=== PATIENT | male | born 1955 | race Caucasian/White ===

== ENCOUNTER 2020-04-27 15:04 | Outpatient (REF) | payer OTHER, SELFPAY ==
[2020-04-27 17:08] LABS: Anion Gap 12 (12-20); Blood Urea Nitrogen 31 mg/dL (9-16); Calcium 9.3 mg/dL (8.4-10.2); Carbon Dioxide 33 mmol/L (22-29); Chloride 99 mmol/L (96-108); Estimated Glomerular Filt Rate 51; Glucose Random 80 mg/dL (60-115); Potassium 4.4 mmol/l (3.3-5.1); Sodium 140 mmol/L (135-145)
== END 2020-04-27 15:05 | disposition home or self-care (01) ==
LOC: HO.HMGCLDS 15:04
PROVIDERS: Hospitalist; PCP Nurse Practitioner Family; Visit Provider Internal Medicine Cardiovascular Disease
DX: I48.20 Chronic atrial fibrillation, unspecified (principal); Z20.828 Contact with and (suspected) exposure to other viral communicable diseases
CPT/HCPCS: 80048; 87635

== ENCOUNTER 2020-07-27 12:42 | Outpatient (REF) | payer OTHER, SELFPAY ==
[2020-07-27 14:03] LABS: MANUAL DIFF FLAG NO
[2020-07-27 14:22] LABS: Basophils Percent Auto 0.7 % (0-2); Eosinophils Absolute Auto 0.1 X10*3/uL (0.0-0.4); Eosinophils Percent Auto 0.9 % (0-4); Hematocrit 44.2 % (42-52); Hemoglobin 14.8 g/dl (14.0-18.0); Imm Gran Abs Auto 0.03 X10*3/uL (0.00-0.03); Imm Gran Pct Auto 0.5 % (0.0-0.4); Lymphocytes Absolute Auto 1.3 X10*3/uL (1.2-4.9); Lymphocytes Percent Auto 23.3 % (20-40); Mean Corpuscular HGB Conc 33.5 g/dl (31.0-36.0); Mean Corpuscular Hemoglobin 30.3 pg (27.0-33.0); Mean Corpuscular Volume 90.4 fL (80-98); Mean Platelet Volume 9.7 fL (9.4-12.4); Monocytes Absolute Auto 0.4 X10*3/uL (0.1-1.2); Monocytes Percent Auto 6.2 % (2-11); Neutrophils Absolute Auto 3.9 X10*3/uL (2.0-8.3); Neutrophils Percent Auto 68.4 % (45-73); Platelet Count 197 X10*3/uL (160-400); Red Blood Count 4.89 X10*6/uL (4.60-5.80); Red Cell Distribution Width 13.4 % (11.0-16.0); White Blood Count 5.6 X10*3/uL (4.8-10.8)
[2020-07-27 15:00] LABS: Anion Gap 16 (12-20); Blood Urea Nitrogen 19 mg/dL (9-16); Calcium 9.1 mg/dL (8.4-10.2); Carbon Dioxide 28 mmol/L (22-29); Chloride 100 mmol/L (96-108); Creatinine Clr Calc Pharmacy 111.9; Estimated Glomerular Filt Rate > 60; Glucose Random 88 mg/dL (60-115); Potassium 3.7 mmol/l (3.3-5.1); Sodium 140 mmol/L (135-145)
[2020-07-27 15:03] LABS: Thyroid Stimulating Hormone 1.81 uIU/mL (0.32-4.0)
== END 2020-07-27 12:43 | disposition home or self-care (01) ==
LOC: HO.HMGCLDS 12:42
PROVIDERS: PCP Nurse Practitioner Family; Visit Provider Nurse Practitioner Family
DX: R55 Syncope and collapse (principal)
CPT/HCPCS: 36415; 80048; 84443; 85025

== ENCOUNTER → 2020-08-15 09:11 | Outpatient (BNVA) | payer OTHER, SELFPAY | PROVIDERS: PCP Nurse Practitioner Family; Visit Provider Internal Medicine Cardiovascular Disease ==

== ENCOUNTER → 2020-09-15 08:26 | Outpatient (REF) | payer OTHER, SELFPAY ==
--- NOTE | ~2020-09-15 | NM_ITS ---
Myocardial perfusion study Indication: Syncope to evaluate for myocardial ischemia Technique: The patient was brought in for a Lexiscan perfusion study on 09/15/2020. Patient performed low-level exercise and was injected 0.4 mg of Lexiscan intravenously. Within a minute of injection, 45 mCi of sestamibi was given intravenously. Images were obtained using the SPECT gamma camera interlaced with the gating device. Images were obtained in supine position. Resting perfusion study was performed on 09/18/2020. Patient was administered 45 mCi of sestamibi intravenously at rest. Images were then obtained in supine position. Images obtained with and without CT attenuation. Total DLP 106 mGy-cm. Images were processed with the software and compared side to side in short axis, horizontal long axis and vertical long axis views. Findings: The stress perfusion study showed mildly reduced uptake in the basal inferior wall of the LV myocardium on non attenuated images. Attenuation corrected images show normal uptake of radiotracer in all segments of LV myocardium.. The gated study shows normal LV systolic function with calculated LVEF of 68%. LV cavity is normal in size. The gated study shows normal systolic wall thickening and contraction of segments. Resting study shows no change in perfusion pattern compared to stress perfusion study. Gating at rest reveals normal systolic wall motion with ejection fraction at 74%. The findings are consistent with normal myocardial perfusion. NM/NM randi perf SPECT rest & str Impression: 1. Myocardial perfusion imaging study shows normal myocardial perfusion 2. Gated LVEF is 68% 3. Transient ischemic dilatation not present EKG is nondiagnostic for ischemia
--- NOTE | 2020-09-15 08:29 | CA_ITS ---
Transthoracic Echocardiogram Patient (Last, First, Middle): Curtis Mccormack, Gender: Male Date of : 1955 Age: 65 Procedure Date: 09/15/2020 Procedure Type: Transthoracic Echocardiogram Location: OP Height: 182.88 cm Weight: 146.51 kg BSA: 2.61 m2 Heart Rate: bpm BP: 131 / 85 mmHg Parts Department Supervisor: LC Referring MD: Jose Parada MD Superintendent Pressure: Jose Parada MD Symptoms: R55 - Syncope and collapse Study Quality: Technically Difficult ECG Rhythm: Atrial Fibrillation Conclusions: - 1. Normal LV systolic function 2. Moderate biatrial enlargement 3. Moderate RV enlargement 4. Normal RV systolic pressure 5. Possible small PFO with [id number] shunting 6. No pericardial effusion Findings Left Ventricle Normal left ventricular size and systolic function. There is mildly increased left ventricular wall thickness. The visually estimated ejection fraction is between 60-65%. Diastolic function is indeterminate on the basis of available data. Right Ventricle The right ventricle was not well visualized. Moderately increased right ventricular cavity size. Atria Moderate biatrial enlargement. Patent foramen ovale detected using by color Doppler. There is evidence of a patent foramen ovale with left to right shunting. Aortic Valve The aortic valve was not well visualized. There is no aortic valve stenosis. There is no aortic valve regurgitation. Mitral Valve There is mild posterior mitral leaflet thickening. There is mild mitral annular calcification. There is trace mitral valve regurgitation. There is no mitral valve stenosis. Pulmonic Valve The pulmonic valve was not well visualized. Tricuspid Valve The tricuspid valve was not well visualized. Tricuspid regurgitation envelope is inadequate for calculation of right ventricular systolic pressure. Great Vessels All visible segments of the aorta are normal in size. The pulmonary artery was not well visualized. Venous The inferior vena cava was not well visualized. Pericardium/Pleural There is no evidence of pericardial effusion. Prior Study Comparison No significant change compared to prior study dated: 01/17/2020. Measurements M-Mode Liner Measurements Normals - Women/Men AOV Cusps: 2.20 1.5-2.6 cm/m2 2D Linear Measurements IVSd: 1.30 0.6-0.9/0.6-1.0 cm LVIDd: 4.62 3.9-5.3/4.2-5.9 cm LVIDd Index: 1.77 2.4-3.2/2.2-3.1 cm/m2 LVIDs: 2.80 2.0-3.6 cm LVPWd: 1.29 0.7-1.1 cm Ao Root: 3.60 2.1-3.5 cm LA Diam: 4.90 2.7-3.8/3.0-4.0 cm LAIDs Index: 1.88 1.5-2.3 cm/m2 LV Mass: 287.24 67-162/88-224 g LV Mass Index: 110.05 43-95/49-115 g/m2 LVOT Diam: 2.40 3.0+(-)1.3 cm 2D Systolic Function EF 4C: 57.80 >55% EF 2C: 60.70 >55% EF BiP: 59.20 >55% Mitral Valve MV Pk E: 1.09 MV Decel Time: 232.00 PHT: 68.00 MVA PHT: 3.24 Decel [place]: 4.69 Aortic Valve AoV Pk Sanjeev: 1.51 AoV Pk Grad: 9.00 LVOT LVOT Pk Sanjeev: 0.87 LVOT Mn Sanjeev: 0.66 LVOT VTI: 0.18 LVOT Pk Grad: 3.00 LVOT Mn Grad: 2.00 LVOT Diam: 2.40 LVOT Area: 4.52 Diastolic Function MV Pk E: 1.09 Tricuspid Valve RA Press: 3.00 Great Vessels Aorta Ao Root-2D: 3.60 2.0-3.7 cm Ao Asc: 4.00 2.1-3.4 cm Ao Arch: 2.90 Pulmonary Valve PV Pk Sanjeev: 1.00 Peak PV Grad: 4.00 Updated in Other Vendor System with Status of Final Jose Parada MD electronically signed on 09/16/2020 1:53:39 PM with status of Final
--- NOTE | 2020-09-15 08:29 | ECG_ITS ---
Hook-up date: 2020-09-15 10:45:00 Duration: 47:59:00 Test Indications: chronic afib Medications: 226800 QRS complexes 25 Ventricular ectopics which represent <1 % of total QRS comp. * Supraventricular ectopics which represent % of total QRS comp. * Paced QRS complexs which represent % of total QRS comp. VENTRICULAR ECTOPY 25 Isolated 0 Bigeminal Cycles 0 Couplets 0 Runs 0 Beats in Runs * Beats LONGEST at * BPM at :: -- * Beats FASTEST at * BPM at :: -- SUPRAVENTRICULAR ECTOPY * Isolated * Couplets * Runs * Beats in Runs * Beats LONGEST at * BPM at :: -- * Beats FASTEST at * BPM at :: -- HEART RATES 32 MIN at 23:23:51 2020-09-15 79 AVG 147 MAX at 11:50:09 2020-09-15 LONGEST RR 3.0320 secs at 23:23:49 2020-09-15 S-T LEVELS Channel 1 - 128 mm at 10:45:00 2020-09-15 - 128 mm at 10:45:00 2020-09-15 Channel 2 - 128 mm at 10:45:00 2020-09-15 - 128 mm at 10:45:00 2020-09-15 Channel 3 - 128 mm at 03:00:41 -- - 128 mm at 03:00:41 Basic rhythm Atrial fibrillation No significant pauses Rare Premature ventricular complexes Rate is well controlled, average HR of 79 bpm Patient did not report any symptoms in the diary Referred By: Jose Parada Overread By: JOSE PARADA MD
--- NOTE | 2020-09-15 08:29 | CA_ITS ---
Acquisition Time: 2020-09-15 09:41:42 Total Exercise Time: 00:02:00 Test Indications: AFIB Medications: Protocol: LEXISCAN Max HR: 109 BPM 69% of Pred: 157 BPM Max BP: 126/072 mmHG Max Work Load: 1.0 METS Pharmacological stress test using Lexiscan while sitting. Sx of dizziness and SOB reversed with Aminophyline 75 mg IV. EKG with a-fib at baseline. Non-diagnostic for ischemia. Nuclear images to follow. Normotensive response to test. Test reviewed with Dr. Padron Referred By: Jose Parada Overread By:
== END ==
LOC: HO.CARD 08:26
PROVIDERS: Visit Provider Internal Medicine Cardiovascular Disease
DX: I48.20 Chronic atrial fibrillation, unspecified (principal); R55 Syncope and collapse; I50.30 Unspecified diastolic (congestive) heart failure; Z95.1 Presence of aortocoronary bypass graft
CPT/HCPCS: 78452; 93017; 93225; 93226; 93306; A9500; J0280; J2785

== ENCOUNTER → 2020-09-26 09:38 | Outpatient (BNVA) | payer OTHER, SELFPAY | PROVIDERS: PCP Nurse Practitioner Family; Visit Provider Internal Medicine Cardiovascular Disease | DX: R55 Syncope and collapse (principal); I48.20 Chronic atrial fibrillation, unspecified; I25.10 Atherosclerotic heart disease of native coronary artery without angina pectoris; I50.20 Unspecified systolic (congestive) heart failure; Z79.899 Other long term (current) drug therapy | CPT/HCPCS: 93005 ==

== ENCOUNTER 2021-05-24 08:05 | Inpatient (IN) | payer OTHER, SELFPAY ==
[2021-05-24] VITALS (14 sets, daily range): BP systolic 99–174; BP diastolic 60–104; PULSE 87–111; RESP 17–21; TEMP 35.9–36.8; O2SAT 92–99; BMI 14.5
--- NOTE | ~2021-05-24 | US_ITS ---
EXAMINATION: US ABDOMEN COMPLETE CLINICAL INFORMATION: Hepatic lesion seen on CT scan. COMPARISON: CT abdomen and pelvis 05/24/2021. TECHNIQUE: Real-time imaging of the abdominal viscera. FINDINGS: PANCREAS: The head and body the pancreas are normal. The tail is not well visualized due to bowel gas. ABDOMINAL AORTA: The proximal, mid, and distal segments are normal in caliber. INFERIOR VENA CAVA: Visualized portions are normal. LIVER: The liver is enlarged. Liver echotexture is increased. There is a complex-appearing cyst in the peripheral right lobe of the liver corresponding to CT abnormality. This measures 3.5 x 2.9 x 2.2 cm in dimension. This contains a solid appearing area isoechoic with the liver measuring approximately 1.5 x 2 cm which does not appear vascular. This may represent echogenic debris in a complex cyst. No other focal liver lesion is seen. There is no intrahepatic biliary duct dilatation seen. GALLBLADDER: There are gallstones in the gallbladder. The gallbladder is normal in size. COMMON BILE DUCT: Normal in caliber measuring 0.3 cm in diameter. RIGHT KIDNEY: There are 2 right renal cysts, largest measuring 2.5 x 2.5 x 2.9 cm in the peripelvic midpole. No hydronephrosis or renal calculi. The kidney measures 14.1 cm in maximum dimension. LEFT KIDNEY: There is a 1.3 cm cyst in the upper pole. No hydronephrosis or renal calculi. The kidney measures 14.3 cm in maximum dimension. SPLEEN: The spleen is enlarged. The spleen measures 16.4 cm in maximum dimension. FREE FLUID: None. US/US abdomen complete IMPRESSION: Enlarged echogenic liver probably representing fatty infiltration. 3.5 x 2.9 x 4.2 cm probable complex cyst in the right lobe of the liver corresponding to CT finding. Ultrasound follow-up in 6 months recommended. Gallstones. Bilateral renal cysts, right greater than left. Enlarged spleen.
--- NOTE | ~2021-05-24 | CT_ITS ---
EXAMINATION: CT ABDOMEN AND PELVIS WITHOUT CONTRAST CLINICAL INFORMATION: Evaluate for necrotizing fasciitis. COMPARISON: No similar priors. TECHNIQUE: Multidetector volumetric imaging was performed from the superior aspect of the liver through the pubic symphysis. Sagittal and coronal reformatted images were obtained on the technologist's workstation. This CT examination was performed using dose optimization techniques as appropriate, variously including the following: *Automated exposure control *Adjustment of mA and/or kV according to patient size (this includes techniques or standardized protocols for targeted exams where dose is matched to indication/reason for exam; i.e. extremities or head) *Use of iterative reconstruction technique DLP: 331 mGy-cm FINDINGS: LUNG BASES: There are a few platelike but somewhat irregular opacities in the left lung base for instance as visualized on images 54 and 87 of series 4 of uncertain etiology, possibly a combination of parenchymal scarring or subsegmental atelectasis. No focal consolidation or pleural effusion. Cardiomegaly with extensive coronary calcifications. No pericardial effusion. In the lower right chest wall there is mild skin thickening and a small focus of air on image 1 of series 4. LIVER, GALLBLADDER, AND BILIARY TREE: The liver is enlarged measuring up to 24 cm in maximum craniocaudal dimensions. In the periphery of the right hepatic lobe adjacent to the falciform ligament there is an indeterminate hypodensity that measures up to approximately 4 cm demonstrating some outpouching into the capsule (image 24 of series 3). No other focal abnormalities. Hepatic contours and shape are within normal limits. There is no biliary ductal dilatation. There is cholelithiasis without associated wall thickening or pericholecystic inflammatory changes to suspect acute cholecystitis. PANCREAS: No focal abnormalities. The main pancreatic duct is nondilated. There is no significant peripancreatic fat stranding or free fluid. SPLEEN: The spleen is enlarged measuring up to 18.3 cm on maximum axial dimensions. There are no definite focal abnormalities. ADRENAL GLANDS: There is asymmetric prominence of the left adrenal gland without discrete nodularities. KIDNEYS AND URETERS: There are vascular and cortical calcifications bilaterally. In the lower pole of the right kidney there is a punctate nonobstructive calculus (image 74 of series 5). There is no hydronephrosis. There are a few bilateral hypodensities which likely represent simple cysts although some of these are too small to characterize. There is mild bilateral perinephric fat stranding. BLADDER: Underdistended limiting its assessment. No significant perivesical fat stranding or focal abnormalities. GASTROINTESTINAL TRACT: Small hiatal hernia. The stomach and small bowel are nondilated. There is a normal appendix in the right upper quadrant. Some portions of the descending colon are not optimally visualized due to artifact. Accounting for these limitations, no pericolic inflammatory changes or bowel obstruction are identified. ABDOMINAL WALL: There is skin thickening, fat stranding and free fluid in the lower abdominal wall, more prominent in the left side and superior to the pubic symphysis where there are several pockets of subcutaneous air for instance as visualized on images 82 and 85 of series 3. A centrally hypoattenuating organized collection is not appreciated. LYMPH NODES: There are a few prominent upper abdominal lymph nodes of uncertain etiology. For example, a 7 mm peripancreatic lymph node on image 24 of series 3, and a 8 mm periportal lymph node on image 28 of series 3 (mL maximum short axis). There are some prominent retroperitoneal lymph nodes that overall demonstrate a preserved fatty hilum and are not pathologically enlarged. There are enlarged inguinal and pelvic lymph nodes. For for instance, a 1.3 cm in maximum short axis left pelvic sidewall lymph node on image 76 of series 3, a 1.2 cm in maximum short axis left iliac lymph node on image 63; and a 1.4 cm in maximum short axis lymph node adjacent to the left femoral vessels on image 79 of series 3. VASCULAR: Extensive atherosclerotic disease of the visualized abdominal aorta and its major branches. The abdominal aorta is of normal diameter. PELVIC VISCERA: Normal appearing prostate and seminal vesicles. OSSEOUS STRUCTURES: Partially visualized irregular intramedullary sclerosis of the proximal left femur of uncertain etiology. Multilevel thoracolumbar spondylosis. CT/CT abdomen pelvis wo con IMPRESSION: Extensive inflammatory changes and subcutaneous gas in the soft tissues of the lower abdominal wall concerning for a necrotizing soft tissue infection. No organized drainable collections at this moment. Hepatosplenomegaly of uncertain etiology. There is an indeterminate hypodense lesion in the right hepatic lobe as above. Recommend further evaluation with a targeted liver ultrasound. Enlarged pelvic and inguinal lymph nodes are possibly reactive. There are also a few prominent upper abdominal lymph nodes of uncertain etiology. The possibility of a systemic hematologic processes such as lymphoma cannot be entirely excluded. Cholelithiasis but no evidence of acute cholecystitis. Indeterminate platelike and somewhat irregular opacities in the left lower lobe are likely sequela of parenchymal scarring and subsegmental atelectasis. However, a short-term follow-up with a nonemergent chest CT should be obtained to ensure no developing lesions. In the right chest wall, there is mild soft tissue thickening and a small focus of air. Correlate clinically for any erythema/tenderness. Partially visualized irregular sclerotic appearance of the intramedullary space of the proximal left femur. Recommend further characterization with a radiographic examination of the left femur. This critical result was discussed with Danis Fox MD at 05/24/2021 9:47 AM and it was ascertained that the content and urgency of the report was understood at the time of direct communication.
--- NOTE | ~2021-05-24 | XR_ITS ---
EXAMINATION: XR FEMUR, LEFT CLINICAL INFORMATION: Follow-up sclerotic lesion of the left femur seen on CT. COMPARISON: CT 05/24/2021 TECHNIQUE: AP and lateral views of the left femur were obtained. FINDINGS: There is limited evaluation of the proximal left femur due to irregular overlying soft tissue density. Partially visualized area of heterogeneous sclerosis in the proximal intertrochanteric region of the left femur. There is no fracture. No cortical irregularity. The hip is well aligned. The remaining femur is intact and unremarkable. Appropriate alignment of the knee. Diffuse vascular calcifications. XR/XR femur LT 2V IMPRESSION: Limited evaluation of the proximal left femur due to overlying soft tissue irregularity/density. The imaging is slightly sclerotic intertrochanteric left femoral lesion is identified. 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
--- NOTE | 2021-05-24 08:19 | ECG_ITS ---
Test Reason : sepsis Blood Pressure : / mmHG Vent. Rate : 107 BPM Atrial Rate : 000 BPM P-R Int : 000 ms QRS Dur : 114 ms QT Int : 368 ms P-R-T Axes : 000 065 028 degrees QTc Int : 491 ms Atrial fibrillation with rapid ventricular response Incomplete right bundle branch block Abnormal ECG No previous ECGs available Referred By: Danis Fox Electronically Signed By:MORELIA MENDIOLA MD
[2021-05-24] MEDS: 0.9 % Sodium Chloride 1,000 ML 999 ML IVCONT (08:24)
--- NOTE | 2021-05-24 08:26 | ED_ITS ---
HPI - General Adult General Chief complaint: Abdominal Pain Stated complaint: LOW ABD PAIN FROM INFECTION Time Seen by Provider: 05/24/21 08:18 Source: patient and EMS Mode of arrival: EMS Limitations: no limitations History of Present Illness HPI narrative: 66-year-old male came in for evaluation of lower abdominal skin infection. 66-year-old male who was otherwise obese overweight personal came in for evaluation of lower abdominal skin infection, patient had a history of cellulitis and the from areas of his body, patient was started on Keflex by his PCP with no improvement. Related Data Home Medications Medication Instructions Recorded Confirmed acetaminophen 500 mg tablet 1,000 mg PO BID 05/24/21 05/24/21 furosemide 80 mg tablet (Lasix) 80 mg PO DAILY 05/24/21 05/24/21 indomethacin 50 mg capsule 50 mg PO DAILY PRN 05/24/21 05/24/21 metoprolol succinate 100 mg 100 mg PO DAILY 05/24/21 05/24/21 tablet,extended release 24 hr nicotine (polacrilex) 4 mg buccal 4 mg BUCCAL Q2-4H PRN 05/24/21 05/24/21 lozenge omega-3 acid ethyl esters 1 gram 2 cap PO DAILY 05/24/21 05/24/21 capsule Previous Rx's Medication Instructions Recorded cholecalciferol (vitamin D3) 50 50 mcg PO DAILY 90 Days #90 tab 12/05/20 mcg (2,000 unit) tablet atorvastatin 80 mg tablet 80 mg PO DAILY #90 tab 02/10/21 apixaban 5 mg tablet (Eliquis) 5 mg PO BID #60 tab 03/14/21 spironolactone 25 mg tablet 25 mg PO DAILY #90 tab 04/16/21 lisinopril 5 mg tablet 5 mg PO DAILY #90 tab 05/04/21 cephalexin 500 mg capsule 500 mg PO BID PRN 10 Days #20 cap 05/21/21 Allergies Allergy/AdvReac Type Severity Reaction Status Date / Time No Known Allergies Allergy Unverified 05/15/20 09:54 [No Known Allergies*] Review of Systems Review of Systems: All other systems are reviewed and are negative Constitutional: Reports as per HPI and Reports no additional constitutional comp laints Eyes: Reports as per HPI and Reports no additional eye complaints Reports system reviewed and no additional complaints, except as documented Cardiovascular: Reports as per HPI and Reports no additional cardiovascular complaints Respiratory: Reports as per HPI and Reports no additional respiratory complaints Gastrointestinal: Reports as per HPI and Reports no additional gastrointestinal complaints Genitourinary: Reports no additional female genitourinary complaints Musculoskeletal: Reports no additional musculoskeletal complaints Skin/Breast: Reports system reviewed and no additional complaints, except as docu Psychiatric: Reports no additional psychiatric complaints Endocrine: Reports no additional endocrine complaints Hematologic/Lymphatic: Reports no additional hematologic/lymphatic complaints Allergic/Immunologic: Reports no additional allergic/immunologic complaints Reports system reviewed and no additional complaints, except as documented and Reports Abnormal speech present [facility] Past Medical History Medical History (HFpEF) heart failure with preserved ejection fraction CAD (coronary artery disease) Chronic atrial fibrillation HTN (hypertension) Morbid obesity MAURICE (obstructive sleep apnea) Surgical History S/P CABG (coronary artery bypass graft) Family History Family History Father CHF (congestive heart failure) CVD (cardiovascular disease) Mother CHF (congestive heart failure) CVD (cardiovascular disease) Diabetes mellitus Brother No problems noted. Brother No problems noted. Sister No problems noted. Son No problems noted. Social History Social History Alcohol intake: never Smoked in Last 30 Days: No Use of substances other than those prescribed or required for medical reasons: No Advance Directives: No Advance Directives Information Provided: No Physical Exam Vital Signs: Vital Signs: Last Vital Signs Temp 98.2 F 05/24/21 08:10 Pulse 111 H 05/24/21 08:10 Resp 18 05/24/21 08:10 BP 174/104 H 05/24/21 08:10 Pulse Ox 95 05/24/21 08:10 Body Mass Index 14.5 Vital signs have been reviewed as appeared to be correct. Blood pressure elevated. Heart rate elevated Respiration rate normal. Temperature normal. Oxygen saturation normal. Appearance: Alert. Oriented X3. No acute distress. Head: Normal external exam. Normocephalic. Atraumatic. No Peck signs noted. No raccoon eyes noted Eyes: PERRLA. EOMI. Conjunctiva and sclera normal. Eyelids normal. ENT: TM's Normal. Pharynx normal. Uvula midline. Moist mucous membranes. No trismus noted. No drooling noted. No muffled voice noted. Neck: Normal inspection. Neck supple. FROM. No adenopathy. Thyroid Normal. No meningeal signs. No neck mass noted. CVS: Normal heart rate and rhythm. Heart sound normal. No murmurs noted. Pulses normal throughout. Respiratory: No respiratory distress. Painless inspiration. Breath sounds normal. No wheezes/rales/rhonchi noted. Chest nontender. No accessory muscle usage noted or decreased air movement noted. Abdomen: Soft, obese, 30 x 15 cm area of redness hotness and tenderness in the lower abdomen, no abscess of fluctuation is appreciated, sounds normal in all 4 quadrants. No distention noted. No organomegaly noted. No visible injury noted. Back: No CVA tenderness. Full range of motion noted. Skin: Skin warm and dry. Normal skin color. Normal skin turgor. No rashes/lesions/lacerations noted. Extremities: No lower extremity edema. Extremities exhibit normal range of motion. Extremities nontender. Neuro: Oriented X 3. Cranial nerve exam: II-XII are grossly intact No motor deficit. No sensory deficit. Reflexes normal. Course Course Course Narrative: Assessment and plan. 66-year-old male came in with lower abdominal wall cellulitis, CT is concerning of necrotizing fasciitis, patient received Zosyn/vancomycin, surgery was consul waldemar, patient will be admitted for IV hydration, surgical debridement. Medical Decision Making Lab Data Lab results reviewed: Yes I reviewed the patient's lab results. Result diagrams: 05/24/21 08:25 05/24/21 08:25 Labs: Lab Results 05/24/21 05/24/21 05/24/21 Range/Units 08:24 08:25 08:25 WBC 12.3 H (4.8-10.8) X10*3/uL RBC 4.26 L (4.60-5.80) X10*6/uL Hgb 13.9 L (14.0-18.0) g/dl Hct 40.6 L (42.0-52.0) % MCV 95.3 (80.0-98.0) fL MCH 32.6 (27.0-33.0) pg MCHC 34.2 (31.0-36.0) g/dl RDW 13.2 (11.0-16.0) % Plt Count 173 (160-400) X10*3/uL MPV 9.8 (9.4-12.4) fL Immature Gran % (Auto) Cancelled Neut % (Auto) Cancelled Lymph % (Auto) Cancelled Mclean % (Auto) Cancelled Eos % (Auto) Cancelled Baso % (Auto) Cancelled Lymph # (Auto) Cancelled Mclean # (Auto) Cancelled Eos # (Auto) Cancelled Baso # (Auto) Cancelled Abs Immat Gran (auto) Cancelled Absolute Neuts (auto) Cancelled Absolute Nucleated RBC 0.000 (0.0-0.012) X10*3/uL Nucleated RBC % (auto) 0.0 (0.0-0.2) /100WBC Neutrophils % (Manual) 85 H (45-73) % Band Neutrophils % 9 H (3-5) % Lymphocytes % (Manual) 4 L (20-40) % Monocytes % (Manual) 1 L (2-11) % Basophils % (Manual) 1 (0-2) % Abs Neuts (Manual) 11.6 H (2.0-8.3) X10*3/uL Lymphocytes # (Manual) 0.5 L (1.2-4.9) X10*3/uL Monocytes # (Manual) 0.1 (0.1-1.2) X10*3/uL Basophils # (Manual) 0.1 (0.0-0.2) X10*3/uL Platelet Estimate NORMAL (NORMAL) Plt Morphology Comment NORMAL RBC Morphology NOTED [place] Cells 2+ (3-5) /OIF Sodium 142 (135-145) mmol/L Potassium 3.4 (3.3-5.1) mmol/L Chloride 103 (96-108) mmol/L Carbon Dioxide 26 (22-29) mmol/L Anion Gap 16 (12-20) BUN 50 H D (9-16) mg/dL Creatinine 1.66 H (0.5-1.4) mg/dL Estim Creat Clear Calc 85.8 Estimated GFR 42 Random Glucose 124 H D (60-115) mg/dL Lactic Acid 2.3 H* (0.5-2.0) mmol/L Calcium 8.6 (8.4-10.2) mg/dL Total Bilirubin 1.2 H (0.0-1.0) mg/dL Direct Bilirubin 0.7 H (0.0-0.5) mg/dL AST 18 (5-37) U/L ALT 17 (0-40) U/L Alkaline Phosphatase 118 H (39-117) U/L Total Protein 6.4 L (6.5-8.0) g/dL Albumin 3.4 L (3.5-5.0) g/dL Lipase 22 (8-78) U/L COVID-19 ([facility]) (Negative) COVID-19 Clin Com 05/24/21 Range/Units 08:25 WBC (4.8-10.8) X10*3/uL RBC (4.60-5.80) X10*6/uL Hgb (14.0-18.0) g/dl Hct (42.0-52.0) % MCV (80.0-98.0) fL MCH (27.0-33.0) pg MCHC (31.0-36.0) g/dl RDW (11.0-16.0) % Plt Count (160-400) X10*3/uL MPV (9.4-12.4) fL Immature Gran % (Auto) Neut % (Auto) Lymph % (Auto) Mclean % (Auto) Eos % (Auto) Baso % (Auto) Lymph # (Auto) Mclean # (Auto) Eos # (Auto) Baso # (Auto) Abs Immat Gran (auto) Absolute Neuts (auto) Absolute Nucleated RBC (0.0-0.012) X10*3/uL Nucleated RBC % (auto) (0.0-0.2) /100WBC Neutrophils % (Manual) (45-73) % Band Neutrophils % (3-5) % Lymphocytes % (Manual) (20-40) % Monocytes % (Manual) (2-11) % Basophils % (Manual) (0-2) % Abs Neuts (Manual) (2.0-8.3) X10*3/uL Lymphocytes # (Manual) (1.2-4.9) X10*3/uL Monocytes # (Manual) (0.1-1.2) X10*3/uL Basophils # (Manual) (0.0-0.2) X10*3/uL Platelet Estimate (NORMAL) Plt Morphology Comment RBC Morphology [place] Cells /OIF Sodium (135-145) mmol/L Potassium (3.3-5.1) mmol/L Chloride (96-108) mmol/L Carbon Dioxide (22-29) mmol/L Anion Gap (12-20) BUN (9-16) mg/dL Creatinine (0.5-1.4) mg/dL Estim Creat Clear Calc Estimated GFR Random Glucose (60-115) mg/dL Lactic Acid (0.5-2.0) mmol/L Calcium (8.4-10.2) mg/dL Total Bilirubin (0.0-1.0) mg/dL Direct Bilirubin (0.0-0.5) mg/dL AST (5-37) U/L ALT (0-40) U/L Alkaline Phosphatase (39-117) U/L Total Protein (6.5-8.0) g/dL Albumin (3.5-5.0) g/dL Lipase (8-78) U/L COVID-19 ([facility]) Negative (Negative) COVID-19 Clin Com See Note Imaging Data CT scan - abdomen: Radiologist's impression: Extensive inflammatory changes and subcutaneous gas in the soft tissues of the lower abdominal wall concerning for a necrotizing soft tissue infection. No organized drainable collections at this moment. ? Hepatosplenomegaly of uncertain etiology. There is an indeterminate hypodense lesion in the right hepatic lobe as above. Recommend further evaluation with a targeted liver ultrasound. ? Enlarged pelvic and inguinal lymph nodes are possibly reactive. There are also a few prominent upper abdominal lymph nodes of uncertain etiology. The possibility of a systemic hematologic processes such as lymphoma cannot be entirely excluded. ? Cholelithiasis but no evidence of acute cholecystitis. ? Indeterminate platelike and somewhat irregular opacities in the left lower lobe are likely sequela of parenchymal scarring and subsegmental atelectasis. However, a short-term follow-up with a nonemergent chest CT should be obtained to ensure no developing lesions. ? In the right chest wall, there is mild soft tissue thickening and a small focus of air. Correlate clinically for any erythema/tenderness. ? Partially visualized irregular sclerotic appearance of the intramedullary space of the proximal left femur. Recommend further characterization with a radiographic examination of the left femur. Discharge Plan Discharge Clinical Impression: Abdominal wall cellulitis Patient Disposition: Admitted As Inpatient Prescriptions: No Action cholecalciferol (vitamin D3) 50 mcg (2,000 unit) tablet 50 mcg PO DAILY 90 Days Qty: 90 RF: 1 atorvastatin 80 mg tablet 80 mg PO DAILY Qty: 90 RF: 1 Eliquis 5 mg tablet 5 mg PO BID Qty: 60 RF: 3 spironolactone 25 mg tablet 25 mg PO DAILY Qty: 90 RF: 3 lisinopril 5 mg tablet 5 mg PO DAILY Qty: 90 RF: 0 cephalexin 500 mg capsule 500 mg PO BID PRN (Reason: skin cysts) 10 Days Qty: 20 RF: 2 acetaminophen 500 mg Tablet 1,000 mg PO BID RF: 0 nicotine (polacrilex) 4 mg Lozenge 4 mg BUCCAL Q2-4H PRN (Reason: Nicotine Cravings) RF: 0 metoprolol succinate 100 mg tablet extended release 24 hr 100 mg PO DAILY RF: 0 furosemide [Lasix] 80 mg tablet 80 mg PO DAILY RF: 0 indomethacin 50 mg capsule 50 mg PO DAILY PRN (Reason: for pain) RF: 0 omega-3 acid ethyl esters 1 gram capsule 2 cap PO DAILY RF: 0
[2021-05-24 08:42] LABS: Hematocrit 40.6 % (42.0-52.0); Hemoglobin 13.9 g/dl (14.0-18.0); Mean Corpuscular HGB Conc 34.2 g/dl (31.0-36.0); Mean Corpuscular Hemoglobin 32.6 pg (27.0-33.0); Mean Corpuscular Volume 95.3 fL (80.0-98.0); Mean Platelet Volume 9.8 fL (9.4-12.4); Platelet Count 173 X10*3/uL (160-400); Red Blood Count 4.26 X10*6/uL (4.60-5.80); Red Cell Distribution Width 13.2 % (11.0-16.0); White Blood Count 12.3 X10*3/uL (4.8-10.8)
[2021-05-24] MEDS: Piperacillin Sodium/Tazobactam 3.375 GM in 0.9 % Sodium Chloride 50 ML IV ×2 (08:44→18:31)
[2021-05-24 08:56] LABS: Lactic Acid 2.3 mmol/L (0.5-2.0)
[2021-05-24 08:56] LABS: COVID-19 Test Negative (Negative); IDNOW Serial# 9DD0AD1C
[2021-05-24 09:00] LABS: Alanine Aminotransferase 17 U/L (0-40); Albumin Level 3.4 g/dL (3.5-5.0); Alkaline Phosphatase 118 U/L (39-117); Anion Gap 16 (12-20); Aspartate Amino Transferase 18 U/L (5-37); Bilirubin Direct 0.7 mg/dL (0.0-0.5); Bilirubin Total 1.2 mg/dL (0.0-1.0); Blood Urea Nitrogen 50 mg/dL (9-16); Calcium 8.6 mg/dL (8.4-10.2); Carbon Dioxide 26 mmol/L (22-29); Chloride 103 mmol/L (96-108); Creatinine Clr Calc Pharmacy 85.8; Estimated Glomerular Filt Rate 42; Glucose Random 124 mg/dL (60-115); Lipase 22 U/L (8-78); Potassium 3.4 mmol/L (3.3-5.1); Sodium 142 mmol/L (135-145); Total Protein 6.4 g/dL (6.5-8.0)
[2021-05-24 09:04] LABS: Band Neutrophils Percent 9 % (3-5); Basophils Abs Manual 0.1 X10*3/uL (0.0-0.2); Basophils Percent Manual 1 % (0-2); Lymphocytes Absolute Manual 0.5 X10*3/uL (1.2-4.9); Lymphocytes Percent Manual 4 % (20-40); Monocytes Absolute Manual 0.1 X10*3/uL (0.1-1.2); Monocytes Percent Manual 1 % (2-11); Neutrophils Absolute Manual 11.6 X10*3/uL (2.0-8.3); Neutrophils Percent Manual 85 % (45-73)
[2021-05-24 09:05] LABS: RBC Morphology NOTED
[2021-05-24 09:06] LABS: Burr Cells 2+ (3-5) /OIF; Platelet Estimate NORMAL (NORMAL); Platelet Morphology Comment NORMAL
[2021-05-24] MEDS: vancomycin HCL 1,000 MG in 0.9 % Sodium Chloride 250 ML 270 MG IV (09:20)
--- NOTE | 2021-05-24 09:39 | PHA.MEDREC ---
Pharmacy Consult ? Medication Reconciliation Pharmacy has completed the medication reconciliation. Theresa SheltonD
[2021-05-24 10:33] LABS: Reflex Lactate? Lactic Acid Added
[2021-05-24] MEDS: Acetaminophen 325 MG TABLET 650 MG PO (10:38)
--- NOTE | 2021-05-24 10:44 | PM.HPGS ---
History of Present Illness History of Present Illness Date of Service: 05/24/21 <Jess Shah PA-C - Last Filed: 05/24/21 11:21> 05/24/21 <Ferdinand Henson MD - Last Filed: 05/24/21 14:36> Chief complaint: abdominal wall cellulitis <Jess Shah PA-C - Last Filed: 05/24/21 11:21> Narrative: Curtis Mccormack is a 66 year old male with PMH significant for a fib on eliquis, CHF, CAD s/p CABG, HTN who presented to the ED with complaints of abdominal wall redness. He reports this began 5 days prior. He says he has a history of this happening but normally he is able to catch it in time and it improves with antibiotics. He states this normally happens under his breasts and they usually start as a pimple and then he develops pain and redness. He is usually prescribed an antibiotic with improvement. He occasionally has to have them drained but this has not happened in a while. He reports this current episode started in a similar manner. He noticed a pimple 5 days ago and developed some surrounding redness. He called his PCP and was prescribed Keflex 500mg BID. He reports that the pain was so significant that he was doubling up the keflex dose without improvement. The pain became severe and the redness continue to spread so he presented to the ED for evaluation. He denies trauma to the area, bug bites. Work up in the ED included a CT scan abd/pelvis showed skin thickening, fat stranding and free fluid in the lower abdominal wall, more prominent in the left side and superior to the pubic symphysis with several pockets of subcutaneous air without a focal fluid collection. He had a leukocytosis of 12.3, BUN/Cr of 50/1.66 and Lactic acid of 2.3. He is on eliquis for his A fib. His last dose was today. <Jess Shah PA-C - Last Filed: 05/24/21 11:21> Review of Systems Constitutional: Constitutional: Denies chills and Denies fever(s) <Jess Shah PA-C - Last Filed: 05/24/21 11:21> ENT: Denies dizziness <Jess Shah PA-C - Last Filed: 05/24/21 11:21> Cardiovascular: Cardiovascular: Denies chest pain, Denies palpitations and Denies dyspnea <Jess Shah PA-C - Last Filed: 05/24/21 11:21> Respiratory: Respiratory: Denies cough and Denies dyspnea <Jess Shah PA-C - Last Filed: 05/24/21 11:21> Gastrointestinal: Gastrointestinal: Reports abdominal pain, Denies nausea and Denies vomiting <Jess Shah PA-C - Last Filed: 05/24/21 11:21> Genitourinary: Genitourinary: Denies dysuria <Jess Shah PA-C - Last Filed: 05/24/21 11:21> Integumentary/Breasts: Skin/Breast: Reports as per HPI, Reports swelling and Reports erythema <Jess Shah PA-C - Last Filed: 05/24/21 11:21> Neurologic: Denies dizziness and Denies focal weakness <Jess Shah PA-C - Last Filed: 05/24/21 11:21> Endocrine: Endocrine: Denies palpitations <Jess Shah PA-C - Last Filed: 05/24/21 11:21> [facility] Past Medical History Medical History: Medical History (Updated 05/24/21 @ 10:27 by Danis Fox MD) (HFpEF) heart failure with preserved ejection fraction CAD (coronary artery disease) Chronic atrial fibrillation HTN (hypertension) Morbid obesity MAURICE (obstructive sleep apnea) <Jess Shah PA-C - Last Filed: 05/24/21 11:21> Family History Family History: Family History Father CHF (congestive heart failure) CVD (cardiovascular disease) Mother CHF (congestive heart failure) CVD (cardiovascular disease) Diabetes mellitus Brother No problems noted. Brother No problems noted. Sister No problems noted. Son No problems noted. <Jess Shah PA-C - Last Filed: 05/24/21 11:21> Surgical History Surgical History: Surgical History (Updated 05/24/21 @ 11:09 by Jess Shah PA-C) H/O umbilical hernia repair S/P CABG (coronary artery bypass graft) <Jess Shah PA-C - Last Filed: 05/24/21 11:21> Social History Social History: Social History Alcohol intake: never Patient Tobacco Use Status: Former Tobacco user Smoked in Last 30 Days: No Use of substances other than those prescribed or required for medical reasons: Yes Substance Use Frequency: Occasionally Have you been hit, kicked, punched, or otherwise hurt by someone within the past year? If so, by whom?: No Are you DNR?: No Advance Directives: No Advance Directives Information Provided: No Recently lost weight without trying: No Nutrition Risks: No Nutritional Risk <Jess Shah PA-C - Last Filed: 05/24/21 11:21> Meds Allergies/Adverse reactions: Allergies Allergy/AdvReac Type Severity Reaction Status Date / Time No Known Allergies Allergy Unverified 05/15/20 09:54 [No Known Allergies*] <Jess Shah PA-C - Last Filed: 05/24/21 11:21> Active Medications: Current Medications Pharmacy Consult (Consult Rx Perform Med Rec) 1 each MISCELLANE ONCE PRN PRN Reason: Consult order Pharmacy Consult (Consult Rx Vancomycin Dosing) 1 each MISCELLANE DAILY PRN PRN Reason: Consult order <Jess Shah PA-C - Last Filed: 05/24/21 11:21> Home medications: Home Medications Medication Instructions Recorded Confirmed Last Taken Type acetaminophen 500 mg tablet 1,000 mg PO BID 05/24/21 05/24/21 05/24/21 History furosemide 80 mg tablet (Lasix) 80 mg PO DAILY 05/24/21 05/24/21 05/24/21 History indomethacin 50 mg capsule 50 mg PO DAILY PRN 05/24/21 05/24/21 05/24/21 History metoprolol succinate 100 mg 100 mg PO DAILY 05/24/21 05/24/21 05/24/21 History tablet,extended release 24 hr nicotine (polacrilex) 4 mg buccal 4 mg BUCCAL Q2-4H PRN 05/24/21 05/24/21 05/24/21 History lozenge omega-3 acid ethyl esters 1 gram 2 cap PO DAILY 05/24/21 05/24/21 05/24/21 History capsule <Jess Shah PA-C Last Filed: 05/24/21 11:21> Physical Exam Vital Signs: Vital Signs: Last Vital Signs Temp 98.2 F 05/24/21 08:10 Pulse 111 H 05/24/21 08:10 Resp 18 05/24/21 08:10 BP 174/104 H 05/24/21 08:10 Pulse Ox 95 05/24/21 08:10 Body Mass Index 14.5 <MONICA Dahl Last Filed: 05/24/21 11:21> Const: General: comfortable, no acute distress and alert <Jess Shah PA-C Last Filed: 05/24/21 11:21> Orientation/consciousness: patient oriented x3 <Jess Shah PA-C Last Filed: 05/24/21 11:21> Eyes: Sclerae: sclerae normal <Jess Shah PA-C Last Filed: 05/24/21 11:21> Chest: Other: some mild induration and erythema under the breasts b/l <Jess Shah PA-C Last Filed: 05/24/21 11:21> Resp: Effort & Inspection: normal respiratory effort <Jess Shah PA-C Last Filed: 05/24/21 11:21> Cardio: Rate: tachycardic <Jess Shah PA-C Last Filed: 05/24/21 11:21> Rhythm: abnormal rhythm <Jess Shah PA-C Last Filed: 05/24/21 11:21> GI: Other: large area of erythema and induration of lower abdomen and pannus, with more induration and tenderness of left side, no crepitus appreciated, no open areas or wounds, no fluctuance appreciated <MONICA Dahl Last Filed: 05/24/21 11:21> Inspection: Yes Abdominal panniculus present and Yes scar <Jess Shah PA-C Last Filed: 05/24/21 11:21> Palpation (GI): Soft to palpation, Tenderness to palpation present (GI) (lower abdomen) and no guarding <MONICA Dahl Last Filed: 05/24/21 11:21> Skin: Other: as mentioned above in GI/breast <MONICA Dahl Last Filed: 05/24/21 11:21> Neuro: General: patient oriented x3 <MONICA Dahl Last Filed: 05/24/21 11:21> Extrem: General: Yes other (chronic venous stasis changes over anterior tibial regions b/l ) <MONICA Dahl Last Filed: 05/24/21 11:21> Results Results Labs: Short CBC 05/24/21 Range/Units 08:25 WBC 12.3 H (4.8-10.8) X10*3/uL Hgb 13.9 L (14.0-18.0) g/dl Hct 40.6 L (42.0-52.0) % Plt Count 173 (160-400) X10*3/uL BMP 05/24/21 08:25 Sodium 142 Potassium 3.4 Chloride 103 Carbon Dioxide 26 BUN 50 H D Creatinine 1.66 H Calcium 8.6 Liver Function 05/24/21 Range/Units 08:25 Total Bilirubin 1.2 H (0.0-1.0) mg/dL Direct Bilirubin 0.7 H (0.0-0.5) mg/dL AST 18 (5-37) U/L ALT 17 (0-40) U/L Alkaline Phosphatase 118 H (39-117) U/L Albumin 3.4 L (3.5-5.0) g/dL <MONICA Dahl Last Filed: 05/24/21 11:21> Additional studies: CT SCAN ABD/PELVIS Extensive inflammatory changes and subcutaneous gas in the soft tissues of the lower abdominal wall concerning for a necrotizing soft tissue infection. No organized drainable collections at this moment. Hepatosplenomegaly of uncertain etiology. There is an indeterminate hypodense lesion in the right hepatic lobe as above. Recommend further evaluation with a targeted liver ultrasound. Enlarged pelvic and inguinal lymph nodes are possibly reactive. There are also a few prominent upper abdominal lymph nodes of uncertain etiology. The possibility of a systemic hematologic processes such as lymphoma cannot be entirely excluded. <Jess HudsonbodeMONICA crawford - Last Filed: 05/24/21 11:21> Assessment and Plan (1) Abdominal wall cellulitis: Status: Acute <Jess Lamasdety MEREFritz - Last Filed: 05/24/21 11:21> (2) (HFpEF) heart failure with preserved ejection fraction: Status: Acute <Jess HudsonJOE graysonYusra - Last Filed: 05/24/21 11:21> (3) S/P CABG x 4: Status: Acute <Jess Hudsonbodeau JOEYusra - Last Filed: 05/24/21 11:21> (4) Chronic atrial fibrillation: Status: Acute <Jess Lamasdeau JOEYusra - Last Filed: 05/24/21 11:21> (5) CAD (coronary artery disease): Status: Acute <Jess HudsonJOE graysonYusra - Last Filed: 05/24/21 11:21> 66 year old male with multiple medical comorbidities presenting with abdominal wall redness and pain for [address] scan demonstrates skin thickening, fat stranding and free fluid in the lower abdominal wall with several pockets of subcutaneous air. This is concerning for a necrotizing process. He also has a leukocytosis, lactic acidosis and is tachycardic, concerning for sepsis. He has received a dose of IV zosyn and IV vanco and IVF bolus in the ED. The patient is admitted to the surgical service. It was recommended to proceed with debridement of the lower abdominal wall. It was discussed with the patient he is higher risk due to his medical comorbidities. He will also likely have a large open wound that will require prolonged wound care. He understands and agrees to proceed. He will be added onto the OR schedule for today. Continue IVF, IV vanco, IV analgesics PRN for pain control. Hospitalist consult was ordered for assistance in management of his medical comorbidities. <Jess Hudsonbodeau JOEYusra - Last Filed: 05/24/21 11:21> 66 year old male with multiple medical comorbidities presenting with abdominal wall redness and pain for [address] scan demonstrates skin thickening, fat stranding and free fluid in the lower abdominal wall with several pockets of subcutaneous air. This is concerning for a necrotizing process. He also has a leukocytosis, lactic acidosis and is tachycardic, concerning for sepsis. He has received a dose of IV zosyn and IV vanco and IVF bolus in the ED. The patient is admitted to the surgical service. It was recommended to proceed with debridement of the lower abdominal wall. It was discussed with the patient he is higher risk due to his medical comorbidities. He will also likely have a large open wound that will require prolonged wound care. He understands and agrees to proceed. He will be added onto the OR schedule for today. Continue IVF, IV vanco, IV analgesics PRN for pain control. Hospitalist consult was ordered for assistance in management of his medical comorbidities. Patient with complaints of pain on the pannus x5 days, with the area redness He is not a diabetic He does have history of multiple skin infections a suggestive of hidradenitis Wide area of induration on the lower most part of the pannus CT showing air bubbles suggestive of necrotizing process Explained to patient that we need to proceed with excisional debridement under anesthesia Reviewed the risks including but not limited to bleeding, infections, repeated debridement, large open wound requiring intensive wound care He understands and agrees to proceed He is on Eliquis This will be held temporarily Seen and examined - agree with OJE Shah <Ferdinand Henson MD - Last Filed: 05/24/21 14:36> Quality Stroke Does the patient have a stroke diagnosis?: No <Jess Shah PA-C - Last Filed: 05/24/21 11:21> VTE Prior VTE?: No <Jess Shah PA-C - Last Filed: 05/24/21 11:21> VTE Risk Level:: Surgical - high <Jess Shah PA-C - Last Filed: 05/24/21 11:21> VTE Device Contraindication: N/A - Device Ordered <Jess Shah PA-C - Last Filed: 05/24/21 11:21> VTE Drug Contraindication: N/A - Med Ordered (on eliquis) <Jess Shah PA-C - Last Filed: 05/24/21 11:21> Procedures Date of Service Date of Service: 05/24/21 <Jess Shah PA-C - Last Filed: 05/24/21 11:21>
[2021-05-24 11:15] LABS: Appearance Urine HAZY; Color Urine YELLOW; Glucose Urine UA NEG (NEG); Leukocyte Esterase Urine NEG (NEG); Nitrite Urine NEG (NEG); PH 5.5 (5.0-8.0); UACC Culture Trigger NO; Urine Blood NEG (NEG); Urine Ketones NEG (NEG); Urine Protein 1+ MG/DL (NEG-TRACE)
--- NOTE | 2021-05-24 11:30 | PHA.PROG ---
Admission Date/Time: Indication: skin Weight in k kg Adjusted body weight in K.6 kg Lander body weight in K.6 kg Obesity Dosing Indication % IBW: Serum Creatinine - Last 168 Hours 05/24/21 08:25 Creatinine 1.66 H Estimated CrCl and GFR - Last 168 Hours 05/24/21 08:25 Estim Creat Clear Calc 85.8 Estimated GFR 42 Vancomycin Loading Dose: 1000 mg Current Vancomycin Dosing Regimen:1250 mg q24 hr Vancomycin Monitoring using AUC goal of 400 - 600 range with trough as surrogate marker: Date and Time for next Vancomycin Level to be drawn:05/26 @0800 Pharmacist Comments on Vancomycin Plan: based on obesity model predicted auc of 506 and trough of 13.3 Vancomycin dosing will take advantage of [employer] as a clinical decision support tool that uses Bayesian modeling to calculate individual patient's pharmacokinetic parameters and forecast the patient's drug concentration time course with the target goal AUC 24 range of 400 - 600 mg/L/hr.
--- NOTE | 2021-05-24 12:00 | PC.NURSE ---
iv inserted by ed staff patent
--- NOTE | 2021-05-24 12:07 | P.EN_ITS ---
Event Note Date of Service: 05/28/21 Event Note: 66M, who came to the ED because of induration, tenderness on the a bdominal wall x 5 days no drainage, no fever abdomen with large pannus, wide area of induration on the lower part, no drainage, no fluctuance WBC 12 CT - bubbles of air in the pannus subcutaneous fat he is not toxic looking, not diabetic but need to rule out necrotizing process will do debridement/I and D in the OR urgently explained to him technique of procedure explained risks, benefits and alternatives pt is on Eliquis
[2021-05-24 12:17] LABS: Granular Casts Urine 0-2 /LPF; RBC Urine 0-2 /HPF (0); Squamous Epithelial Cell Urine TRACE /LPF
[2021-05-24] MEDS: Albuterol Sulfate (0.083%) 2.5 MG/3 ML VIAL.NEB INHALE (12:31)
[2021-05-24 12:44] LABS: ~Lactic Acid-LAB USE ONLY 1.3 mmol/L (0.5-2.0)
--- NOTE | 2021-05-24 14:36 | P.OP_ITS ---
Operative Note Operative Note Date of Service: 05/24/21 Narrative: Preop diagnosis : necrotizing infection of the pannus Postop diagnosis: Necrotizing infection of the pannus Procedure: Wide excision debridement of pannus for necrotizing infection Surgeon: Ferdinand Henson MD academic affairs assistant: JOE Shah Findings: Wide area of necrotizing infection of the subcutaneous fat within the pannus, with redness subcutaneous fat, foul-smelling tissue, sparing the fascia itself. Area of debridement was 29 cm by 14 cm The patient is a 66-year-old male was had a 5 day history of pain on his pannus along with area of redness. He said he had been on antibiotics p.o. as pre scribed by his primary care physician which has not helped. He does have a history of multiple skin infections specially on the groin and the area under the breast. Review of his CT scan shows gas bubbles within the pannus. I explained to him that we needed to proceed with excision node debridement in the operating room under anesthesia. I reviewed the risks, benefits, and alternatives and he had given consent. Was brought to the operating room and placed supine the table under general anesthesia via endotracheal tube. The abdomen including the large pannus and the underside of the pannus itself was prepped and draped in the usual sterile fashion. A surgical time-out was done I made an initial elliptical incision on the lower most part of the pannus using blade 10 and this was carried down through the full-thickness skin and subcutaneous fat. Deep within the pannus we noted a gangrenous and necrotizing subcutaneous fat. I therefore extended the incision using blade 10. I proceeded to then excise this entire nonviable layer of necrotizing subcutaneous tissue . We continued to extend the incision and excised more of the nonviable tissue as we could using the Kaur scissors. We kept in stented and excising tissue until we had noted viable subcutaneous fat. We debrided deep underneath this fatty tissue and examined the fascia which appeared to be involved. I continued to debride subcutaneous fat using the Kaur scissors until all the significant nonviable tissue had been removed. I then used the Pulsavac to clean the entire area. I made sure that there was no tunneling or any other cavities that were not opened up. Again, examination of the fascia did not reveal any involvement. This was therefore a necrotizing infection of the pannus. I controlled all bleeders with electrocautery as well as by tying with 3-0 Dexon. Once hemostasis was ensured, I proceeded to then irrigated some more. I then applied 2 rolls of Kerlix soaked in normal saline as a packing. I covered the entire area with dry thick gauze and ABD pads The procedure was then completed The patient tolerated procedure well. There were no complications noted. A Gregory catheter was inserted at the end. Estimated blood loss was 50 cc The patient was extubated without difficulty in the operating room and transferred to the recovery room with stable vital signs.
--- NOTE | 2021-05-24 15:04 | P.BOP_ITS ---
Brief Operative Note Date of Service: 05/24/21 <Jess Shah PA-C - Last Filed: 05/24/21 15:07> Pre-op diagnosis: necrotizing soft tissue infection <Jess Shah PA-C - Last Filed: 05/24/21 15:07> Post-op diagnosis: same <Jess Shah PA-C - Last Filed: 05/24/21 15:07> Procedure: debridement of abdominal wall <Jess Shah PA-C - Last Filed: 05/24/21 15:07> Surgeon: ANIBAL PEREZ MD <Jess Shah PA-C - Last Filed: 05/24/21 15:07> Anesthesia: GETA <Jess Shah PA-C - Last Filed: 05/24/21 15:07> Was an Integrated Circuit Design Engineer used for this Procedure?: Yes <Jess Shah PA-C - Last Filed: 05/24/21 15:07> No <Anibal Perez MD - Last Filed: 05/24/21 17:23> Integrated Circuit Design Engineer: Jess Shah <Jess Shah PA-C - Last Filed: 05/24/21 15:07> Estimated blood loss (mL): 50 <Jess Shah PA-C - Last Filed: 05/24/21 15:07> Pathology: other (PANNUS; CULTURES ) <Jess Shah PA-C - Last Filed: 05/24/21 15:07> Condition: stable <MONICA Dahl Last Filed: 05/24/21 15:07> Disposition: PACU <MONICA Dahl Last Filed: 05/24/21 15:07>
[2021-05-24] MEDS: oxyCODONE HCl Immed Release 5 MG TABLET 10 MG PO (15:51)
--- NOTE | 2021-05-24 16:24 | P.CONIM_ITS ---
History of Present Illness Data of Consult Service Date: 05/24/21 <JOE Zarate - Last Filed: 05/24/21 17:07> Requesting physician: Ferdinand Henson <JOE Zarate - Last Filed: 05/24/21 17:07> Primary Care Provider: JUAQUIN BallPRubén <JOE Zarate - Last Filed: 05/24/21 17:07> HPI Reason for consult: CAD s/p CABG, afib on eliquis, CHF, HTN <JOE Zarate - Last Filed: 05/24/21 17:07> This is a 66-year-old male with multiple medical comorbidities who presented to the emergency department with abdominal wall redness. This had been ongoing for the past several days. He called his PCP and was started on Keflex however the redness did not improve and he presented to the emergency department for evaluation. Lab work was significant for leukocytosis of 12.3, creatinine 1.66, lactic acid 2.3. CT scan of the abdomen showed extensive inflammatory changes in subcutaneous gas in the soft tissue of the lower abdominal wall concerning for necrotizing soft tissue infection. He was admitted to the surgical service and taken to the OR for debridement. The hospitalists were asked to see him in consultation for management in medical comorbidities. <JOE Zarate - Last Filed: 05/24/21 17:07> Review of Systems Review of Systems: Yes all other systems are reviewed and are negative <JOE Zarate - Last Filed: 05/24/21 17:07> Constitutional: Constitutional: Denies chills <JOE Zarate - Last Filed: 05/24/21 17:07> Cardiovascular: Cardiovascular: Denies chest pain <JOE Zarate - Last Filed: 05/24/21 17:07> Respiratory: Respiratory: Denies cough <JOE Zarate - Last Filed: 05/24/21 17:07> [facility] Medical History: Medical History (HFpEF) heart failure with preserved ejection fraction CAD (coronary artery disease) Chronic atrial fibrillation HTN (hypertension) Morbid obesity MAURICE (obstructive sleep apnea) <JOE Zarate - Last Filed: 05/24/21 17:07> Functional capacity: independent ambulation <JOE Zarate - Last Filed: 05/24/21 17:07> Family History: Family History Father CHF (congestive heart failure) CVD (cardiovascular disease) Mother CHF (congestive heart failure) CVD (cardiovascular disease) Diabetes mellitus Brother No problems noted. Brother No problems noted. Sister No problems noted. Son No problems noted. <JOE Zarate - Last Filed: 05/24/21 17:07> Pertinent family history: see above <JOE Zarate - Last Filed: 05/24/21 17:07> Surgical History: Surgical History H/O umbilical hernia repair S/P CABG (coronary artery bypass graft) <JOE Zarate - Last Filed: 05/24/21 17:07> Social History: Social History Alcohol intake: never Patient Tobacco Use Status: Former Tobacco user Smoked in Last 30 Days: No Use of substances other than those prescribed or required for medical reasons: Yes Substance Use Frequency: Occasionally Have you been hit, kicked, punched, or otherwise hurt by someone within the past year? If so, by whom?: No Are you DNR?: No Advance Directives: No Advance Directives Information Provided: No Recently lost weight without trying: No Nutrition Risks: No Nutritional Risk <JOE Zarate - Last Filed: 05/24/21 17:07> Meds Allergies/Adverse reactions: Allergies Allergy/AdvReac Type Severity Reaction Status Date / Time No Known Allergies Allergy Unverified 05/15/20 09:54 [No Known Allergies*] <JOE Zarate - Last Filed: 05/24/21 17:07> Active Medications: Current Medications Acetaminophen (Acetaminophen 325 Mg Tablet) 650 mg PO Q6H PRN PRN Reason: Pain, Mild (Pain Scale 1-3) Docusate Sodium (Docusate Sodium 100 Mg Capsule) 100 mg PO BID [facility] Hydromorphone HCl (Hydromorphone Hcl 0.5 Mg/0.5 Ml Syringe) 0.5 mg IVPUSH Q2H PRN; Protocol PRN Reason: Pain, Severe (Pain Scale 7-10) Hydromorphone HCl (Hydromorphone Hcl 0.5 Mg/0.5 Ml Syringe) 0.25 mg IVPUSH Q5M PRN; Protocol PRN Reason: Pain, Severe (Pain Scale 7-10) Vancomycin HCl 1,250 mg/ (Sodium Chloride) 250 mls @ 166.667 mls/hr IV Q24H [facility] Piperacillin Sod/Tazobactam (Sod 3.375 gm/ Sodium Chloride) 50 mls @ 100 mls/hr IV Q6H [facility] Sodium Chloride (Ns) 1,000 mls @ 80 mls/hr IVCONT .[id number] [facility] Medication (No Benzodiazepines) 1 each MISCELLANE DAILY [facility] Metoprolol Succinate (Metoprolol Succinate Er 100 Mg Tab.Er.24h) 100 mg PO DAILY [facility]; Protocol Nicotine Polacrilex (Nicotine Polacrilex Lozenge 4 Mg Lozenge) 4 mg BUCCAL Q2H PRN PRN Reason: Nicotine Cravings Ondansetron HCl (Ondansetron Hcl 4 Mg/2 Ml Vial) 4 mg IVPUSH Q8H PRN PRN Reason: Nausea and Vomiting Ondansetron HCl (Ondansetron Hcl 4 Mg/2 Ml Vial) 4 mg IVPUSH ONCE PRN PRN Reason: Nausea and Vomiting Oxycodone HCl (Oxycodone Hcl Immed Release 5 Mg Tablet) 10 mg PO Q4H PRN PRN Reason: Pain, Severe (Pain Scale 7-10) Last Admin: 05/24/21 15:51 Dose: 10 mg Documented by: Pharmacy Consult (Consult Rx Perform Med Rec) 1 each MISCELLANE ONCE PRN PRN Reason: Consult order Pharmacy Consult (Consult Rx Vancomycin Dosing) 1 each MISCELLANE DAILY PRN PRN Reason: Consult order Phenobarbital (Phenobarbital 30 Mg Tablet) 60 mg PO BID [facility] Stop: 05/26/21 21:01 Phenobarbital (Phenobarbital 30 Mg Tablet) 30 mg PO BID [facility] Stop: 05/28/21 21:01 Phenobarbital (Phenobarbital 30 Mg Tablet) 30 mg PO DAILY [facility] Stop: 05/30/21 09:01 Phenobarbital Sodium (Phenobarbital Sodium 130 Mg/Ml Vial) 186 mg IM Q3H [facility] Stop: 05/24/21 22:01 Sodium Chloride (0.9 % Sodium Chloride Flush 3 Ml Syringe) 3 ml IVFLUSH QSHIFT [facility] <JOE Zarate - Last Filed: 05/24/21 17:07> Home medications: Home Medications Medication Instructions Recorded Confirmed Last Taken Type acetaminophen 500 mg tablet 1,000 mg PO BID 05/24/21 05/24/21 05/24/21 History furosemide 80 mg tablet (Lasix) 80 mg PO DAILY 05/24/21 05/24/21 05/24/21 History indomethacin 50 mg capsule 50 mg PO DAILY PRN 05/24/21 05/24/21 05/24/21 History metoprolol succinate 100 mg 100 mg PO DAILY 05/24/21 05/24/21 05/24/21 History tablet,extended release 24 hr nicotine (polacrilex) 4 mg buccal 4 mg BUCCAL Q2-4H PRN 05/24/21 05/24/21 05/24/21 History lozenge omega-3 acid ethyl esters 1 gram 2 cap PO DAILY 05/24/21 05/24/21 05/24/21 History capsule <JOE Zarate - Last Filed: 05/24/21 17:07> Physical Exam Vital Signs and Narrative: Vital Signs: Last Vital Signs Temp 97.1 F 05/24/21 14:50 Pulse 94 05/24/21 16:05 Resp 18 05/24/21 16:05 BP 121/73 05/24/21 16:05 Pulse Ox 97 05/24/21 16:05 Body Mass Index 14.5 <JOE Zarate - Last Filed: 05/24/21 17:07> Const: General: comfortable and alert <JOE Zarate - Last Filed: 05/24/21 17:07> Nutritional Appearance: obese <JOE Zarate - Last Filed: 05/24/21 17:07> Orientation/consciousness: patient oriented x3 <JOE Zarate - Last Filed: 05/24/21 17:07> HENMT: Head: Yes normocephalic and Yes atraumatic <JOE Zarate - Last Filed: 05/24/21 17:07> Eyes: Sclerae: sclerae normal <JOE Zarate - Last Filed: 05/24/21 17:07> Resp: Effort & Inspection: normal respiratory effort and no respiratory distress <JOE Zarate - Last Filed: 05/24/21 17:07> Cardio: Rate: regular rate <JOE Zarate - Last Filed: 05/24/21 17:07> Rhythm: abnormal rhythm irregularly irregular <JOE Zarate - Last Filed: 05/24/21 17:07> GI: Other: lower abdomen covered in clean, dry, intact dressing <JOE Zarate - Last Filed: 05/24/21 17:07> Neuro: General: patient oriented x3 <JOE Zarate - Last Filed: 05/24/21 17:07> Cranial nerves: Yes CN's II-XII intact bilaterally and Yes Bilaterally intact EOM present <JOE Zarate - Last Filed: 05/24/21 17:07> Extrem: Other: b/l lower leg chronic venous stasis changes <JOE Zarate - Last Filed: 05/24/21 17:07> Results Labs CBC and Chem 7: : 05/24/21 08:25 05/24/21 08:25 <JOE Zarate - Last Filed: 05/24/21 17:07> Labs: Laboratory Results - last 24 hr 05/24/21 05/24/21 05/24/21 08:24 08:25 08:25 MCV 95.3 MCH 32.6 MCHC 34.2 RDW 13.2 Plt Count 173 MPV 9.8 Immature Gran % (Auto) Cancelled Neut % (Auto) Cancelled Lymph % (Auto) Cancelled [place] % (Auto) Cancelled Eos % (Auto) Cancelled Baso % (Auto) Cancelled Lymph # (Auto) Cancelled [place] # (Auto) Cancelled Eos # (Auto) Cancelled Baso # (Auto) Cancelled Abs Immat Gran (auto) Cancelled Absolute Neuts (auto) Cancelled Absolute Nucleated RBC 0.000 Nucleated RBC % (auto) 0.0 Neutrophils % (Manual) 85 H Band Neutrophils % 9 H Lymphocytes % (Manual) 4 L Monocytes % (Manual) 1 L Basophils % (Manual) 1 Abs Neuts (Manual) 11.6 H Lymphocytes # (Manual) 0.5 L Monocytes # (Manual) 0.1 Basophils # (Manual) 0.1 Platelet Estimate NORMAL Plt Morphology Comment NORMAL RBC Morphology NOTED Reanna Cells 2+ (3-5) Anion Gap 16 Estim Creat Clear Calc 85.8 Estimated GFR 42 Random Glucose 124 H D Lactic Acid 2.3 H* Lactic Acid Fup @ 2Hr Calcium 8.6 Total Bilirubin 1.2 H Direct Bilirubin 0.7 H AST 18 ALT 17 Alkaline Phosphatase 118 H Total Protein 6.4 L Albumin 3.4 L Lipase 22 Urine Color Urine Appearance Urine pH Ur Specific [place] Urine Protein Urine Glucose (UA) Urine Ketones Urine Blood Urine Nitrite Ur Leukocyte Esterase Urine RBC Urine WBC Ur Squamous Epith Cells Urine Bacteria Granular Casts COVID-19 ([facility]) COVID-19 Clin Com 05/24/21 05/24/21 05/24/21 08:25 10:56 12:25 MCV MCH MCHC RDW Plt Count MPV Immature Gran % (Auto) Neut % (Auto) Lymph % (Auto) [place] % (Auto) Eos % (Auto) Baso % (Auto) Lymph # (Auto) [place] # (Auto) Eos # (Auto) Baso # (Auto) Abs Immat Gran (auto) Absolute Neuts (auto) Absolute Nucleated RBC Nucleated RBC % (auto) Neutrophils % (Manual) Band Neutrophils % Lymphocytes % (Manual) Monocytes % (Manual) Basophils % (Manual) Abs Neuts (Manual) Lymphocytes # (Manual) Monocytes # (Manual) Basophils # (Manual) Platelet Estimate Plt Morphology Comment RBC Morphology [place] Cells Anion Gap Estim Creat Clear Calc Estimated GFR Random Glucose Lactic Acid Lactic Acid Fup @ 2Hr 1.3 Calcium Total Bilirubin Direct Bilirubin AST ALT Alkaline Phosphatase Total Protein Albumin Lipase Urine Color YELLOW Urine Appearance HAZY Urine pH 5.5 Ur Specific [place] 1.020 Urine Protein 1+ H Urine Glucose (UA) NEG Urine Ketones NEG Urine Blood NEG Urine Nitrite NEG Ur Leukocyte Esterase NEG Urine RBC 0-2 Urine WBC 1-4 Ur Squamous Epith Cells TRACE Urine Bacteria NONE Granular Casts 0-2 COVID-19 ([facility]) Negative COVID-19 Clin Com See Note <JOE Zarate - Last Filed: 05/24/21 17:07> Imaging Radiologist's Impressions: Impressions Abdomen/Pelvis CT 05/24/21 08:22 IMPRESSION: Extensive inflammatory changes and subcutaneous gas in the soft tissues of the lower abdominal wall concerning for a necrotizing soft tissue infection. No organized drainable collections at this moment. Hepatosplenomegaly of uncertain etiology. There is an indeterminate hypodense lesion in the right hepatic lobe as above. Recommend further evaluation with a targeted liver ultrasound. Enlarged pelvic and inguinal lymph nodes are possibly reactive. There are also a few prominent upper abdominal lymph nodes of uncertain etiology. The possibility of a systemic hematologic processes such as lymphoma cannot be entirely excluded. Cholelithiasis but no evidence of acute cholecystitis. Indeterminate platelike and somewhat irregular opacities in the left lower lobe are likely sequela of parenchymal scarring and subsegmental atelectasis. However, a short-term follow-up with a nonemergent chest CT should be obtained to ensure no developing lesions. In the right chest wall, there is mild soft tissue thickening and a small focus of air. Correlate clinically for any erythema/tenderness. Partially visualized irregular sclerotic appearance of the intramedullary space of the proximal left femur. Recommend further characterization with a radiographic examination of the left femur. This critical result was discussed with Danis Fox MD at 05/24/2021 9:47 AM and it was ascertained that the content and urgency of the report was understood at the time of direct communication. <JOE Zarate - Last Filed: 05/24/21 17:07> Assessment and Plan (1) Abdominal wall cellulitis: Status: Acute <JOE Zarate - Last Filed: 05/24/21 17:07> (2) CAD (coronary artery disease): Status: Acute <JOE Zarate Last Filed: 05/24/21 17:07> (3) Morbid obesity: Status: Acute <JOE Zarate - Last Filed: 05/24/21 17:07> (4) HTN (hypertension): Status: Acute <JOE Zarate Last Filed: 05/24/21 17:07> This is a 66-year-old male with history of chronic atrial fibrillation on Eliquis, CAD s/p CABG, HFpEF, HTN, HLD who presents to the emergency department with abdominal wall cellulitis found to have soft tissue necrotizing skin infection Sepsis secondary to Necrotizing soft tissue infection of the abdominal wall s/p debridement of abdominal wall Management per surgical team OWEN on CKD 3 -lisinopril, Aldactone, Lasix on hold -gentle IV fluid -monitor renal function closely alcohol use Patient reports drinking alcohol 2 times per week and not for the past 7 days His brother called to report history of alcohol withdrawal infrequent alcohol use Not cevidence of alcohol withdrawal at this time -phenobarbital protocol -supplementation with thiamine, folic acid liver lesion hypodense lesion seen on abdominal CT -dedicated liver US sclerotic appearance of left femur -femur xray Chronic afib -continue metoprolol -resume anticoagulation with Eliquis when safe from surgical perspective Hyperlipidemia -statin on hold CAD No chest pain morbid obesity BMI 40.4 MAURICE unable to tolerate CPAP DVT prophylaxis-mechanical devices. Resume Eliquis when safe from surgical perspective Attending: Dr. Hernandez <JOE Zarate - Last Filed: 05/24/21 17:07> This is a 66-year-old male with history of chronic atrial fibrillation on Eliquis, CAD s/p CABG, HFpEF, HTN, HLD who presents to the emergency department with abdominal wall cellulitis found to have soft tissue necrotizing skin infection Sepsis secondary to Necrotizing soft tissue infection of the abdominal wall s/p debridement of abdominal wall Management per surgical team OWEN on CKD 3 -lisinopril, Aldactone, Lasix on hold -gentle IV fluid -monitor renal function closely alcohol use Patient reports drinking alcohol 2 times per week and not for the past 7 days His brother called to report history of alcohol withdrawal infrequent alcohol use Not cevidence of alcohol withdrawal at this time -phenobarbital protocol -supplementation with thiamine, folic acid liver lesion hypodense lesion seen on abdominal CT -dedicated liver US sclerotic appearance of left femur -femur xray Chronic afib -continue metoprolol -resume anticoagulation with Eliquis when safe from surgical perspective Hyperlipidemia -statin on hold CAD No chest pain morbid obesity BMI 40.4 MAURICE unable to tolerate CPAP DVT prophylaxis-mechanical devices. Resume Eliquis when safe from surgical perspective Attending: Dr. Hernandez Discussed with Ms. Vasquez. Agree with assessment and plan as outlined <Odilon Hernandez, DO - Last Filed: 05/24/21 18:06>
[2021-05-24 16:39] LABS: Magnesium 1.6 mg/dL (1.6-2.6)
--- NOTE | 2021-05-24 16:48 | PC.NURSE ---
taking sips po fluids. no naussea
--- NOTE | 2021-05-24 17:23 | PM.EVENT ---
Event Note Date of Service: 05/24/21 Event Note: seen postop he underwent excisional debridement of pannus for necrotizing infection earlier says he feels much better now after surgery dressings dry stable VS good UO talked to son Jose- pt is an alcoholic, has had hx of withdrawal case discussed with Hospitalist service pain mgt plan dressing change tomorrow at bedside
--- NOTE | 2021-05-24 17:25 | PC.NURSE ---
dr. lincoln at bedside to evaluate patient. made aware patient going to room 357 to be remote tele monitored.
[2021-05-24] MEDS: 0.9 % Sodium Chloride Flush 3 ML SYRINGE IVFLUSH (18:31)
[2021-05-24] MEDS: 0.9 % Sodium Chloride 1,000 ML 80 ML IVCONT (18:31)
[2021-05-24] MEDS: PHENobarbitaL sodium 130 MG/ML VIAL 248 MG IM (18:32)
[2021-05-24] MEDS: Zolpidem Tartrate 5 MG TABLET PO (22:33)
[2021-05-24] MEDS: PHENobarbitaL sodium 130 MG/ML VIAL 186 MG IM (22:33)
[2021-05-25] VITALS (8 sets, daily range): BP systolic 122–153; BP diastolic 70–92; PULSE 80–99; RESP 16–18; TEMP 36–36.9; O2SAT 94–100
[2021-05-25] MEDS: 0.9 % Sodium Chloride Flush 3 ML SYRINGE IVFLUSH ×4 (00:39→22:25)
[2021-05-25] MEDS: Piperacillin Sodium/Tazobactam 3.375 GM in 0.9 % Sodium Chloride 50 ML IV ×4 (00:42→17:31)
[2021-05-25] MEDS: PHENobarbitaL sodium 130 MG/ML VIAL 186 MG IM (00:43)
[2021-05-25 05:38] LABS: Hematocrit 34.9 % (42.0-52.0); Hemoglobin 11.6 g/dl (14.0-18.0); Mean Corpuscular HGB Conc 33.2 g/dl (31.0-36.0); Mean Corpuscular Hemoglobin 32.1 pg (27.0-33.0); Mean Corpuscular Volume 96.7 fL (80.0-98.0); Mean Platelet Volume 9.5 fL (9.4-12.4); Platelet Count 177 X10*3/uL (160-400); Red Blood Count 3.61 X10*6/uL (4.60-5.80); Red Cell Distribution Width 13.3 % (11.0-16.0); White Blood Count 14.1 X10*3/uL (4.8-10.8)
[2021-05-25 06:16] LABS: Anion Gap 12 (12-20); Blood Urea Nitrogen 46 mg/dL (9-16); Calcium 7.8 mg/dL (8.4-10.2); Carbon Dioxide 28 mmol/L (22-29); Chloride 105 mmol/L (96-108); Creatinine Clr Calc Pharmacy 75.2; Estimated Glomerular Filt Rate 51; Glucose Random 100 mg/dL (60-115); Potassium 3.5 mmol/L (3.3-5.1); Sodium 141 mmol/L (135-145)
[2021-05-25 07:56] LABS: Band Neutrophils Percent 13 % (3-5); Lymphocytes Absolute Manual 0.1 X10*3/uL (1.2-4.9); Lymphocytes Percent Manual 1 % (20-40); Monocytes Absolute Manual 0.3 X10*3/uL (0.1-1.2); Monocytes Percent Manual 2 % (2-11); Neutrophils Absolute Manual 13.7 X10*3/uL (2.0-8.3); Neutrophils Percent Manual 84 % (45-73)
[2021-05-25 07:57] LABS: Acanthocytes 2+ (3-5) /OIF; Ovalocytes 1+ (5-14) /OIF; RBC Morphology NOTED
[2021-05-25 07:58] LABS: Platelet Estimate NORMAL (NORMAL); Platelet Morphology Comment NORMAL; Schistocytes 1+ (0-2) /OIF
[2021-05-25 07:59] LABS: Dohle Bodies PRESENT
--- NOTE | 2021-05-25 08:25 | HO.POSTANES ---
Post Anesthesia Evaluation Post Anesthesia Evaluation Vital Signs: Vital Signs Temp Pulse Resp BP Pulse Ox 05/25/21 08:00 97.4 F 93 18 140/75 H 96 05/25/21 03:52 96.9 F 85 18 122/79 97 05/24/21 23:05 96.7 F L 93 18 128/73 96 Anesthesia: General Mental Status: Awake Nausea/Vomiting: None Hydration: Adequate Anesthesia-Related Issues: No Anes. Related Issues
--- NOTE | 2021-05-25 08:25 | PM.PNGS ---
Subjective Subjective Date of Service: 05/25/21 <Jess Shah PA-C - Last Filed: 05/25/21 08:35> 05/25/21 <Ferdinand Henson MD - Last Filed: 05/25/21 15:38> Interval history: Feels much better this morning, pain improved. He is comfortable with analgesics. His abdominal dressing had to be reinforced overnight. Has not been OOB yet. Going for xray/US this morning. <Jess Shah PA-C - Last Filed: 05/25/21 08:35> Physical Exam Vital Signs: Vital Signs: Last Vital Signs Temp 97.4 F 05/25/21 08:00 Pulse 93 05/25/21 08:00 Resp 18 05/25/21 08:00 BP 140/75 H 05/25/21 08:00 Pulse Ox 96 05/25/21 08:00 Body Mass Index 14.5 <Jess Shah PA-C - Last Filed: 05/25/21 08:35> Const: General: comfortable, no acute distress and alert <Jess Shah PA-C - Last Filed: 05/25/21 08:35> Orientation/consciousness: patient oriented x3 <MONICA Dahl Last Filed: 05/25/21 08:35> Resp: Effort & Inspection: normal respiratory effort <MONICA Dahl Last Filed: 05/25/21 08:35> Cardio: Rate: regular rate <MONICA Dahl Last Filed: 05/25/21 08:35> Rhythm: abnormal rhythm <MONICA Dahl Last Filed: 05/25/21 08:35> GI: Other: abdominal dressing intact, reinforced overnight <MONICA Dahl Last Filed: 05/25/21 08:35> Inspection: No distended and Yes Abdominal panniculus present <MONICA Dahl Last Filed: 05/25/21 08:35> Palpation (GI): Soft to palpation <MONICA Dahl Last Filed: 05/25/21 08:35> Skin: Other: warm and dry <Jess Shah PA-C Rubén Last Filed: 05/25/21 08:35> Neuro: General: patient oriented x3 <Jess Shah PA-C Rubén Last Filed: 05/25/21 08:35> Extrem: General: Yes venous stasis dermatitis (b/l LE) <Jess Shah PA-C - Last Filed: 05/25/21 08:35> Procedures Date of Service Date of Service: 05/25/21 <Jess Shah PA-C - Last Filed: 05/25/21 08:35> Progress Note: A&P Assessment and plan (1) CAD (coronary artery disease): Status: Acute <MONICA Dahl Last Filed: 05/25/21 08:35> (2) (HFpEF) heart failure with preserved ejection fraction: Status: Acute <Jess Shah PA-C Rubén Last Filed: 05/25/21 08:35> (3) S/P CABG x 4: Status: Acute <Jess Shah PA-C - Last Filed: 05/25/21 08:35> (4) Chronic atrial fibrillation: Status: Acute <Jess Shah PA-C Rubén Last Filed: 05/25/21 08:35> (5) Necrotizing soft tissue infection: Status: Acute <Jess Shah PA-C Rubén Last Filed: 05/25/21 08:35> Assessment and Plan: 66 year old male admitted with abdominal wall cellulitis, sepsis with gas in pannus on CT, now POD #1 s/p abdominal wall debridement, found to have necrotizing soft tissue infection. He is doing very well post operatively and is clinically appearing well. His pain is improved and well controlled. VSS. Will return to do the dressing change. Sepsis resolved- his lactic acidosis has resolved. His WBC count did trend up this morning but likely reactive. Continue IV zosyn, vanco. Await cultures. Can remove barros today, advance diet. Renal labs improving, OWEN resolving with hydration. On phenobarbitol protocol as patient's son reports ETOH abuse with daily drinking. Hospitalists following for medical comorbidities. Appreciate input. <Jess Shah PA-C - Last Filed: 05/25/21 08:35> 66 year old male admitted with abdominal wall cellulitis, sepsis with gas in pannus on CT, now POD #1 s/p abdominal wall debridement, found to have necrotizing soft tissue infection. He is doing very well post operatively and is clinically appearing well. His pain is improved and well controlled. VSS. Will return to do the dressing change. Sepsis resolved- his lactic acidosis has resolved. His WBC count did trend up this morning but likely reactive. Continue IV zosyn, vanco. Await cultures. Can remove barros today, advance diet. Renal labs improving, OWEN resolving with hydration. On phenobarbitol protocol as patient's son reports ETOH abuse with daily drinking. Hospitalists following for medical comorbidities. Appreciate input. Much more comfortable today Debridement site oozy, has been on Eliquis Seen and examined - agree with JOE Shah <Ferdinand Henson MD - Last Filed: 05/25/21 15:38> Fall Risk Details Current Medications: Current Medications Acetaminophen (Acetaminophen 325 Mg Tablet) 650 mg PO Q6H PRN PRN Reason: Pain, Mild (Pain Scale 1-3) Docusate Sodium (Docusate Sodium 100 Mg Capsule) 100 mg PO BID [facility] Folic Acid (Folic Acid 1 Mg Tablet) 1 mg PO DAILY [facility] Hydromorphone HCl (Hydromorphone Hcl 0.5 Mg/0.5 Ml Syringe) 0.5 mg IVPUSH Q2H PRN; Protocol PRN Reason: Pain, Severe (Pain Scale 7-10) Vancomycin HCl 1,250 mg/ (Sodium Chloride) 250 mls @ 166.667 mls/hr IV Q24H [facility] Sodium Chloride (Ns) 1,000 mls @ 80 mls/hr IVCONT .[id number] [facility] Last Admin: 05/25/21 05:54 Dose: Not Given Documented by: Piperacillin Sod/Tazobactam (Sod 3.375 gm/ Sodium Chloride) 50 mls @ 100 mls/hr IV Q6H [facility] Last Infusion: 05/25/21 06:42 Dose: Infused Documented by: Medication (No Benzodiazepines) 1 each MISCELLANE DAILY [facility] Metoprolol Succinate (Metoprolol Succinate Er 100 Mg Tab.Er.24h) 100 mg PO DAILY [facility]; Protocol Nicotine Polacrilex (Nicotine Polacrilex Lozenge 4 Mg Lozenge) 4 mg BUCCAL Q2H PRN PRN Reason: Nicotine Cravings Ondansetron HCl (Ondansetron Hcl 4 Mg/2 Ml Vial) 4 mg IVPUSH Q8H PRN PRN Reason: Nausea and Vomiting Oxycodone HCl (Oxycodone Hcl Immed Release 5 Mg Tablet) 10 mg PO Q4H PRN PRN Reason: Pain, Severe (Pain Scale 7-10) Last Admin: 05/24/21 15:51 Dose: 10 mg Documented by: Pharmacy Consult (Consult Rx Perform Med Rec) 1 each MISCELLANE ONCE PRN PRN Reason: Consult order Pharmacy Consult (Consult Rx Vancomycin Dosing) 1 each MISCELLANE DAILY PRN PRN Reason: Consult order Phenobarbital (Phenobarbital 30 Mg Tablet) 60 mg PO BID [facility] Stop: 05/26/21 21:01 Phenobarbital (Phenobarbital 30 Mg Tablet) 30 mg PO BID [facility] Stop: 05/28/21 21:01 Phenobarbital (Phenobarbital 30 Mg Tablet) 30 mg PO DAILY [facility] Stop: 05/30/21 09:01 Sodium Chloride (0.9 % Sodium Chloride Flush 3 Ml Syringe) [facility] Last Admin: 05/25/21 00:39 Dose: 3 ml Documented by: Thiamine HCl (Thiamine Hcl 100 Mg Tablet) 100 mg PO DAILY [facility] <Jess Shah PA-C - Last Filed: 05/25/21 08:35> Time Spent With Patient Time: Total time spent is greater than 50% in coordination of care (as documented) at patient's floor/unit and/or counseling patient: <Jess Shah PA-C - Last Filed: 05/25/21 08:35> Time with patient: 15 - 24 minutes <Jess Shah PA-C - Last Filed: 05/25/21 08:35> Quality Stroke Does the patient have a stroke diagnosis?: No <Jess Shah PA-C - Last Filed: 05/25/21 08:35> VTE Prior VTE?: No <Jess Shah PA-C - Last Filed: 05/25/21 08:35> VTE Risk Level:: Surgical - high <Jess Shah PA-C - Last Filed: 05/25/21 08:35> VTE Device Contraindication: N/A - Device Ordered <Jess Shah PA-C - Last Filed: 05/25/21 08:35> VTE Drug Contraindication: N/A - Med Ordered (on eliquis) <Jess Shah PA-C - Last Filed: 05/25/21 08:35>
--- NOTE | 2021-05-25 10:10 | P.PNIM_ITS ---
Subjective Subjective Date of Service: 05/25/21 <JOE Zarate - Last Filed: 05/25/21 10:25> 05/25/21 <Pete Leija MD - Last Filed: 05/25/21 11:12> Interval History: seen and examined this morning follow up consult no overnight events, feeling well this morning. No chest pain, SOB, Nausea or vomiting <JOE Zarate - Last Filed: 05/25/21 10:25> Review of Systems Review of Systems: Yes all other systems are reviewed and are negative <JOE Zarate - Last Filed: 05/25/21 10:25> Constitutional Constitutional: Denies chills and Denies fever(s) <JOE Zarate - Last Filed: 05/25/21 10:25> Cardiovascular Cardiovascular: Denies chest pain <JOE Zarate - Last Filed: 05/25/21 10:25> Respiratory Respiratory: Denies cough <JOE Zarate - Last Filed: 05/25/21 10:25> Gastrointestinal Gastrointestinal: Denies abdominal pain <JOE Zarate - Last Filed: 05/25/21 10:25> Physical Exam Vital Signs: Vital Signs: Last Vital Signs Temp 97.4 F 05/25/21 08:00 Pulse 93 05/25/21 08:00 Resp 18 05/25/21 08:00 BP 140/75 H 05/25/21 08:00 Pulse Ox 96 05/25/21 08:00 Body Mass Index 14.5 <JOE Zarate - Last Filed: 05/25/21 10:25> Const: General: comfortable, no acute distress, alert and awake <JOE Zarate - Last Filed: 05/25/21 10:25> Nutritional Appearance: obese <JOE Zarate - Last Filed: 05/25/21 10:25> Orientation/consciousness: patient oriented x3 <JOE Zarate Last Filed: 05/25/21 10:25> HENMT: Head: Yes normocephalic and Yes atraumatic <JOE Zarate - Last Filed: 05/25/21 10:25> Eyes: Sclerae: sclerae normal <JOE Zarate Last Filed: 05/25/21 10:25> Resp: Effort & Inspection: normal respiratory effort and no respiratory distress <JOE Zarate Last Filed: 05/25/21 10:25> Cardio: Rate: regular rate <JOE Zarate Last Filed: 05/25/21 10:25> Rhythm: abnormal rhythm irregularly irregular <JOE Zarate Last Filed: 05/25/21 10:25> GI: Other: lower abdomen covered in clean, dry, intact dressing <JOE Zarate Last Filed: 05/25/21 10:25> Neuro: General: patient oriented x3 <JOE Zarate Last Filed: 05/25/21 10:25> Cranial nerves: Yes CN's II-XII intact bilaterally and Yes Bilaterally intact EOM present <JOE Zarate Last Filed: 05/25/21 10:25> Extrem: Other: b/l lower leg chronic venous stasis changes <JOE Zarate Last Filed: 05/25/21 10:25> Objective Data Active Medications Acetaminophen (Acetaminophen 325 Mg Tablet) 650 mg PO Q6H PRN PRN Reason: Pain, Mild (Pain Scale 1-3) Docusate Sodium (Docusate Sodium 100 Mg Capsule) 100 mg PO BID [facility] Folic Acid (Folic Acid 1 Mg Tablet) 1 mg PO DAILY [facility] Hydromorphone HCl (Hydromorphone Hcl 0.5 Mg/0.5 Ml Syringe) 0.5 mg IVPUSH Q2H PRN; Protocol PRN Reason: Pain, Severe (Pain Scale 7-10) Vancomycin HCl 1,250 mg/ (Sodium Chloride) 250 mls @ 166.667 mls/hr IV Q24H [facility] Sodium Chloride (Ns) 1,000 mls @ 80 mls/hr IVCONT .[id number] [facility] Last Admin: 05/25/21 05:54 Dose: Not Given Documented by: ALISTAIR Non-Admin Reason: IV Running Piperacillin Sod/Tazobactam (Sod 3.375 gm/ Sodium Chloride) 50 mls @ 100 mls/hr IV Q6H [facility] Last Infusion: 05/25/21 06:42 Dose: 0 mls/hr Documented by: ALISTAIR Medication (No Benzodiazepines) 1 each MISCELLANE DAILY [facility] Metoprolol Succinate (Metoprolol Succinate Er 100 Mg Tab.Er.24h) 100 mg PO DAILY [facility]; Protocol Nicotine Polacrilex (Nicotine Polacrilex Lozenge 4 Mg Lozenge) 4 mg BUCCAL Q2H PRN PRN Reason: Nicotine Cravings Ondansetron HCl (Ondansetron Hcl 4 Mg/2 Ml Vial) 4 mg IVPUSH Q8H PRN PRN Reason: Nausea and Vomiting Oxycodone HCl (Oxycodone Hcl Immed Release 5 Mg Tablet) 10 mg PO Q4H PRN PRN Reason: Pain, Severe (Pain Scale 7-10) Last Admin: 05/24/21 15:51 Dose: 10 mg Documented by: KARTHIK Pharmacy Consult (Consult Rx Perform Med Rec) 1 each MISCELLANE ONCE PRN PRN Reason: Consult order Pharmacy Consult (Consult Rx Vancomycin Dosing) 1 each MISCELLANE DAILY PRN PRN Reason: Consult order Phenobarbital (Phenobarbital 30 Mg Tablet) 60 mg PO BID [facility] Stop: 05/26/21 21:01 Phenobarbital (Phenobarbital 30 Mg Tablet) 30 mg PO BID [facility] Stop: 05/28/21 21:01 Phenobarbital (Phenobarbital 30 Mg Tablet) 30 mg PO DAILY [facility] Stop: 05/30/21 09:01 Sodium Chloride (0.9 % Sodium Chloride Flush 3 Ml Syringe) 3 ml IVFLUSH QSHIFT [facility] Last Admin: 05/25/21 00:39 Dose: 3 ml Documented by: ALISTAIR Thiamine HCl (Thiamine Hcl 100 Mg Tablet) 100 mg PO DAILY [facility] <JOE Zarate - Last Filed: 05/25/21 10:25> Labs CBC & Chem 7: : 05/25/21 05:24 05/25/21 05:24 <JOE Zarate - Last Filed: 05/25/21 10:25> Labs: Laboratory Results - last 24 hr 05/24/21 05/24/21 05/24/21 08:25 10:56 12:25 MCV MCH MCHC RDW Plt Count MPV Immature Gran % (Auto) Neut % (Auto) Lymph % (Auto) [place] % (Auto) Eos % (Auto) Baso % (Auto) Lymph # (Auto) [place] # (Auto) Eos # (Auto) Baso # (Auto) Abs Immat Gran (auto) Absolute Neuts (auto) Absolute Nucleated RBC Nucleated RBC % (auto) Neutrophils % (Manual) Band Neutrophils % Lymphocytes % (Manual) Monocytes % (Manual) Abs Neuts (Manual) Lymphocytes # (Manual) Monocytes # (Manual) Dohle Bodies Platelet Estimate Plt Morphology Comment RBC Morphology Ovalocytes Acanthocytes (Spur) Schistocytes Anion Gap Estim Creat Clear Calc Estimated GFR Random Glucose Lactic Acid Fup @ 2Hr 1.3 Calcium Magnesium 1.6 Urine Color YELLOW Urine Appearance HAZY Urine pH 5.5 Ur Specific [place] 1.020 Urine Protein 1+ H Urine Glucose (UA) NEG Urine Ketones NEG Urine Blood NEG Urine Nitrite NEG Ur Leukocyte Esterase NEG Urine RBC 0-2 Urine WBC 1-4 Ur Squamous Epith Cells TRACE Urine Bacteria NONE Granular Casts 0-2 05/25/21 05/25/21 05:24 05:24 MCV 96.7 MCH 32.1 MCHC 33.2 RDW 13.3 Plt Count 177 MPV 9.5 Immature Gran % (Auto) Cancelled Neut % (Auto) Cancelled Lymph % (Auto) Cancelled [place] % (Auto) Cancelled Eos % (Auto) Cancelled Baso % (Auto) Cancelled Lymph # (Auto) Cancelled [place] # (Auto) Cancelled Eos # (Auto) Cancelled Baso # (Auto) Cancelled Abs Immat Gran (auto) Cancelled Absolute Neuts (auto) Cancelled Absolute Nucleated RBC 0.000 Nucleated RBC % (auto) 0.0 Neutrophils % (Manual) 84 H Band Neutrophils % 13 H Lymphocytes % (Manual) 1 L Monocytes % (Manual) 2 Abs Neuts (Manual) 13.7 H Lymphocytes # (Manual) 0.1 L Monocytes # (Manual) 0.3 Dohle Bodies PRESENT Platelet Estimate NORMAL Plt Morphology Comment NORMAL RBC Morphology NOTED Ovalocytes 1+ (5-14) Acanthocytes (Spur) 2+ (3-5) Schistocytes 1+ (0-2) Anion Gap 12 Estim Creat Clear Calc 75.2 Estimated GFR 51 Random Glucose 100 Lactic Acid Fup @ 2Hr Calcium 7.8 L D Magnesium Urine Color Urine Appearance Urine pH Ur Specific [place] Urine Protein Urine Glucose (UA) Urine Ketones Urine Blood Urine Nitrite Ur Leukocyte Esterase Urine RBC Urine WBC Ur Squamous Epith Cells Urine Bacteria Granular Casts <JOE Zarate - Last Filed: 05/25/21 10:25> Microbiology Microbiology Results: Microbiology 05/24/21 Unknown Gram Stain - Final Abdomen - Wound Routine Culture - Preliminary Culture in progress. <JOE Zarate - Last Filed: 05/25/21 10:25> Assessment and Plan (1) Necrotizing soft tissue infection: Status: Acute <JOE Zarate - Last Filed: 05/25/21 10:25> Assessment and Plan: This is a 66-year-old male with history of chronic atrial fibri llation on Eliquis, CAD s/p CABG, HFpEF, HTN, HLD who presents to the emergency department with abdominal wall cellulitis found to have soft tissue necrotizing skin infection Sepsis secondary to Necrotizing soft tissue infection of the abdominal wall s/p debridement of abdominal wall Management per surgical team OWEN on CKD 3 -lisinopril, Aldactone, Lasix on hold -gentle IV fluid -monitor renal function closely alcohol use Patient reports drinking alcohol 2 times per week and not for the past 7 days His brother called to report history of alcohol withdrawal infrequent alcohol use No evidence of alcohol withdrawal at this time -phenobarbital protocol -supplementation with thiamine, folic acid liver lesion hypodense lesion seen on abdominal CT -dedicated liver US showing probably cyst, recommend US follow up in 6 months sclerotic appearance of left femur -femur xray slightly sclerotic left femoral lesion. -recommend outpatient follow up, possible bone scan Chronic afib HR controlled -continue metoprolol -resume anticoagulation with Eliquis when safe from surgical perspective Hyperlipidemia -statin on hold CAD No chest pain morbid obesity BMI 40.4 MAURICE unable to tolerate CPAP DVT prophylaxis-mechanical devices. Resume Eliquis when safe from surgical perspective Attending: Dr. Leija <JOE Zarate - Last Filed: 05/25/21 10:25> This is a 66-year-old male with history of chronic atrial fibrillation on Eliquis, CAD s/p CABG, HFpEF, HTN, HLD who presents to the emergency department with abdominal wall cellulitis found to have soft tissue necrotizing skin infection Sepsis secondary to Necrotizing soft tissue infection of the abdominal wall s/p debridement of abdominal wall Management per surgical team OWEN on CKD 3 -lisinopril, Aldactone, Lasix on hold -gentle IV fluid -monitor renal function closely alcohol use Patient reports drinking alcohol 2 times per week and not for the past 7 days His brother called to report history of alcohol withdrawal infrequent alcohol use No evidence of alcohol withdrawal at this time -phenobarbital protocol -supplementation with thiamine, folic acid liver lesion hypodense lesion seen on abdominal CT -dedicated liver US showing probably cyst, recommend US follow up in 6 months sclerotic appearance of left femur -femur xray slightly sclerotic left femoral lesion. -recommend outpatient follow up, possible bone scan Chronic afib HR controlled -continue metoprolol -resume anticoagulation with Eliquis when safe from surgical perspective Hyperlipidemia -statin on hold CAD No chest pain morbid obesity BMI 40.4 MAURICE unable to tolerate CPAP DVT prophylaxis-mechanical devices. Resume Eliquis when safe from surgical pe rspective Attending: Dr. Leija -I saw and examined and participate in johnson portion of E/M service, I agree with a/p, findings as documented by midlevel provider as above., <Peteroman Leija MD - Last Filed: 05/25/21 11:12> Quality Stroke Does the patient have a stroke diagnosis?: No <JOE Zarate - Last Filed: 05/25/21 10:25> VTE Prior VTE?: No <JOE Zarate - Last Filed: 05/25/21 10:25> VTE Risk Level:: Surgical - high <JOE Zarate - Last Filed: 05/25/21 10:25> VTE Device Contraindication: N/A - Device Ordered <JOE Zarate - Last Filed: 05/25/21 10:25> VTE Drug Contraindication: N/A - Med Ordered (on eliquis) <JOE Zarate - Last Filed: 05/25/21 10:25>
[2021-05-25] MEDS: Docusate Sodium 100 MG CAPSULE PO ×2 (10:39→22:24)
[2021-05-25] MEDS: Folic Acid 1 MG TABLET PO (10:39)
[2021-05-25] MEDS: Metoprolol Succinate ER 100 MG TAB.ER.24H PO (10:40)
[2021-05-25] MEDS: PHENobarbitaL 30 MG TABLET 60 MG PO ×2 (10:44→22:24)
[2021-05-25] MEDS: vancomycin HCL 1,250 MG in 0.9 % Sodium Chloride 250 ML 166.67 MG IV (10:45)
[2021-05-25] MEDS: Acetaminophen 325 MG TABLET 650 MG PO (10:45)
[2021-05-25] MEDS: Thiamine HCL 100 MG TABLET PO (10:45)
[2021-05-25] MEDS: HYDROmorphone HCl 0.5 MG/0.5 ML SYRINGE IVPUSH ×2 (12:08→15:15)
[2021-05-25] MEDS: 0.9 % Sodium Chloride 1,000 ML 80 ML IVCONT (12:15)
--- NOTE | 2021-05-25 12:27 | P.CONCA_ITS ---
History of Present Illness History of Present Illness Date of Service: 05/25/21 Requesting physician: Gilda Vasquez Consult reason: atrial fibrillation Chief complaint: Cardiovascular management Narrative: I was requested to see Curtis in cardiology consultation today for management of his overall cardiovascular issues. He presented with abdominal wall pain and was diagnosed with cellulitis and subsequently necrotizing infection underwent surgical excision and debridement in the operating room under general anesthesia. He presented with lactic acidosis as well as acute kidney injury. He has diuretics have been appropriately withheld. He has been given IV fluids. Cardiovascular-joseph he has remained stable. His heart rate is slightly elevated this morning. He denies any chest pain, shortness of breath, palpitations. No lightheadedness, syncope. He is feeling a lot better compared to when he came into the hospital. Review of Systems Constitutional: Constitutional: Reports fatigue, Reports fever(s) and Reports poor appetite Cardiovascular: Cardiovascular: Reports no additional cardiovascular complaints Respiratory: Respiratory: Reports no additional respiratory complaints Gastrointestinal: Gastrointestinal: Reports abdominal pain Musculoskeletal: Musculoskeletal: Reports no additional musculoskeletal complaints Integumentary/Breasts: Skin/Breast: Reports system reviewed and no additional complaints, except as docu Neurologic: Reports system reviewed and no additional complaints, except as documented Psychiatric: Psychiatric: Reports no additional psychiatric complaints Endocrine: Endocrine: Reports no additional endocrine complaints and Reports fatigue Hematologic/Lymphatic: Hematologic/Lymphatic: Reports no additional hematologic/lymphatic complaints Allergic/Immunologic: Allergic/Immunologic: Reports no additional allergic/immunologic complaints [facility] Past Medical History Medical History (HFpEF) heart failure with preserved ejection fraction CAD (coronary artery disease) Chronic atrial fibrillation HTN (hypertension) Morbid obesity MAURICE (obstructive sleep apnea) Functional capacity: independent ambulation Family History Family History Father CHF (congestive heart failure) CVD (cardiovascular disease) Mother CHF (congestive heart failure) CVD (cardiovascular disease) Diabetes mellitus Brother No problems noted. Brother No problems noted. Sister No problems noted. Son No problems noted. Surgical History Surgical History H/O umbilical hernia repair S/P CABG (coronary artery bypass graft) Social History Social History Household Members: None Housing: Apartment Do you presently have visiting nurse or other home services: No Alcohol intake: never Patient Tobacco Use Status: Former Tobacco user Quit Date: 2018 Years Smoked: 45 Smoked in Last 30 Days: No Use of substances other than those prescribed or required for medical reasons: Yes Substance Use Type: Marijuana Substance Use Frequency: Daily Last Used Substance: Days (ago) Currently Displaying Signs/Symptoms of Drug Intoxication Withdrawal: No Any prior treatment program specific to substance use: No Have you been hit, kicked, punched, or otherwise hurt by someone within the past year? If so, by whom?: No Do you feel safe in your current relationship?: No Is there a partner from a previous relationship who is making you feel unsafe now?: No Are you made to feel afraid or neglected: No Are you DNR?: No Advance Directives: No Advance Directives Information Provided: No Do you have thoughts of harming others: None Do you have a plan to hurt others: No Plan Recently lost weight without trying: No How much weight loss: Not applicable Eating poorly because of decreased appetite: Yes Nutrition screen score: 1 Nutrition Risks: No Nutritional Risk Poor oral hygiene: No Meds Allergies Allergy/AdvReac Type Severity Reaction Status Date / Time No Known Allergies Allergy Unverified 05/15/20 09:54 [No Known Allergies*] Active Medications: Current Medications Acetaminophen (Acetaminophen 325 Mg Tablet) 650 mg PO Q6H PRN PRN Reason: Pain, Mild (Pain Scale 1-3) Last Admin: 05/25/21 10:45 Dose: 650 mg Documented by: Docusate Sodium (Docusate Sodium 100 Mg Capsule) 100 mg PO BID [facility] Last Admin: 05/25/21 10:39 Dose: 100 mg Documented by: Folic Acid (Folic Acid 1 Mg Tablet) 1 mg PO DAILY [facility] Last Admin: 05/25/21 10:39 Dose: 1 mg Documented by: Hydromorphone HCl (Hydromorphone Hcl 0.5 Mg/0.5 Ml Syringe) 0.5 mg IVPUSH Q2H PRN; Protocol PRN Reason: Pain, Severe (Pain Scale 7-10) Last Admin: 05/25/21 12:08 Dose: 0.5 mg Documented by: Vancomycin HCl 1,250 mg/ (Sodium Chloride) 250 mls @ 166.667 mls/hr IV Q24H [facility] Last Admin: 05/25/21 10:45 Dose: 166.67 mls/hr Documented by: Sodium Chloride (Ns) 1,000 mls @ 80 mls/hr IVCONT .[id number] [facility] Last Admin: 05/25/21 12:15 Dose: 80 mls/hr Documented by: Piperacillin Sod/Tazobactam (Sod 3.375 gm/ Sodium Chloride) 50 mls @ 100 mls/hr IV Q6H [facility] Last Infusion: 05/25/21 06:42 Dose: Infused Documented by: Medication (No Benzodiazepines) 1 each MISCELLANE DAILY [facility] Metoprolol Succinate (Metoprolol Succinate Er 100 Mg Tab.Er.24h) 100 mg PO DAILY [facility]; Protocol Last Admin: 05/25/21 10:40 Dose: 100 mg Documented by: Nicotine Polacrilex (Nicotine Polacrilex Lozenge 4 Mg Lozenge) 4 mg BUCCAL Q2H PRN PRN Reason: Nicotine Cravings Ondansetron HCl (Ondansetron Hcl 4 Mg/2 Ml Vial) 4 mg IVPUSH Q8H PRN PRN Reason: Nausea and Vomiting Oxycodone HCl (Oxycodone Hcl Immed Release 5 Mg Tablet) 10 mg PO Q4H PRN PRN Reason: Pain, Severe (Pain Scale 7-10) Last Admin: 05/24/21 15:51 Dose: 10 mg Documented by: Pharmacy Consult (Consult Rx Perform Med Rec) 1 each MISCELLANE ONCE PRN PRN Reason: Consult order Pharmacy Consult (Consult Rx Vancomycin Dosing) 1 each MISCELLANE DAILY PRN PRN Reason: Consult order Phenobarbital (Phenobarbital 30 Mg Tablet) 60 mg PO BID [facility] Stop: 05/26/21 21:01 Last Admin: 05/25/21 10:44 Dose: 60 mg Documented by: Phenobarbital (Phenobarbital 30 Mg Tablet) 30 mg PO BID [facility] Stop: 05/28/21 21:01 Phenobarbital (Phenobarbital 30 Mg Tablet) 30 mg PO DAILY [facility] Stop: 05/30/21 09:01 Sodium Chloride (0.9 % Sodium Chloride Flush 3 Ml Syringe) 3 ml IVFLUSH QSHIFT [facility] Last Admin: 05/25/21 10:39 Dose: 3 ml Documented by: Thiamine HCl (Thiamine Hcl 100 Mg Tablet) 100 mg PO DAILY [facility] Last Admin: 05/25/21 10:45 Dose: 100 mg Documented by: Home Medications Medication Instructions Recorded Confirmed Last Taken Type acetaminophen 500 mg tablet 1,000 mg PO BID 05/24/21 05/24/21 05/24/21 History furosemide 80 mg tablet (Lasix) 80 mg PO DAILY 05/24/21 05/24/21 05/24/21 History indomethacin 50 mg capsule 50 mg PO DAILY PRN 05/24/21 05/24/21 05/24/21 History metoprolol succinate 100 mg 100 mg PO DAILY 05/24/21 05/24/21 05/24/21 History tablet,extended release 24 hr nicotine (polacrilex) 4 mg buccal 4 mg BUCCAL Q2-4H PRN 05/24/21 05/24/21 05/24/21 History lozenge omega-3 acid ethyl esters 1 gram 2 cap PO DAILY 05/24/21 05/24/21 05/24/21 History capsule Physical Exam Vital Signs: Vital Signs: Last Vital Signs Temp 98.4 F 05/25/21 11:39 Pulse 95 05/25/21 11:39 Resp 18 05/25/21 11:39 BP 131/83 05/25/21 11:39 Pulse Ox 97 05/25/21 11:39 Body Mass Index 14.5 Const: General: cooperative, comfortable, no acute distress, alert and awake Nutritional Appearance: obese Orientation/consciousness: patient oriented x3 Limitations: no limitations HENMT: Head: Yes normocephalic and Yes atraumatic Neck: Neck: Yes trachea midline, Yes supple and Yes no JVD Chest: Chest palpation & inspection: normal inspection of the chest Resp: Effort & Inspection: normal respiratory effort Auscultation: wheezes right lower Cardio: Jugular venous distension: no JVD Rate: regular rate Rhythm: abnormal rhythm irregularly irregular Heart sounds: S1 normal heart sound present, S2 normal heart sound present, no click, no gallops, no murmurs and no rubs GI: Inspection: Yes Abdominal panniculus present, Yes obesity and Yes other (Surgical dressing on the lower part) Auscultation: normal bowel sounds Skin: General skin exam: no rashes or lesions noted Neuro: General: patient oriented x3 and no focal motor deficits Extrem: General: Yes no clubbing, cyanosis or edema and Yes venous stasis dermatitis Psych: Appearance: grossly normal Results Labs and Meds Result diagrams: 05/25/21 05:24 05/25/21 05:24 Lab results: Laboratory Results - last 24 hr 05/24/21 05/24/21 05/25/21 08:25 12:25 05:24 WBC 14.1 H RBC 3.61 L Hgb 11.6 L Hct 34.9 L MCV 96.7 MCH 32.1 MCHC 33.2 RDW 13.3 Plt Count 177 MPV 9.5 Immature Gran % (Auto) Cancelled Neut % (Auto) Cancelled Lymph % (Auto) Cancelled Sullivan % (Auto) Cancelled Eos % (Auto) Cancelled Baso % (Auto) Cancelled Lymph # (Auto) Cancelled Sullivan # (Auto) Cancelled Eos # (Auto) Cancelled Baso # (Auto) Cancelled Abs Immat Gran (auto) Cancelled Absolute Neuts (auto) Cancelled Absolute Nucleated RBC 0.000 Nucleated RBC % (auto) 0.0 Neutrophils % (Manual) 84 H Band Neutrophils % 13 H Lymphocytes % (Manual) 1 L Monocytes % (Manual) 2 Abs Neuts (Manual) 13.7 H Lymphocytes # (Manual) 0.1 L Monocytes # (Manual) 0.3 Dohle Bodies PRESENT Platelet Estimate NORMAL Plt Morphology Comment NORMAL RBC Morphology NOTED Ovalocytes 1+ (5-14) Acanthocytes (Spur) 2+ (3-5) Schistocytes 1+ (0-2) Sodium Potassium Chloride Carbon Dioxide Anion Gap BUN Creatinine Estim Creat Clear Calc Estimated GFR Random Glucose Lactic Acid Fup @ 2Hr 1.3 Calcium Magnesium 1.6 05/25/21 05:24 WBC RBC Hgb Hct MCV MCH MCHC RDW Plt Count MPV Immature Gran % (Auto) Neut % (Auto) Lymph % (Auto) Sullivan % (Auto) Eos % (Auto) Baso % (Auto) Lymph # (Auto) Sullivan # (Auto) Eos # (Auto) Baso # (Auto) Abs Immat Gran (auto) Absolute Neuts (auto) Absolute Nucleated RBC Nucleated RBC % (auto) Neutrophils % (Manual) Band Neutrophils % Lymphocytes % (Manual) Monocytes % (Manual) Abs Neuts (Manual) Lymphocytes # (Manual) Monocytes # (Manual) Dohle Bodies Platelet Estimate Plt Morphology Comment RBC Morphology Ovalocytes Acanthocytes (Spur) Schistocytes Sodium 141 Potassium 3.5 Chloride 105 Carbon Dioxide 28 Anion Gap 12 BUN 46 H Creatinine 1.41 H Estim Creat Clear Calc 75.2 Estimated GFR 51 Random Glucose 100 Lactic Acid Fup @ 2Hr Calcium 7.8 L D Magnesium EKG shows atrial fibrillation rapid ventricular response with incomplete right bundle-branch block Imaging Radiologist's impression: Impressions Femur X-Ray 05/25/21 08:26 IMPRESSION: Limited evaluation of the proximal left femur due to overlying soft tissue irregularity/density. The imaging is slightly sclerotic intertrochanteric left femoral lesion is identified. 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 Abdomen Ultrasound 05/25/21 08:44 IMPRESSION: Enlarged echogenic liver probably representing fatty infiltration. 3.5 x 2.9 x 4.2 cm probable complex cyst in the right lobe of the liver corresponding to CT finding. Ultrasound follow-up in 6 months recommended. Gallstones. Bilateral renal cysts, right greater than left. Enlarged spleen. Assessment and Plan (1) (HFpEF) heart failure with preserved ejection fraction: Status: Acute Prior history of heart failure preserved ejection fraction comes in with acute kidney injury, due to intravascular volume depletion from sepsis. Continue to hold Lasix and Aldactone for now till his kidney function normalized. Can resume as soon as the kidney function normalized. Closely watch for signs of heart failure. Blood pressure is well optimized at this point time. (2) CAD (coronary artery disease): Status: Acute Coronary artery disease with remote coronary artery bypass grafting. Currently not having any symptoms or signs of myocardial ischemia. Continue management as per se with blood pressure management which is optimized. Continue statin therapy. Resume oral anticoagulant once surgically cleared (3) Chronic atrial fibrillation: Status: Acute Chronic atrial fibrillation borderline rate control due to his acute surgical/medical issue. Continue monitor. Continue metoprolol therapy for now. His oral anticoagulation has been appropriately withheld due to current surgical open wound as well as losing. Resume as soon as possible from surgical perspective. Discussed with patient about day-to-day risk being small. He understands and agrees. Will sign of the case. Feel free to consult us. Procedures Date of Service Date of Service: 05/25/21
--- NOTE | 2021-05-25 13:08 | PM.EVENT ---
Documented by User: Jess Shah PA-C 05/25/21 13:12 Event Note Date of Service: 05/25/21 Event Note: Dressing changed. Abdominal wound clean, no further necrosis noted. Still very oozy, cont to hold eliquis for now. Continue daily dressing changes with saline soaked kerlix roll, fluffs, abd dressing and tape. Pressure type dressing applied. Received dilaudid 0.5mg IV prior to dressing change- will need higher dose prior to next dressing changes. Otherwise tolerated dressing change very well. Hopefully wound vac application prior to discharge. Documented by User: Ferdinand Henson MD 05/28/21 12:27 Event Note Date of Service: 05/28/21 Event Note: Dressing changed. Abdominal wound clean, no further necrosis noted. Still very oozy, cont to hold eliquis for now. Continue daily dressing changes with saline soaked kerlix roll, fluffs, abd dressing and tape. Pressure type dressing applied. Received dilaudid 0.5mg IV prior to dressing change- will need higher dose prior to next dressing changes. Otherwise tolerated dressing change very well. Hopefully wound vac application prior to discharge. Patient seen and examined - agree with JOE Shah
--- NOTE | 2021-05-25 13:37 | MHC.CM.PN ---
PATIENT LIVES ALONE. HE SUES NO DME OR VNA SERVICES. CURRENTLY WORKS AND IS INDEPENDENT WITH HIS ADLS NEW HCP NAMING SON FELTON IN CHART AND UPLOADED INTO [employer]. PATIENT IS AGREEABLE TO A VNA REFERRAL AND CHOOSES [facility]. REFERRAL PLACED. EXPECTED DC Friday05/28/21
--- NOTE | 2021-05-25 13:56 | MHC.CLN ---
NUTRITION CONSULT CONSULT DUE TO DECREASED APPETITE. DIET ADVANCED TO CARDIAC POST LUNCH. STATED THAT INTAKE WAS POOR FOR ABOUT 5 DAYS PRIOR TO COMING TO HOSPITAL. WEIGHT LOSS X 10 MONTHS -8.8%. STATED THAT LIVES BY SELF AND EATS TAKE OUT FREQUENTLY AND HAS MADE AN EFFORT TO EAT WELL. APPEARS EAGER TO RESUME PO AND FEELING BETTER POST SURGERY. DIET=CARDIAC. NO ADDITIONAL NUTRITION INTERVENTIONS.
[2021-05-25] MEDS: oxyCODONE HCl Immed Release 5 MG TABLET 10 MG PO (15:15)
--- NOTE | 2021-05-25 15:38 | PM.EVENT ---
Event Note Date of Service: 05/25/21 Event Note: Patient just got up to the bathroom, dressings loosened and noted to be bleeding I changed his dressings, cauterized 1 particular area on the right side of the wound near the top edge with silver nitrate sticks Reapplied moist Kerlix roll as packing and applied dressings with fluffy dressings and drainage packs Off of Eliquis and any heparin at this time - discuss with precision jig grinder Daily wound care He was advised to not get out of bed as dressings tend to come off when he gets up Seen by ID as well Doing well after debridement for necrotizing infection of the pannus yesterday
--- NOTE | 2021-05-25 15:53 | P.CNID_ITS ---
History of Present Illness Data of Consult Service Date: 05/25/21 Requesting physician: Ferdinand Henson Primary Care Provider: Carroll Guthrie [facility] HPI Reason for consult: abdominal redness He presents to hospital with redness lower abdominal wall. He has CT abdomen and pelvis showing gas and cellulitis He denies injury to area and is not diabetic or on diabetic medication. Review of Systems Review of Systems: Yes all other systems are reviewed and are negative [facility] Past Medical History Medical History (HFpEF) heart failure with preserved ejection fraction CAD (coronary artery disease) Chronic atrial fibrillation HTN (hypertension) Morbid obesity MAURICE (obstructive sleep apnea) Functional capacity: independent ambulation Family History Family History Father CHF (congestive heart failure) CVD (cardiovascular disease) Mother CHF (congestive heart failure) CVD (cardiovascular disease) Diabetes mellitus Brother No problems noted. Brother No problems noted. Sister No problems noted. Son No problems noted. Surgical History Surgical History H/O umbilical hernia repair S/P CABG (coronary artery bypass graft) Status post debridement (~05/24/21) Social History Social History Household Members: None Housing: Apartment Do you presently have visiting nurse or other home services: No Alcohol intake: never Patient Tobacco Use Status: Former Tobacco user Quit Date: 2018 Years Smoked: 45 Substance Use Type: Marijuana service: No Current occupational status: employed Meds Allergies Allergy/AdvReac Type Severity Reaction Status Date / Time No Known Allergies Allergy Verified 06/13/21 15:03 [No Known Allergies*] Active Medications: Current Medications Acetaminophen (Acetaminophen 325 Mg Tablet) 650 mg PO Q6H PRN PRN Reason: Pain, Mild (Pain Scale 1-3) Last Admin: 05/25/21 10:45 Dose: 650 mg Documented by: Docusate Sodium (Docusate Sodium 100 Mg Capsule) 100 mg PO BID [facility] Last Admin: 05/25/21 10:39 Dose: 100 mg Documented by: Folic Acid (Folic Acid 1 Mg Tablet) 1 mg PO DAILY [facility] Last Admin: 05/25/21 10:39 Dose: 1 mg Documented by: Hydromorphone HCl (Hydromorphone Hcl 1 Mg/Ml Syringe) 1 mg IVPUSH Q4H PRN; Protocol PRN Reason: Pain, Severe (Pain Scale 7-10) Vancomycin HCl 1,250 mg/ (Sodium Chloride) 250 mls @ 166.667 mls/hr IV Q24H [facility] Last Infusion: 05/25/21 12:40 Dose: Infused Documented by: Sodium Chloride (Ns) 1,000 mls @ 80 mls/hr IVCONT .[id number] [facility] Last Admin: 05/25/21 12:15 Dose: 80 mls/hr Documented by: Piperacillin Sod/Tazobactam (Sod 3.375 gm/ Sodium Chloride) 50 mls @ 100 mls/hr IV Q6H [facility] Last Infusion: 05/25/21 13:41 Dose: Infused Documented by: Medication (No Benzodiazepines) 1 each MISCELLANE DAILY [facility] Metoprolol Succinate (Metoprolol Succinate Er 100 Mg Tab.Er.24h) 100 mg PO SHARITA Y [facility]; Protocol Last Admin: 05/25/21 10:40 Dose: 100 mg Documented by: Nicotine Polacrilex (Nicotine Polacrilex Lozenge 4 Mg Lozenge) 4 mg BUCCAL Q2H PRN PRN Reason: Nicotine Cravings Ondansetron HCl (Ondansetron Hcl 4 Mg/2 Ml Vial) 4 mg IVPUSH Q8H PRN PRN Reason: Nausea and Vomiting Oxycodone HCl (Oxycodone Hcl Immed Release 5 Mg Tablet) 10 mg PO Q4H PRN PRN Reason: Pain, Severe (Pain Scale 7-10) Last Admin: 05/25/21 15:15 Dose: 10 mg Documented by: Pharmacy Consult (Consult Rx Perform Med Rec) 1 each MISCELLANE ONCE PRN PRN Reason: Consult order Pharmacy Consult (Consult Rx Vancomycin Dosing) 1 each MISCELLANE DAILY PRN PRN Reason: Consult order Phenobarbital (Phenobarbital 30 Mg Tablet) 60 mg PO BID [facility] Stop: 05/26/21 21:01 Last Admin: 05/25/21 10:44 Dose: 60 mg Documented by: Phenobarbital (Phenobarbital 30 Mg Tablet) 30 mg PO BID [facility] Stop: 05/28/21 21:01 Phenobarbital (Phenobarbital 30 Mg Tablet) 30 mg PO DAILY [facility] Stop: 05/30/21 09:01 Sodium Chloride (0.9 % Sodium Chloride Flush 3 Ml Syringe) 3 ml IVFLUSH QSHIFT [facility] Last Admin: 05/25/21 10:39 Dose: 3 ml Documented by: Thiamine HCl (Thiamine Hcl 100 Mg Tablet) 100 mg PO DAILY [facility] Last Admin: 05/25/21 10:45 Dose: 100 mg Documented by: Home Medications Medication Instructions Recorded Confirmed Last Taken Type acetaminophen 500 mg tablet 1,000 mg PO BID 05/24/21 06/13/21 05/24/21 History furosemide 80 mg tablet (Lasix) 80 mg PO DAILY 05/24/21 06/13/21 05/24/21 History metoprolol succinate 100 mg 100 mg PO DAILY 05/24/21 06/13/21 05/24/21 History tablet,extended release 24 hr nicotine (polacrilex) 4 mg buccal 4 mg BUCCAL Q2-4H PRN 05/24/21 06/13/21 05/24/21 History lozenge omega-3 acid ethyl esters 1 gram 2 cap PO DAILY 05/24/21 06/13/21 05/24/21 History capsule Physical Exam Vital Signs: Vital Signs: Last Vital Signs Temp 98.1 F 05/25/21 15:33 Pulse 94 05/25/21 15:33 Resp 17 05/25/21 15:33 BP 128/83 05/25/21 15:33 Pulse Ox 94 05/25/21 15:33 Body Mass Index 14.5 Const: General: cooperative Eyes: General: appearance normal, both eyes and all related structures Resp: Effort & Inspection: normal respiratory effort Cardio: Rate: regular rate Rhythm: regular rhythm GI: Palpation (GI): Soft to palpation (stephane hue skin from umbilicus down,deep wound,packed and observed unpacking ) Results Labs CBC & Chem 7: 05/30/21 05:22 05/31/21 05:36 Labs: Short CBC 05/25/21 Range/Units 05:24 WBC 14.1 H (4.8-10.8) X10*3/uL Hgb 11.6 L (14.0-18.0) g/dl Hct 34.9 L (42.0-52.0) % Plt Count 177 (160-400) X10*3/uL BMP 05/25/21 05:24 Sodium 141 Potassium 3.5 Chloride 105 Carbon Dioxide 28 BUN 46 H Creatinine 1.41 H Calcium 7.8 L D Microbiology Microbiology Results: Microbiology 05/24/21 08:43 Blood - Venous Blood Culture - Preliminary No growth after 24 hours. 05/24/21 08:24 Blood - Venous Blood Culture - Preliminary No growth after 24 hours. 05/24/21 Unknown Abdomen - Wound Gram Stain - Final 05/24/21 Unknown Abdomen - Wound Routine Culture - Preliminary Culture in progress. Assessment and Plan (1) Necrotizing soft tissue infection: Status: Acute There is concern over anerobes,gram negative and gram positive infection NKDA (2) Abdominal wall cellulitis: Status: Acute Would continue Vancomycin and Zosyn duration to be determined Await cultures Surgical debridement
[2021-05-26] MEDS: 0.9 % Sodium Chloride 1,000 ML 80 ML IVCONT (00:53)
[2021-05-26] MEDS: Piperacillin Sodium/Tazobactam 3.375 GM in 0.9 % Sodium Chloride 50 ML IV ×5 (00:53→23:15)
[2021-05-26 04:00] VITALS: BP 159/87; PULSE 81; RESP 18; TEMP 36.1; O2SAT 94
[2021-05-26 07:03] VITALS: BP 141/81; PULSE 80; RESP 18; TEMP 36.6; O2SAT 95
[2021-05-26 08:04] LABS: MANUAL DIFF FLAG NO
[2021-05-26 08:07] LABS: Basophils Percent Auto 0.2 % (0-2); Eosinophils Absolute Auto 0.1 X10*3/uL (0.0-0.4); Eosinophils Percent Auto 0.6 % (0-4); Hematocrit 32.4 % (42.0-52.0); Hemoglobin 10.7 g/dl (14.0-18.0); Imm Gran Abs Auto 0.23 X10*3/uL (0.00-0.03); Imm Gran Pct Auto 1.8 % (0.0-0.4); Lymphocytes Absolute Auto 0.8 X10*3/uL (1.2-4.9); Lymphocytes Percent Auto 6.4 % (20-40); Mean Corpuscular Hemoglobin 32.3 pg (27.0-33.0); Mean Corpuscular Volume 97.9 fL (80.0-98.0); Mean Platelet Volume 9.7 fL (9.4-12.4); Monocytes Absolute Auto 0.5 X10*3/uL (0.1-1.2); Monocytes Percent Auto 3.9 % (2-11); Neutrophils Absolute Auto 10.8 x10*3/uL (2.0-8.3); Neutrophils Percent Auto 87.1 % (45-73); Platelet Count 169 X10*3/uL (160-400); Red Blood Count 3.31 X10*6/uL (4.60-5.80); Red Cell Distribution Width 13.6 % (11.0-16.0); White Blood Count 12.5 X10*3/uL (4.8-10.8)
[2021-05-26 08:24] LABS: Anion Gap 11 (12-20); Blood Urea Nitrogen 32 mg/dL (9-16); Calcium 7.8 mg/dL (8.4-10.2); Carbon Dioxide 29 mmol/L (22-29); Chloride 105 mmol/L (96-108); Creatinine Clr Calc Pharmacy 98.2; Estimated Glomerular Filt Rate > 60; Glucose Random 82 mg/dL (60-115); Potassium 3.5 mmol/L (3.3-5.1); Sodium 141 mmol/L (135-145)
[2021-05-26 08:31] LABS: Vancomycin Random 5.9 mcg/mL (15-20)
--- NOTE | 2021-05-26 08:48 | HE.PHANOTE ---
Vancomycin Dosing Addendum Increasing vancomycin dose because trough 5.7. increasing to 1000 mg q12h for predicted AUC of 459 and predicted trough of 11.5. Creatinine ordered daily and next trough 05/27/21 @1999.
[2021-05-26] MEDS: Docusate Sodium 100 MG CAPSULE PO ×2 (09:30→21:40)
[2021-05-26] MEDS: Thiamine HCL 100 MG TABLET PO (09:31)
[2021-05-26] MEDS: Metoprolol Succinate ER 100 MG TAB.ER.24H PO (09:31)
[2021-05-26] MEDS: vancomycin HCL 1,000 MG in 0.9 % Sodium Chloride 250 ML 270 MG IV ×2 (09:31→21:39)
[2021-05-26] MEDS: Folic Acid 1 MG TABLET PO (09:31)
[2021-05-26] MEDS: PHENobarbitaL 30 MG TABLET 60 MG PO ×2 (09:31→21:40)
--- NOTE | 2021-05-26 10:53 | HO.PM.IMPN ---
Subjective Subjective Date of Service: 05/26/21 Interval History: Seen and examined this morning Follow-up for medical consultation having some abdominal soreness around at surgical site Review of Systems Review of Systems: Yes all other systems are reviewed and are negative Constitutional Constitutional: Denies chills and Denies fever(s) Cardiovascular Cardiovascular: Denies chest pain Respiratory Respiratory: Denies cough Physical Exam Vital Signs: Vital Signs: Last Vital Signs Temp 97.9 F 05/26/21 07:03 Pulse 80 05/26/21 07:03 Resp 18 05/26/21 07:03 BP 141/81 H 05/26/21 07:03 Pulse Ox 95 05/26/21 07:03 Body Mass Index 14.5 Const: General: comfortable, no acute distress, alert and awake Nutritional Appearance: obese Orientation/consciousness: patient oriented x3 HENMT: Head: Yes normocephalic and Yes atraumatic Eyes: Sclerae: sclerae normal Resp: Effort & Inspection: normal respiratory effort and no respiratory distress Cardio: Rate: regular rate Rhythm: abnormal rhythm irregularly irregular GI: Other: lower abdomen dressing in place with some staining Neuro: General: patient oriented x3 Cranial nerves: Yes CN's II-XII intact bilaterally and Yes Bilaterally intact EOM present Extrem: Other: b/l lower leg chronic venous stasis changes Objective Data Active Medications Acetaminophen (Acetaminophen 325 Mg Tablet) 650 mg PO Q6H PRN PRN Reason: Pain, Mild (Pain Scale 1-3) Last Admin: 05/25/21 10:45 Dose: 650 mg Documented by: BASSAM Docusate Sodium (Docusate Sodium 100 Mg Capsule) 100 mg PO BID [facility] Last Admin: 05/26/21 09:30 Dose: 100 mg Documented by: VIOLETTA Folic Acid (Folic Acid 1 Mg Tablet) 1 mg PO DAILY [facility] Last Admin: 05/26/21 09:31 Dose: 1 mg Documented by: VIOLETTA Hydromorphone HCl (Hydromorphone Hcl 1 Mg/Ml Syringe) 1 mg IVPUSH Q4H PRN; Protocol PRN Reason: Pain, Severe (Pain Scale 7-10) Sodium Chloride (Ns) 1,000 mls @ 80 mls/hr IVCONT .[id number] [facility] Last Admin: 05/26/21 00:53 Dose: 80 mls/hr Documented by: RANDALL Piperacillin Sod/Tazobactam (Sod 3.375 gm/ Sodium Chloride) 50 mls @ 100 mls/hr IV Q6H [facility] Last Infusion: 05/26/21 06:57 Dose: 100 mls/hr Documented by: VIOLETTA Vancomycin HCl 1,000 mg/ (Sodium Chloride) 270 mls @ 270 mls/hr IV Q12H [facility] Last Admin: 05/26/21 09:31 Dose: 270 mls/hr Documented by: VIOLETTA Medication (No Benzodiazepines) 1 each MISCELLANE DAILY [facility] Metoprolol Succinate (Metoprolol Succinate Er 100 Mg Tab.Er.24h) 100 mg PO DAILY [facility]; Protocol Last Admin: 05/26/21 09:31 Dose: 100 mg Documented by: VIOLETTA Nicotine Polacrilex (Nicotine Polacrilex Lozenge 4 Mg Lozenge) 4 mg BUCCAL Q2H PRN PRN Reason: Nicotine Cravings Ondansetron HCl (Ondansetron Hcl 4 Mg/2 Ml Vial) 4 mg IVPUSH Q8H PRN PRN Reason: Nausea and Vomiting Oxycodone HCl (Oxycodone Hcl Immed Release 5 Mg Tablet) 10 mg PO Q4H PRN PRN Reason: Pain, Severe (Pain Scale 7-10) Last Admin: 05/25/21 15:15 Dose: 10 mg Documented by: FIDELIA Pharmacy Consult (Consult Rx Perform Med Rec) 1 each MISCELLANE ONCE PRN PRN Reason: Consult order Pharmacy Consult (Consult Rx Vancomycin Dosing) 1 each MISCELLANE DAILY PRN PRN Reason: Consult order Phenobarbital (Phenobarbital 30 Mg Tablet) 60 mg PO BID [facility] Stop: 05/26/21 21:01 Last Admin: 05/26/21 09:31 Dose: 60 mg Documented by: VIOLETTA Phenobarbital (Phenobarbital 30 Mg Tablet) 30 mg PO BID [facility] Stop: 05/28/21 21:01 Phenobarbital (Phenobarbital 30 Mg Tablet) 30 mg PO DAILY [facility] Stop: 05/30/21 09:01 Sodium Chloride (0.9 % Sodium Chloride Flush 3 Ml Syringe) 3 ml IVFLUSH QSHIFT [facility] Last Admin: 05/26/21 09:36 Dose: Not Given Documented by: VIOLETTA Non-Admin Reason: IV Running Thiamine HCl (Thiamine Hcl 100 Mg Tablet) 100 mg PO DAILY [facility] Last Admin: 05/26/21 09:31 Dose: 100 mg Documented by: VIOLETTA Labs CBC & Chem 7: 05/26/21 07:54 05/26/21 07:54 Labs: Laboratory Results - last 24 hr 05/26/21 05/26/21 05/26/21 07:54 07:54 07:54 MCV 97.9 MCH 32.3 MCHC 33.0 RDW 13.6 Plt Count 169 MPV 9.7 Immature Gran % (Auto) 1.8 H Neut % (Auto) 87.1 H Lymph % (Auto) 6.4 L Harlan % (Auto) 3.9 Eos % (Auto) 0.6 Baso % (Auto) 0.2 Lymph # (Auto) 0.8 L Harlan # (Auto) 0.5 Eos # (Auto) 0.1 Baso # (Auto) 0.0 Abs Immat Gran (auto) 0.23 H Absolute Neuts (auto) 10.8 H Absolute Nucleated RBC 0.000 Nucleated RBC % (auto) 0.0 Anion Gap 11 L Estim Creat Clear Calc 98.2 Estimated GFR > 60 Random Glucose 82 Calcium 7.8 L Random Vancomycin 5.9 L Microbiology Microbiology Results: Microbiology 05/24/21 08:43 Blood Culture - Preliminary Blood - Venous No growth after 48 hours. 05/24/21 08:24 Blood Culture - Preliminary Blood - Venous No growth after 48 hours. 05/24/21 Unknown Gram Stain - Final Abdomen - Wound Routine Culture - Preliminary Gram positive cocci Assessment and Plan (1) Necrotizing soft tissue infection: Status: Acute (2) Abdominal wall cellulitis: Status: Acute (3) CAD (coronary artery disease): Status: Acute (4) Morbid obesity: Status: Acute (5) HTN (hypertension): Status: Acute (6) (HFpEF) heart failure with preserved ejection fraction: Status: Acute Assessment and Plan: This is a 66-year-old male with history of chronic atrial fibrillation on Eliquis, CAD s/p CABG, HFpEF, HTN, HLD who presents to the emergency department with abdominal wall cellulitis found to have soft tissue necrotizing skin infection Sepsis secondary to Necrotizing soft tissue infection of the abdominal wall s/p debridement of abdominal wall Management per surgical team OWEN on CKD 3 Scr improved from 1.66 to 1.08 -will resume lasix -lisinopril, Aldactone on hold -monitor renal function closely HFpEF no evidence of fluid overload renal function improved, will resume lasix monitor fluid status closely Chronic afib HR controlled -continue metoprolol -resume anticoagulation with Eliquis when safe from surgical perspective HTN -Lisinopril on hold for OWEN. -monitor renal function -continue metoprolol alcohol use Patient reports drinking alcohol 2 times per week and not for the past 7 days His brother called to report history of alcohol withdrawal infrequent alcohol use No evidence of alcohol withdrawal at this time -phenobarbital protocol -supplementation with thiamine, folic acid liver lesion hypodense lesion seen on abdominal CT -dedicated liver US showing probably cyst, recommend US follow up in 6 months sclerotic appearance of left femur -femur xray slightly sclerotic left femoral lesion. -recommend outpatient follow up, possible bone scan Hyperlipidemia -statin on hold CAD No chest pain morbid obesity weight loss encouraged BMI 40.4 MAURICE unable to tolerate CPAP DVT prophylaxis-mechanical devices. Resume Eliquis when safe from surgical perspective Attending: Dr. Guzman Quality Stroke Does the patient have a stroke diagnosis?: No VTE Prior VTE?: No VTE Risk Level:: Surgical - high VTE Device Contraindication: N/A - Device Ordered VTE Drug Contraindication: N/A - Med Ordered (on eliquis)
[2021-05-26] MEDS: Furosemide 40 MG TABLET 80 MG PO (11:54)
[2021-05-26 12:00] VITALS: BP 142/77; PULSE 95; RESP 18; TEMP 36.3; O2SAT 98
--- NOTE | 2021-05-26 14:15 | PM.PNGS ---
Subjective Subjective Date of Service: 05/27/21 Interval history: pt doing well no issues overnight re bleeding - apparantly was bleeding requiring bedside cauterization yesterday. he is moving and doing well Physical Exam Vital Signs: Vital Signs: Last Vital Signs Temp 97.3 F 05/26/21 12:00 Pulse 95 05/26/21 12:00 Resp 18 05/26/21 12:00 BP 142/77 H 05/26/21 12:00 Pulse Ox 98 05/26/21 12:00 Body Mass Index 14.5 Skin: Other: large open abdo wound with healthy fat tissue exposed- no ongoing necrotic tissue - central area still with some gentle active ooze - bandaged tight with packing in that area. active bowel sounds Procedures Date of Service Date of Service: 05/26/21 Progress Note: A&P Assessment and plan (1) Necrotizing soft tissue infection: Status: Acute Assessment and Plan: pt with necrotizing pannus wound - s/p extensive debridement - looks nice and healthy with some slight ongoing bleeding which should stop with pressure packing. med team following and i advise holding off on anticoagulation until better bleeding control with wound - risks and benefits balance with afib and his large wound. plan to cont with med care, antibx and local dressing change with eventual wound vac to be placed on friday and then dc home with wound care consult as outpt. Fall Risk Details Current Medications: Current Medications Acetaminophen (Acetaminophen 325 Mg Tablet) 650 mg PO Q6H PRN PRN Reason: Pain, Mild (Pain Scale 1-3) Last Admin: 05/25/21 10:45 Dose: 650 mg Documented by: Docusate Sodium (Docusate Sodium 100 Mg Capsule) 100 mg PO BID [facility] [place] Last Admin: 05/26/21 09:30 Dose: 100 mg Documented by: Folic Acid (Folic Acid 1 Mg Tablet) 1 mg PO DAILY [facility] [place] Last Admin: 05/26/21 09:31 Dose: 1 mg Documented by: Furosemide (Furosemide 40 Mg Tablet) 80 mg PO DAILY [facility] [place]; Protocol Last Admin: 05/26/21 11:54 Dose: 80 mg Documented by: Hydromorphone HCl (Hydromorphone Hcl 1 Mg/Ml Syringe) 1 mg IVPUSH Q4H PRN; Protocol PRN Reason: Pain, Severe (Pain Scale 7-10) Piperacillin Sod/Tazobactam (Sod 3.375 gm/ Sodium Chloride) 50 mls @ 100 mls/hr IV Q6H [facility] [place] Last Infusion: 05/26/21 13:26 Dose: Infused Documented by: Vancomycin HCl 1,000 mg/ (Sodium Chloride) 270 mls @ 270 mls/hr IV Q12H [facility] [place] Last Infusion: 05/26/21 11:47 Dose: Infused Documented by: Medication (No Benzodiazepines) 1 each MISCELLANE DAILY [facility] [place] Metoprolol Succinate (Metoprolol Succinate Er 100 Mg Tab.Er.24h) 100 mg PO DAILY [facility] [place]; Protocol Last Admin: 05/26/21 09:31 Dose: 100 mg Documented by: Nicotine Polacrilex (Nicotine Polacrilex Lozenge 4 Mg Lozenge) 4 mg BUCCAL Q2H PRN PRN Reason: Nicotine Cravings Ondansetron HCl (Ondansetron Hcl 4 Mg/2 Ml Vial) 4 mg IVPUSH Q8H PRN PRN Reason: Nausea and Vomiting Oxycodone HCl (Oxycodone Hcl Immed Release 5 Mg Tablet) 10 mg PO Q4H PRN PRN Reason: Pain, Severe (Pain Scale 7-10) Last Admin: 05/25/21 15:15 Dose: 10 mg Documented by: Pharmacy Consult (Consult Rx Perform Med Rec) 1 each MISCELLANE ONCE PRN PRN Reason: Consult order Pharmacy Consult (Consult Rx Vancomycin Dosing) 1 each MISCELLANE DAILY PRN PRN Reason: Consult order Phenobarbital (Phenobarbital 30 Mg Tablet) 60 mg PO BID [facility] [place] Stop: 05/26/21 21:01 Last Admin: 05/26/21 09:31 Dose: 60 mg Documented by: Phenobarbital (Phenobarbital 30 Mg Tablet) 30 mg PO BID [facility] [place] Stop: 05/28/21 21:01 Phenobarbital (Phenobarbital 30 Mg Tablet) 30 mg PO DAILY [facility] [place] Stop: 05/30/21 09:01 Sodium Chloride (0.9 % Sodium Chloride Flush 3 Ml Syringe) 3 ml IVFLUSH QSHIFT [facility] [place] Last Admin: 05/26/21 09:36 Dose: Not Given Documented by: Thiamine HCl (Thiamine Hcl 100 Mg Tablet) 100 mg PO DAILY [facility] [place] Last Admin: 05/26/21 09:31 Dose: 100 mg Documented by: Time Spent With Patient Time: Total time spent is greater than 50% in coordination of care (as documented) at patient's floor/unit and/or counseling patient: Time with patient: Greater than 35 minutes Quality Stroke Does the patient have a stroke diagnosis?: No VTE Prior VTE?: No VTE Risk Level:: Surgical - high VTE Device Contraindication: N/A - Device Ordered VTE Drug Contraindication: N/A - Med Ordered (on eliquis)
[2021-05-26] MEDS: oxyCODONE HCl Immed Release 5 MG TABLET 10 MG PO (15:21)
[2021-05-26 16:00] VITALS: BP 144/74; PULSE 93; RESP 18; TEMP 36.3; O2SAT 95
[2021-05-26] MEDS: 0.9 % Sodium Chloride Flush 3 ML SYRINGE IVFLUSH ×2 (18:54→21:40)
[2021-05-26 19:50] VITALS: BP 137/81; PULSE 101; RESP 16; TEMP 36.2; O2SAT 95
[2021-05-26 23:56] VITALS: BP 143/84; PULSE 93; RESP 18; TEMP 36.5; O2SAT 97
[2021-05-27 04:00] VITALS: BP 156/84; PULSE 87; RESP 20; TEMP 36.2; O2SAT 95
[2021-05-27] MEDS: oxyCODONE HCl Immed Release 5 MG TABLET 10 MG PO ×4 (04:15→22:01)
[2021-05-27] MEDS: Piperacillin Sodium/Tazobactam 3.375 GM in 0.9 % Sodium Chloride 50 ML IV ×4 (05:23→23:37)
[2021-05-27 05:50] LABS: Hematocrit 29.8 % (42.0-52.0); Mean Corpuscular HGB Conc 33.6 g/dl (31.0-36.0); Mean Corpuscular Hemoglobin 32.2 pg (27.0-33.0); Mean Corpuscular Volume 95.8 fL (80.0-98.0); Mean Platelet Volume 8.9 fL (9.4-12.4); Platelet Count 161 X10*3/uL (160-400); Red Blood Count 3.11 X10*6/uL (4.60-5.80); Red Cell Distribution Width 13.4 % (11.0-16.0); White Blood Count 10.3 X10*3/uL (4.8-10.8)
[2021-05-27 06:09] LABS: Anion Gap 13 (12-20); Blood Urea Nitrogen 18 mg/dL (9-16); Calcium 7.4 mg/dL (8.4-10.2); Carbon Dioxide 25 mmol/L (22-29); Chloride 104 mmol/L (96-108); Creatinine Clr Calc Pharmacy 129.4; Estimated Glomerular Filt Rate > 60; Glucose Random 91 mg/dL (60-115); Potassium 2.8 mmol/L (3.3-5.1); Sodium 139 mmol/L (135-145)
[2021-05-27 07:06] VITALS: BP 160/89; PULSE 96; RESP 18; TEMP 36.8; O2SAT 95
[2021-05-27 07:18] LABS: Glucose, Whole Blood 91 mg/dL (60-115)
[2021-05-27] MEDS: Potassium Chloride Packet 20 MEQ PACKET 40 MEQ PO (08:29)
[2021-05-27] MEDS: Docusate Sodium 100 MG CAPSULE PO ×2 (08:29→22:00)
[2021-05-27] MEDS: Metoprolol Succinate ER 100 MG TAB.ER.24H PO (08:29)
[2021-05-27] MEDS: Folic Acid 1 MG TABLET PO (08:29)
[2021-05-27] MEDS: lisinopriL 5 MG TABLET PO (08:29)
[2021-05-27] MEDS: PHENobarbitaL 30 MG TABLET PO ×2 (08:30→22:00)
[2021-05-27] MEDS: Spironolactone 25 MG TABLET PO (08:30)
[2021-05-27] MEDS: Furosemide 40 MG TABLET 80 MG PO (08:30)
[2021-05-27] MEDS: Thiamine HCL 100 MG TABLET PO (08:30)
[2021-05-27] MEDS: vancomycin HCL 1,000 MG in 0.9 % Sodium Chloride 250 ML 270 MG IV ×2 (08:38→21:56)
--- NOTE | 2021-05-27 10:13 | HO.PM.IMPN ---
Subjective Subjective Date of Service: 05/27/21 Interval History: seen and examined this morning follow up for medical consult Reports pain in bilateral feet causing pain with ambulation. Still having abdominal pain at surgical site Denies chest pain, shortness of breath Review of Systems Review of Systems: Yes all other systems are reviewed and are negative Constitutional Constitutional: Denies chills and Denies fever(s) Cardiovascular Cardiovascular: Denies chest pain and Denies dyspnea Respiratory Respiratory: Denies cough and Denies dyspnea Musculoskeletal Musculoskeletal: Reports other (foot pain ) Physical Exam Vital Signs: Vital Signs: Last Vital Signs Temp 98.3 F 05/27/21 07:06 Pulse 96 05/27/21 07:06 Resp 18 05/27/21 07:06 BP 160/89 H 05/27/21 07:06 Pulse Ox 95 05/27/21 07:06 Body Mass Index 14.5 Const: General: comfortable, no acute distress, alert and awake Nutritional Appearance: obese Orientation/consciousness: patient oriented x3 HENMT: Head: Yes normocephalic and Yes atraumatic Eyes: Sclerae: sclerae normal Resp: Effort & Inspection: normal respiratory effort and no respiratory distress Cardio: Rate: regular rate Rhythm: abnormal rhythm irregularly irregular GI: Other: lower abdomen dressing in place with some staining Neuro: General: patient oriented x3 Cranial nerves: Yes CN's II-XII intact bilaterally and Yes Bilaterally intact EOM present Extrem: Other: b/l lower leg chronic venous stasis changes ; b/l lower leg swelling; erythema primarily of left great toe Objective Data Active Medications Acetaminophen (Acetaminophen 325 Mg Tablet) 650 mg PO Q6H PRN PRN Reason: Pain, Mild (Pain Scale 1-3) Last Admin: 05/25/21 10:45 Dose: 650 mg Documented by: BASSAM Docusate Sodium (Docusate Sodium 100 Mg Capsule) 100 mg PO BID [facility] Last Admin: 05/27/21 08:29 Dose: 100 mg Documented by: VIOLETTA Folic Acid (Folic Acid 1 Mg Tablet) 1 mg PO DAILY [facility] Last Admin: 05/27/21 08:29 Dose: 1 mg Documented by: VIOLETTA Furosemide (Furosemide 40 Mg Tablet) 80 mg PO DAILY [facility]; Protocol Last Admin: 05/27/21 08:30 Dose: 80 mg Documented by: VIOLETTA Hydromorphone HCl (Hydromorphone Hcl 1 Mg/Ml Syringe) 1 mg IVPUSH Q4H PRN; Protocol PRN Reason: Pain, Severe (Pain Scale 7-10) Piperacillin Sod/Tazobactam (Sod 3.375 gm/ Sodium Chloride) 50 mls @ 100 mls/hr IV Q6H [facility] Last Infusion: 05/27/21 06:00 Dose: 0 mls/hr Documented by: CONOR Vancomycin HCl 1,000 mg/ (Sodium Chloride) 270 mls @ 270 mls/hr IV Q12H [facility] Last Admin: 05/27/21 08:38 Dose: 270 mls/hr Documented by: VIOLETTA Lisinopril (Lisinopril 5 Mg Tablet) 5 mg PO DAILY [facility]; Protocol Last Admin: 05/27/21 08:29 Dose: 5 mg Documented by: VIOLETTA Medication (No Benzodiazepines) 1 each MISCELLANE DAILY [facility] Metoprolol Succinate (Metoprolol Succinate Er 100 Mg Tab.Er.24h) 100 mg PO DAILY [facility]; Protocol Last Admin: 05/27/21 08:29 Dose: 100 mg Documented by: VIOLETTA Nicotine Polacrilex (Nicotine Polacrilex Lozenge 4 Mg Lozenge) 4 mg BUCCAL Q2H PRN PRN Reason: Nicotine Cravings Ondansetron HCl (Ondansetron Hcl 4 Mg/2 Ml Vial) 4 mg IVPUSH Q8H PRN PRN Reason: Nausea and Vomiting Oxycodone HCl (Oxycodone Hcl Immed Release 5 Mg Tablet) 10 mg PO Q4H PRN PRN Reason: Pain, Severe (Pain Scale 7-10) Last Admin: 05/27/21 08:38 Dose: 10 mg Documented by: VIOLETTA Pharmacy Consult (Consult Rx Perform Med Rec) 1 each MISCELLANE ONCE PRN PRN Reason: Consult order Pharmacy Consult (Consult Rx Vancomycin Dosing) 1 each MISCELLANE DAILY PRN PRN Reason: Consult order Phenobarbital (Phenobarbital 30 Mg Tablet) 30 mg PO BID [facility] Stop: 05/28/21 21:01 Last Admin: 05/27/21 08:30 Dose: 30 mg Documented by: VIOLETTA Phenobarbital (Phenobarbital 30 Mg Tablet) 30 mg PO DAILY [facility] Stop: 05/30/21 09:01 Prednisone (Prednisone 20 Mg Tablet) 20 mg PO BIDWM [facility]; Taper Stop: 06/04/21 09:29 Sodium Chloride (0.9 % Sodium Chloride Flush 3 Ml Syringe) 3 ml IVFLUSH QSHIFT [facility] Last Admin: 05/26/21 21:40 Dose: 3 ml Documented by: CONOR Spironolactone (Spironolactone 25 Mg Tablet) 25 mg PO DAILY [facility]; Protocol Last Admin: 05/27/21 08:30 Dose: 25 mg Documented by: VIOLETTA Thiamine HCl (Thiamine Hcl 100 Mg Tablet) 100 mg PO DAILY [facility] Last Admin: 05/27/21 08:30 Dose: 100 mg Documented by: VIOLETTA Labs CBC & Chem 7: 05/27/21 05:36 05/27/21 05:36 Labs: Laboratory Results - last 24 hr 05/27/21 05/27/21 05/27/21 05:36 05:36 07:02 MCV 95.8 MCH 32.2 MCHC 33.6 RDW 13.4 Plt Count 161 MPV 8.9 L Absolute Nucleated RBC 0.000 Nucleated RBC % (auto) 0.0 Anion Gap 13 Estim Creat Clear Calc 129.4 Estimated GFR > 60 POC Glucose 91 Random Glucose 91 Calcium 7.4 L Microbiology Microbiology Results: Microbiology 05/24/21 Unknown Gram Stain - Final Abdomen - Wound Routine Culture - Final Streptococcus anginosus 05/24/21 08:43 Blood Culture - Preliminary Blood - Venous No growth after 48 hours. 05/24/21 08:24 Blood Culture - Preliminary Blood - Venous No growth after 48 hours. Assessment and Plan (1) Necrotizing soft tissue infection: Status: Acute (2) Abdominal wall cellulitis: Status: Acute Assessment and Plan: This is a 66-year-old male with history of chronic atrial fibrillation on Eliquis, CAD s/p CABG, HFpEF, HTN, HLD who presents to the emergency department with abdominal wall cellulitis found to have soft tissue necrotizing skin infection Sepsis secondary to Necrotizing soft tissue infection of the abdominal wall s/p debridement of abdominal wall Management per surgical team Seen by ID, recommended to continue IV vancomycin/zosyn for now Wound culture growing streptococcus anginosis Blood cultures negative x 48 hours Acute gout flare left great toe was taking indomethacin at home, was held for owen, does not want to resume will start prednisone for 7 days, start to taper after 48 hours pepcid for gi ppx while on steroids Hyperkalemia will replace check magnesium repeat potassium this afternoon OWEN on CKD 3 Scr improved from 1.66 to 0.82 -resume lisinopril, Aldactone on hold -monitor renal function closely HFpEF lasix resumed 05/26 will resume aldactone monitor fluid status closely Chronic afib HR controlled -continue metoprolol -resume anticoagulation with Eliquis when safe from surgical perspective. yesterday pt still had lots of oozing at surgical site, so AC was not resumed, will follow up with surgery today HTN BP increasing today -will resume Lisinopril -continue metoprolol -monitor BP closely alcohol use Patient reports drinking alcohol 2 times per week and not for the past 7 days His brother called to report history of alcohol withdrawal infrequent alcohol use No evidence of alcohol withdrawal at this time -phenobarbital protocol -supplementation with thiamine, folic acid liver lesion hypodense lesion seen on abdominal CT -dedicated liver US showing probably cyst, recommend US follow up in 6 months sclerotic appearance of left femur -femur xray slightly sclerotic left femoral lesion. -recommend outpatient follow up, possible bone scan Hyperlipidemia -statin on hold CAD No chest pain morbid obesity weight loss encouraged BMI 40.4 MAURICE unable to tolerate CPAP DVT prophylaxis-mechanical devices. Resume Eliquis when safe from surgical perspective Attending: Dr. Guzman Quality Stroke Does the patient have a stroke diagnosis?: No VTE Prior VTE?: No VTE Risk Level:: Surgical - high VTE Device Contraindication: N/A - Device Ordered VTE Drug Contraindication: N/A - Med Ordered (on eliquis)
[2021-05-27] MEDS: predniSONE 20 MG TABLET 30 MG PO ×2 (10:56→17:28)
[2021-05-27] MEDS: 0.9 % Sodium Chloride Flush 3 ML SYRINGE IVFLUSH ×3 (10:57→23:38)
[2021-05-27 12:00] VITALS: BP 184/90; PULSE 88; RESP 18; TEMP 36.5; O2SAT 94
--- NOTE | 2021-05-27 13:26 | PM.PNGS ---
Subjective Subjective Date of Service: 05/27/21 Interval history: pt doing well, complaining of needing to urinate frequently, med team upped his lasix. , ? having a gout falre up with his feet Physical Exam Vital Signs: Vital Signs: Last Vital Signs Temp 97.7 F 05/27/21 12:00 Pulse 88 05/27/21 12:00 Resp 18 05/27/21 12:00 BP 184/90 H 05/27/21 12:00 Pulse Ox 94 05/27/21 12:00 Body Mass Index 14.5 Skin: Other: abdo wound nice and clean - no more bleeding when dressing taken down. Looks ready for wound vac. Procedures Date of Service Date of Service: 05/27/21 Progress Note: A&P Assessment and plan (1) Necrotizing soft tissue infection: Status: Acute Assessment and Plan: 66 year old male with abdo wound from infected large pannus wound - nice and clean and relatiely healthy now - plan to cont with wet dressing now and get wound vac on tomorrow and plan to change qM and friday and friday - he can have VNA and be seen by our wound care clinic as well weekly and we can work with Dr Henson office. appreciate med team with other medical issues pt advised high protein diet to aid in his wound care and closing of wound Fall Risk Details Current Medications: Current Medications Acetaminophen (Acetaminophen 325 Mg Tablet) 650 mg PO Q6H PRN PRN Reason: Pain, Mild (Pain Scale 1-3) Last Admin: 05/25/21 10:45 Dose: 650 mg Documented by: Docusate Sodium (Docusate Sodium 100 Mg Capsule) 100 mg PO BID [facility] Last Admin: 05/27/21 08:29 Dose: 100 mg Documented by: Famotidine (Famotidine 20 Mg Tablet) 20 mg PO BEDTIME [facility] Folic Acid (Folic Acid 1 Mg Tablet) 1 mg PO DAILY [facility] Last Admin: 05/27/21 08:29 Dose: 1 mg Documented by: Furosemide (Furosemide 40 Mg Tablet) 80 mg PO DAILY [facility]; Protocol Last Admin: 05/27/21 08:30 Dose: 80 mg Documented by: Hydromorphone HCl (Hydromorphone Hcl 1 Mg/Ml Syringe) 1 mg IVPUSH Q4H PRN; Protocol PRN Reason: Pain, Severe (Pain Scale 7-10) Piperacillin Sod/Tazobactam (Sod 3.375 gm/ Sodium Chloride) 50 mls @ 100 mls/hr IV Q6H [facility] Last Infusion: 05/27/21 12:29 Dose: Infused Documented by: Vancomycin HCl 1,000 mg/ (Sodium Chloride) 270 mls @ 270 mls/hr IV Q12H [facility] Last Infusion: 05/27/21 11:27 Dose: Infused Documented by: Lisinopril (Lisinopril 5 Mg Tablet) 5 mg PO DAILY [facility]; Protocol Last Admin: 05/27/21 08:29 Dose: 5 mg Documented by: Medication (No Benzodiazepines) 1 each MISCELLANE DAILY [facility] Metoprolol Succinate (Metoprolol Succinate Er 100 Mg Tab.Er.24h) 100 mg PO DAILY [facility]; Protocol Last Admin: 05/27/21 08:29 Dose: 100 mg Documented by: Nicotine Polacrilex (Nicotine Polacrilex Lozenge 4 Mg Lozenge) 4 mg BUCCAL Q2H PRN PRN Reason: Nicotine Cravings Ondansetron HCl (Ondansetron Hcl 4 Mg/2 Ml Vial) 4 mg IVPUSH Q8H PRN PRN Reason: Nausea and Vomiting Oxycodone HCl (Oxycodone Hcl Immed Release 5 Mg Tablet) 10 mg PO Q4H PRN PRN Reason: Pain, Severe (Pain Scale 7-10) Last Admin: 05/27/21 08:38 Dose: 10 mg Documented by: Pharmacy Consult (Consult Rx Perform Med Rec) 1 each MISCELLANE ONCE PRN PRN Reason: Consult order Pharmacy Consult (Consult Rx Vancomycin Dosing) 1 each MISCELLANE DAILY PRN PRN Reason: Consult order Phenobarbital (Phenobarbital 30 Mg Tablet) 30 mg PO BID [facility] Stop: 05/28/21 21:01 Last Admin: 05/27/21 08:30 Dose: 30 mg Documented by: Phenobarbital (Phenobarbital 30 Mg Tablet) 30 mg PO DAILY [facility] Stop: 05/30/21 09:01 Prednisone (Prednisone 20 Mg Tablet) 20 mg PO BIDWM [facility]; Taper Stop: 06/04/21 09:29 Last Admin: 05/27/21 10:56 Dose: 20 mg Documented by: Sodium Chloride (0.9 % Sodium Chloride Flush 3 Ml Syringe) [facility] Last Admin: 11/07/21 10:57 Dose: 3 ml Documented by: Spironolactone (Spironolactone 25 Mg Tablet) 25 mg PO DAILY [facility]; Protocol Last Admin: 05/27/21 08:30 Dose: 25 mg Documented by: Thiamine HCl (Thiamine Hcl 100 Mg Tablet) 100 mg PO DAILY [facility] Last Admin: 05/27/21 08:30 Dose: 100 mg Documented by: Time Spent With Patient Time: Total time spent is greater than 50% in coordination of care (as documented) at patient's floor/unit and/or counseling patient: Time with patient: 15 - 24 minutes Quality Stroke Does the patient have a stroke diagnosis?: No VTE Prior VTE?: No VTE Risk Level:: Surgical - high VTE Device Contraindication: N/A - Device Ordered VTE Drug Contraindication: N/A - Med Ordered (on eliquis)
[2021-05-27 16:00] VITALS: BP 170/90; PULSE 95; RESP 18; TEMP 36.6; O2SAT 95
[2021-05-27 16:08] LABS: Potassium 3.6 mmol/L (3.3-5.1)
[2021-05-27] MEDS: Acetaminophen 325 MG TABLET 650 MG PO (17:27)
[2021-05-27 19:49] VITALS: BP 170/100; PULSE 88; RESP 18; TEMP 36.8; O2SAT 96
[2021-05-27 20:44] LABS: Vancomycin Trough 7.6 mcg/mL (10.0-20.0)
[2021-05-27] MEDS: Famotidine 20 MG TABLET PO (22:00)
[2021-05-27 23:57] VITALS: BP 161/92; PULSE 67; RESP 18; TEMP 36; O2SAT 95
[2021-05-28 04:00] VITALS: BP 163/73; PULSE 82; RESP 18; TEMP 36.2; O2SAT 95
[2021-05-28] MEDS: vancomycin HCL 1,000 MG in 0.9 % Sodium Chloride 250 ML 270 MG IV ×3 (04:51→21:14)
[2021-05-28] MEDS: Acetaminophen 325 MG TABLET 650 MG PO ×2 (05:47→12:37)
[2021-05-28] MEDS: Piperacillin Sodium/Tazobactam 3.375 GM in 0.9 % Sodium Chloride 50 ML IV ×3 (05:47→17:58)
[2021-05-28 06:36] LABS: Creatinine Clr Calc Pharmacy 137.8; Estimated Glomerular Filt Rate > 60
[2021-05-28 07:35] VITALS: BP 167/89; PULSE 94; RESP 18; TEMP 36.4; O2SAT 96
[2021-05-28] MEDS: 0.9 % Sodium Chloride Flush 3 ML SYRINGE IVFLUSH ×2 (07:39→16:46)
[2021-05-28] MEDS: Docusate Sodium 100 MG CAPSULE PO ×2 (07:42→21:13)
[2021-05-28] MEDS: Metoprolol Succinate ER 100 MG TAB.ER.24H PO (07:42)
[2021-05-28] MEDS: oxyCODONE HCl Immed Release 5 MG TABLET 10 MG PO ×3 (07:43→16:45)
[2021-05-28] MEDS: Furosemide 40 MG TABLET 80 MG PO (07:43)
[2021-05-28] MEDS: lisinopriL 5 MG TABLET PO (07:44)
[2021-05-28] MEDS: Spironolactone 25 MG TABLET PO (07:44)
[2021-05-28] MEDS: predniSONE 20 MG TABLET 30 MG PO ×2 (07:44→16:44)
[2021-05-28] MEDS: Thiamine HCL 100 MG TABLET PO (07:44)
[2021-05-28] MEDS: PHENobarbitaL 30 MG TABLET PO ×2 (07:44→21:14)
[2021-05-28] MEDS: Folic Acid 1 MG TABLET PO (07:44)
[2021-05-28] MEDS: HYDROmorphone HCl 1 MG/ML SYRINGE IVPUSH ×2 (10:12→21:14)
--- NOTE | 2021-05-28 10:17 | P.PNIM_ITS ---
Subjective Subjective Date of Service: 05/28/21 Interval History: seen and examined this morning follow up for medical consult foot pain improving somewhat after starting prednisone Review of Systems Review of Systems: Yes all other systems are reviewed and are negative Constitutional Constitutional: Denies chills and Denies fever(s) Cardiovascular Cardiovascular: Denies chest pain Respiratory Respiratory: Denies cough Physical Exam Vital Signs: Vital Signs: Last Vital Signs Temp 97.6 F 05/28/21 07:35 Pulse 94 05/28/21 07:35 Resp 18 05/28/21 07:35 BP 167/89 H 05/28/21 07:35 Pulse Ox 96 05/28/21 07:35 Body Mass Index 14.5 Const: General: comfortable, no acute distress, alert and awake Nutritional Appearance: obese Orientation/consciousness: patient oriented x3 HENMT: Head: Yes normocephalic and Yes atraumatic Eyes: Sclerae: sclerae normal Resp: Effort & Inspection: normal respiratory effort and no respiratory distress Cardio: Rate: regular rate Rhythm: abnormal rhythm irregularly irregular GI: Other: lower abdomen dressing in place with some staining Neuro: General: patient oriented x3 Cranial nerves: Yes CN's II-XII intact bilaterally and Yes Bilaterally intact EOM present Extrem: Other: b/l lower leg chronic venous stasis changes ; b/l lower leg swelling; erythema primarily of left great toe Objective Data Active Medications Acetaminophen (Acetaminophen 325 Mg Tablet) 650 mg PO Q6H PRN PRN Reason: Pain, Mild (Pain Scale 1-3) Last Admin: 05/28/21 05:47 Dose: 650 mg Documented by: JESSICA Docusate Sodium (Docusate Sodium 100 Mg Capsule) 100 mg PO BID [facility] Last Admin: 05/28/21 07:42 Dose: 100 mg Documented by: SHIN Famotidine (Famotidine 20 Mg Tablet) 20 mg PO BEDTIME [facility] Last Admin: 05/27/21 22:00 Dose: 20 mg Documented by: JESSICA Folic Acid (Folic Acid 1 Mg Tablet) 1 mg PO DAILY [facility] Last Admin: 05/28/21 07:44 Dose: 1 mg Documented by: SHIN Furosemide (Furosemide 40 Mg Tablet) 80 mg PO DAILY [facility]; Protocol Last Admin: 05/28/21 07:43 Dose: 80 mg Documented by: SHIN Hydromorphone HCl (Hydromorphone Hcl 1 Mg/Ml Syringe) 1 mg IVPUSH Q4H PRN; Protocol PRN Reason: Pain, Severe (Pain Scale 7-10) Last Admin: 05/28/21 10:12 Dose: 1 mg Documented by: SHIN Piperacillin Sod/Tazobactam (Sod 3.375 gm/ Sodium Chloride) 50 mls @ 100 mls/hr IV Q6H [facility] Last Infusion: 05/28/21 06:15 Dose: 0 mls/hr Documented by: JESSICA Vancomycin HCl 1,000 mg/ (Sodium Chloride) 270 mls @ 270 mls/hr IV Q8H [facility] Last Infusion: 05/28/21 05:50 Dose: 0 mls/hr Documented by: JESSICA Lisinopril (Lisinopril 5 Mg Tablet) 5 mg PO DAILY [facility]; Protocol Last Admin: 05/28/21 07:44 Dose: 5 mg Documented by: SHIN Medication (No Benzodiazepines) 1 each MISCELLANE DAILY [facility] Metoprolol Succinate (Metoprolol Succinate Er 100 Mg Tab.Er.24h) 100 mg PO DAILY [facility]; Protocol Last Admin: 05/28/21 07:42 Dose: 100 mg Documented by: SHIN Nicotine Polacrilex (Nicotine Polacrilex Lozenge 4 Mg Lozenge) 4 mg BUCCAL Q2H PRN PRN Reason: Nicotine Cravings Ondansetron HCl (Ondansetron Hcl 4 Mg/2 Ml Vial) 4 mg IVPUSH Q8H PRN PRN Reason: Nausea and Vomiting Oxycodone HCl (Oxycodone Hcl Immed Release 5 Mg Tablet) 10 mg PO Q4H PRN PRN Reason: Pain, Severe (Pain Scale 7-10) Last Admin: 05/28/21 07:43 Dose: 10 mg Documented by: SHIN Pharmacy Consult (Consult Rx Perform Med Rec) 1 each MISCELLANE ONCE PRN PRN Reason: Consult order Pharmacy Consult (Consult Rx Vancomycin Dosing) 1 each MISCELLANE DAILY PRN PRN Reason: Consult order Phenobarbital (Phenobarbital 30 Mg Tablet) 30 mg PO BID [facility] Stop: 05/28/21 21:01 Last Admin: 05/28/21 07:44 Dose: 30 mg Documented by: SHIN Phenobarbital (Phenobarbital 30 Mg Tablet) 30 mg PO DAILY [facility] Stop: 05/30/21 09:01 Prednisone (Prednisone 20 Mg Tablet) 20 mg PO BIDWM [facility]; Taper Stop: 06/04/21 09:29 Last Admin: 05/28/21 07:44 Dose: 20 mg Documented by: SHIN Sodium Chloride (0.9 % Sodium Chloride Flush 3 Ml Syringe) 3 ml IVFLUSH QSHIFT [facility] Last Admin: 05/28/21 07:39 Dose: 3 ml Documented by: SHIN Spironolactone (Spironolactone 25 Mg Tablet) 25 mg PO DAILY [facility]; Protocol Last Admin: 05/28/21 07:44 Dose: 25 mg Documented by: SHIN Thiamine HCl (Thiamine Hcl 100 Mg Tablet) 100 mg PO DAILY [facility] Last Admin: 05/28/21 07:44 Dose: 100 mg Documented by: SHIN Labs CBC & Chem 7: 05/27/21 05:36 05/28/21 05:44 Labs: Laboratory Results - last 24 hr 05/27/21 05/28/21 19:49 05:44 Estim Creat Clear Calc 137.8 Estimated GFR > 60 Vancomycin Trough 7.6 L Microbiology Microbiology Results: Microbiology 05/24/21 Unknown Gram Stain - Final Abdomen - Wound Routine Culture - Final Streptococcus anginosus Assessment and Plan (1) Abdominal wall cellulitis: Status: Acute (2) Necrotizing soft tissue infection: Status: Acute (3) HTN (hypertension): Status: Acute (4) Morbid obesity: Status: Acute Assessment and Plan: This is a 66-year-old male with history of chronic atrial fibrillation on Eliquis, CAD s/p CABG, HFpEF, HTN, HLD who presents to the emergency department with abdominal wall cellulitis found to have soft tissue necrotizing skin infection Sepsis secondary to Necrotizing soft tissue infection of the abdominal wall s/p debridement of abdominal wall Management per surgical team, plan for wound vac placement Seen by ID, recommended to continue IV vancomycin/zosyn for now Wound culture growing streptococcus anginosis Blood cultures negative x 48 hours Acute gout flare left great toe was taking indomethacin at home, was held for owen, does not want to resume will start prednisone for 7 days, start to taper after 48 hours pepcid for gi ppx while on steroids Hyperkalemia resolved follow BMP OWEN on CKD 3. Resolved with columba IVF and holding nephrotoxins HFpEF continue lasix, aldactone monitor fluid status closely Chronic afib HR controlled -continue metoprolol -discussed with surgery, ok to resume Eliquis today HTN BP increasing today -continue metoprolol, lisinopril -monitor BP closely alcohol use Patient reports drinking alcohol 2 times per week and not for the past 7 days His brother called to report history of alcohol withdrawal infrequent alcohol use No evidence of alcohol withdrawal at this time -phenobarbital protocol -supplementation with thiamine, folic acid liver lesion hypodense lesion seen on abdominal CT -dedicated liver US showing probably cyst, recommend US follow up in 6 months sclerotic appearance of left femur -femur xray slightly sclerotic left femoral lesion. -recommend outpatient follow up, possible bone scan Hyperlipidemia -continue statin CAD No chest pain morbid obesity weight loss encouraged BMI 40.4 MAURICE unable to tolerate CPAP DVT prophylaxis-Eliquis Attending: Dr. Leija Quality Stroke Does the patient have a stroke diagnosis?: No VTE Prior VTE?: No VTE Risk Level:: Surgical - high VTE Device Contraindication: N/A - Device Ordered VTE Drug Contraindication: N/A - Med Ordered (on eliquis)
--- NOTE | 2021-05-28 11:14 | PM.PNGS ---
Subjective Subjective Date of Service: 05/28/21 <Jess Shah PA-C - Last Filed: 05/28/21 11:19> 05/28/21 <Ferdinand Henson MD - Last Filed: 05/28/21 12:26> Interval history: No events over weekend. Did OK with dressing changes. C/o pain at feet and unable to ambulate. Feels like gouty attack. <Jess Shah PA-C - Last Filed: 05/28/21 11:19> Physical Exam Vital Signs: Vital Signs: Last Vital Signs Temp 97.6 F 05/28/21 07:35 Pulse 94 05/28/21 07:35 Resp 18 05/28/21 07:35 BP 167/89 H 05/28/21 07:35 Pulse Ox 96 05/28/21 07:35 Body Mass Index 14.5 <Jess Shah PA-C - Last Filed: 05/28/21 11:19> Const: General: no acute distress and alert <Jess Shah PA-C - Last Filed: 05/28/21 11:19> Orientation/consciousness: patient oriented x3 <Jess Shah PA-C - Last Filed: 05/28/21 11:19> GI: Other: surgical debridement site remains clean, no areas of necrosis noted, small amount of bloody drainage, no surrounding erythema, area remains tender <Jess Shah PA-C - Last Filed: 05/28/21 11:19> Inspection: No distended and Yes Abdominal panniculus present <Jess Shah PA-C - Last Filed: 05/28/21 11:19> Palpation (GI): Soft to palpation and Tenderness to palpation present (GI) (surrounding debridement site) <Jess Shah PA-C - Last Filed: 05/28/21 11:19> Neuro: General: patient oriented x3 <Jess Shah PA-C - Last Filed: 05/28/21 11:19> Extrem: General: Yes venous stasis dermatitis (b/l LE) <Jess Shah PA-C - Last Filed: 05/28/21 11:19> Procedures Date of Service Date of Service: 05/28/21 <Jess Shah PA-C - Last Filed: 05/28/21 11:19> Progress Note: A&P Assessment and plan (1) Necrotizing soft tissue infection: Status: Acute <Jess Shah PA-C - Last Filed: 05/28/21 11:19> Assessment and Plan: Wound examined - clean, no necrotic areas We therefore applied a wound VAC today. He tolerated this well. He looks comfortable He does complain of joint pains and states that he has a history of gout He has been started on oral prednisone for this by the hospitalist service He will start discharge planning for him with the visiting nurse for care of the wound VAC Seen and examined - agree with JOE Shah <Ferdinand Henson MD - Last Filed: 05/28/21 12:26> (2) Abdominal wall cellulitis: Status: Acute <Jess Shah PA-C - Last Filed: 05/28/21 11:19> (3) Chronic atrial fibrillation: Status: Acute <Jess Shah PA-C - Last Filed: 05/28/21 11:19> Assessment and Plan: 66 year old male admitted with abdominal wall cellulitis found to have necrotizing soft tissue infection of pannus. He is now POD #4 s/p debridement of abdominal wall. The site remains clean without further necrosis. A wound vac was placed with a good seal and patient tolerated the procedure well. Anticipate discharge by the end of the week with VNA services and outpatient follow up with Dr. Henson/ wound care center. <Jess Shah PA-C - Last Filed: 05/28/21 11:19> Fall Risk Details Current Medications: Current Medications Acetaminophen (Acetaminophen 325 Mg Tablet) 650 mg PO Q6H PRN PRN Reason: Pain, Mild (Pain Scale 1-3) Last Admin: 05/28/21 05:47 Dose: 650 mg Documented by: Apixaban (Apixaban 5 Mg Tablet) 5 mg PO BID [facility] Atorvastatin Calcium (Atorvastatin Calcium 80 Mg Tablet) 80 mg PO DAILY [facility] Docusate Sodium (Docusate Sodium 100 Mg Capsule) 100 mg PO BID [facility] Last Admin: 05/28/21 07:42 Dose: 100 mg Documented by: Famotidine (Famotidine 20 Mg Tablet) 20 mg PO BEDTIME [facility] Last Admin: 05/27/21 22:00 Dose: 20 mg Documented by: Folic Acid (Folic Acid 1 Mg Tablet) 1 mg PO DAILY [facility] Last Admin: 05/28/21 07:44 Dose: 1 mg Documented by: Furosemide (Furosemide 40 Mg Tablet) 80 mg PO DAILY [facility]; Protocol Last Admin: 05/28/21 07:43 Dose: 80 mg Documented by: Hydromorphone HCl (Hydromorphone Hcl 1 Mg/Ml Syringe) 1 mg IVPUSH Q4H PRN; Protocol PRN Reason: Pain, Severe (Pain Scale 7-10) Last Admin: 05/28/21 10:12 Dose: 1 mg Documented by: Piperacillin Sod/Tazobactam (Sod 3.375 gm/ Sodium Chloride) 50 mls @ 100 mls/hr IV Q6H [facility] Last Infusion: 05/28/21 06:15 Dose: Infused Documented by: Vancomycin HCl 1,000 mg/ (Sodium Chloride) 270 mls @ 270 mls/hr IV Q8H [facility] Last Infusion: 05/28/21 05:50 Dose: Infused Documented by: Lisinopril (Lisinopril 5 Mg Tablet) 5 mg PO DAILY [facility]; Protocol Last Admin: 05/28/21 07:44 Dose: 5 mg Documented by: Medication (No Benzodiazepines) 1 each MISCELLANE DAILY [facility] Metoprolol Succinate (Metoprolol Succinate Er 100 Mg Tab.Er.24h) 100 mg PO DAILY [facility]; Protocol Last Admin: 05/28/21 07:42 Dose: 100 mg Documented by: Nicotine Polacrilex (Nicotine Polacrilex Lozenge 4 Mg Lozenge) 4 mg BUCCAL Q2H PRN PRN Reason: Nicotine Cravings Ondansetron HCl (Ondansetron Hcl 4 Mg/2 Ml Vial) 4 mg IVPUSH Q8H PRN PRN Reason: Nausea and Vomiting Oxycodone HCl (Oxycodone Hcl Immed Release 5 Mg Tablet) 10 mg PO Q4H PRN PRN Reason: Pain, Severe (Pain Scale 7-10) Last Admin: 05/28/21 07:43 Dose: 10 mg Documented by: Pharmacy Consult (Consult Rx Perform Med Rec) 1 each MISCELLANE ONCE PRN PRN Reason: Consult order Pharmacy Consult (Consult Rx Vancomycin Dosing) 1 each MISCELLANE DAILY PRN PRN Reason: Consult order Phenobarbital (Phenobarbital 30 Mg Tablet) 30 mg PO BID [facility] Stop: 05/28/21 21:01 Last Admin: 05/28/21 07:44 Dose: 30 mg Documented by: Phenobarbital (Phenobarbital 30 Mg Tablet) 30 mg PO DAILY [facility] Stop: 05/30/21 09:01 Prednisone (Prednisone 20 Mg Tablet) 20 mg PO BIDWM [facility]; Taper Stop: 06/04/21 09:29 Last Admin: 05/28/21 07:44 Dose: 20 mg Documented by: Sodium Chloride (0.9 % Sodium Chloride Flush 3 Ml Syringe) 3 ml IVFLUSH QSHIFT [facility] Last Admin: 05/28/21 07:39 Dose: 3 ml Documented by: Spironolactone (Spironolactone 25 Mg Tablet) 25 mg PO DAILY [facility]; Protocol Last Admin: 05/28/21 07:44 Dose: 25 mg Documented by: Thiamine HCl (Thiamine Hcl 100 Mg Tablet) 100 mg PO DAILY [facility] Last Admin: 05/28/21 07:44 Dose: 100 mg Documented by: <Jess Shah PA-C - Last Filed: 05/28/21 11:19> Time Spent With Patient Time: Total time spent is greater than 50% in coordination of care (as documented) at patient's floor/unit and/or counseling patient: <Jess Shah PA-C - Last Filed: 05/28/21 11:19> Time with patient: 25 - 35 minutes <Jess Shah PA-C - Last Filed: 05/28/21 11:19> Quality Stroke Does the patient have a stroke diagnosis?: No <Jess Shah PA-C - Last Filed: 05/28/21 11:19> VTE Prior VTE?: No <Jess Shah PA-C - Last Filed: 05/28/21 11:19> VTE Risk Level:: Surgical - high <Jess Shah PA-C - Last Filed: 05/28/21 11:19> VTE Device Contraindication: N/A - Device Ordered <Jess Shah PA-C - Last Filed: 05/28/21 11:19> VTE Drug Contraindication: N/A - Med Ordered (on eliquis) <Jess Shah PA-C - Last Filed: 05/28/21 11:19>
[2021-05-28 12:00] VITALS: BP 166/95; PULSE 83; RESP 18; TEMP 36.2; O2SAT 95
--- NOTE | 2021-05-28 12:17 | MHC.CM.PN ---
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
[2021-05-28 16:00] VITALS: BP 168/101; PULSE 83; RESP 18; TEMP 36.4; O2SAT 94
[2021-05-28 19:53] VITALS: BP 165/101; PULSE 95; RESP 18; TEMP 36.3; O2SAT 94
[2021-05-28] MEDS: Apixaban 5 MG TABLET PO (21:14)
[2021-05-28] MEDS: Famotidine 20 MG TABLET PO (21:14)
[2021-05-28 23:34] VITALS: BP 171/107; PULSE 91; RESP 18; O2SAT 95
[2021-05-29] VITALS (10 sets, daily range): BP systolic 160–183; BP diastolic 86–101; PULSE 86–98; RESP 16–20; TEMP 36–36.3; O2SAT 92–95
[2021-05-29] MEDS: Piperacillin Sodium/Tazobactam 3.375 GM in 0.9 % Sodium Chloride 50 ML IV ×5 (00:29→23:00)
[2021-05-29] MEDS: 0.9 % Sodium Chloride Flush 3 ML SYRINGE IVFLUSH ×4 (00:29→19:54)
[2021-05-29] MEDS: HYDROmorphone HCl 1 MG/ML SYRINGE IVPUSH ×4 (02:40→19:54)
[2021-05-29] MEDS: oxyCODONE HCl Immed Release 5 MG TABLET 10 MG PO ×4 (05:20→21:42)
[2021-05-29] MEDS: vancomycin HCL 1,000 MG in 0.9 % Sodium Chloride 250 ML 270 MG IV ×3 (06:30→20:29)
[2021-05-29 06:33] LABS: Anion Gap 10 (12-20); Blood Urea Nitrogen 10 mg/dL (9-16); Calcium 7.9 mg/dL (8.4-10.2); Carbon Dioxide 31 mmol/L (22-29); Chloride 100 mmol/L (96-108); Creatinine Clr Calc Pharmacy 137.8; Estimated Glomerular Filt Rate > 60; Glucose Random 90 mg/dL (60-115); Potassium 3.5 mmol/L (3.3-5.1); Sodium 137 mmol/L (135-145)
--- NOTE | 2021-05-29 08:48 | P.PNIM_ITS ---
Subjective Subjective Date of Service: 05/29/21 Interval History: seen and examined this morning follow up medical consult; necrotizing soft tissue infection, gout flare having pain in b/l feet and wrists having nausea Review of Systems Review of Systems: Yes all other systems are reviewed and are negative Constitutional Constitutional: Denies chills and Denies fever(s) Cardiovascular Cardiovascular: Denies chest pain Respiratory Respiratory: Denies cough Gastrointestinal Gastrointestinal: Denies abdominal pain Physical Exam Vital Signs: Vital Signs: Last Vital Signs Temp 97.3 F 05/29/21 07:35 Pulse 86 05/29/21 07:35 Resp 20 05/29/21 07:35 BP 180/92 H 05/29/21 07:35 Pulse Ox 93 05/29/21 07:35 Body Mass Index 14.5 Const: General: no acute distress, alert and awake Nutritional Appearance: obese Orientation/consciousness: patient oriented x3 HENMT: Head: Yes normocephalic and Yes atraumatic Eyes: Sclerae: sclerae normal Resp: Effort & Inspection: normal respiratory effort and no respiratory distress Cardio: Rate: regular rate Rhythm: abnormal rhythm irregularly irregular GI: Other: wound vac Skin: Other: left great toe mild erythema; b/l chronic lower extremity venous stasis changes Neuro: General: patient oriented x3 Cranial nerves: Yes CN's II-XII intact bilaterally and Yes Bilaterally intact EOM present Extrem: Other: b/l lower leg chronic venous stasis changes ; b/l lower leg swelling; erythema primarily of left great toe Objective Data Active Medications Acetaminophen (Acetaminophen 325 Mg Tablet) 650 mg PO Q6H PRN PRN Reason: Pain, Mild (Pain Scale 1-3) Last Admin: 05/28/21 12:37 Dose: 650 mg Documented by: SHIN Apixaban (Apixaban 5 Mg Tablet) 5 mg PO BID [facility] Last Admin: 05/28/21 21:14 Dose: 5 mg Documented by: NICK Atorvastatin Calcium (Atorvastatin Calcium 80 Mg Tablet) 80 mg PO DAILY [facility] Docusate Sodium (Docusate Sodium 100 Mg Capsule) 100 mg PO BID [facility] Last Admin: 05/28/21 21:13 Dose: 100 mg Documented by: NICK Famotidine (Famotidine 20 Mg Tablet) 20 mg PO BEDTIME [facility] Last Admin: 05/28/21 21:14 Dose: 20 mg Documented by: NICK Folic Acid (Folic Acid 1 Mg Tablet) 1 mg PO DAILY [facility] Last Admin: 05/28/21 07:44 Dose: 1 mg Documented by: SHIN Furosemide (Furosemide 40 Mg Tablet) 80 mg PO DAILY [facility]; Protocol Last Admin: 05/28/21 07:43 Dose: 80 mg Documented by: SHIN Hydromorphone HCl (Hydromorphone Hcl 1 Mg/Ml Syringe) 1 mg IVPUSH Q4H PRN; Protocol PRN Reason: Pain, Severe (Pain Scale 7-10) Last Admin: 05/29/21 07:37 Dose: 1 mg Documented by: JANET Piperacillin Sod/Tazobactam (Sod 3.375 gm/ Sodium Chloride) 50 mls @ 100 mls/hr IV Q6H [facility] Last Infusion: 05/29/21 06:30 Dose: 0 mls/hr Documented by: NICK Vancomycin HCl 1,000 mg/ (Sodium Chloride) 270 mls @ 270 mls/hr IV Q8H [facility] Last Infusion: 05/29/21 07:34 Dose: 0 mls/hr Documented by: JANET Lisinopril (Lisinopril 5 Mg Tablet) 5 mg PO DAILY [facility]; Protocol Last Admin: 05/28/21 07:44 Dose: 5 mg Documented by: SHIN Medication (No Benzodiazepines) 1 each MISCELLANE DAILY [facility] Metoprolol Succinate (Metoprolol Succinate Er 100 Mg Tab.Er.24h) 100 mg PO DAILY [facility]; Protocol Last Admin: 05/28/21 07:42 Dose: 100 mg Documented by: SHIN Nicotine Polacrilex (Nicotine Polacrilex Lozenge 4 Mg Lozenge) 4 mg BUCCAL Q2H PRN PRN Reason: Nicotine Cravings Ondansetron HCl (Ondansetron Hcl 4 Mg/2 Ml Vial) 4 mg IVPUSH Q8H PRN PRN Reason: Nausea and Vomiting Oxycodone HCl (Oxycodone Hcl Immed Release 5 Mg Tablet) 10 mg PO Q4H PRN PRN Reason: Pain, Severe (Pain Scale 7-10) Last Admin: 05/29/21 05:20 Dose: 10 mg Documented by: NICK Pharmacy Consult (Consult Rx Perform Med Rec) 1 each MISCELLANE ONCE PRN PRN Reason: Consult order Pharmacy Consult (Consult Rx Vancomycin Dosing) 1 each MISCELLANE DAILY PRN PRN Reason: Consult order Phenobarbital (Phenobarbital 30 Mg Tablet) 30 mg PO DAILY [facility] Stop: 05/30/21 09:01 Prednisone (Prednisone 20 Mg Tablet) 20 mg PO BIDWM [facility]; Taper Stop: 06/04/21 09:29 Last Admin: 05/28/21 16:44 Dose: 20 mg Documented by: FIDELIA Sodium Chloride (0.9 % Sodium Chloride Flush 3 Ml Syringe) 3 ml IVFLUSH QSHIFT [facility] Last Admin: 05/29/21 07:42 Dose: 3 ml Documented by: DABMarley Spironolactone (Spironolactone 25 Mg Tablet) 25 mg PO DAILY [facility]; Protocol Last Admin: 05/28/21 07:44 Dose: 25 mg Documented by: SHIN Thiamine HCl (Thiamine Hcl 100 Mg Tablet) 100 mg PO DAILY [facility] Last Admin: 05/28/21 07:44 Dose: 100 mg Documented by: SHIN Labs CBC & Chem 7: 05/27/21 05:36 05/29/21 05:41 Labs: Laboratory Results - last 24 hr 05/28/21 05/29/21 19:53 05:41 Anion Gap 10 L Estim Creat Clear Calc 137.8 Estimated GFR > 60 Random Glucose 90 Calcium 7.9 L D Vancomycin Trough 13.0 Assessment and Plan (1) Necrotizing soft tissue infection: Status: Acute (2) Morbid obesity: Status: Acute (3) Acute gout: Status: Acute Assessment and Plan: This is a 66-year-old male with history of chronic atrial fibrillation on Eliquis, CAD s/p CABG, HFpEF, HTN, HLD who presents to the emergency department with abdominal wall cellulitis found to have soft tissue necrotizing skin infection Sepsis secondary to Necrotizing soft tissue infection of the abdominal wall s/p debridement of abdominal wall Management per surgical team, plan for wound vac placement Seen by ID, recommended to continue IV vancomycin/zosyn for now Wound culture growing streptococcus anginosis Blood cultures negative x 48 hours Acute gout flare was taking indomethacin at home, was held for owen, does not want to resume started on prednisone, still having pain, will consider colchecine pepcid for gi ppx while on steroids Hyperkalemia resolved follow BMP OWEN on CKD 3. Resolved with columba IVF and holding nephrotoxins HFpEF continue lasix, aldactone monitor fluid status closely Chronic afib HR controlled -continue metoprolol -discussed with surgery, ok to resume Eliquis today HTN BP increasing today -continue metoprolol, lisinopril -monitor BP closely alcohol use Patient reports drinking alcohol 2 times per week and not for the past 7 days His brother called to report history of alcohol withdrawal infrequent alcohol use No evidence of alcohol withdrawal at this time -phenobarbital protocol -supplementation with thiamine, folic acid liver lesion hypodense lesion seen on abdominal CT -dedicated liver US showing probably cyst, recommend US follow up in 6 months sclerotic appearance of left femur -femur xray slightly sclerotic left femoral lesion. -recommend outpatient follow up, possible bone scan Hyperlipidemia -continue statin CAD No chest pain morbid obesity weight loss encouraged BMI 40.4 MAURICE unable to tolerate CPAP DVT prophylaxis-Ld Attending: Dr. Leija Quality Stroke Does the patient have a stroke diagnosis?: No VTE Prior VTE?: No VTE Risk Level:: Surgical - high VTE Device Contraindication: N/A - Device Ordered VTE Drug Contraindication: N/A - Med Ordered (on eliquis)
[2021-05-29] MEDS: Thiamine HCL 100 MG TABLET PO (09:15)
[2021-05-29] MEDS: lisinopriL 5 MG TABLET PO (09:16)
[2021-05-29] MEDS: PHENobarbitaL 30 MG TABLET PO (09:16)
[2021-05-29] MEDS: Folic Acid 1 MG TABLET PO (09:17)
[2021-05-29] MEDS: Docusate Sodium 100 MG CAPSULE PO ×2 (09:17→19:54)
[2021-05-29] MEDS: Apixaban 5 MG TABLET PO ×2 (09:17→19:53)
[2021-05-29] MEDS: Atorvastatin Calcium 80 MG TABLET PO (09:18)
[2021-05-29] MEDS: Furosemide 40 MG TABLET 80 MG PO (09:18)
[2021-05-29] MEDS: predniSONE 20 MG TABLET 30 MG PO (09:19)
[2021-05-29] MEDS: Metoprolol Succinate ER 100 MG TAB.ER.24H PO (09:20)
[2021-05-29] MEDS: Spironolactone 25 MG TABLET PO (09:21)
--- NOTE | 2021-05-29 09:54 | P.PNGS_ITS ---
Subjective Subjective Date of Service: 05/29/21 <Jess Shah PA-C - Last Filed: 05/29/21 09:58> 05/29/21 <Ferdinand Henson MD - Last Filed: 05/29/21 13:57> Interval history: C/o pain at feet and right hand. Nothing seems to be helping gouty flare. On prednisone and now colchicine. Still not able to ambulate. Denies abdominal pain. <Jess Shah PA-C - Last Filed: 05/29/21 09:58> Physical Exam Vital Signs: Vital Signs: Last Vital Signs Temp 97.3 F 05/29/21 07:35 Pulse 86 05/29/21 09:21 Resp 20 05/29/21 07:35 BP 180/92 H 05/29/21 09:21 Pulse Ox 93 05/29/21 07:35 Body Mass Index 14.5 <Jess Shah PA-C - Last Filed: 05/29/21 09:58> Const: General: no acute distress and alert <Jess Shah PA-C - Last Filed: 05/29/21 09:58> Resp: Effort & Inspection: normal respiratory effort <MONICA Dahl Last Filed: 05/29/21 09:58> GI: Other: [facility] with [facility] seal, serosanguineous drainage in cannister <Jess Shah PA-C - Last Filed: 05/29/21 09:58> Inspection: No distended <Jess Shah PA-C - Last Filed: 05/29/21 09:58> Palpation (GI): Soft to palpation and Tenderness to palpation present (GI) (mild, surrounding debridement site) <Jess Shah PA-C - Last Filed: 05/29/21 09:58> Skin: General skin exam: no rashes or lesions noted <MONICA Dahl Last Filed: 05/29/21 09:58> Procedures Date of Service Date of Service: 05/29/21 <MONICA Dahl Last Filed: 05/29/21 09:58> Progress Note: A&P Assessment and plan (1) Acute gout: Status: Acute <Jess Shah PA-C - Last Filed: 05/29/21 09:58> (2) Necrotizing soft tissue infection: Status: Acute <Jess Shah PA-C - Last Filed: 05/29/21 09:58> Assessment and Plan: Says he feels improvement today compared to yesterday Main complaint is his gouty pain on wrists, hands as well as ankles Denies significant pain on the debridement site with a wound VAC in place Hospitalist following for gouty arthritis PT Patient states he is not ready to go home yet because of his joint pains Seen and examined - agree with JOE Shah <Ferdinand Henson MD - Last Filed: 05/29/21 13:57> (3) Morbid obesity: Status: Acute <Jess Shah PA-C - Last Filed: 05/29/21 09:58> Assessment and Plan: 66 year old male admitted with abdominal wall cellulitis found to have necrotizing soft tissue infection of pannus. He is now POD #5 s/p debridement of abdominal wall. The site remains clean without further necrosis. A wound vac remains in place and functioning well. Next dressing change in 2 days. Cont antibiotics. Will add ensure supplements as PO intake poor due to pain due to gout flare Anticipate discharge by the end of the week with VNA services and outpatient follow up with Dr. Henson/ wound care center if gouty flare better. <Jess Shah PA-C - Last Filed: 05/29/21 09:58> Fall Risk Details Current Medications: Current Medications Apixaban (Apixaban 5 Mg Tablet) 5 mg PO BID [facility] Last Admin: 05/29/21 09:17 Dose: 5 mg Documented by: Atorvastatin Calcium (Atorvastatin Calcium 80 Mg Tablet) 80 mg PO DAILY [facility] Last Admin: 05/29/21 09:18 Dose: 80 mg Documented by: Colchicine (Colchicine 0.6 Mg Tablet) 0.6 mg PO BID [facility] Docusate Sodium (Docusate Sodium 100 Mg Capsule) 100 mg PO BID [facility] Last Admin: 05/29/21 09:17 Dose: 100 mg Documented by: Famotidine (Famotidine 20 Mg Tablet) 20 mg PO BEDTIME [facility] Last Admin: 05/28/21 21:14 Dose: 20 mg Documented by: Folic Acid (Folic Acid 1 Mg Tablet) 1 mg PO DAILY [facility] Last Admin: 05/29/21 09:17 Dose: 1 mg Documented by: Furosemide (Furosemide 40 Mg Tablet) 80 mg PO DAILY [facility]; Protocol Last Admin: 05/29/21 09:18 Dose: 80 mg Documented by: Hydromorphone HCl (Hydromorphone Hcl 1 Mg/Ml Syringe) 1 mg IVPUSH Q4H PRN; P rotocol PRN Reason: Pain, Severe (Pain Scale 7-10) Last Admin: 05/29/21 07:37 Dose: 1 mg Documented by: Piperacillin Sod/Tazobactam (Sod 3.375 gm/ Sodium Chloride) 50 mls @ 100 mls/hr IV Q6H [facility] Last Infusion: 05/29/21 06:30 Dose: Infused Documented by: Vancomycin HCl 1,000 mg/ (Sodium Chloride) 270 mls @ 270 mls/hr IV Q8H [facility] Last Infusion: 05/29/21 07:34 Dose: Infused Documented by: Acetaminophen (Ofirmev) 1,000 mg in 100 mls @ 400 mls/hr IV Q6H PRN PRN Reason: pain Lisinopril (Lisinopril 5 Mg Tablet) 5 mg PO DAILY [facility]; Protocol Last Admin: 05/29/21 09:16 Dose: 5 mg Documented by: Medication (No Benzodiazepines) 1 each MISCELLANE DAILY [facility] Metoprolol Succinate (Metoprolol Succinate Er 100 Mg Tab.Er.24h) 100 mg PO DAILY [facility]; Protocol Last Admin: 05/29/21 09:20 Dose: 100 mg Documented by: Nicotine Polacrilex (Nicotine Polacrilex Lozenge 4 Mg Lozenge) 4 mg BUCCAL Q2H PRN PRN Reason: Nicotine Cravings Ondansetron HCl (Ondansetron Hcl 4 Mg/2 Ml Vial) 4 mg IVPUSH Q8H PRN PRN Reason: Nausea and Vomiting Oxycodone HCl (Oxycodone Hcl Immed Release 5 Mg Tablet) 10 mg PO Q4H PRN PRN Reason: Pain, Severe (Pain Scale 7-10) Last Admin: 05/29/21 05:20 Dose: 10 mg Documented by: Pharmacy Consult (Consult Rx Perform Med Rec) 1 each MISCELLANE ONCE PRN PRN Reason: Consult order Pharmacy Consult (Consult Rx Vancomycin Dosing) 1 each MISCELLANE DAILY PRN PRN Reason: Consult order Phenobarbital (Phenobarbital 30 Mg Tablet) 30 mg PO DAILY [facility] Stop: 05/30/21 09:01 Last Admin: 05/29/21 09:16 Dose: 30 mg Documented by: Prednisone (Prednisone 20 Mg Tablet) 30 mg PO DAILY [facility]; Taper Stop: 06/04/21 09:29 Last Admin: 05/29/21 09:19 Dose: 20 mg Documented by: Sodium Chloride (0.9 % Sodium Chloride Flush 3 Ml Syringe) [facility] Last Admin: 05/29/21 07:42 Dose: 3 ml Documented by: Spironolactone (Spironolactone 25 Mg Tablet) 25 mg PO DAILY [facility]; Protocol Last Admin: 05/29/21 09:21 Dose: 25 mg Documented by: Thiamine HCl (Thiamine Hcl 100 Mg Tablet) 100 mg PO DAILY [facility] Last Admin: 05/29/21 09:15 Dose: 100 mg Documented by: <Jess Shah PA-C - Last Filed: 05/29/21 09:58> Time Spent With Patient Time: Total time spent is greater than 50% in coordination of care (as documented) at patient's floor/unit and/or counseling patient: <Jess Shah PA-C - Last Filed: 05/29/21 09:58> Time with patient: 15 - 24 minutes <Jess Shah PA-C - Last Filed: 05/29/21 09:58> Quality Stroke Does the patient have a stroke diagnosis?: No <Jess Shah PA-C - Last Filed: 05/29/21 09:58> VTE Prior VTE?: No <Jess Shah PA-C - Last Filed: 05/29/21 09:58> VTE Risk Level:: Surgical - high <Jess Shah PA-C - Last Filed: 05/29/21 09:58> VTE Device Contraindication: N/A - Device Ordered <MONICA Dahl Last Filed: 05/29/21 09:58> VTE Drug Contraindication: N/A - Med Ordered (on eliquis) <Jess Shah PA-C - Last Filed: 05/29/21 09:58>
[2021-05-29] MEDS: Colchicine 0.6 MG TABLET PO ×2 (09:58→19:54)
[2021-05-29] MEDS: Famotidine 20 MG TABLET PO (19:53)
[2021-05-29 20:18] LABS: Vancomycin Trough 17.2 mcg/mL (10.0-20.0)
[2021-05-29] MEDS: Melatonin 3 MG TABLET 6 MG PO (22:21)
[2021-05-30] MEDS: oxyCODONE HCl Immed Release 5 MG TABLET 10 MG PO ×4 (03:17→20:08)
[2021-05-30 03:56] VITALS: BP 170/86; PULSE 95; RESP 18; TEMP 36; O2SAT 92
[2021-05-30] MEDS: vancomycin HCL 750 MG in 0.9 % Sodium Chloride 250 ML 265 MG IV ×3 (04:00→20:49)
[2021-05-30] MEDS: Piperacillin Sodium/Tazobactam 3.375 GM in 0.9 % Sodium Chloride 50 ML IV ×4 (05:02→23:51)
[2021-05-30 06:00] LABS: Hematocrit 30.5 % (42.0-52.0); Mean Corpuscular HGB Conc 32.8 g/dl (31.0-36.0); Mean Corpuscular Hemoglobin 31.3 pg (27.0-33.0); Mean Corpuscular Volume 95.6 fL (80.0-98.0); Mean Platelet Volume 9.4 fL (9.4-12.4); NRBC Pct Auto 0.2 /100WBC (0.0-0.2); Platelet Count 232 X10*3/uL (160-400); Red Blood Count 3.19 X10*6/uL (4.60-5.80); Red Cell Distribution Width 13.3 % (11.0-16.0); White Blood Count 11.7 X10*3/uL (4.8-10.8)
[2021-05-30 06:20] LABS: Anion Gap 13 (12-20); Blood Urea Nitrogen 11 mg/dL (9-16); Calcium 7.9 mg/dL (8.4-10.2); Carbon Dioxide 29 mmol/L (22-29); Chloride 98 mmol/L (96-108); Estimated Glomerular Filt Rate > 60; Glucose Random 84 mg/dL (60-115); Potassium 3.4 mmol/L (3.3-5.1); Sodium 137 mmol/L (135-145)
[2021-05-30] MEDS: HYDROmorphone HCl 1 MG/ML SYRINGE IVPUSH ×2 (07:22→11:36)
[2021-05-30] MEDS: Colchicine 0.6 MG TABLET PO ×2 (07:26→20:08)
[2021-05-30] MEDS: PHENobarbitaL 30 MG TABLET PO (07:26)
[2021-05-30] MEDS: Thiamine HCL 100 MG TABLET PO (07:26)
[2021-05-30] MEDS: Furosemide 40 MG TABLET 80 MG PO (07:27)
[2021-05-30] MEDS: lisinopriL 5 MG TABLET PO (07:27)
[2021-05-30] MEDS: Atorvastatin Calcium 80 MG TABLET PO (07:27)
[2021-05-30] MEDS: Folic Acid 1 MG TABLET PO (07:27)
[2021-05-30] MEDS: Apixaban 5 MG TABLET PO ×2 (07:27→20:07)
[2021-05-30] MEDS: Docusate Sodium 100 MG CAPSULE PO ×2 (07:27→20:08)
[2021-05-30] MEDS: Spironolactone 25 MG TABLET PO (07:27)
[2021-05-30] MEDS: predniSONE 20 MG TABLET 30 MG PO ×2 (07:28→09:43)
[2021-05-30] MEDS: Metoprolol Succinate ER 100 MG TAB.ER.24H PO (07:30)
[2021-05-30] MEDS: 0.9 % Sodium Chloride Flush 3 ML SYRINGE IVFLUSH ×3 (07:30→21:36)
[2021-05-30 07:43] VITALS: BP 165/104; PULSE 87; RESP 18; TEMP 36.6; O2SAT 92
--- NOTE | 2021-05-30 08:55 | PM.PNGS ---
Subjective Subjective Date of Service: 05/30/21 <Jess Shah PA-C - Last Filed: 05/30/21 08:59> 05/30/21 <Ferdinand Henson MD - Last Filed: 05/30/21 12:58> Interval history: Tullos much better yesterday in regards to gout pain. Was actually able to ambulate to bathroom. Denies abd pain. Wound vac remains in place. <Jess Shah PA-C - Last Filed: 05/30/21 08:59> Physical Exam Vital Signs: Vital Signs: Last Vital Signs Temp 97.8 F 05/30/21 07:43 Pulse 87 05/30/21 07:43 Resp 18 05/30/21 07:43 BP 165/104 H 05/30/21 07:43 Pulse Ox 92 05/30/21 07:43 Body Mass Index 14.5 <Jess Shah PA-C - Last Filed: 05/30/21 08:59> Const: General: comfortable, no acute distress and alert <Jess Shah PA-C - Last Filed: 05/30/21 08:59> Orientation/consciousness: patient oriented x3 <Jess Shah PA-C - Last Filed: 05/30/21 08:59> Resp: Effort & Inspection: normal respiratory effort <Jess Shah PA-C - Last Filed: 05/30/21 08:59> GI: Other: wound vac in place to lower abdomen/pannus, good seal, serosanguineous output in cannister <Jess Shah PA-C - Last Filed: 05/30/21 08:59> Inspection: No distended <Jess Shah PA-C - Last Filed: 05/30/21 08:59> Palpation (GI): Soft to palpation <MONICA Dahl Last Filed: 05/30/21 08:59> Skin: Other: warm and dry <MONICA Dahl Last Filed: 05/30/21 08:59> Neuro: General: patient oriented x3 <MONICA Dahl Last Filed: 05/30/21 08:59> Procedures Date of Service Date of Service: 05/30/21 <Jess Shah PA-C - Last Filed: 05/30/21 08:59> Progress Note: A&P Assessment and plan (1) Acute gout: Status: Acute <Jess Shah PA-C - Last Filed: 05/30/21 08:59> (2) Necrotizing soft tissue infection: Status: Acute <Jess Shah PA-C - Last Filed: 05/30/21 08:59> Assessment and Plan: Wound VAC in place Denies any pain on the debridement site Says he has noticed some improvement with regards to his gout pain Undergoing PT Does not appear ready to be discharged today Seen and examined - agree with JOE Shah <Ferdinand Henson MD - Last Filed: 05/30/21 12:58> (3) Morbid obesity: Status: Acute <Jess Shah PA-C - Last Filed: 05/30/21 08:59> (4) Chronic atrial fibrillation: Status: Acute <Jess Shah PA-C - Last Filed: 05/30/21 08:59> Assessment and Plan: 66 year old male admitted with abdominal wall cellulitis found to have necrotizing soft tissue infection of pannus. He is now POD #6 s/p debridement of abdominal wall. A wound vac remains in place and functioning well. Cont antibiotics. He is doing better in regards to pain from his gout flare. Seen yesterday by PT who recommended STR. Will see if plan changes now that he is more comfortable. Possible d/c tomorrow if continues to do well.?Plan wound vac dressing change prior to d/c. <Jess Shah PA-C - Last Filed: 05/30/21 08:59> Fall Risk Details Current Medications: Current Medications Apixaban (Apixaban 5 Mg Tablet) 5 mg PO BID [facility] Last Admin: 05/30/21 07:27 Dose: 5 mg Documented by: Atorvastatin Calcium (Atorvastatin Calcium 80 Mg Tablet) 80 mg PO DAILY [facility] Last Admin: 05/30/21 07:27 Dose: 80 mg Documented by: Colchicine (Colchicine 0.6 Mg Tablet) 0.6 mg PO BID [facility] Last Admin: 05/30/21 07:26 Dose: 0.6 mg Documented by: Docusate Sodium (Docusate Sodium 100 Mg Capsule) 100 mg PO BID [facility] Last Admin: 05/30/21 07:27 Dose: 100 mg Documented by: Famotidine (Famotidine 20 Mg Tablet) 20 mg PO BEDTIME [facility] Last Admin: 05/29/21 19:53 Dose: 20 mg Documented by: Folic Acid (Folic Acid 1 Mg Tablet) 1 mg PO DAILY [facility] Last Admin: 05/30/21 07:27 Dose: 1 mg Documented by: Furosemide (Furosemide 40 Mg Tablet) 80 mg PO DAILY [facility]; Protocol Last Admin: 05/30/21 07:27 Dose: 80 mg Documented by: Hydromorphone HCl (Hydromorphone Hcl 1 Mg/Ml Syringe) 1 mg IVPUSH Q4H PRN; Protocol PRN Reason: Pain, Severe (Pain Scale 7-10) Last Admin: 05/30/21 07:22 Dose: 1 mg Documented by: Piperacillin Sod/Tazobactam (Sod 3.375 gm/ Sodium Chloride) 50 mls @ 100 mls/hr IV Q6H [facility] Last Infusion: 05/30/21 05:36 Dose: Infused Documented by: Acetaminophen (Ofirmev) 1,000 mg in 100 mls @ 400 mls/hr IV Q6H PRN PRN Reason: Pain, Moderate (Pain Scale 4-6 Vancomycin HCl 750 mg/ Sodium (Chloride) 265 mls @ 265 mls/hr IV Q8H [facility] Last Infusion: 05/30/21 05:06 Dose: Infused Documented by: Lisinopril (Lisinopril 5 Mg Tablet) 5 mg PO DAILY [facility]; Protocol Last Admin: 05/30/21 07:27 Dose: 5 mg Documented by: Medication (No Benzodiazepines) 1 each MISCELLANE DAILY [facility] Melatonin (Melatonin 3 Mg Tablet) 6 mg PO BEDTIME PRN PRN Reason: Insomnia Last Admin: 05/29/21 22:21 Dose: 6 mg Documented by: Metoprolol Succinate (Metoprolol Succinate Er 100 Mg Tab.Er.24h) 100 mg PO DAILY [facility]; Protocol Last Admin: 05/30/21 07:30 Dose: 100 mg Documented by: Nicotine Polacrilex (Nicotine Polacrilex Lozenge 4 Mg Lozenge) 4 mg BUCCAL Q2H PRN PRN Reason: Nicotine Cravings Ondansetron HCl (Ondansetron Hcl 4 Mg/2 Ml Vial) 4 mg IVPUSH Q8H PRN PRN Reason: Nausea and Vomiting Oxycodone HCl (Oxycodone Hcl Immed Release 5 Mg Tablet) 10 mg PO Q4H PRN PRN Reason: Pain, Severe (Pain Scale 7-10) Last Admin: 05/30/21 03:17 Dose: 10 mg Documented by: Pharmacy Consult (Consult Rx Perform Med Rec) 1 each MISCELLANE ONCE PRN PRN Reason: Consult order Pharmacy Consult (Consult Rx Vancomycin Dosing) 1 each MISCELLANE DAILY PRN PRN Reason: Consult order Phenobarbital (Phenobarbital 30 Mg Tablet) 30 mg PO DAILY [facility] Stop: 05/30/21 09:01 Last Admin: 05/30/21 07:26 Dose: 30 mg Documented by: Prednisone (Prednisone 20 Mg Tablet) 60 mg PO DAILY [facility] Sodium Chloride (0.9 % Sodium Chloride Flush 3 Ml Syringe) 3 ml IVFLUSH QSHIFT [facility] Last Admin: 05/30/21 07:30 Dose: 3 ml Documented by: Spironolactone (Spironolactone 25 Mg Tablet) 25 mg PO DAILY [facility]; Protocol Last Admin: 05/30/21 07:27 Dose: 25 mg Documented by: Thiamine HCl (Thiamine Hcl 100 Mg Tablet) 100 mg PO DAILY [facility] Last Admin: 05/30/21 07:26 Dose: 100 mg Documented by: <Jess Shah PA-C - Last Filed: 05/30/21 08:59> Time Spent With Patient Time: Total time spent is greater than 50% in coordination of care (as documented) at patient's floor/unit and/or counseling patient: <Jess Shah PA-C - Last Filed: 05/30/21 08:59> Time with patient: 15 - 24 minutes <MONICA Dahl Last Filed: 05/30/21 08:59> Quality Stroke Does the patient have a stroke diagnosis?: No <MONICA Dahl Last Filed: 05/30/21 08:59> VTE Prior VTE?: No <MONICA Dahl Last Filed: 05/30/21 08:59> VTE Risk Level:: Surgical - high <MONICA Dahl Last Filed: 05/30/21 08:59> VTE Device Contraindication: N/A - Device Ordered <MONICA Dahl Last Filed: 05/30/21 08:59> VTE Drug Contraindication: N/A - Med Ordered (on eliquis) <Jess Shah PA-C - Last Filed: 05/30/21 08:59>
[2021-05-30 10:21] VITALS: BP 165/104; PULSE 87; O2SAT 92
[2021-05-30 12:00] VITALS: BP 164/101; PULSE 97; RESP 20; TEMP 36.8; O2SAT 94
--- NOTE | 2021-05-30 13:12 | HO.PM.IMPN ---
Subjective Subjective Date of Service: 05/30/21 Interval History: cc abd wall redness interval history: gout in ankles improving, right writst unchanged Cardiovascular Cardiovascular: Reports no additional cardiovascular complaints Respiratory Respiratory: Reports no additional respiratory complaints Physical Exam Vital Signs: Vital Signs: Last Vital Signs Temp 98.3 F 05/30/21 12:00 Pulse 97 05/30/21 12:00 Resp 20 05/30/21 12:00 BP 164/101 H 05/30/21 12:00 Pulse Ox 94 05/30/21 12:00 Body Mass Index 14.5 General: AO X 3, no acute distress Resp: CTA bilateral, no accessory muscles used CVS: S1,S2,RRR GI: wound vac in place to lower abdomen/pannus, good seal, serosanguineous output in cannister ? right wrist swelling Neuro: motor grossly intact, alert Psych: appropriate affect, appropriate insight Objective Data Active Medications Apixaban (Apixaban 5 Mg Tablet) 5 mg PO BID [facility] Last Admin: 05/30/21 07:27 Dose: 5 mg Documented by: JANET Atorvastatin Calcium (Atorvastatin Calcium 80 Mg Tablet) 80 mg PO DAILY [facility] Last Admin: 05/30/21 07:27 Dose: 80 mg Documented by: JANET Colchicine (Colchicine 0.6 Mg Tablet) 0.6 mg PO BID [facility] Last Admin: 05/30/21 07:26 Dose: 0.6 mg Documented by: JANET Docusate Sodium (Docusate Sodium 100 Mg Capsule) 100 mg PO BID [facility] Last Admin: 05/30/21 07:27 Dose: 100 mg Documented by: JANET Famotidine (Famotidine 20 Mg Tablet) 20 mg PO BEDTIME [facility] Last Admin: 05/29/21 19:53 Dose: 20 mg Documented by: CHARISSA Folic Acid (Folic Acid 1 Mg Tablet) 1 mg PO DAILY [facility] Last Admin: 05/30/21 07:27 Dose: 1 mg Documented by: JANET Furosemide (Furosemide 40 Mg Tablet) 80 mg PO DAILY [facility]; Protocol Last Admin: 05/30/21 07:27 Dose: 80 mg Documented by: JANET Hydromorphone HCl (Hydromorphone Hcl 1 Mg/Ml Syringe) 1 mg IVPUSH Q4H PRN; Protocol PRN Reason: Pain, Severe (Pain Scale 7-10) Last Admin: 05/30/21 11:36 Dose: 1 mg Documented by: JANET Piperacillin Sod/Tazobactam (Sod 3.375 gm/ Sodium Chloride) 50 mls @ 100 mls/hr IV Q6H [facility] Last Infusion: 05/30/21 12:11 Dose: 0 mls/hr Documented by: JANET Acetaminophen (Ofirmev) 1,000 mg in 100 mls @ 400 mls/hr IV Q6H PRN PRN Reason: Pain, Moderate (Pain Scale 4-6 Vancomycin HCl 750 mg/ Sodium (Chloride) 265 mls @ 265 mls/hr IV Q8H [facility] Last Infusion: 05/30/21 05:06 Dose: 0 mls/hr Documented by: CHARISSA Lisinopril (Lisinopril 5 Mg Tablet) 5 mg PO DAILY [facility]; Protocol Last Admin: 05/30/21 07:27 Dose: 5 mg Documented by: JANET Medication (No Benzodiazepines) 1 each MISCELLANE DAILY [facility] Melatonin (Melatonin 3 Mg Tablet) 6 mg PO BEDTIME PRN PRN Reason: Insomnia Last Admin: 05/29/21 22:21 Dose: 6 mg Documented by: CHARISSA Metoprolol Succinate (Metoprolol Succinate Er 100 Mg Tab.Er.24h) 100 mg PO DAILY [facility]; Protocol Last Admin: 05/30/21 07:30 Dose: 100 mg Documented by: JANET Nicotine Polacrilex (Nicotine Polacrilex Lozenge 4 Mg Lozenge) 4 mg BUCCAL Q2H PRN PRN Reason: Nicotine Cravings Ondansetron HCl (Ondansetron Hcl 4 Mg/2 Ml Vial) 4 mg IVPUSH Q8H PRN PRN Reason: Nausea and Vomiting Oxycodone HCl (Oxycodone Hcl Immed Release 5 Mg Tablet) 10 mg PO Q4H PRN PRN Reason: Pain, Severe (Pain Scale 7-10) Last Admin: 05/30/21 08:58 Dose: 10 mg Documented by: SHIN Pharmacy Consult (Consult Rx Perform Med Rec) 1 each MISCELLANE ONCE PRN PRN Reason: Consult order Pharmacy Consult (Consult Rx Vancomycin Dosing) 1 each MISCELLANE DAILY PRN PRN Reason: Consult order Prednisone (Prednisone 20 Mg Tablet) 60 mg PO DAILY [facility] Prednisone (Prednisone 20 Mg Tablet) 30 mg PO ONCE ONE Stop: 06/07/21 16:59 Last Admin: 05/30/21 09:43 Dose: 30 mg Documented by: JANET Sodium Chloride (0.9 % Sodium Chloride Flush 3 Ml Syringe) 3 ml IVFLUSH QSHIFT [facility] Last Admin: 05/30/21 07:30 Dose: 3 ml Documented by: JANET Spironolactone (Spironolactone 25 Mg Tablet) 25 mg PO DAILY [facility]; Protocol Last Admin: 05/30/21 07:27 Dose: 25 mg Documented by: JANET Thiamine HCl (Thiamine Hcl 100 Mg Tablet) 100 mg PO DAILY [facility] Last Admin: 05/30/21 07:26 Dose: 100 mg Documented by: JANET Labs CBC & Chem 7: 05/30/21 05:22 05/30/21 05:22 Labs: Laboratory Results - last 24 hr 05/29/21 05/30/21 05/30/21 19:51 05:22 05:22 MCV 95.6 MCH 31.3 MCHC 32.8 RDW 13.3 Plt Count 232 D MPV 9.4 Absolute Nucleated RBC 0.020 H Nucleated RBC % (auto) 0.2 Anion Gap 13 Estim Creat Clear Calc 136.0 Estimated GFR > 60 Random Glucose 84 Calcium 7.9 L Vancomycin Trough 17.2 Microbiology Microbiology Results: Microbiology 05/24/21 08:43 Blood Culture - Final Blood - Venous No growth after 5 days. 05/24/21 08:24 Blood Culture - Final Blood - Venous No growth after 5 days. Assessment and Plan (1) Necrotizing soft tissue infection: Status: Acute (2) Morbid obesity: Status: Acute (3) Acute gout: Status: Acute Assessment and Plan: This is a 66-year-old male with history of chronic atrial fibrillation on Eliquis, CAD s/p CABG, HFpEF, HTN, HLD who presents to the emergency department with abdominal wall cellulitis found to have soft tissue necrotizing skin infection Sepsis secondary to Necrotizing soft tissue infection of the abdominal wall s/p debridement of abdominal wall Management per surgical team Seen by ID, recommended to continue IV vancomycin/zosyn for now Wound culture growing streptococcus anginosis Blood cultures negative x 48 hours Acute gout flare was taking indomethacin at home, was held for owen, does not want to resume started on prednisone, still having pain, will increase to 60mg daily, continue colchicine pepcid for gi ppx while on steroids Hypokalemia resolved follow BMP OWEN on CKD 3. Resolved with gentle IVF and holding nephrotoxins HFpEF - chronic continue lasix, aldactone monitor fluid status closely Chronic afib HR controlled -continue metoprolol Eliquis today HTN -continue metoprolol, lisinopril -monitor BP closely alcohol use Patient reports drinking alcohol 2 times per week and not for the past 7 days His brother called to report history of alcohol withdrawal infrequent alcohol use No evidence of alcohol withdrawal at this time -phenobarbital protocol completed -supplementation with thiamine, folic acid liver lesion hypodense lesion seen on abdominal CT -dedicated liver US showing probably cyst, recommend US follow up in 6 months sclerotic appearance of left femur -femur xray slightly sclerotic left femoral lesion. -recommend outpatient follow up, possible bone scan Hyperlipidemia -continue statin CAD No chest pain morbid obesity weight loss encouraged BMI 40.4 MAURICE unable to tolerate CPAP DVT prophylaxis-Eliquis Quality Stroke Does the patient have a stroke diagnosis?: No VTE Prior VTE?: No VTE Risk Level:: Surgical - high VTE Device Contraindication: N/A - Device Ordered VTE Drug Contraindication: N/A - Med Ordered (on eliquis)
[2021-05-30 15:58] VITALS: BP 166/88; PULSE 104; RESP 18; TEMP 36.4; O2SAT 96
[2021-05-30 19:43] VITALS: BP 164/84; PULSE 95; RESP 18; TEMP 36.5; O2SAT 95
[2021-05-30] MEDS: Famotidine 20 MG TABLET PO (20:08)
[2021-05-30 20:35] LABS: Vancomycin Trough 14.4 mcg/mL (10.0-20.0)
[2021-05-30] MEDS: Melatonin 3 MG TABLET 6 MG PO (21:36)
[2021-05-31] VITALS (11 sets, daily range): BP systolic 155–182; BP diastolic 89–98; PULSE 75–91; RESP 16–20; TEMP 36–37.1; O2SAT 93–97
[2021-05-31] MEDS: oxyCODONE HCl Immed Release 5 MG TABLET 10 MG PO ×4 (00:32→18:23)
[2021-05-31] MEDS: vancomycin HCL 750 MG in 0.9 % Sodium Chloride 250 ML 265 MG IV (04:43)
[2021-05-31] MEDS: Piperacillin Sodium/Tazobactam 3.375 GM in 0.9 % Sodium Chloride 50 ML IV ×2 (05:46→12:07)
[2021-05-31 06:08] LABS: Anion Gap 12 (12-20); Blood Urea Nitrogen 14 mg/dL (9-16); Calcium 8.3 mg/dL (8.4-10.2); Carbon Dioxide 30 mmol/L (22-29); Chloride 97 mmol/L (96-108); Creatinine Clr Calc Pharmacy 129.4; Estimated Glomerular Filt Rate > 60; Glucose Random 83 mg/dL (60-115); Potassium 3.2 mmol/L (3.3-5.1); Sodium 136 mmol/L (135-145)
[2021-05-31] MEDS: Docusate Sodium 100 MG CAPSULE PO (07:47)
[2021-05-31] MEDS: Spironolactone 25 MG TABLET PO (07:47)
[2021-05-31] MEDS: Colchicine 0.6 MG TABLET PO ×2 (07:47→21:42)
[2021-05-31] MEDS: Apixaban 5 MG TABLET PO ×2 (07:48→21:43)
[2021-05-31] MEDS: lisinopriL 5 MG TABLET PO (07:49)
[2021-05-31] MEDS: Metoprolol Succinate ER 100 MG TAB.ER.24H PO (07:50)
[2021-05-31] MEDS: Folic Acid 1 MG TABLET PO (07:50)
[2021-05-31] MEDS: predniSONE 20 MG TABLET 60 MG PO (07:51)
[2021-05-31] MEDS: Atorvastatin Calcium 80 MG TABLET PO (07:52)
[2021-05-31] MEDS: 0.9 % Sodium Chloride Flush 3 ML SYRINGE IVFLUSH ×3 (07:53→21:44)
--- NOTE | 2021-05-31 08:18 | PM.PNGS ---
Subjective Subjective Date of Service: 05/31/21 <Jess Shah PA-C - Last Filed: 05/31/21 08:23> 05/31/21 <Ferdinand Henson MD - Last Filed: 05/31/21 08:50> Interval history: He denies any abdominal complaints. He continues to have pain at his feet but improved. His right hand/wrist pain remains severe. Was able to get OOB to bathroom last night but having difficulty grasping walker with hand. <Jess Shah PA-C - Last Filed: 05/31/21 08:23> Physical Exam Vital Signs: Vital Signs: Last Vital Signs Temp 96.9 F 05/31/21 08:00 Pulse 85 05/31/21 08:00 Resp 18 05/31/21 08:00 BP 182/97 H 05/31/21 08:00 Pulse Ox 96 05/31/21 08:00 Body Mass Index 14.5 <Jess Shah PA-C - Last Filed: 05/31/21 08:23> Const: General: no acute distress and alert <Jess Shah PA-C - Last Filed: 05/31/21 08:23> Orientation/consciousness: patient oriented x3 <Jess Shah PA-C - Last Filed: 05/31/21 08:23> Resp: Effort & Inspection: normal respiratory effort <Jess Shah PA-C - Last Filed: 05/31/21 08:23> GI: Other: wound vac remains in place, dark drainage in cannister <Jess Shah PA-C - Last Filed: 05/31/21 08:23> Inspection: No distended <MONICA Dahl Last Filed: 05/31/21 08:23> Palpation (GI): Soft to palpation <MONICA Dahl Last Filed: 05/31/21 08:23> Skin: Other: warm and dry <Jess Shah PA-C - Last Filed: 05/31/21 08:23> Neuro: General: patient oriented x3 <MONICA Dahl Last Filed: 05/31/21 08:23> Extrem: Other: right hand edematous <Jess Shah PA-C - Last Filed: 05/31/21 08:23> Procedures Date of Service Date of Service: 05/31/21 <Jess Shah PA-C - Last Filed: 05/31/21 08:23> Progress Note: A&P Assessment and plan (1) Acute gout: Status: Acute <Jess Shah PA-C - Last Filed: 05/31/21 08:23> (2) Necrotizing soft tissue infection: Status: Acute <Jess Shah PA-C - Last Filed: 05/31/21 08:23> Assessment and Plan: Denies any complaints with regards to debridement site Complaints of gout pain Right wrist swollen, tender and warm Discussed with hospitalist service about control of got arthritis Change of wound VAC today Hopefully, he will be ready to be discharged tomorrow Seen and examined independently - agree with JOE Shah <Ferdinand Henson MD - Last Filed: 05/31/21 08:50> Assessment and Plan: 66 year old male admitted with abdominal wall cellulitis found to have necrotizing soft tissue infection of pannus. He is now POD #7 s/p debridement of abdominal wall. A wound vac remains in place and functioning well. On IV vanco/zosyn, day 7. Plan wound vac dressing change later today.?Will touch base with ID re: antibiotic duration. Gouty flare pain continues to limit ambulation. Gout pain being managed by medicine service- prednisone increased yesterday. Seen by PT who continues to recommend STR. He does not feel ready for discharge today. <Jess Shah PA-C - Last Filed: 05/31/21 08:23> Fall Risk Details Current Medications: Current Medications Apixaban (Apixaban 5 Mg Tablet) 5 mg PO BID [facility] Last Admin: 05/31/21 07:48 Dose: 5 mg Documented by: Atorvastatin Calcium (Atorvastatin Calcium 80 Mg Tablet) 80 mg PO DAILY [facility] Last Admin: 05/31/21 07:52 Dose: 80 mg Documented by: Colchicine (Colchicine 0.6 Mg Tablet) 0.6 mg PO BID [facility] Last Admin: 05/31/21 07:47 Dose: 0.6 mg Documented by: Docusate Sodium (Docusate Sodium 100 Mg Capsule) 100 mg PO BID [facility] Last Admin: 05/31/21 07:47 Dose: 100 mg Documented by: Famotidine (Famotidine 20 Mg Tablet) 20 mg PO BEDTIME [facility] Last Admin: 05/30/21 20:08 Dose: 20 mg Documented by: Folic Acid (Folic Acid 1 Mg Tablet) 1 mg PO DAILY [facility] Last Admin: 05/31/21 07:50 Dose: 1 mg Documented by: Furosemide (Furosemide 40 Mg Tablet) 80 mg PO DAILY [facility]; Protocol Last Admin: 05/30/21 07:27 Dose: 80 mg Documented by: Hydromorphone HCl (Hydromorphone Hcl 0.5 Mg/0.5 Ml Syringe) 0.5 mg IVPUSH Q2H PRN; Protocol PRN Reason: Pain, Severe (Pain Scale 7-10) Piperacillin Sod/Tazobactam (Sod 3.375 gm/ Sodium Chloride) 50 mls @ 100 mls/hr IV Q6H [facility] Last Infusion: 05/31/21 06:27 Dose: Infused Documented by: Acetaminophen (Ofirmev) 1,000 mg in 100 mls @ 400 mls/hr IV Q6H PRN PRN Reason: Pain, Moderate (Pain Scale 4-6 Last Infusion: 05/30/21 22:12 Dose: Infused Documented by: Vancomycin HCl 750 mg/ Sodium (Chloride) 265 mls @ 265 mls/hr IV Q8H [facility] Last Infusion: 05/31/21 05:51 Dose: Infused Documented by: Lisinopril (Lisinopril 5 Mg Tablet) 5 mg PO DAILY [facility]; Protocol Last Admin: 05/31/21 07:49 Dose: 5 mg Documented by: Medication (No Benzodiazepines) 1 each MISCELLANE DAILY [facility] Melatonin (Melatonin 3 Mg Tablet) 6 mg PO BEDTIME PRN PRN Reason: Insomnia Last Admin: 05/30/21 21:36 Dose: 6 mg Documented by: Metoprolol Succinate (Metoprolol Succinate Er 100 Mg Tab.Er.24h) 100 mg PO DAILY [facility]; Protocol Last Admin: 05/31/21 07:50 Dose: 100 mg Documented by: Nicotine Polacrilex (Nicotine Polacrilex Lozenge 4 Mg Lozenge) 4 mg BUCCAL Q2H PRN PRN Reason: Nicotine Cravings Ondansetron HCl (Ondansetron Hcl 4 Mg/2 Ml Vial) 4 mg IVPUSH Q8H PRN PRN Reason: Nausea and Vomiting Oxycodone HCl (Oxycodone Hcl Immed Release 5 Mg Tablet) 10 mg PO Q4H PRN PRN Reason: Pain, Severe (Pain Scale 7-10) Last Admin: 05/31/21 04:49 Dose: 10 mg Documented by: Oxycodone HCl (Oxycodone Hcl Immed Release 5 Mg Tablet) 5 mg PO Q4H PRN PRN Reason: Pain, Moderate (Pain Scale 4-6 Pharmacy Consult (Consult Rx Perform Med Rec) 1 each MISCELLANE ONCE PRN PRN Reason: Consult order Pharmacy Consult (Consult Rx Vancomycin Dosing) 1 each MISCELLANE DAILY PRN PRN Reason: Consult order Prednisone (Prednisone 20 Mg Tablet) 60 mg PO DAILY [facility] Last Admin: 05/31/21 07:51 Dose: 60 mg Documented by: Prednisone (Prednisone 20 Mg Tablet) 30 mg PO ONCE ONE Stop: 06/07/21 16:59 Last Admin: 05/30/21 09:43 Dose: 30 mg Documented by: Sodium Chloride (0.9 % Sodium Chloride Flush 3 Ml [facility]) [facility] Last Admin: 05/31/21 07:53 Dose: 3 ml Documented by: Spironolactone (Spironolactone 25 Mg Tablet) 25 mg PO DAILY [facility]; Protocol Last Admin: 05/31/21 07:47 Dose: 25 mg Documented by: Thiamine HCl (Thiamine Hcl 100 Mg Tablet) 100 mg PO DAILY [facility] Last Admin: 05/30/21 07:26 Dose: 100 mg Documented by: <Jess Shah PA-C - Last Filed: 05/31/21 08:23> Time Spent With Patient Time: Total time spent is greater than 50% in coordination of care (as documented) at patient's floor/unit and/or counseling patient: <Jess Shah PA-C - Last Filed: 05/31/21 08:23> Time with patient: 15 - 24 minutes <Jess Shah PA-C - Last Filed: 05/31/21 08:23> Quality Stroke Does the patient have a stroke diagnosis?: No <Jess Shah PA-C - Last Filed: 05/31/21 08:23> VTE Prior VTE?: No <Jess Shah PA-C - Last Filed: 05/31/21 08:23> VTE Risk Level:: Surgical - high <Jess Shah PA-C - Last Filed: 05/31/21 08:23> VTE Device Contraindication: N/A - Device Ordered <Jess Shah PA-C - Last Filed: 05/31/21 08:23> VTE Drug Contraindication: N/A - Med Ordered (on eliquis) <Jess Shah PA-C - Last Filed: 05/31/21 08:23>
[2021-05-31] MEDS: HYDROmorphone HCl 0.5 MG/0.5 ML SYRINGE IVPUSH ×2 (08:36→21:43)
[2021-05-31] MEDS: Furosemide 40 MG TABLET 80 MG PO (08:36)
[2021-05-31] MEDS: Ibuprofen 400 MG TABLET PO ×3 (10:28→21:42)
[2021-05-31] MEDS: Thiamine HCL 100 MG TABLET PO (10:33)
--- NOTE | 2021-05-31 11:08 | P.PNIM_ITS ---
Subjective Subjective Date of Service: 05/31/21 Interval History: cc abd wall redness interval history: gout in ankles improving, right wrist worse today Cardiovascular Cardiovascular: Reports no additional cardiovascular complaints Respiratory Respiratory: Reports no additional respiratory complaints Physical Exam Vital Signs: Vital Signs: Last Vital Signs Temp 96.9 F 05/31/21 08:00 Pulse 85 05/31/21 08:00 Resp 18 05/31/21 08:00 BP 182/97 H 05/31/21 08:00 Pulse Ox 96 05/31/21 08:00 Body Mass Index 14.5 General: AO X 3, no acute distress Resp:? CTA bilateral, no accessory muscles used CVS: S1,S2,RRR GI: wound vac in place to lower abdomen/pannus, good seal, serosanguineous output in cannister ? right wrist swelling, severe tenderness, bilateral ankle swelling and tenderness Neuro:? motor grossly intact, alert Psych: appropriate affect, appropriate insight? Objective Data Active Medications Apixaban (Apixaban 5 Mg Tablet) 5 mg PO BID [facility] Last Admin: 05/31/21 07:48 Dose: 5 mg Documented by: MARANDA Atorvastatin Calcium (Atorvastatin Calcium 80 Mg Tablet) 80 mg PO DAILY [facility] Last Admin: 05/31/21 07:52 Dose: 80 mg Documented by: MARANDA Colchicine (Colchicine 0.6 Mg Tablet) 0.6 mg PO BID [facility] Last Admin: 05/31/21 07:47 Dose: 0.6 mg Documented by: MARANDA Docusate Sodium (Docusate Sodium 100 Mg Capsule) 100 mg PO BID [facility] Last Admin: 05/31/21 07:47 Dose: 100 mg Documented by: MARANDA Famotidine (Famotidine 20 Mg Tablet) 20 mg PO BEDTIME [facility] Last Admin: 05/30/21 20:08 Dose: 20 mg Documented by: CHARISSA Folic Acid (Folic Acid 1 Mg Tablet) 1 mg PO DAILY [facility] Last Admin: 05/31/21 07:50 Dose: 1 mg Documented by: MARANDA Furosemide (Furosemide 40 Mg Tablet) 80 mg PO DAILY [facility]; Protocol Last Admin: 05/31/21 08:36 Dose: 80 mg Documented by: JANET Hydromorphone HCl (Hydromorphone Hcl 0.5 Mg/0.5 Ml Syringe) 0.5 mg IVPUSH Q2H PRN; Protocol PRN Reason: Pain, Severe (Pain Scale 7-10) Last Admin: 05/31/21 08:36 Dose: 0.5 mg Documented by: JANET Piperacillin Sod/Tazobactam (Sod 3.375 gm/ Sodium Chloride) 50 mls @ 100 mls/hr IV Q6H [facility] Last Infusion: 05/31/21 06:27 Dose: 0 mls/hr Documented by: CHARISSA Acetaminophen (Ofirmev) 1,000 mg in 100 mls @ 400 mls/hr IV Q6H PRN PRN Reason: Pain, Moderate (Pain Scale 4-6 Last Infusion: 05/30/21 22:12 Dose: 0 mls/hr Documented by: CHARISSA Vancomycin HCl 750 mg/ Sodium (Chloride) 265 mls @ 265 mls/hr IV Q8H [facility] Last Infusion: 05/31/21 05:51 Dose: 0 mls/hr Documented by: CHARISSA Ibuprofen (Ibuprofen 400 Mg Tablet) 400 mg PO Q6H [facility] Stop: 06/02/21 03:01 Last Admin: 05/31/21 10:28 Dose: 400 mg Documented by: MARANDA Lisinopril (Lisinopril 5 Mg Tablet) 5 mg PO DAILY [facility]; Protocol Last Admin: 05/31/21 07:49 Dose: 5 mg Documented by: MARANDA Medication (No Benzodiazepines) 1 each MISCELLANE DAILY [facility] Melatonin (Melatonin 3 Mg Tablet) 6 mg PO BEDTIME PRN PRN Reason: Insomnia Last Admin: 05/30/21 21:36 Dose: 6 mg Documented by: CHARISSA Metoprolol Succinate (Metoprolol Succinate Er 100 Mg Tab.Er.24h) 100 mg PO DAILY [facility]; Protocol Last Admin: 05/31/21 07:50 Dose: 100 mg Documented by: MARANDA Nicotine Polacrilex (Nicotine Polacrilex Lozenge 4 Mg Lozenge) 4 mg BUCCAL Q2H PRN PRN Reason: Nicotine Cravings Ondansetron HCl (Ondansetron Hcl 4 Mg/2 Ml Vial) 4 mg IVPUSH Q8H PRN PRN Reason: Nausea and Vomiting Oxycodone HCl (Oxycodone Hcl Immed Release 5 Mg Tablet) 10 mg PO Q4H PRN PRN Reason: Pain, Severe (Pain Scale 7-10) Last Admin: 05/31/21 10:29 Dose: 10 mg Documented by: MARANDA Oxycodone HCl (Oxycodone Hcl Immed Release 5 Mg Tablet) 5 mg PO Q4H PRN PRN Reason: Pain, Moderate (Pain Scale 4-6 Pharmacy Consult (Consult Rx Perform Med Rec) 1 each MISCELLANE ONCE PRN PRN Reason: Consult order Prednisone (Prednisone 20 Mg Tablet) 60 mg PO DAILY [facility] Last Admin: 05/31/21 07:51 Dose: 60 mg Documented by: MARANDA Prednisone (Prednisone 20 Mg Tablet) 30 mg PO ONCE ONE Stop: 06/07/21 16:59 Last Admin: 05/30/21 09:43 Dose: 30 mg Documented by: JANET Sodium Chloride (0.9 % Sodium Chloride Flush 3 Ml Syringe) 3 ml IVFLUSH QSHIFT [facility] Last Admin: 05/31/21 07:53 Dose: 3 ml Documented by: MARANDA Spironolactone (Spironolactone 25 Mg Tablet) 25 mg PO DAILY [facility]; Protocol Last Admin: 05/31/21 07:47 Dose: 25 mg Documented by: MARANDA Thiamine HCl (Thiamine Hcl 100 Mg Tablet) 100 mg PO DAILY [facility] Last Admin: 05/31/21 10:33 Dose: 100 mg Documented by: MARANDA Labs CBC & Chem 7: 05/30/21 05:22 05/31/21 05:36 Labs: Laboratory Results - last 24 hr 05/30/21 05/31/21 19:59 05:36 Anion Gap 12 Estim Creat Clear Calc 129.4 Estimated GFR > 60 Random Glucose 83 Calcium 8.3 L Vancomycin Trough 14.4 Assessment and Plan (1) Necrotizing soft tissue infection: Status: Acute (2) Morbid obesity: Status: Acute (3) Acute gout: Status: Acute Assessment and Plan: This is a 66-year-old male with history of chronic atrial fibrillation on Eliquis, CAD s/p CABG, HFpEF, HTN, HLD who presents to the emergency department with abdominal wall cellulitis found to have soft tissue necrotizing skin infection Sepsis secondary to Necrotizing soft tissue infection of the abdominal wall s/p debridement of abdominal wall Management per surgical team Seen by ID, recommended to continue IV vancomycin/zosyn for now Wound culture growing streptococcus anginosis Blood cultures negative Acute gout flare was taking indomethacin at home, was held for owen continue colchicine, prednisone, will add ibuprofen pepcid for gi ppx while on steroids Hypokalemia replace follow BMP OWEN on CKD 3. Resolved with gentle IVF and holding nephrotoxins HFpEF - chronic continue lasix, aldactone monitor fluid status closely Chronic afib HR controlled -continue metoprolol Eliquis today HTN -continue metoprolol, lisinopril -monitor BP closely alcohol use Patient reports drinking alcohol 2 times per week and not for the past 7 days His brother called to report history of alcohol withdrawal infrequent alcohol use No evidence of alcohol withdrawal at this time -phenobarbital protocol completed -supplementation with thiamine, folic acid liver lesion hypodense lesion seen on abdominal CT -dedicated liver US showing probably cyst, recommend US follow up in 6 months sclerotic appearance of left femur -femur xray slightly sclerotic left femoral lesion. -recommend outpatient follow up, possible bone scan Hyperlipidemia -continue statin CAD No chest pain morbid obesity weight loss encouraged BMI 40.4 MAURICE unable to tolerate CPAP DVT prophylaxis-Eliquis Quality Stroke Does the patient have a stroke diagnosis?: No VTE Prior VTE?: No VTE Risk Level:: Surgical - high VTE Device Contraindication: N/A - Device Ordered VTE Drug Contraindication: N/A - Med Ordered (on eliquis)
[2021-05-31] MEDS: Potassium Chloride ER 20 MEQ TAB.ER.PRT 40 MEQ PO (12:03)
--- NOTE | 2021-05-31 12:07 | PM.EVENT ---
Event Note Date of Service: 05/31/21 Event Note: Wound vac dressing removed today. Wound clean, large amount of wound granulating well. 4x3 cm darkened area centrally, appears to be hemorrhagic subq fat. It does not appear necrotic. Small superficial clots from this region gently wiped with fluff. New large wound vac dressing sponge placed. Good seal noted. Patient tolerated the procedure well. Discussed dispo antibiotics with ID who recommended Ceftriaxone IV for 2-3 weeks. Will order for PICC line today.
[2021-05-31] MEDS: cefTRIAXone sodium 1 GM in 0.9 % Sodium Chloride 50 ML IV (13:51)
--- NOTE | 2021-05-31 15:31 | MHC.CM.PN ---
CASE MANAGEMENT MET WITH PATIENT TO DISCUSS POSSIBLE STR REFERRALS PATIENT HAS A WOUND VAC, REQUIRES P.T. AT DISCHARGE, AND PLAN IS FOR PICC INSERTION TOMORROW (06/01/21) FOR LT IV ABX. PATIENT WILL BE UNABLE TO MANAGE ON HIS OWN AT HOME. PATIENT IN AGREEMENT AND REQUESTS REFERRALS CLOSE TO HIS HOME IN [place] AND/OR [place]. REFERRALS TO [facility] CASE MANAGEMENT TO CONTINUE TO FOLLOW
[2021-05-31 20:34] LABS: Vancomycin Trough 8.2 mcg/mL (10.0-20.0)
[2021-05-31] MEDS: Famotidine 20 MG TABLET PO (21:43)
[2021-05-31] MEDS: Melatonin 3 MG TABLET 6 MG PO (21:43)
[2021-06-01] MEDS: oxyCODONE HCl Immed Release 5 MG TABLET PO ×2 (02:28→14:16)
[2021-06-01] MEDS: Ibuprofen 400 MG TABLET PO ×4 (02:48→20:09)
[2021-06-01 04:00] VITALS: BP 170/92; PULSE 85; RESP 17; TEMP 36.3; O2SAT 95
--- NOTE | 2021-06-01 05:09 | PC.NURSE ---
Pt slept well first part of the night. Awake around 02:30, in a sweat. Pt changed and some bedding changed. Pt c/o abdominal pain (he states from laying on his right side). Pt medicated and assisted to bathroom with 1 assist and walker. Pt voided without issues and assisted back to bed. Pt then stated his right hand and ankles were really hurting him from pulling himself up, using the walker and ambulating. Pt medicated with Oxycodone prn and then his scheduled Ibuprophen with very good effect (per patient). Pt's BP remains elevated, otherwise VSS. Presently, no c/o pain. Right hand and bilateral ankles remain swollen. Wound vac in place. 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 Will continue to monitor.
[2021-06-01 07:35] VITALS: BP 171/91; PULSE 92; RESP 18; TEMP 36.6; O2SAT 95
[2021-06-01] MEDS: 0.9 % Sodium Chloride Flush 3 ML SYRINGE IVFLUSH ×3 (07:36→22:18)
[2021-06-01] MEDS: oxyCODONE HCl Immed Release 5 MG TABLET 10 MG PO ×3 (07:41→22:13)
[2021-06-01] MEDS: Colchicine 0.6 MG TABLET PO ×2 (07:41→20:11)
[2021-06-01] MEDS: predniSONE 20 MG TABLET 60 MG PO (07:41)
[2021-06-01] MEDS: Spironolactone 25 MG TABLET PO (07:42)
[2021-06-01] MEDS: lisinopriL 5 MG TABLET PO (07:42)
[2021-06-01] MEDS: Thiamine HCL 100 MG TABLET PO (07:42)
[2021-06-01] MEDS: Apixaban 5 MG TABLET PO ×2 (07:42→20:09)
[2021-06-01] MEDS: Metoprolol Succinate ER 100 MG TAB.ER.24H PO (07:42)
[2021-06-01] MEDS: Atorvastatin Calcium 80 MG TABLET PO (07:42)
[2021-06-01] MEDS: Folic Acid 1 MG TABLET PO (07:42)
[2021-06-01] MEDS: Furosemide 40 MG TABLET 80 MG PO (07:42)
--- NOTE | 2021-06-01 09:15 | PM.PNGS ---
Subjective Subjective Date of Service: 06/01/21 <Jess Shah PA-C - Last Filed: 06/01/21 09:19> 06/01/21 <Ferdinand Henson MD - Last Filed: 06/01/21 11:00> Interval history: Gout pain better today, able to ambulate with walker x 2 this morning. In better spirits. Decided on STR. <Jess Shah PA-C - Last Filed: 06/01/21 09:19> Physical Exam Vital Signs: Vital Signs: Last Vital Signs Temp 97.8 F 06/01/21 07:35 Pulse 92 06/01/21 07:35 Resp 18 06/01/21 07:35 BP 171/91 H 06/01/21 07:35 Pulse Ox 95 06/01/21 07:35 Body Mass Index 14.5 <Jess Shah PA-C - Last Filed: 06/01/21 09:19> Const: General: comfortable, no acute distress and alert <Jess Shah PA-C - Last Filed: 06/01/21 09:19> Orientation/consciousness: patient oriented x3 <Jess Shah PA-C - Last Filed: 06/01/21 09:19> Resp: Effort & Inspection: normal respiratory effort <Jess Shah PA-C - Last Filed: 06/01/21 09:19> GI: Other: wound vac in place, good seal noted, dark sanguineous drainage in cannister <Jess Shah PA-C - Last Filed: 06/01/21 09:19> Inspection: No distended <Jess Shah PA-C - Last Filed: 06/01/21 09:19> Skin: Other: warm and dry <MONICA Dahl Last Filed: 06/01/21 09:19> Neuro: General: patient oriented x3 <MONICA Dahl Last Filed: 06/01/21 09:19> Procedures Date of Service Date of Service: 06/01/21 <MONICA Dahl Last Filed: 06/01/21 09:19> Progress Note: A&P Assessment and plan (1) Acute gout: Status: Acute <Jess Shah PA-C - Last Filed: 06/01/21 09:19> (2) Necrotizing soft tissue infection: Status: Acute <Jess Shah PA-C - Last Filed: 06/01/21 09:19> Assessment and Plan: He feels well States he has decided that he will go to rehab Main complaint is pain on the right wrist and ankles from gout Wound VAC in place No cellulitis on the pannus Awaiting PICC line Okay to DC to rehab once bed available Will see him in the office for follow-up Wound VAC care in rehab Discussed with son Seen and examined- agree with JOE Shah <Ferdinand Henson MD - Last Filed: 06/01/21 11:00> (3) Chronic atrial fibrillation: Status: Acute <Jess Shah PA-C - Last Filed: 06/01/21 09:19> Assessment and Plan: 66 year old male admitted with abdominal wall cellulitis found to have necrotizing soft tissue infection of pannus. He is now POD #8 s/p debridement of abdominal wall. Wound vac changed yesterday- had good granulation of most of wound, some hemorrhagic subq tissue. Cont wound vac care, dressing changes q3-4 days and PRN. Gouty flare pain slowly improving. He has decided on DC to STR. Will meet with case management today to arrange dispo. 2-3 weeks of IV rocephin per ID. Midline ordered for today. Hopefully discharge to STR later today or tomorrow. Patient comfortable with plan. <Jess Shah PA-C - Last Filed: 06/01/21 09:19> Fall Risk Details Current Medications: Current Medications Acetaminophen (Acetaminophen 325 Mg Tablet) 650 mg PO Q6H PRN PRN Reason: Pain, Mild (Pain Scale 1-3) Apixaban (Apixaban 5 Mg Tablet) 5 mg PO BID [facility] Last Admin: 06/01/21 07:42 Dose: 5 mg Documented by: Atorvastatin Calcium (Atorvastatin Calcium 80 Mg Tablet) 80 mg PO DAILY [facility] Last Admin: 06/01/21 07:42 Dose: 80 mg Documented by: Colchicine (Colchicine 0.6 Mg Tablet) 0.6 mg PO BID [facility] Last Admin: 06/01/21 07:41 Dose: 0.6 mg Documented by: Docusate Sodium (Docusate Sodium 100 Mg Capsule) 100 mg PO BID [facility] Last Admin: 06/01/21 07:44 Dose: Not Given Documented by: Famotidine (Famotidine 20 Mg Tablet) 20 mg PO BEDTIME [facility] Last Admin: 05/31/21 21:43 Dose: 20 mg Documented by: Folic Acid (Folic Acid 1 Mg Tablet) 1 mg PO DAILY [facility] Last Admin: 06/01/21 07:42 Dose: 1 mg Documented by: Furosemide (Furosemide 40 Mg Tablet) 80 mg PO DAILY [facility]; Protocol Last Admin: 06/01/21 07:42 Dose: 80 mg Documented by: Hydromorphone HCl (Hydromorphone Hcl 0.5 Mg/0.5 Ml Syringe) 0.5 mg IVPUSH Q2H PRN; Protocol PRN Reason: Pain, Severe (Pain Scale 7-10) Last Admin: 05/31/21 21:43 Dose: 0.5 mg Documented by: Ceftriaxone Sodium 1 gm/ (Sodium Chloride) 50 mls @ 100 mls/hr IV Q24H [facility] Last Infusion: 05/31/21 14:29 Dose: Infused Documented by: Ibuprofen (Ibuprofen 400 Mg Tablet) 400 mg PO Q6H [facility] Stop: 06/02/21 03:01 Last Admin: 06/01/21 07:41 Dose: 400 mg Documented by: Lisinopril (Lisinopril 5 Mg Tablet) 5 mg PO DAILY [facility]; Protocol Last Admin: 06/01/21 07:42 Dose: 5 mg Documented by: Medication (No Benzodiazepines) 1 each MISCELLANE DAILY [facility] Melatonin (Melatonin 3 Mg Tablet) 6 mg PO BEDTIME PRN PRN Reason: Insomnia Last Admin: 05/31/21 21:43 Dose: 6 mg Documented by: Metoprolol Succinate (Metoprolol Succinate Er 100 Mg Tab.Er.24h) 100 mg PO DAILY [facility]; Protocol Last Admin: 06/01/21 07:42 Dose: 100 mg Documented by: Nicotine Polacrilex (Nicotine Polacrilex Lozenge 4 Mg Lozenge) 4 mg BUCCAL Q2H PRN PRN Reason: Nicotine Cravings Ondansetron HCl (Ondansetron Hcl 4 Mg/2 Ml Vial) 4 mg IVPUSH Q8H PRN PRN Reason: Nausea and Vomiting Oxycodone HCl (Oxycodone Hcl Immed Release 5 Mg Tablet) 10 mg PO Q4H PRN PRN Reason: Pain, Severe (Pain Scale 7-10) Last Admin: 06/01/21 07:41 Dose: 10 mg Documented by: Oxycodone HCl (Oxycodone Hcl Immed Release 5 Mg Tablet) 5 mg PO Q4H PRN PRN Reason: Pain, Moderate (Pain Scale 4-6 Last Admin: 06/01/21 02:28 Dose: 5 mg Documented by: Pharmacy Consult (Consult Rx Perform Med Rec) 1 each MISCELLANE ONCE PRN PRN Reason: Consult order Prednisone (Prednisone 20 Mg Tablet) 60 mg PO DAILY [facility] Last Admin: 06/01/21 07:41 Dose: 60 mg Documented by: Prednisone (Prednisone 20 Mg Tablet) 30 mg PO ONCE ONE Stop: 06/07/21 16:59 Last Admin: 05/30/21 09:43 Dose: 30 mg Documented by: Sodium Chloride (0.9 % Sodium Chloride Flush 3 Ml Syringe) [facility] Last Admin: 06/01/21 07:36 Dose: 3 ml Documented by: Spironolactone (Spironolactone 25 Mg Tablet) 25 mg PO DAILY [facility]; Protocol Last Admin: 06/01/21 07:42 Dose: 25 mg Documented by: Thiamine HCl (Thiamine Hcl 100 Mg Tablet) 100 mg PO DAILY [facility] Last Admin: 06/01/21 07:42 Dose: 100 mg Documented by: <Jess Shah PA-C - Last Filed: 06/01/21 09:19> Time Spent With Patient Time: Total time spent is greater than 50% in coordination of care (as documented) at patient's floor/unit and/or counseling patient: <Jess Shah PA-C - Last Filed: 06/01/21 09:19> Time with patient: 15 - 24 minutes <Jess Shah PA-C - Last Filed: 06/01/21 09:19> Quality Stroke Does the patient have a stroke diagnosis?: No <Jess Shah PA-C - Last Filed: 06/01/21 09:19> VTE Prior VTE?: No <Jess Shah PA-C - Last Filed: 06/01/21 09:19> VTE Risk Level:: Surgical - high <Jess Shah PA-C - Last Filed: 06/01/21 09:19> VTE Device Contraindication: N/A - Device Ordered <Jess Shah PA-C - Last Filed: 06/01/21 09:19> VTE Drug Contraindication: N/A - Med Ordered (on eliquis) <Jess Shah PA-C - Last Filed: 06/01/21 09:19>
--- NOTE | 2021-06-01 10:04 | HO.PM.IMPN ---
Subjective Subjective Date of Service: 06/01/21 Interval History: cc: abd redness interval history: overall feels gout is improving, was able to ambulate yesterday, some improvement in right wrist Cardiovascular Cardiovascular: Reports no additional cardiovascular complaints Respiratory Respiratory: Reports no additional respiratory complaints Physical Exam Vital Signs: Vital Signs: Last Vital Signs Temp 97.8 F 06/01/21 07:35 Pulse 92 06/01/21 07:35 Resp 18 06/01/21 07:35 BP 171/91 H 06/01/21 07:35 Pulse Ox 95 06/01/21 07:35 Body Mass Index 14.5 General: AO X 3, no acute distress Resp:? CTA bilateral, no accessory muscles used CVS: S1,S2,RRR GI: wound vac in place to lower abdomen/pannus, good seal, serosanguineous output in cannister ? right wrist swelling, severe tenderness, bilateral ankle swelling and tenderness Neuro:? motor grossly intact, alert Psych: appropriate affect, appropriate insight? Objective Data Active Medications Acetaminophen (Acetaminophen 325 Mg Tablet) 650 mg PO Q6H PRN PRN Reason: Pain, Mild (Pain Scale 1-3) Apixaban (Apixaban 5 Mg Tablet) 5 mg PO BID [facility] Last Admin: 06/01/21 07:42 Dose: 5 mg Documented by: SHIN Atorvastatin Calcium (Atorvastatin Calcium 80 Mg Tablet) 80 mg PO DAILY [facility] Last Admin: 06/01/21 07:42 Dose: 80 mg Documented by: SHIN Colchicine (Colchicine 0.6 Mg Tablet) 0.6 mg PO BID [facility] Last Admin: 06/01/21 07:41 Dose: 0.6 mg Documented by: SHIN Docusate Sodium (Docusate Sodium 100 Mg Capsule) 100 mg PO BID [facility] Last Admin: 06/01/21 07:44 Dose: Not Given Documented by: SHIN Non-Admin Reason: Patient Refused Famotidine (Famotidine 20 Mg Tablet) 20 mg PO BEDTIME [facility] Last Admin: 05/31/21 21:43 Dose: 20 mg Documented by: JESSICA Folic Acid (Folic Acid 1 Mg Tablet) 1 mg PO DAILY [facility] Last Admin: 06/01/21 07:42 Dose: 1 mg Documented by: SHIN Furosemide (Furosemide 40 Mg Tablet) 80 mg PO DAILY [facility]; Protocol Last Admin: 06/01/21 07:42 Dose: 80 mg Documented by: SHIN Hydromorphone HCl (Hydromorphone Hcl 0.5 Mg/0.5 Ml Syringe) 0.5 mg IVPUSH Q2H PRN; Protocol PRN Reason: Pain, Severe (Pain Scale 7-10) Last Admin: 05/31/21 21:43 Dose: 0.5 mg Documented by: JESSICA Ceftriaxone Sodium 1 gm/ (Sodium Chloride) 50 mls @ 100 mls/hr IV Q24H [facility] Last Infusion: 05/31/21 14:29 Dose: 0 mls/hr Documented by: JANET Ibuprofen (Ibuprofen 400 Mg Tablet) 400 mg PO Q6H [facility] Stop: 06/02/21 03:01 Last Admin: 06/01/21 07:41 Dose: 400 mg Documented by: SHIN Lisinopril (Lisinopril 5 Mg Tablet) 5 mg PO DAILY [facility]; Protocol Last Admin: 06/01/21 07:42 Dose: 5 mg Documented by: SHIN Medication (No Benzodiazepines) 1 each MISCELLANE DAILY [facility] Melatonin (Melatonin 3 Mg Tablet) 6 mg PO BEDTIME PRN PRN Reason: Insomnia Last Admin: 05/31/21 21:43 Dose: 6 mg Documented by: JESSICA Metoprolol Succinate (Metoprolol Succinate Er 100 Mg Tab.Er.24h) 100 mg PO DAILY [facility]; Protocol Last Admin: 06/01/21 07:42 Dose: 100 mg Documented by: SHIN Nicotine Polacrilex (Nicotine Polacrilex Lozenge 4 Mg Lozenge) 4 mg BUCCAL Q2H PRN PRN Reason: Nicotine Cravings Ondansetron HCl (Ondansetron Hcl 4 Mg/2 Ml Vial) 4 mg IVPUSH Q8H PRN PRN Reason: Nausea and Vomiting Oxycodone HCl (Oxycodone Hcl Immed Release 5 Mg Tablet) 10 mg PO Q4H PRN PRN Reason: Pain, Severe (Pain Scale 7-10) Last Admin: 06/01/21 07:41 Dose: 10 mg Documented by: SHIN Oxycodone HCl (Oxycodone Hcl Immed Release 5 Mg Tablet) 5 mg PO Q4H PRN PRN Reason: Pain, Moderate (Pain Scale 4-6 Last Admin: 06/01/21 02:28 Dose: 5 mg Documented by: JESSICA Pharmacy Consult (Consult Rx Perform Med Rec) 1 each MISCELLANE ONCE PRN PRN Reason: Consult order Prednisone (Prednisone 20 Mg Tablet) 60 mg PO DAILY [facility] Last Admin: 06/01/21 07:41 Dose: 60 mg Documented by: SHIN Prednisone (Prednisone 20 Mg Tablet) 30 mg PO ONCE ONE Stop: 06/07/21 16:59 Last Admin: 05/30/21 09:43 Dose: 30 mg Documented by: JANET Sodium Chloride (0.9 % Sodium Chloride Flush 3 Ml Syringe) 3 ml IVFLUSH QSHIFT [facility] Last Admin: 06/01/21 07:36 Dose: 3 ml Documented by: SHIN Spironolactone (Spironolactone 25 Mg Tablet) 25 mg PO DAILY [facility]; Protocol Last Admin: 06/01/21 07:42 Dose: 25 mg Documented by: SHIN Thiamine HCl (Thiamine Hcl 100 Mg Tablet) 100 mg PO DAILY [facility] Last Admin: 06/01/21 07:42 Dose: 100 mg Documented by: SHIN Labs CBC & Chem 7: 05/30/21 05:22 05/31/21 05:36 Labs: Laboratory Results - last 24 hr 05/31/21 19:55 Vancomycin Trough 8.2 L Assessment and Plan (1) Necrotizing soft tissue infection: Status: Acute (2) Morbid obesity: Status: Acute (3) Acute gout: Status: Acute Assessment and Plan: This is a 66-year-old male with history of chronic atrial fibrillation on Eliquis, CAD s/p CABG, HFpEF, HTN, HLD who presents to the emergency department with abdominal wall cellulitis found to have soft tissue necrotizing skin infection Sepsis secondary to Necrotizing soft tissue infection of the abdominal wall s/p debridement of abdominal wall Management per surgical team Seen by ID, recommended rocephin 2-3 weeks Wound culture growing streptococcus anginosis Blood cultures negative Acute gout flare was taking indomethacin at home, was held for owen continue colchicine, prednisone, ibuprofen, noted improvement today pepcid for gi ppx while on steroids Hypokalemia replace follow BMP OWEN Resolved with gentle IVF and holding nephrotoxins HFpEF - chronic continue lasix, aldactone monitor fluid status closely Chronic afib HR controlled -continue metoprolol Eliquis today HTN -continue metoprolol, lisinopril -monitor BP closely alcohol use Patient reports drinking alcohol 2 times per week and not for the past 7 days His brother called to report history of alcohol withdrawal infrequent alcohol use No evidence of alcohol withdrawal at this time -phenobarbital protocol completed -supplementation with thiamine, folic acid liver lesion hypodense lesion seen on abdominal CT -dedicated liver US showing probably cyst, recommend US follow up in 6 months sclerotic appearance of left femur -femur xray slightly sclerotic left femoral lesion. -recommend outpatient follow up, possible bone scan Hyperlipidemia -continue statin CAD No chest pain morbid obesity weight loss encouraged BMI 40.4 MAURICE unable to tolerate CPAP DVT prophylaxis-Eliquis Quality Stroke Does the patient have a stroke diagnosis?: No VTE Prior VTE?: No VTE Risk Level:: Surgical - high VTE Device Contraindication: N/A - Device Ordered VTE Drug Contraindication: N/A - Med Ordered (on eliquis)
[2021-06-01 10:31] LABS: COVID-19 Test Negative (Negative); IDNOW Serial# 9DD0AD1C
[2021-06-01] MEDS: Acetaminophen 325 MG TABLET 650 MG PO (11:26)
[2021-06-01 11:41] VITALS: BP 171/91; PULSE 92; O2SAT 95
--- NOTE | 2021-06-01 13:35 | HO.MIDLINE_ITS ---
PICC Line Insertion MIDLINE INSERTION Diagnosis: [ABD WALL INFECTION] Indication: [2-3WEEKS IN ANTIBX] Pertinent Labs: [REVIEWED] Technique: Using sterile technique including cap,gloves,mask and drape. The RIGHT arm was prepped and draped in the usual sterile fashion of full barrier technique with CHG. Using the Ultrasound guidance, RIGHT CEPHALIC VEIN WAS ACCESSED MULTIPLE TIME BY XIANG HAWTHORNE AND MYSELF COULD WIRE THE MIDLINE BUT NO BLOOD RETURN. The RIGHT BRACHIAL VEIN WAS ACCESSED and WIRE with BLOOD RETURN. A SINGLE LUMEN, NON-PASV, ([id number]) midline was positioned. The procedure was performed in S-272. Ultrasound was used to document vein patency and for needle entry. A formal ultrasound picture was recorded. Vascular Tip Cutter has released the line for use and it is currently dressed with STATLOCK,TEGADERM, AND CHG DISC. Verification has been performed for blood return and line patency. Arm Circumference: [36cm] Equipment: [[employer] POWERGLIDE PRO MIDLINE] Catheter Type: [SINGLE LUMEN, NON-PASV ([id number]) MIDLINE] Lot #: [[id number]]
--- NOTE | 2021-06-01 14:15 | MHC.CM.PN ---
[facility] JUST CALLED. 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
[2021-06-01] MEDS: cefTRIAXone sodium 1 GM in 0.9 % Sodium Chloride 50 ML IV (14:16)
--- NOTE | 2021-06-01 14:38 | MHC.CM.PN ---
Patient is offered a bed at [facility]. They do not have time to get a wound vac, bed, or insurance authorization.' This will have to occur on Friday06/04/21 RN, patient, and surgical PA made aware.
--- NOTE | 2021-06-01 15:01 | MHC.CM.PN ---
PER CONVERSATION WITH [facility]IA[facility], [facility] MAY BE ABLE OT TRANSFER WITH [facility] AND GET CHANGED OUT AT FACILITY. ANOTHER POSSIBLE PLAN IS THE CURRENT [facility] WOUND VAC REMAINS AND BILLING IS CHAGED TO [facility] ON THE DATE OF ADMISSION. CASE MANAGEMENT TO CONTACT [facility] TO VERIFY ONCE A PLAN IS ESTABLISHED
[2021-06-01 15:41] VITALS: BP 163/93; PULSE 88; RESP 18; TEMP 36.6; O2SAT 94
[2021-06-01 20:00] VITALS: BP 186/104; PULSE 77; RESP 16; TEMP 36.1; O2SAT 97
[2021-06-01] MEDS: Famotidine 20 MG TABLET PO (20:11)
[2021-06-01] MEDS: Docusate Sodium 100 MG CAPSULE PO (20:11)
[2021-06-01] MEDS: Melatonin 3 MG TABLET 6 MG PO (22:13)
[2021-06-01 23:38] VITALS: BP 154/98; PULSE 71; RESP 16; TEMP 36.7; O2SAT 98
[2021-06-02] MEDS: Ibuprofen 400 MG TABLET PO (02:40)
[2021-06-02] MEDS: oxyCODONE HCl Immed Release 5 MG TABLET 10 MG PO ×4 (02:40→21:28)
[2021-06-02 04:00] VITALS: BP 156/88; PULSE 72; RESP 16; TEMP 36.2; O2SAT 98
--- NOTE | 2021-06-02 07:28 | PC.NURSE ---
WOUND VAC. pt at night dislaged the drain tube. , wound vac was alarming d/t leak. tube was reconnected and tight seal with tegaderms, there was no more leak after that.
[2021-06-02 07:40] VITALS: BP 180/88; PULSE 70; RESP 16; TEMP 36; O2SAT 96
[2021-06-02] MEDS: Apixaban 5 MG TABLET PO ×2 (08:48→21:28)
[2021-06-02] MEDS: Colchicine 0.6 MG TABLET PO ×2 (08:48→21:28)
[2021-06-02] MEDS: Furosemide 40 MG TABLET 80 MG PO (08:49)
[2021-06-02] MEDS: Thiamine HCL 100 MG TABLET PO (08:49)
[2021-06-02] MEDS: predniSONE 20 MG TABLET 60 MG PO (08:49)
[2021-06-02 08:50] VITALS: BP 180/88; PULSE 70
[2021-06-02] MEDS: Folic Acid 1 MG TABLET PO (08:50)
[2021-06-02] MEDS: Spironolactone 25 MG TABLET PO (08:50)
[2021-06-02] MEDS: lisinopriL 5 MG TABLET PO (08:50)
[2021-06-02] MEDS: Docusate Sodium 100 MG CAPSULE PO (08:50)
[2021-06-02] MEDS: Metoprolol Succinate ER 100 MG TAB.ER.24H PO (08:50)
[2021-06-02] MEDS: Atorvastatin Calcium 80 MG TABLET PO (08:51)
[2021-06-02] MEDS: 0.9 % Sodium Chloride Flush 3 ML SYRINGE IVFLUSH ×3 (08:51→21:28)
[2021-06-02] MEDS: Acetaminophen 325 MG TABLET 650 MG PO ×2 (08:58→19:47)
--- NOTE | 2021-06-02 09:54 | HO.PM.IMPN ---
Subjective Subjective Date of Service: 06/02/21 Interval History: cc: abd redness interval history: ambulating more, still with gout pain, overall improved Cardiovascular Cardiovascular: Reports no additional cardiovascular complaints Respiratory Respiratory: Reports no additional respiratory complaints Physical Exam Vital Signs: Vital Signs: Last Vital Signs Temp 96.8 F 06/02/21 07:40 Pulse 70 06/02/21 08:50 Resp 16 06/02/21 07:40 BP 180/88 H 06/02/21 08:50 Pulse Ox 96 06/02/21 07:40 Body Mass Index 14.5 General: AO X 3, no acute distress Resp:? CTA bilateral, no accessory muscles used CVS: S1,S2,RRR GI: wound vac in place to lower abdomen/pannus, good seal, serosanguineous output in cannister ? right wrist swelling, tenderness, bilateral ankle swelling and tenderness Neuro:? motor grossly intact, alert Psych: appropriate affect, appropriate insight? Objective Data Active Medications Acetaminophen (Acetaminophen 325 Mg Tablet) 650 mg PO Q6H PRN PRN Reason: Pain, Mild (Pain Scale 1-3) Last Admin: 06/02/21 08:58 Dose: 650 mg Documented by: JARETH Apixaban (Apixaban 5 Mg Tablet) 5 mg PO BID [facility] Last Admin: 06/02/21 08:48 Dose: 5 mg Documented by: JARETH Atorvastatin Calcium (Atorvastatin Calcium 80 Mg Tablet) 80 mg PO DAILY [facility] Last Admin: 06/02/21 08:51 Dose: 80 mg Documented by: JARETH Colchicine (Colchicine 0.6 Mg Tablet) 0.6 mg PO BID [facility] Last Admin: 06/02/21 08:48 Dose: 0.6 mg Documented by: JARETH Docusate Sodium (Docusate Sodium 100 Mg Capsule) 100 mg PO BID [facility] Last Admin: 06/02/21 08:50 Dose: 100 mg Documented by: JARETH Famotidine (Famotidine 20 Mg Tablet) 20 mg PO BEDTIME [facility] Last Admin: 06/01/21 20:11 Dose: 20 mg Documented by: HELENE Folic Acid (Folic Acid 1 Mg Tablet) 1 mg PO DAILY [facility] Last Admin: 06/02/21 08:50 Dose: 1 mg Documented by: JARETH Furosemide (Furosemide 40 Mg Tablet) 80 mg PO DAILY [facility]; Protocol Last Admin: 06/02/21 08:49 Dose: 80 mg Documented by: JARETH Hydromorphone HCl (Hydromorphone Hcl 0.5 Mg/0.5 Ml Syringe) 0.5 mg IVPUSH Q2H PRN; Protocol PRN Reason: Pain, Severe (Pain Scale 7-10) Last Admin: 05/31/21 21:43 Dose: 0.5 mg Documented by: JESSICA Ceftriaxone Sodium 1 gm/ (Sodium Chloride) 50 mls @ 100 mls/hr IV Q24H [facility] Last Infusion: 06/01/21 15:59 Dose: 0 mls/hr Documented by: SARAH Ibuprofen (Ibuprofen 400 Mg Tablet) 400 mg PO Q6H PRN PRN Reason: mild pain Lisinopril (Lisinopril 5 Mg Tablet) 5 mg PO DAILY [facility]; Protocol Last Admin: 06/02/21 08:50 Dose: 5 mg Documented by: JARETH Medication (No Benzodiazepines) 1 each MISCELLANE DAILY [facility] Melatonin (Melatonin 3 Mg Tablet) 6 mg PO BEDTIME PRN PRN Reason: Insomnia Last Admin: 06/01/21 22:13 Dose: 6 mg Documented by: HELENE Metoprolol Succinate (Metoprolol Succinate Er 100 Mg Tab.Er.24h) 100 mg PO DAILY [facility]; Protocol Last Admin: 06/02/21 08:50 Dose: 100 mg Documented by: JARETH Nicotine Polacrilex (Nicotine Polacrilex Lozenge 4 Mg Lozenge) 4 mg BUCCAL Q2H PRN PRN Reason: Nicotine Cravings Ondansetron HCl (Ondansetron Hcl 4 Mg/2 Ml Vial) 4 mg IVPUSH Q8H PRN PRN Reason: Nausea and Vomiting Oxycodone HCl (Oxycodone Hcl Immed Release 5 Mg Tablet) 10 mg PO Q4H PRN PRN Reason: Pain, Severe (Pain Scale 7-10) Last Admin: 06/02/21 06:19 Dose: 10 mg Documented by: HELENE Oxycodone HCl (Oxycodone Hcl Immed Release 5 Mg Tablet) 5 mg PO Q4H PRN PRN Reason: Pain, Moderate (Pain Scale 4-6 Last Admin: 06/01/21 14:16 Dose: 5 mg Documented by: SHIN Pharmacy Consult (Consult Rx Perform Med Rec) 1 each MISCELLANE ONCE PRN PRN Reason: Consult order Prednisone (Prednisone 20 Mg Tablet) 60 mg PO DAILY [facility] Last Admin: 06/02/21 08:49 Dose: 60 mg Documented by: JARETH Prednisone (Prednisone 20 Mg Tablet) 30 mg PO ONCE ONE Stop: 06/07/21 16:59 Last Admin: 05/30/21 09:43 Dose: 30 mg Documented by: JANET Sodium Chloride (0.9 % Sodium Chloride Flush 3 Ml Syringe) 3 ml IVFLUSH QSHIFT [facility] Last Admin: 06/02/21 08:51 Dose: 3 ml Documented by: JARETH Spironolactone (Spironolactone 25 Mg Tablet) 25 mg PO DAILY [facility]; Protocol Last Admin: 06/02/21 08:50 Dose: 25 mg Documented by: JARETH Thiamine HCl (Thiamine Hcl 100 Mg Tablet) 100 mg PO DAILY [facility] Last Admin: 06/02/21 08:49 Dose: 100 mg Documented by: JARETH Labs CBC & Chem 7: 05/30/21 05:22 05/31/21 05:36 Labs: Laboratory Results - last 24 hr 06/01/21 09:30 COVID-19 ([facility]) Negative COVID-19 Clin Com See Note Assessment and Plan (1) Necrotizing soft tissue infection: Status: Acute (2) Morbid obesity: Status: Acute (3) Acute gout: Status: Acute Assessment and Plan: This is a 66-year-old male with history of chronic atrial fibrillation on Eliquis, CAD s/p CABG, HFpEF, HTN, HLD who presents to the emergency department with abdominal wall cellulitis found to have soft tissue necrotizing skin infection Sepsis secondary to Necrotizing soft tissue infection of the abdominal wall s/p debridement of abdominal wall Management per surgical team Seen by ID, recommended rocephin 2-3 weeks Wound culture growing streptococcus anginosis Blood cultures negative Acute gout flare was taking indomethacin at home, was held for owen improving continue colchicine, prednisone (would do one week at 60mg daily then decrease by 20mg every 3 days, exact taper may need to be adjusted based on response), ibuprofen, noted improvement overall pepcid for gi ppx while on steroids Hypokalemia replace follow BMP OWEN Resolved with gentle IVF and holding nephrotoxins HFpEF - chronic continue lasix, aldactone monitor fluid status closely Chronic afib HR controlled -continue metoprolol Eliquis today HTN -continue metoprolol, lisinopril -monitor BP closely alcohol use Patient reports drinking alcohol 2 times per week and not for the past 7 days His brother called to report history of alcohol withdrawal infrequent alcohol use No evidence of alcohol withdrawal at this time -phenobarbital protocol completed -supplementation with thiamine, folic acid liver lesion hypodense lesion seen on abdominal CT -dedicated liver US showing probably cyst, recommend US follow up in 6 months sclerotic appearance of left femur -femur xray slightly sclerotic left femoral lesion. -recommend outpatient follow up, possible bone scan Hyperlipidemia -continue statin CAD No chest pain morbid obesity weight loss encouraged BMI 40.4 MAURICE unable to tolerate CPAP DVT prophylaxis-[employer] Quality Stroke Does the patient have a stroke diagnosis?: No VTE Prior VTE?: No VTE Risk Level:: Surgical - high VTE Device Contraindication: N/A - Device Ordered VTE Drug Contraindication: N/A - Med Ordered (on eliquis)
[2021-06-02 12:00] VITALS: BP 181/99; PULSE 76; RESP 18; TEMP 36; O2SAT 96
--- NOTE | 2021-06-02 13:16 | PM.PNGS ---
Subjective Subjective Date of Service: 06/02/21 Interval history: No new complaints, wound VAC dressing seal is not intact Physical Exam Vital Signs: Vital Signs: Last Vital Signs Temp 96.8 F 06/02/21 12:00 Pulse 76 06/02/21 12:00 Resp 18 06/02/21 12:00 BP 181/99 H 06/02/21 12:00 Pulse Ox 96 06/02/21 12:00 Body Mass Index 14.5 Const: General: cooperative, no acute distress, alert and awake GI: Other: Round, soft, large clean open granulating wound lower abdominal wall, no surrounding cellulitis Objective Data Active Medications Acetaminophen (Acetaminophen 325 Mg Tablet) 650 mg PO Q6H PRN PRN Reason: Pain, Mild (Pain Scale 1-3) Last Admin: 06/02/21 08:58 Dose: 650 mg Documented by: JARETH Apixaban (Apixaban 5 Mg Tablet) 5 mg PO BID [facility] Last Admin: 06/02/21 08:48 Dose: 5 mg Documented by: JARETH Atorvastatin Calcium (Atorvastatin Calcium 80 Mg Tablet) 80 mg PO DAILY [facility] Last Admin: 06/02/21 08:51 Dose: 80 mg Documented by: JARETH Colchicine (Colchicine 0.6 Mg Tablet) 0.6 mg PO BID [facility] Last Admin: 06/02/21 08:48 Dose: 0.6 mg Documented by: JARETH Docusate Sodium (Docusate Sodium 100 Mg Capsule) 100 mg PO BID [facility] Last Admin: 06/02/21 08:50 Dose: 100 mg Documented by: JARETH Famotidine (Famotidine 20 Mg Tablet) 20 mg PO BEDTIME [facility] Last Admin: 06/01/21 20:11 Dose: 20 mg Documented by: HELENE Folic Acid (Folic Acid 1 Mg Tablet) 1 mg PO DAILY [facility] Last Admin: 06/02/21 08:50 Dose: 1 mg Documented by: JARETH Furosemide (Furosemide 40 Mg Tablet) 80 mg PO DAILY [facility]; Protocol Last Admin: 06/02/21 08:49 Dose: 80 mg Documented by: JARETH Hydromorphone HCl (Hydromorphone Hcl 0.5 Mg/0.5 Ml Syringe) 0.5 mg IVPUSH Q2H PRN; Protocol PRN Reason: Pain, Severe (Pain Scale 7-10) Last Admin: 05/31/21 21:43 Dose: 0.5 mg Documented by: JESSICA Ceftriaxone Sodium 1 gm/ (Sodium Chloride) 50 mls @ 100 mls/hr IV Q24H [facility] Last Infusion: 06/01/21 15:59 Dose: 0 mls/hr Documented by: SARAH Ibuprofen (Ibuprofen 400 Mg Tablet) 400 mg PO Q6H PRN PRN Reason: mild pain Lisinopril (Lisinopril 5 Mg Tablet) 5 mg PO DAILY [facility]; Protocol Last Admin: 06/02/21 08:50 Dose: 5 mg Documented by: JARETH Medication (No Benzodiazepines) 1 each MISCELLANE DAILY [facility] Melatonin (Melatonin 3 Mg Tablet) 6 mg PO BEDTIME PRN PRN Reason: Insomnia Last Admin: 06/01/21 22:13 Dose: 6 mg Documented by: HELENE Metoprolol Succinate (Metoprolol Succinate Er 100 Mg Tab.Er.24h) 100 mg PO DAILY [facility]; Protocol Last Admin: 06/02/21 08:50 Dose: 100 mg Documented by: JARETH Nicotine Polacrilex (Nicotine Polacrilex Lozenge 4 Mg Lozenge) 4 mg BUCCAL Q2H PRN PRN Reason: Nicotine Cravings Ondansetron HCl (Ondansetron Hcl 4 Mg/2 Ml Vial) 4 mg IVPUSH Q8H PRN PRN Reason: Nausea and Vomiting Oxycodone HCl (Oxycodone Hcl Immed Release 5 Mg Tablet) 10 mg PO Q4H PRN PRN Reason: Pain, Severe (Pain Scale 7-10) Last Admin: 06/02/21 12:23 Dose: 10 mg Documented by: HORTENCIA Oxycodone HCl (Oxycodone Hcl Immed Release 5 Mg Tablet) 5 mg PO Q4H PRN PRN Reason: Pain, Moderate (Pain Scale 4-6 Last Admin: 06/01/21 14:16 Dose: 5 mg Documented by: SHIN Pharmacy Consult (Consult Rx Perform Med Rec) 1 each MISCELLANE ONCE PRN PRN Reason: Consult order Prednisone (Prednisone 20 Mg Tablet) 60 mg PO DAILY [facility] Last Admin: 06/02/21 08:49 Dose: 60 mg Documented by: JARETH Prednisone (Prednisone 20 Mg Tablet) 30 mg PO ONCE ONE Stop: 06/07/21 16:59 Last Admin: 05/30/21 09:43 Dose: 30 mg Documented by: JANET Sodium Chloride (0.9 % Sodium Chloride Flush 3 Ml Syringe) 3 ml IVFLUSH QSHIFT [facility] Last Admin: 06/02/21 08:51 Dose: 3 ml Documented by: JARETH Spironolactone (Spironolactone 25 Mg Tablet) 25 mg PO DAILY [facility]; Protocol Last Admin: 06/02/21 08:50 Dose: 25 mg Documented by: JARETH Thiamine HCl (Thiamine Hcl 100 Mg Tablet) 100 mg PO DAILY [facility] Last Admin: 06/02/21 08:49 Dose: 100 mg Documented by: JARETH Labs CBC & Chem 7: 05/30/21 05:22 05/31/21 05:36 Procedures Date of Service Date of Service: 06/02/21 Progress Note: A&P Assessment and plan (1) Necrotizing soft tissue infection: Status: Acute (2) Abdominal wall cellulitis: Status: Acute Assessment and Plan: 66-year-old male with history of CHF, CAD, morbid obesity admitted with a necrotizing soft tissue infection of the lower abdominal wall. The wound is clean and granulating. Wound care has been with a wound VAC, but the wound VAC dressing developed a leak last night. Supplies to replace the dressing are not currently available at bedside. The wound VAC was removed and a moist saline dressing was applied. Will replace VAC when dressing supplies are available. Continue ceftriaxone. Anticipate transfer to short-term rehabilitation on 06/04/2021. Fall Risk Details Current Medications: Current Medications Acetaminophen (Acetaminophen 325 Mg Tablet) 650 mg PO Q6H PRN PRN Reason: Pain, Mild (Pain Scale 1-3) Last Admin: 06/02/21 08:58 Dose: 650 mg Documented by: Apixaban (Apixaban 5 Mg Tablet) 5 mg PO BID [facility] Last Admin: 06/02/21 08:48 Dose: 5 mg Documented by: Atorvastatin Calcium (Atorvastatin Calcium 80 Mg Tablet) 80 mg PO DAILY [facility] Last Admin: 06/02/21 08:51 Dose: 80 mg Documented by: Colchicine (Colchicine 0.6 Mg Tablet) 0.6 mg PO BID [facility] Last Admin: 06/02/21 08:48 Dose: 0.6 mg Documented by: Docusate Sodium (Docusate Sodium 100 Mg Capsule) 100 mg PO BID [facility] Last Admin: 06/02/21 08:50 Dose: 100 mg Documented by: Famotidine (Famotidine 20 Mg Tablet) 20 mg PO BEDTIME [facility] Last Admin: 06/01/21 20:11 Dose: 20 mg Documented by: Folic Acid (Folic Acid 1 Mg Tablet) 1 mg PO DAILY [facility] Last Admin: 06/02/21 08:50 Dose: 1 mg Documented by: Furosemide (Furosemide 40 Mg Tablet) 80 mg PO DAILY [facility]; Protocol Last Admin: 06/02/21 08:49 Dose: 80 mg Documented by: Hydromorphone HCl (Hydromorphone Hcl 0.5 Mg/0.5 Ml Syringe) 0.5 mg IVPUSH Q2H PRN; Protocol PRN Reason: Pain, Severe (Pain Scale 7-10) Last Admin: 05/31/21 21:43 Dose: 0.5 mg Documented by: Ceftriaxone Sodium 1 gm/ (Sodium Chloride) 50 mls @ 100 mls/hr IV Q24H [facility] Last Infusion: 06/01/21 15:59 Dose: Infused Documented by: Ibuprofen (Ibuprofen 400 Mg Tablet) 400 mg PO Q6H PRN PRN Reason: mild pain Lisinopril (Lisinopril 5 Mg Tablet) 5 mg PO DAILY [facility]; Protocol Last Admin: 06/02/21 08:50 Dose: 5 mg Documented by: Medication (No Benzodiazepines) 1 each MISCELLANE DAILY [facility] Melatonin (Melatonin 3 Mg Tablet) 6 mg PO BEDTIME PRN PRN Reason: Insomnia Last Admin: 06/01/21 22:13 Dose: 6 mg Documented by: Metoprolol Succinate (Metoprolol Succinate Er 100 Mg Tab.Er.24h) 100 mg PO DAILY [facility]; Protocol Last Admin: 06/02/21 08:50 Dose: 100 mg Documented by: Nicotine Polacrilex (Nicotine Polacrilex Lozenge 4 Mg Lozenge) 4 mg BUCCAL Q2H PRN PRN Reason: Nicotine Cravings Ondansetron HCl (Ondansetron Hcl 4 Mg/2 Ml Vial) 4 mg IVPUSH Q8H PRN PRN Reason: Nausea and Vomiting Oxycodone HCl (Oxycodone Hcl Immed Release 5 Mg Tablet) 10 mg PO Q4H PRN PRN Reason: Pain, Severe (Pain Scale 7-10) Last Admin: 06/02/21 12:23 Dose: 10 mg Documented by: Oxycodone HCl (Oxycodone Hcl Immed Release 5 Mg Tablet) 5 mg PO Q4H PRN PRN Reason: Pain, Moderate (Pain Scale 4-6 Last Admin: 06/01/21 14:16 Dose: 5 mg Documented by: Pharmacy Consult (Consult Rx Perform Med Rec) 1 each MISCELLANE ONCE PRN PRN Reason: Consult order Prednisone (Prednisone 20 Mg Tablet) 60 mg PO DAILY [facility] Last Admin: 06/02/21 08:49 Dose: 60 mg Documented by: Prednisone (Prednisone 20 Mg Tablet) 30 mg PO ONCE ONE Stop: 06/07/21 16:59 Last Admin: 05/30/21 09:43 Dose: 30 mg Documented by: Sodium Chloride (0.9 % Sodium Chloride Flush 3 Ml Syringe) 3 ml IVFLUSH QSHIFT [facility] Last Admin: 06/02/21 08:51 Dose: 3 ml Documented by: Spironolactone (Spironolactone 25 Mg Tablet) 25 mg PO DAILY [facility]; Protocol Last Admin: 06/02/21 08:50 Dose: 25 mg Documented by: Thiamine HCl (Thiamine Hcl 100 Mg Tablet) 100 mg PO DAILY [facility] Last Admin: 06/02/21 08:49 Dose: 100 mg Documented by: Time Spent With Patient Time: Total time spent is greater than 50% in coordination of care (as documented) at patient's floor/unit and/or counseling patient: Time with patient: 15 - 24 minutes Quality Stroke Does the patient have a stroke diagnosis?: No VTE Prior VTE?: No VTE Risk Level:: Surgical - high VTE Device Contraindication: N/A - Device Ordered VTE Drug Contraindication: N/A - Med Ordered (on eliquis)
[2021-06-02] MEDS: cefTRIAXone sodium 1 GM in 0.9 % Sodium Chloride 50 ML IV (13:57)
[2021-06-02 15:20] VITALS: BP 153/84; PULSE 68; RESP 16; TEMP 36.6; O2SAT 96
[2021-06-02 19:15] VITALS: BP 132/78; PULSE 91; RESP 17; TEMP 36.2; O2SAT 99
[2021-06-02] MEDS: Famotidine 20 MG TABLET PO (21:28)
[2021-06-02] MEDS: Melatonin 3 MG TABLET 6 MG PO (21:28)
[2021-06-03] VITALS (7 sets, daily range): BP systolic 166–174; BP diastolic 84–102; PULSE 72–85; RESP 18–20; TEMP 36–36.2; O2SAT 94–98
[2021-06-03] MEDS: oxyCODONE HCl Immed Release 5 MG TABLET 10 MG PO ×2 (03:32→12:05)
[2021-06-03] MEDS: Folic Acid 1 MG TABLET PO (09:10)
[2021-06-03] MEDS: Colchicine 0.6 MG TABLET PO ×2 (09:10→20:58)
[2021-06-03] MEDS: Spironolactone 25 MG TABLET PO (09:10)
[2021-06-03] MEDS: Atorvastatin Calcium 80 MG TABLET PO (09:10)
[2021-06-03] MEDS: Metoprolol Succinate ER 100 MG TAB.ER.24H PO (09:10)
[2021-06-03] MEDS: predniSONE 20 MG TABLET 60 MG PO (09:11)
[2021-06-03] MEDS: Apixaban 5 MG TABLET PO ×2 (09:11→20:58)
[2021-06-03] MEDS: Furosemide 40 MG TABLET 80 MG PO (09:12)
[2021-06-03] MEDS: Thiamine HCL 100 MG TABLET PO (09:12)
[2021-06-03] MEDS: 0.9 % Sodium Chloride Flush 3 ML SYRINGE IVFLUSH ×2 (09:12→17:47)
[2021-06-03] MEDS: lisinopriL 5 MG TABLET PO (09:16)
--- NOTE | 2021-06-03 09:55 | P.PNIM_ITS ---
Subjective Subjective Date of Service: 06/03/21 Interval History: cc: abd redness interval history: contionues to have gout pain, but improved Cardiovascular Cardiovascular: Reports no additional cardiovascular complaints Respiratory Respiratory: Reports no additional respiratory complaints Physical Exam Vital Signs: Vital Signs: Last Vital Signs Temp 97.1 F 06/03/21 07:26 Pulse 85 06/03/21 09:16 Resp 18 06/03/21 07:26 BP 174/84 H 06/03/21 09:16 Pulse Ox 96 06/03/21 07:26 Body Mass Index 14.5 General: AO X 3, no acute distress Resp: CTA bilateral, no accessory muscles used CVS: S1,S2,RRR GI: soft, non tender, non distended Neuro: motor grossly intact, alert Psych: appropriate affect, appropriate insight est: right writst and bilateral ankles still swollen and tender but much improved, Objective Data Active Medications Acetaminophen (Acetaminophen 325 Mg Tablet) 650 mg PO Q6H PRN PRN Reason: Pain, Mild (Pain Scale 1-3) Last Admin: 06/02/21 19:47 Dose: 650 mg Documented by: SARAH Apixaban (Apixaban 5 Mg Tablet) 5 mg PO BID [facility] Last Admin: 06/03/21 09:11 Dose: 5 mg Documented by: HORTENCIA Atorvastatin Calcium (Atorvastatin Calcium 80 Mg Tablet) 80 mg PO DAILY [facility] Last Admin: 06/03/21 09:10 Dose: 80 mg Documented by: HORTENCIA Colchicine (Colchicine 0.6 Mg Tablet) 0.6 mg PO BID [facility] Last Admin: 06/03/21 09:10 Dose: 0.6 mg Documented by: HORTENCIA Docusate Sodium (Docusate Sodium 100 Mg Capsule) 100 mg PO BID [facility] Last Admin: 06/03/21 09:10 Dose: Not Given Documented by: HORTENCIA Non-Admin Reason: Patient Refused Famotidine (Famotidine 20 Mg Tablet) 20 mg PO BEDTIME [facility] Last Admin: 06/02/21 21:28 Dose: 20 mg Documented by: SARAH Folic Acid (Folic Acid 1 Mg Tablet) 1 mg PO DAILY [facility] Last Admin: 06/03/21 09:10 Dose: 1 mg Documented by: HORTENCIA Furosemide (Furosemide 40 Mg Tablet) 80 mg PO DAILY [facility]; Protocol Last Admin: 06/03/21 09:12 Dose: 80 mg Documented by: HORTENCIA Hydromorphone HCl (Hydromorphone Hcl 0.5 Mg/0.5 Ml Syringe) 0.5 mg IVPUSH Q2H PRN; Protocol PRN Reason: Pain, Severe (Pain Scale 7-10) Last Admin: 05/31/21 21:43 Dose: 0.5 mg Documented by: JESSICA Ceftriaxone Sodium 1 gm/ (Sodium Chloride) 50 mls @ 100 mls/hr IV Q24H [facility] Last Infusion: 06/02/21 16:41 Dose: 0 mls/hr Documented by: HORTENCIA Ibuprofen (Ibuprofen 400 Mg Tablet) 400 mg PO Q6H PRN PRN Reason: mild pain Lisinopril (Lisinopril 5 Mg Tablet) 5 mg PO DAILY [facility]; Protocol Last Admin: 06/03/21 09:16 Dose: 5 mg Documented by: HORTENCIA Medication (No Benzodiazepines) 1 each MISCELLANE DAILY [facility] Melatonin (Melatonin 3 Mg Tablet) 6 mg PO BEDTIME PRN PRN Reason: Insomnia Last Admin: 06/02/21 21:28 Dose: 6 mg Documented by: SARAH Metoprolol Succinate (Metoprolol Succinate Er 100 Mg Tab.Er.24h) 100 mg PO DAILY [facility]; Protocol Last Admin: 06/03/21 09:10 Dose: 100 mg Documented by: HORTENCIA Nicotine Polacrilex (Nicotine Polacrilex Lozenge 4 Mg Lozenge) 4 mg BUCCAL Q2H PRN PRN Reason: Nicotine Cravings Ondansetron HCl (Ondansetron Hcl 4 Mg/2 Ml Vial) 4 mg IVPUSH Q8H PRN PRN Reason: Nausea and Vomiting Oxycodone HCl (Oxycodone Hcl Immed Release 5 Mg Tablet) 10 mg PO Q4H PRN PRN Reason: Pain, Severe (Pain Scale 7-10) Last Admin: 06/03/21 03:32 Dose: 10 mg Documented by: SARAH Oxycodone HCl (Oxycodone Hcl Immed Release 5 Mg Tablet) 5 mg PO Q4H PRN PRN Reason: Pain, Moderate (Pain Scale 4-6 Last Admin: 06/01/21 14:16 Dose: 5 mg Documented by: HO.[email or web address] Pharmacy Consult (Consult Rx Perform Med Rec) 1 each MISCELLANE ONCE PRN PRN Reason: Consult order Prednisone (Prednisone 20 Mg Tablet) 60 mg PO DAILY [facility] Last Admin: 06/03/21 09:11 Dose: 60 mg Documented by: HORTENCIA Prednisone (Prednisone 20 Mg Tablet) 30 mg PO ONCE ONE Stop: 06/07/21 16:59 Last Admin: 05/30/21 09:43 Dose: 30 mg Documented by: JANET Sodium Chloride (0.9 % Sodium Chloride Flush 3 Ml Syringe) 3 ml IVFLUSH QSHIFT [facility] Last Admin: 06/03/21 09:12 Dose: 3 ml Documented by: HORTENCIA Spironolactone (Spironolactone 25 Mg Tablet) 25 mg PO DAILY [facility]; Protocol Last Admin: 06/03/21 09:10 Dose: 25 mg Documented by: HORTENCIA Thiamine HCl (Thiamine Hcl 100 Mg Tablet) 100 mg PO DAILY [facility] Last Admin: 06/03/21 09:12 Dose: 100 mg Documented by: HORTENCIA Labs CBC & Chem 7: 05/30/21 05:22 05/31/21 05:36 Assessment and Plan (1) Necrotizing soft tissue infection: Status: Acute (2) Morbid obesity: Status: Acute (3) Acute gout: Status: Acute Assessment and Plan: This is a 66-year-old male with history of chronic atrial fibrillation on Eliquis, CAD s/p CABG, HFpEF, HTN, HLD who presents to the emergency department with abdominal wall cellulitis found to have soft tissue necrotizing skin infection Sepsis secondary to Necrotizing soft tissue infection of the abdominal wall s/p debridement of abdominal wall Management per surgical team Seen by ID, recommended rocephin 2-3 weeks Wound culture growing streptococcus anginosis Blood cultures negative Acute gout flare was taking indomethacin at home, was held for owen improving continue colchicine, prednisone (would do one week at 60mg daily then decrease by 20mg every 3 days, exact taper may need to be adjusted based on response), ibuprofen, noted improvement overall pepcid for gi ppx while on steroids Hypokalemia replaced OWEN Resolved with gentle IVF and holding nephrotoxins HFpEF - chronic continue lasix, aldactone monitor fluid status closely Chronic afib HR controlled -continue metoprolol Eliquis today HTN -continue metoprolol, lisinopril -monitor BP closely alcohol use Patient reports drinking alcohol 2 times per week and not for the past 7 days His brother called to report history of alcohol withdrawal infrequent alcohol use No evidence of alcohol withdrawal at this time -phenobarbital protocol completed -supplementation with thiamine, folic acid liver lesion hypodense lesion seen on abdominal CT -dedicated liver US showing probably cyst, recommend US follow up in 6 months sclerotic appearance of left femur -femur xray slightly sclerotic left femoral lesion. -recommend outpatient follow up, possible bone scan Hyperlipidemia -continue statin CAD No chest pain morbid obesity weight loss encouraged BMI 40.4 MAURICE unable to tolerate CPAP DVT prophylaxis-Yapert Quality Stroke Does the patient have a stroke diagnosis?: No VTE Prior VTE?: No VTE Risk Level:: Surgical - high VTE Device Contraindication: N/A - Device Ordered VTE Drug Contraindication: N/A - Med Ordered (on eliquis)
--- NOTE | 2021-06-03 13:01 | P.PNGS_ITS ---
Subjective Subjective Date of Service: 06/03/21 Interval history: No new complaints, continues to have some pain associated with the lower abdominal wound. Physical Exam Vital Signs: Vital Signs: Last Vital Signs Temp 96.9 F 06/03/21 11:57 Pulse 74 06/03/21 11:57 Resp 18 06/03/21 11:57 BP 166/91 H 06/03/21 11:57 Pulse Ox 94 06/03/21 11:57 Body Mass Index 14.5 Const: General: cooperative, alert and awake Resp: Effort & Inspection: normal respiratory effort Auscultation: clear to auscultation bilaterally Cardio: Rate: regular rate Rhythm: regular rhythm GI: Other: Large open wound lower abdominal wall with healthy appearing granulation tissue over approximately 90% of the wound bed with approximately 10% hemorrhagic appearing area, no necrosis, no bleeding Objective Data Active Medications Acetaminophen (Acetaminophen 325 Mg Tablet) 650 mg PO Q6H PRN PRN Reason: Pain, Mild (Pain Scale 1-3) Last Admin: 06/02/21 19:47 Dose: 650 mg Documented by: SARAH Apixaban (Apixaban 5 Mg Tablet) 5 mg PO BID [facility] Last Admin: 06/03/21 09:11 Dose: 5 mg Documented by: HORTENCIA Atorvastatin Calcium (Atorvastatin Calcium 80 Mg Tablet) 80 mg PO DAILY [facility] Last Admin: 06/03/21 09:10 Dose: 80 mg Documented by: HORTENCIA Colchicine (Colchicine 0.6 Mg Tablet) 0.6 mg PO BID [facility] Last Admin: 06/03/21 09:10 Dose: 0.6 mg Documented by: HORTENCIA Docusate Sodium (Docusate Sodium 100 Mg Capsule) 100 mg PO BID [facility] Last Admin: 06/03/21 09:10 Dose: Not Given Documented by: HORTENCIA Non-Admin Reason: Patient Refused Famotidine (Famotidine 20 Mg Tablet) 20 mg PO BEDTIME [facility] Last Admin: 06/02/21 21:28 Dose: 20 mg Documented by: SARAH Folic Acid (Folic Acid 1 Mg Tablet) 1 mg PO DAILY [facility] Last Admin: 06/03/21 09:10 Dose: 1 mg Documented by: HORTENCIA Furosemide (Furosemide 40 Mg Tablet) 80 mg PO DAILY [facility]; Protocol Last Admin: 06/03/21 09:12 Dose: 80 mg Documented by: HORTENCIA Hydromorphone HCl (Hydromorphone Hcl 0.5 Mg/0.5 Ml Syringe) 0.5 mg IVPUSH Q2H PRN; Protocol PRN Reason: Pain, Severe (Pain Scale 7-10) Last Admin: 05/31/21 21:43 Dose: 0.5 mg Documented by: JESSICA Ceftriaxone Sodium 1 gm/ (Sodium Chloride) 50 mls @ 100 mls/hr IV Q24H [facility] Last Infusion: 06/02/21 16:41 Dose: 0 mls/hr Documented by: HORTENCIA Ibuprofen (Ibuprofen 400 Mg Tablet) 400 mg PO Q6H PRN PRN Reason: mild pain Lisinopril (Lisinopril 5 Mg Tablet) 5 mg PO DAILY [facility]; Protocol Last Admin: 06/03/21 09:16 Dose: 5 mg Documented by: HORTENCIA Medication (No Benzodiazepines) 1 each MISCELLANE DAILY [facility] Melatonin (Melatonin 3 Mg Tablet) 6 mg PO BEDTIME PRN PRN Reason: Insomnia Last Admin: 06/02/21 21:28 Dose: 6 mg Documented by: SARAH Metoprolol Succinate (Metoprolol Succinate Er 100 Mg Tab.Er.24h) 100 mg PO DAILY [facility]; Protocol Last Admin: 06/03/21 09:10 Dose: 100 mg Documented by: HORTENCIA Nicotine Polacrilex (Nicotine Polacrilex Lozenge 4 Mg Lozenge) 4 mg BUCCAL Q2H PRN PRN Reason: Nicotine Cravings Ondansetron HCl (Ondansetron Hcl 4 Mg/2 Ml Vial) 4 mg IVPUSH Q8H PRN PRN Reason: Nausea and Vomiting Oxycodone HCl (Oxycodone Hcl Immed Release 5 Mg Tablet) 10 mg PO Q4H PRN PRN Reason: Pain, Severe (Pain Scale 7-10) Last Admin: 06/03/21 12:05 Dose: 10 mg Documented by: HORTENCIA Oxycodone HCl (Oxycodone Hcl Immed Release 5 Mg Tablet) 5 mg PO Q4H PRN PRN Reason: Pain, Moderate (Pain Scale 4-6 Last Admin: 06/01/21 14:16 Dose: 5 mg Documented by: SHIN Pharmacy Consult (Consult Rx Perform Med Rec) 1 each MISCELLANE ONCE PRN PRN Reason: Consult order Prednisone (Prednisone 20 Mg Tablet) 60 mg PO DAILY [facility] Last Admin: 06/03/21 09:11 Dose: 60 mg Documented by: HORTENCIA Prednisone (Prednisone 20 Mg Tablet) 30 mg PO ONCE ONE Stop: 06/07/21 16:59 Last Admin: 05/30/21 09:43 Dose: 30 mg Documented by: JANET Sodium Chloride (0.9 % Sodium Chloride Flush 3 Ml Syringe) 3 ml IVFLUSH QSHIFT [facility] Last Admin: 06/03/21 09:12 Dose: 3 ml Documented by: HORTENCIA Spironolactone (Spironolactone 25 Mg Tablet) 25 mg PO DAILY [facility]; Protocol Last Admin: 06/03/21 09:10 Dose: 25 mg Documented by: HORTENCIA Thiamine HCl (Thiamine Hcl 100 Mg Tablet) 100 mg PO DAILY [facility] Last Admin: 06/03/21 09:12 Dose: 100 mg Documented by: HORTENCIA Labs CBC & Chem 7: 05/30/21 05:22 05/31/21 05:36 Procedures Date of Service Date of Service: 06/03/21 Progress Note: A&P Assessment and plan (1) Necrotizing soft tissue infection: Status: Acute Assessment and Plan: Large open wound lower abdomen status post debridement for necrotizing soft tissue infection. Cellulitis appears resolved. On ceftriaxone. VAC dressing reapplied today. Wound cleansed with saline solution prior to placement of dressing. Wound generally clean and granulating as described above. A good seal obtained. He tolerated the procedure well. Fall Risk Details Current Medications: Current Medications Acetaminophen (Acetaminophen 325 Mg Tablet) 650 mg PO Q6H PRN PRN Reason: Pain, Mild (Pain Scale 1-3) Last Admin: 06/02/21 19:47 Dose: 650 mg Documented by: Apixaban (Apixaban 5 Mg Tablet) 5 mg PO BID [facility] Last Admin: 06/03/21 09:11 Dose: 5 mg Documented by: Atorvastatin Calcium (Atorvastatin Calcium 80 Mg Tablet) 80 mg PO DAILY [facility] Last Admin: 06/03/21 09:10 Dose: 80 mg Documented by: Colchicine (Colchicine 0.6 Mg Tablet) 0.6 mg PO BID [facility] Last Admin: 06/03/21 09:10 Dose: 0.6 mg Documented by: Docusate Sodium (Docusate Sodium 100 Mg Capsule) 100 mg PO BID [facility] Last Admin: 06/03/21 09:10 Dose: Not Given Documented by: Famotidine (Famotidine 20 Mg Tablet) 20 mg PO BEDTIME [facility] Last Admin: 06/02/21 21:28 Dose: 20 mg Documented by: Folic Acid (Folic Acid 1 Mg Tablet) 1 mg PO DAILY [facility] Last Admin: 06/03/21 09:10 Dose: 1 mg Documented by: Furosemide (Furosemide 40 Mg Tablet) 80 mg PO DAILY [facility]; Protocol Last Admin: 06/03/21 09:12 Dose: 80 mg Documented by: Hydromorphone HCl (Hydromorphone Hcl 0.5 Mg/0.5 Ml Syringe) 0.5 mg IVPUSH Q2H PRN; Protocol PRN Reason: Pain, Severe (Pain Scale 7-10) Last Admin: 05/31/21 21:43 Dose: 0.5 mg Documented by: Ceftriaxone Sodium 1 gm/ (Sodium Chloride) 50 mls @ 100 mls/hr IV Q24H [facility] Last Infusion: 06/02/21 16:41 Dose: Infused Documented by: Ibuprofen (Ibuprofen 400 Mg Tablet) 400 mg PO Q6H PRN PRN Reason: mild pain Lisinopril (Lisinopril 5 Mg Tablet) 5 mg PO DAILY [facility]; Protocol Last Admin: 06/03/21 09:16 Dose: 5 mg Documented by: Medication (No Benzodiazepines) 1 each MISCELLANE DAILY [facility] Melatonin (Melatonin 3 Mg Tablet) 6 mg PO BEDTIME PRN PRN Reason: Insomnia Last Admin: 06/02/21 21:28 Dose: 6 mg Documented by: Metoprolol Succinate (Metoprolol Succinate Er 100 Mg Tab.Er.24h) 100 mg PO DAILY [facility]; Protocol Last Admin: 06/03/21 09:10 Dose: 100 mg Documented by: Nicotine Polacrilex (Nicotine Polacrilex Lozenge 4 Mg Lozenge) 4 mg BUCCAL Q2H PRN PRN Reason: Nicotine Cravings Ondansetron HCl (Ondansetron Hcl 4 Mg/2 Ml Vial) 4 mg IVPUSH Q8H PRN PRN Reason: Nausea and Vomiting Oxycodone HCl (Oxycodone Hcl Immed Release 5 Mg Tablet) 10 mg PO Q4H PRN PRN Reason: Pain, Severe (Pain Scale 7-10) Last Admin: 06/03/21 12:05 Dose: 10 mg Documented by: Oxycodone HCl (Oxycodone Hcl Immed Release 5 Mg Tablet) 5 mg PO Q4H PRN PRN Reason: Pain, Moderate (Pain Scale 4-6 Last Admin: 06/01/21 14:16 Dose: 5 mg Documented by: Pharmacy Consult (Consult Rx Perform Med Rec) 1 each MISCELLANE ONCE PRN PRN Reason: Consult order Prednisone (Prednisone 20 Mg Tablet) 60 mg PO DAILY [facility] Last Admin: 06/03/21 09:11 Dose: 60 mg Documented by: Prednisone (Prednisone 20 Mg Tablet) 30 mg PO ONCE ONE Stop: 06/07/21 16:59 Last Admin: 05/30/21 09:43 Dose: 30 mg Documented by: Sodium Chloride (0.9 % Sodium Chloride Flush 3 Ml Syringe) [facility] Last Admin: 06/03/21 09:12 Dose: 3 ml Documented by: Spironolactone (Spironolactone 25 Mg Tablet) 25 mg PO DAILY [facility]; Protocol Last Admin: 06/03/21 09:10 Dose: 25 mg Documented by: Thiamine HCl (Thiamine Hcl 100 Mg Tablet) 100 mg PO DAILY [facility] Last Admin: 06/03/21 09:12 Dose: 100 mg Documented by: Time Spent With Patient Time: Total time spent is greater than 50% in coordination of care (as documented) at patient's floor/unit and/or counseling patient: Time with patient: 15 - 24 minutes Quality Stroke Does the patient have a stroke diagnosis?: No VTE Prior VTE?: No VTE Risk Level:: Surgical - high VTE Device Contraindication: N/A - Device Ordered VTE Drug Contraindication: N/A - Med Ordered (on eliquis)
[2021-06-03] MEDS: cefTRIAXone sodium 1 GM in 0.9 % Sodium Chloride 50 ML IV (13:46)
--- NOTE | 2021-06-03 19:39 | PC.NURSE ---
Patient had wound vac reinserted today by the surgery doctor. Patient stable, complained of moderate pain, gave pain medications.
[2021-06-03] MEDS: Melatonin 3 MG TABLET 6 MG PO (20:58)
[2021-06-03] MEDS: Famotidine 20 MG TABLET PO (20:58)
[2021-06-03] MEDS: oxyCODONE HCl Immed Release 5 MG TABLET PO (21:01)
[2021-06-04] VITALS (8 sets, daily range): BP systolic 128–166; BP diastolic 74–98; PULSE 57–84; RESP 17–18; TEMP 36–36.8; O2SAT 95–99
[2021-06-04] MEDS: oxyCODONE HCl Immed Release 5 MG TABLET 10 MG PO ×3 (03:32→12:43)
[2021-06-04] MEDS: Colchicine 0.6 MG TABLET PO ×2 (08:32→21:40)
[2021-06-04] MEDS: Metoprolol Succinate ER 100 MG TAB.ER.24H PO (08:32)
[2021-06-04] MEDS: Spironolactone 25 MG TABLET PO (08:33)
[2021-06-04] MEDS: Furosemide 40 MG TABLET 80 MG PO (08:33)
[2021-06-04] MEDS: lisinopriL 5 MG TABLET PO (08:33)
[2021-06-04] MEDS: Atorvastatin Calcium 80 MG TABLET PO (08:33)
[2021-06-04] MEDS: Folic Acid 1 MG TABLET PO (08:33)
[2021-06-04] MEDS: predniSONE 20 MG TABLET 60 MG PO (08:33)
[2021-06-04] MEDS: Apixaban 5 MG TABLET PO ×2 (08:34→21:41)
[2021-06-04] MEDS: Thiamine HCL 100 MG TABLET PO (08:34)
--- NOTE | 2021-06-04 08:43 | P.PNIM_ITS ---
Subjective Subjective Date of Service: 06/04/21 Interval History: cc: abd redness interval historY: gout pain significantly improved Cardiovascular Cardiovascular: Reports no additional cardiovascular complaints Respiratory Respiratory: Reports no additional respiratory complaints Physical Exam Vital Signs: Vital Signs: Last Vital Signs Temp 96.9 F 06/04/21 08:00 Pulse 84 06/04/21 08:00 Resp 18 06/04/21 08:00 BP 163/94 H 06/04/21 08:00 Pulse Ox 99 06/04/21 08:00 Body Mass Index 14.5 eneral: AO X 3, no acute distress Resp:? CTA bilateral, no accessory muscles used CVS: S1,S2,RRR GI: soft, non tender, non distended Neuro:? motor grossly intact, alert Psych: appropriate affect, appropriate insight? est: right writst and bilateral ankles significantly improved swelling and tenderness (still some mild findings present) Objective Data Active Medications Acetaminophen (Acetaminophen 325 Mg Tablet) 650 mg PO Q6H PRN PRN Reason: Pain, Mild (Pain Scale 1-3) Last Admin: 06/02/21 19:47 Dose: 650 mg Documented by: SARAH Apixaban (Apixaban 5 Mg Tablet) 5 mg PO BID [facility] Last Admin: 06/04/21 08:34 Dose: 5 mg Documented by: VIOLETTA Atorvastatin Calcium (Atorvastatin Calcium 80 Mg Tablet) 80 mg PO DAILY [facility] Last Admin: 06/04/21 08:33 Dose: 80 mg Documented by: VIOLETTA Colchicine (Colchicine 0.6 Mg Tablet) 0.6 mg PO BID [facility] Last Admin: 06/04/21 08:32 Dose: 0.6 mg Documented by: VIOLETTA Docusate Sodium (Docusate Sodium 100 Mg Capsule) 100 mg PO BID [facility] Last Admin: 06/04/21 08:31 Dose: Not Given Documented by: VIOLETTA Non-Admin Reason: Patient Refused Famotidine (Famotidine 20 Mg Tablet) 20 mg PO BEDTIME [facility] Last Admin: 06/03/21 20:58 Dose: 20 mg Documented by: CHARISSA Folic Acid (Folic Acid 1 Mg Tablet) 1 mg PO DAILY [facility] Last Admin: 06/04/21 08:33 Dose: 1 mg Documented by: VIOLETTA Furosemide (Furosemide 40 Mg Tablet) 80 mg PO DAILY [facility]; Protocol Last Admin: 06/04/21 08:33 Dose: 80 mg Documented by: VIOLETTA Hydromorphone HCl (Hydromorphone Hcl 0.5 Mg/0.5 Ml Syringe) 0.5 mg IVPUSH Q2H PRN; Protocol PRN Reason: Pain, Severe (Pain Scale 7-10) Last Admin: 05/31/21 21:43 Dose: 0.5 mg Documented by: JESSICA Ceftriaxone Sodium 1 gm/ (Sodium Chloride) 50 mls @ 100 mls/hr IV Q24H [facility] Last Infusion: 06/03/21 15:04 Dose: 0 mls/hr Documented by: HORTENCIA Ibuprofen (Ibuprofen 400 Mg Tablet) 400 mg PO Q6H PRN PRN Reason: mild pain Lisinopril (Lisinopril 5 Mg Tablet) 5 mg PO DAILY [facility]; Protocol Last Admin: 06/04/21 08:33 Dose: 5 mg Documented by: VIOLETTA Medication (No Benzodiazepines) 1 each MISCELLANE DAILY [facility] Melatonin (Melatonin 3 Mg Tablet) 6 mg PO BEDTIME PRN PRN Reason: Insomnia Last Admin: 06/03/21 20:58 Dose: 6 mg Documented by: CHARISSA Metoprolol Succinate (Metoprolol Succinate Er 100 Mg Tab.Er.24h) 100 mg PO DAILY [facility]; Protocol Last Admin: 06/04/21 08:32 Dose: 100 mg Documented by: VIOLETTA Nicotine Polacrilex (Nicotine Polacrilex Lozenge 4 Mg Lozenge) 4 mg BUCCAL Q2H PRN PRN Reason: Nicotine Cravings Ondansetron HCl (Ondansetron Hcl 4 Mg/2 Ml Vial) 4 mg IVPUSH Q8H PRN PRN Reason: Nausea and Vomiting Oxycodone HCl (Oxycodone Hcl Immed Release 5 Mg Tablet) 10 mg PO Q4H PRN PRN Reason: Pain, Severe (Pain Scale 7-10) Last Admin: 06/04/21 08:34 Dose: 10 mg Documented by: VIOLETTA Oxycodone HCl (Oxycodone Hcl Immed Release 5 Mg Tablet) 5 mg PO Q4H PRN PRN Reason: Pain, Moderate (Pain Scale 4-6 Last Admin: 06/03/21 21:01 Dose: 5 mg Documented by: CHARISSA Pharmacy Consult (Consult Rx Perform Med Rec) 1 each MISCELLANE ONCE PRN PRN Reason: Consult order Prednisone (Prednisone 20 Mg Tablet) 60 mg PO DAILY [facility] Last Admin: 06/04/21 08:33 Dose: 60 mg Documented by: VIOLETTA Sodium Chloride (0.9 % Sodium Chloride Flush 3 Ml Syringe) 3 ml IVFLUSH QSHIFT [facility] Last Admin: 06/04/21 01:12 Dose: Not Given Documented by: KALLIE Non-Admin Reason: Patient Asleep Spironolactone (Spironolactone 25 Mg Tablet) 25 mg PO DAILY [facility]; Protocol Last Admin: 06/04/21 08:33 Dose: 25 mg Documented by: VIOLETTA Thiamine HCl (Thiamine Hcl 100 Mg Tablet) 100 mg PO DAILY [facility] Last Admin: 06/04/21 08:34 Dose: 100 mg Documented by: VIOLETTA Labs CBC & Chem 7: 05/30/21 05:22 05/31/21 05:36 Assessment and Plan (1) Necrotizing soft tissue infection: Status: Acute (2) Morbid obesity: Status: Acute (3) Acute gout: Status: Acute Assessment and Plan: This is a 66-year-old male with history of chronic atrial fibrillation on Eliquis, CAD s/p CABG, HFpEF, HTN, HLD who presents to the emergency department with abdominal wall cellulitis found to have soft tissue necrotizing skin infection Sepsis secondary to Necrotizing soft tissue infection of the abdominal wall s/p debridement of abdominal wall Management per surgical team Seen by ID, recommended rocephin 2-3 weeks Wound culture growing streptococcus anginosis Blood cultures negative Acute gout flare was taking indomethacin at home, was held for owen improving continue colchicine, prednisone 60mg daily day 5/7, then decrease by 20mg every 3 days, exact taper may need to be adjusted based on response, ibuprofen, noted improvement overall pepcid for gi ppx while on steroids Hypokalemia replaced OWEN Resolved with gentle IVF and holding nephrotoxins HFpEF - chronic continue lasix, aldactone monitor fluid status closely Chronic afib HR controlled -continue metoprolol Eliquis HTN -continue metoprolol, lisinopril -monitor BP closely alcohol use Patient reports drinking alcohol 2 times per week and not for the past 7 days His brother called to report history of alcohol withdrawal infrequent alcohol use No evidence of alcohol withdrawal at this time -phenobarbital protocol completed -supplementation with thiamine, folic acid liver lesion hypodense lesion seen on abdominal CT -dedicated liver US showing probably cyst, recommend US follow up in 6 months sclerotic appearance of left femur -femur xray slightly sclerotic left femoral lesion. -recommend outpatient follow up, possible bone scan Hyperlipidemia -continue statin CAD No chest pain morbid obesity weight loss encouraged BMI 40.4 MAURICE unable to tolerate CPAP DVT prophylaxis-Eliquis Quality Stroke Does the patient have a stroke diagnosis?: No VTE Prior VTE?: No VTE Risk Level:: Surgical - high VTE Device Contraindication: N/A - Device Ordered VTE Drug Contraindication: N/A - Med Ordered (on eliquis)
--- NOTE | 2021-06-04 09:12 | PM.DS ---
DS: Providers Provider Date of Service: 06/04/21 Date of admission: 05/24/21 10:51 Primary care physician: Carroll Guthrie [facility] Attending physician on admission: Ferdiannd Henson Consults: 05/24/21 10:47 Consult to Hospitalist Routine Consulting Provider: Hospitalist Reason For Exam: CAD s/p CABG, a fib on eliquis, CHF, HTN 05/24/21 14:51 Consult to Cardiology Routine Consulting Provider: Jose Parada Reason for consultation: a fib, CAD s/p CABG, HTN Has provider been notified: No 05/24/21 15:00 Consult to Infectious Diseases Routine Consulting Provider: Eryn Davenport Reason for consultation: necrotizing soft tissue infection, pannus Has provider been notified: No DS: Diagnosis Discharge Diagnosis (1) Necrotizing soft tissue infection: Status: Acute (2) Morbid obesity: Status: Acute (3) Acute gout: Status: Acute DS: Summary Hospital Course Hospital Course: BRIEF HPI: This is a 66-year-old male with multiple medical comorbidities who presented to the emergency department with abdominal wall redness.? This had been ongoing for the past several days.? He called his PCP and was started on Keflex however the redness did not improve and he presented to the emergency department for evaluation.? Lab work was significant for leukocytosis of 12.3, creatinine 1.66, lactic acid 2.3.? CT scan of the abdomen showed extensive inflammatory changes in subcutaneous gas in the soft tissue of the lower abdominal wall concerning for necrotizing soft tissue infection.? HOSPITAL COURSE: ?The patient is admitted to the surgical service. It was recommended to proceed with debridement of the lower abdominal wall. It was discussed with the patient he is higher risk due to his medical comorbidities. He will also likely have a large open wound that will require prolonged wound care. He agreed to proceed and was added onto the OR schedule for that day. He was started on IV zosyn, vanco, IV analgesics PRN for pain control and IVF. On 05/24/21, a wide excisional debridement of pannus for necrotizing soft tissue infection was performed by Dr. Ferdinand Henson without complication. Intraoperative findings included a wide area of necrotizing infection of the subcutaneous fat within the pannus, foul-smelling tissue. The fascia was uninvolved. The patient tolerated the procedure well and was admitted for observation. Hospitalist consult was ordered for assistance in management of his medical comorbidities. Infectious disease consult was obtained who recommended continuing zosyn and vanco. The patient had a lengthy recovery course with wound care, complicated by an acute gout flare as his medication had to be held due to his OWEN. He did well post operatively. His lactic acid normalized and sepsis resolved. His WBC downtrended and normalized. His OWEN improved with IV hydration and kidney function improved and normalized. Wet to dry dressings were continued with kerlix rolls and heavy abdominal drainage dressings for the first few post operative days. His wound remained clean without further evidence of necrosis and the surrounding cellulitis resolved. A wound vac was therefore placed without complication. He was tolerating this well. Further wound vac dressing changes revealed a clean wound that was beginning to granulate well. During this time, he developed an acute gout flare affecting b/l feet and right wrist. He was unable to ambulate because of this. He was started on prednisone which was gradually increased to 60mg. Colchicine and ibuprofen PRN were also added with good effect. PT consult was obtained during this time to assist with mobility and ambulation. His gout pain began to improve and his activity began to increase. His other medical comorbidities remained stable. His eliquis was resumed post operatively. ID recommended ceftriaxone IV 2-3 weeks and a midline was obtained for this. PT initially recommended STR upon evaluation however while the patient was awaiting bed placement, he had much less pain and was able to begin ambulating more safely on his own with a front wheeled walker. They then recommended discharge to home with PT. The patient was stable for discharge on 06/05/21 with both VNA and PT services. He is to follow up with Dr. Henson in office and his PCP. Status at Discharge Functional status at discharge: uses cane/walker Overall status at discharge: patient is not back to baseline Time Spent with Patient Time attestation: Total time spent providing and/or coordinating discharge services: Discharge coordination time: Greater than 30 minutes Quality: Stroke Does the patient have a stroke diagnosis?: No Physical Exam Vital Signs: Vital Signs: Last Vital Signs Temp 96.9 F 06/04/21 08:00 Pulse 84 06/04/21 08:00 Resp 18 06/04/21 08:00 BP 163/94 H 06/04/21 08:00 Pulse Ox 99 06/04/21 08:00 Body Mass Index 14.5 DS: Data Data Completed and Pending Completed studies during hospitalization [Text1]: 05/24/21 14:53 Surgical [PTH] Routine Skin and soft tissue, abdomen, excision: - Subcutaneous tissue with necrosis, abscess formation and dense fibrinopurulent material. - Viable skin. Discharge Plan Discharge Patient Disposition: Home Health Service Discharge Diagnosis: necrotizing soft tissue infection, gout flare Referrals: aaliyah [Other] - 1 Week evette [Other] - 1 Week Deepthi ARIAS [Outside] - 1 Week Carroll Guthrie FNP- [Primary Care Provider] - 1 Week Ferdinand Henson MD [Physician] - 1 Week Suki Grimm MD [Physician] - 1 Week Discharge Medications: New colchicine [Colcrys] 0.6 mg Tablet 0.6 mg PO BID Qty: 60 RF: 0 ceftriaxone 2 gram recon soln 2 g IV DAILY Qty: 14 RF: 1 ibuprofen 400 mg Tablet 400 mg PO Q6H PRN (Reason: Mild Pain (Scale Score 1-4)) Qty: 30 RF: 0 prednisone 20 mg tablet 60 mg PO DAILY Qty: 30 RF: 0 Continued cholecalciferol (vitamin D3) 50 mcg (2,000 unit) tablet 50 mcg PO DAILY 90 Days Qty: 90 RF: 1 atorvastatin 80 mg tablet 80 mg PO DAILY Qty: 90 RF: 1 Eliquis 5 mg tablet 5 mg PO BID Qty: 60 RF: 3 spironolactone 25 mg tablet 25 mg PO DAILY Qty: 90 RF: 3 lisinopril 5 mg tablet 5 mg PO DAILY Qty: 90 RF: 0 acetaminophen 500 mg Tablet 1,000 mg PO BID RF: 0 nicotine (polacrilex) 4 mg Lozenge 4 mg BUCCAL Q2-4H PRN (Reason: Nicotine Cravings) RF: 0 metoprolol succinate 100 mg tablet extended release 24 hr 100 mg PO DAILY RF: 0 furosemide [Lasix] 80 mg tablet 80 mg PO DAILY RF: 0 omega-3 acid ethyl esters 1 gram capsule 2 cap PO DAILY RF: 0 Discontinued cephalexin 500 mg capsule 500 mg PO BID PRN (Reason: skin cysts) 10 Days Qty: 20 RF: 2 indomethacin 50 mg capsule 50 mg PO DAILY PRN (Reason: for pain) RF: 0 Discharge Orders: Discharge Order (Routine); Ordered 06/05/21 Ordered By: Jess Shah Diet: low salt diet Activity on Discharge: No heavy lifting Stand Alone Forms: Patient Portal Discharge page Activity Restrictions/Additional Instructions: Wound vac: LARGE VAC granufoam dressing applied with vac at 125mm of Hg; change every 3-5 days and PRN. Call Your Doctor If: ? ? -Your temperature exceeds 101.5? F? ? ? -You experience excessive pain or swelling ? ? -You have an unexpected reaction to medication ? ? -You experience continued vomiting/nausea -You experience excessive bleeding Written script also provided for Oxycodone 5mg PO q 4-6 hours as needed for pain. Care Plan Goals: Return to baseline health. Gradually increase activity. Wound healing & closure. Health Concerns: Necrotizing soft tissue infection, A fib, CAD, gout Plan of Treatment: Wound vac dressing F/u in office with Dr. Hesnon. F/u at wound care center. F/u with PCP. Assessment: Improved.
--- NOTE | 2021-06-04 10:47 | P.PNGS_ITS ---
Subjective Subjective Date of Service: 06/04/21 <Jess Shah PA-C - Last Filed: 06/04/21 10:51> 06/04/21 <Ferdinand Henson MD - Last Filed: 06/04/21 11:32> Interval history: Feels much better today. Has some abdominal discomfort but mostly b/l foot and r wrist pain, although significantly improved. He feels like he could go home. He is ambulating with walker without difficulty. <MERE Dahl - Last Filed: 06/04/21 10:51> Physical Exam Vital Signs: Vital Signs: Last Vital Signs Temp 96.9 F 06/04/21 08:00 Pulse 84 06/04/21 08:00 Resp 18 06/04/21 08:00 BP 163/94 H 06/04/21 08:00 Pulse Ox 99 06/04/21 08:00 Body Mass Index 14.5 <Jess Shah PA-C - Last Filed: 06/04/21 10:51> Const: General: comfortable and no acute distress <MERE Dahl - Last Filed: 06/04/21 10:51> Orientation/consciousness: patient oriented x3 <Jess Shah PA-C - Last Filed: 06/04/21 10:51> Resp: Effort & Inspection: normal respiratory effort <Jess Shah PA-C - Last Filed: 06/04/21 10:51> GI: Other: wound vac <Jess Shah PA-C - Last Filed: 06/04/21 10:51> Skin: General skin exam: no rashes or lesions noted <Jess Shah PA-C - Last Filed: 06/04/21 10:51> Neuro: General: patient oriented x3 <MONICA Dahl Last Filed: 06/04/21 10:51> Objective Data Active Medications Acetaminophen (Acetaminophen 325 Mg Tablet) 650 mg PO Q6H PRN PRN Reason: Pain, Mild (Pain Scale 1-3) Last Admin: 06/02/21 19:47 Dose: 650 mg Documented by: SARAH Apixaban (Apixaban 5 Mg Tablet) 5 mg PO BID [facility] Last Admin: 06/04/21 08:34 Dose: 5 mg Documented by: VIOLETTA Atorvastatin Calcium (Atorvastatin Calcium 80 Mg Tablet) 80 mg PO DAILY [facility] Last Admin: 06/04/21 08:33 Dose: 80 mg Documented by: VIOLETTA Colchicine (Colchicine 0.6 Mg Tablet) 0.6 mg PO BID [facility] Last Admin: 06/04/21 08:32 Dose: 0.6 mg Documented by: VIOLETTA Docusate Sodium (Docusate Sodium 100 Mg Capsule) 100 mg PO BID [facility] Last Admin: 06/04/21 08:31 Dose: Not Given Documented by: VIOLETTA Non-Admin Reason: Patient Refused Famotidine (Famotidine 20 Mg Tablet) 20 mg PO BEDTIME [facility] Last Admin: 06/03/21 20:58 Dose: 20 mg Documented by: CHARISSA Folic Acid (Folic Acid 1 Mg Tablet) 1 mg PO DAILY [facility] Last Admin: 06/04/21 08:33 Dose: 1 mg Documented by: VIOLETTA Furosemide (Furosemide 40 Mg Tablet) 80 mg PO DAILY [facility]; Protocol Last Admin: 06/04/21 08:33 Dose: 80 mg Documented by: VIOLETTA Hydromorphone HCl (Hydromorphone Hcl 0.5 Mg/0.5 Ml Syringe) 0.5 mg IVPUSH Q2H PRN; Protocol PRN Reason: Pain, Severe (Pain Scale 7-10) Last Admin: 05/31/21 21:43 Dose: 0.5 mg Documented by: JESSICA Ceftriaxone Sodium 1 gm/ (Sodium Chloride) 50 mls @ 100 mls/hr IV Q24H [facility] Last Infusion: 06/03/21 15:04 Dose: 0 mls/hr Documented by: HORTENCIA Ibuprofen (Ibuprofen 400 Mg Tablet) 400 mg PO Q6H PRN PRN Reason: mild pain Lisinopril (Lisinopril 5 Mg Tablet) 5 mg PO DAILY [facility]; Protocol Last Admin: 06/04/21 08:33 Dose: 5 mg Documented by: VIOLETTA Medication (No Benzodiazepines) 1 each MISCELLANE DAILY [facility] Melatonin (Melatonin 3 Mg Tablet) 6 mg PO BEDTIME PRN PRN Reason: Insomnia Last Admin: 06/03/21 20:58 Dose: 6 mg Documented by: CHARISSA Metoprolol Succinate (Metoprolol Succinate Er 100 Mg Tab.Er.24h) 100 mg PO DAILY [facility]; Protocol Last Admin: 06/04/21 08:32 Dose: 100 mg Documented by: VIOLETTA Nicotine Polacrilex (Nicotine Polacrilex Lozenge 4 Mg Lozenge) 4 mg BUCCAL Q2H PRN PRN Reason: Nicotine Cravings Ondansetron HCl (Ondansetron Hcl 4 Mg/2 Ml Vial) 4 mg IVPUSH Q8H PRN PRN Reason: Nausea and Vomiting Oxycodone HCl (Oxycodone Hcl Immed Release 5 Mg Tablet) 10 mg PO Q4H PRN PRN Reason: Pain, Severe (Pain Scale 7-10) Last Admin: 06/04/21 08:34 Dose: 10 mg Documented by: VIOLETTA Oxycodone HCl (Oxycodone Hcl Immed Release 5 Mg Tablet) 5 mg PO Q4H PRN PRN Reason: Pain, Moderate (Pain Scale 4-6 Last Admin: 06/03/21 21:01 Dose: 5 mg Documented by: CHARISSA Pharmacy Consult (Consult Rx Perform Med Rec) 1 each MISCELLANE ONCE PRN PRN Reason: Consult order Prednisone (Prednisone 20 Mg Tablet) 60 mg PO DAILY [facility] Last Admin: 06/04/21 08:33 Dose: 60 mg Documented by: VIOLETTA Sodium Chloride (0.9 % Sodium Chloride Flush 3 Ml Syringe) 3 ml IVFLUSH QSHIFT [facility] Last Admin: 06/04/21 10:28 Dose: Not Given Documented by: VIOLETTA Non-Admin Reason: N/A Sodium Chloride (0.9 % Sodium Chloride Flush 10 Ml Syringe) 5 ml IVFLUSH TID [facility] Spironolactone (Spironolactone 25 Mg Tablet) 25 mg PO DAILY [facility]; Protocol Last Admin: 06/04/21 08:33 Dose: 25 mg Documented by: VIOLETTA Thiamine HCl (Thiamine Hcl 100 Mg Tablet) 100 mg PO DAILY [facility] Last Admin: 06/04/21 08:34 Dose: 100 mg Documented by: VIOLETTA <Jess Shah PA-C - Last Filed: 06/04/21 10:51> Labs CBC & Chem 7: : 05/30/21 05:22 05/31/21 05:36 <Jess Shah PA-C - Last Filed: 06/04/21 10:51> Procedures Date of Service Date of Service: 06/04/21 <Jess Shah PA-C - Last Filed: 06/04/21 10:51> Progress Note: A&P Assessment and plan (1) Acute gout: Status: Acute <MONICA Dahl Last Filed: 06/04/21 10:51> (2) Necrotizing soft tissue infection: Status: Acute <Jess Shah PA-C - Last Filed: 06/04/21 10:51> Assessment and Plan: He continues to do well Wound VAC change yesterday He now wants to go home instead of to rehab Needs to have been visiting nurse services arranged along with home PT He has a PICC line for IV antibiotics Wound VAC change every 3-5 days Seen and examined-I agree with JOE Shah <Ferdinand Henson MD - Last Filed: 06/04/21 11:32> (3) Abdominal wall cellulitis: Status: Acute <Jess Shah PA-C - Last Filed: 06/04/21 10:51> Assessment and Plan: Large open wound lower abdomen status post debridement for necrotizing soft tissue infection.? Cellulitis resolved.? On ceftriaxone. VAC dressing reapplied yesterday, wound was generally clean and granulating.? A good seal remains.? PT saw patient this morning and recommended home with PT. Would also need VNA for wound vac, IV abx. Discussed with case management. Stable for discharge today if arrangements able to be arranged. <Jess Shah PA-C - Last Filed: 06/04/21 10:51> Fall Risk Details Current Medications: Current Medications Acetaminophen (Acetaminophen 325 Mg Tablet) 650 mg PO Q6H PRN PRN Reason: Pain, Mild (Pain Scale 1-3) Last Admin: 06/02/21 19:47 Dose: 650 mg Documented by: Apixaban (Apixaban 5 Mg Tablet) 5 mg PO BID [facility] Last Admin: 06/04/21 08:34 Dose: 5 mg Documented by: Atorvastatin Calcium (Atorvastatin Calcium 80 Mg Tablet) 80 mg PO DAILY [facility] Last Admin: 06/04/21 08:33 Dose: 80 mg Documented by: Colchicine (Colchicine 0.6 Mg Tablet) 0.6 mg PO BID [facility] Last Admin: 06/04/21 08:32 Dose: 0.6 mg Documented by: Docusate Sodium (Docusate Sodium 100 Mg Capsule) 100 mg PO BID [facility] Last Admin: 06/04/21 08:31 Dose: Not Given Documented by: Famotidine (Famotidine 20 Mg Tablet) 20 mg PO BEDTIME [facility] Last Admin: 06/03/21 20:58 Dose: 20 mg Documented by: Folic Acid (Folic Acid 1 Mg Tablet) 1 mg PO DAILY [facility] Last Admin: 06/04/21 08:33 Dose: 1 mg Documented by: Furosemide (Furosemide 40 Mg Tablet) 80 mg PO DAILY [facility]; Protocol Last Admin: 06/04/21 08:33 Dose: 80 mg Documented by: Hydromorphone HCl (Hydromorphone Hcl 0.5 Mg/0.5 Ml Syringe) 0.5 mg IVPUSH Q2H PRN; Protocol PRN Reason: Pain, Severe (Pain Scale 7-10) Last Admin: 05/31/21 21:43 Dose: 0.5 mg Documented by: Ceftriaxone Sodium 1 gm/ (Sodium Chloride) 50 mls @ 100 mls/hr IV Q24H [facility] Last Infusion: 06/03/21 15:04 Dose: Infused Documented by: Ibuprofen (Ibuprofen 400 Mg Tablet) 400 mg PO Q6H PRN PRN Reason: mild pain Lisinopril (Lisinopril 5 Mg Tablet) 5 mg PO DAILY [facility]; Protocol Last Admin: 06/04/21 08:33 Dose: 5 mg Documented by: Medication (No Benzodiazepines) 1 each MISCELLANE DAILY [facility] Melatonin (Melatonin 3 Mg Tablet) 6 mg PO BEDTIME PRN PRN Reason: Insomnia Last Admin: 06/03/21 20:58 Dose: 6 mg Documented by: Metoprolol Succinate (Metoprolol Succinate Er 100 Mg Tab.Er.24h) 100 mg PO DAILY [facility]; Protocol Last Admin: 06/04/21 08:32 Dose: 100 mg Documented by: Nicotine Polacrilex (Nicotine Polacrilex Lozenge 4 Mg Lozenge) 4 mg BUCCAL Q2H PRN PRN Reason: Nicotine Cravings Ondansetron HCl (Ondansetron Hcl 4 Mg/2 Ml Vial) 4 mg IVPUSH Q8H PRN PRN Reason: Nausea and Vomiting Oxycodone HCl (Oxycodone Hcl Immed Release 5 Mg Tablet) 10 mg PO Q4H PRN PRN Reason: Pain, Severe (Pain Scale 7-10) Last Admin: 06/04/21 08:34 Dose: 10 mg Documented by: Oxycodone HCl (Oxycodone Hcl Immed Release 5 Mg Tablet) 5 mg PO Q4H PRN PRN Reason: Pain, Moderate (Pain Scale 4-6 Last Admin: 06/03/21 21:01 Dose: 5 mg Documented by: Pharmacy Consult (Consult Rx Perform Med Rec) 1 each MISCELLANE ONCE PRN PRN Reason: Consult order Prednisone (Prednisone 20 Mg Tablet) 60 mg PO DAILY [facility] Last Admin: 06/04/21 08:33 Dose: 60 mg Documented by: Sodium Chloride (0.9 % Sodium Chloride Flush 3 Ml Syringe) 3 ml IVFLUSH QSHIFT [facility] Last Admin: 06/04/21 10:28 Dose: Not Given Documented by: Sodium Chloride (0.9 % Sodium Chloride Flush 10 Ml Syringe) 5 ml IVFLUSH TID [facility] Spironolactone (Spironolactone 25 Mg Tablet) 25 mg PO DAILY [facility]; Protocol Last Admin: 06/04/21 08:33 Dose: 25 mg Documented by: Thiamine HCl (Thiamine Hcl 100 Mg Tablet) 100 mg PO DAILY [facility] Last Admin: 06/04/21 08:34 Dose: 100 mg Documented by: <Jess Shah PA-C - Last Filed: 06/04/21 10:51> Time Spent With Patient Time: Total time spent is greater than 50% in coordination of care (as documented) at patient's floor/unit and/or counseling patient: <Jess Shah PA-C - Last Filed: 06/04/21 10:51> Time with patient: 15 - 24 minutes <Jess Shah PA-C - Last Filed: 06/04/21 10:51> Quality Stroke Does the patient have a stroke diagnosis?: No <Jess Shah PA-C - Last Filed: 06/04/21 10:51> VTE Prior VTE?: No <Jess Shah PA-C - Last Filed: 06/04/21 10:51> VTE Risk Level:: Surgical - high <Jess Shah PA-C - Last Filed: 06/04/21 10:51> VTE Device Contraindication: N/A - Device Ordered <Jess Shha PA-C - Last Filed: 06/04/21 10:51> VTE Drug Contraindication: N/A - Med Ordered (on eliquis) <Jess Shah PA-C - Last Filed: 06/04/21 10:51>
--- NOTE | 2021-06-04 11:39 | PC.NURSE ---
Skin/Wound assessment. Patient has a wound vac to lower pannus-intact -no leaking. Patient also had an abrasion to left side of abdomen which is now healed. No other skin issues noted at this time.
--- NOTE | 2021-06-04 11:53 | MHC.CM.PN ---
NURSE MANAGED CARE ANALYST NOTE ELECTRONIC MEDICAL RECORD REVIEWED ALONG WITH CASE DISCUSSED WITH STAFF NURSE. PATIENT HAS CHANGED HIS MIND AND WANTS TO GO HOME, PHYSICAL THEAPRY HAS CLEARED HHIM TO GO HOME WITH VNA FOR HOME PT NECROTIZING INFECTION OF THE PANUNUS S/P WIDE EXCISION DEBRIDEMENT OF PANNUS AND HAS WOUND VAC IN PLACE. 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
--- NOTE | 2021-06-04 12:19 | MHC.CM.PN ---
PT REPORTED THIS MORNING THAT HE WOULD PREFER TO DC HOME WITH VNA CM MADE A REFERRAL TO [facility] TO [facility] MED/SUPPLY DELIVERY. CM RECEIVED A T/C FROM [facility] WHO INDICATED THE PT HAD NOT YET MET HIS DEDUCTIBLE AND MAY END UP WITH A COST OF $182/WEEK HOWEVER NO MONEY WOULD BE COLLECTED UP FRONT HE MAY MEET HIS DEDUCTIBLE AFTER THE HOSPITAL STAY. CM INFORMED THE PT OF THE POSSIBLE COPAY. PT REPORTS HE IS NOT CONCERNED AND WOULD LIKE TO MOVE FORWARD WITH THE DC PLAN. STUART HAS ALSO MET WITH PTS BROTHER AND SON. PT AND FAMILY ARE AWARE SOMEONE WILL NEED TO BE PRESENT FOR THE TEACHING AND BE ABLE TO ASSIST PT PRN WITH MED ADMINISTRATION. CURRENTLY AWAITING VNA ACCEPTANCE. ONCE VNA SECURED FOR WOUND CARE, IV MEDS AND HOME PT, Pt WILL DC HOME WITH [facility] FOR IV ABX AND [facility] FOR WOUND VAC. FAMILY TO TRANSPORT
[2021-06-04] MEDS: Ibuprofen 400 MG TABLET PO (12:43)
[2021-06-04] MEDS: cefTRIAXone sodium 1 GM in 0.9 % Sodium Chloride 50 ML IV (12:44)
[2021-06-04] MEDS: 0.9 % Sodium Chloride Flush 10 ML SYRINGE 5 ML IVFLUSH ×2 (12:44→21:41)
[2021-06-04] MEDS: Famotidine 20 MG TABLET PO (21:40)
[2021-06-04] MEDS: oxyCODONE HCl Immed Release 5 MG TABLET PO (21:51)
[2021-06-04] MEDS: Melatonin 3 MG TABLET 6 MG PO (21:51)
[2021-06-05] MEDS: oxyCODONE HCl Immed Release 5 MG TABLET 10 MG PO ×2 (02:27→11:43)
[2021-06-05 04:00] VITALS: BP 150/74; PULSE 67; RESP 17; TEMP 37; O2SAT 95
[2021-06-05 07:03] VITALS: BP 155/84; PULSE 77; RESP 18; O2SAT 97
[2021-06-05] MEDS: 0.9 % Sodium Chloride Flush 10 ML SYRINGE 5 ML IVFLUSH (07:47)
[2021-06-05] MEDS: lisinopriL 5 MG TABLET PO (07:48)
[2021-06-05] MEDS: Colchicine 0.6 MG TABLET PO (07:48)
[2021-06-05] MEDS: Thiamine HCL 100 MG TABLET PO (07:48)
[2021-06-05] MEDS: Folic Acid 1 MG TABLET PO (07:50)
[2021-06-05] MEDS: Atorvastatin Calcium 80 MG TABLET PO (07:50)
[2021-06-05] MEDS: Apixaban 5 MG TABLET PO (07:50)
[2021-06-05] MEDS: Metoprolol Succinate ER 100 MG TAB.ER.24H PO (07:50)
[2021-06-05] MEDS: Furosemide 40 MG TABLET 80 MG PO (07:50)
[2021-06-05] MEDS: Spironolactone 25 MG TABLET PO (07:51)
[2021-06-05] MEDS: predniSONE 20 MG TABLET 60 MG PO (07:57)
[2021-06-05 08:07] VITALS: TEMP 35.9
--- NOTE | 2021-06-05 08:46 | PM.PNGS ---
Subjective Subjective Date of Service: 06/05/21 <Jess Shah PA-C - Last Filed: 06/05/21 08:49> 06/05/21 <Ferdinand Henson MD - Last Filed: 06/05/21 09:21> Interval history: Feeling better, a little apprehensive to go home. Gout pain improved. <Jess Shah PA-C - Last Filed: 06/05/21 08:49> Physical Exam Vital Signs: Vital Signs: Last Vital Signs Temp 96.7 F L 06/05/21 08:07 Pulse 77 06/05/21 07:03 Resp 18 06/05/21 07:03 BP 155/84 H 06/05/21 07:03 Pulse Ox 97 06/05/21 07:03 Body Mass Index 14.5 <Jess Shah PA-C - Last Filed: 06/05/21 08:49> Const: General: healthy appearing, comfortable and no acute distress <Jess Shah PA-C - Last Filed: 06/05/21 08:49> Orientation/consciousness: patient oriented x3 <Jess Shah PA-C - Last Filed: 06/05/21 08:49> Resp: Effort & Inspection: normal respiratory effort <Jess Shah PA-C - Last Filed: 06/05/21 08:49> GI: Other: wound vac in place to lower abdomen <Jess Shah PA-C - Last Filed: 06/05/21 08:49> Inspection: No distended <Jess Shah PA-C - Last Filed: 06/05/21 08:49> Palpation (GI): Soft to palpation and nontender <Jess Shah PA-C - Last Filed: 06/05/21 08:49> Skin: Other: warm and dry <MONICA Dahl Last Filed: 06/05/21 08:49> Neuro: General: patient oriented x3 <MONICA Dahl Last Filed: 06/05/21 08:49> Extrem: Other: venous stasis changes b/l LE <MONICA Dahl Last Filed: 06/05/21 08:49> Objective Data Active Medications Acetaminophen (Acetaminophen 325 Mg Tablet) 650 mg PO Q6H PRN PRN Reason: Pain, Mild (Pain Scale 1-3) Last Admin: 06/02/21 19:47 Dose: 650 mg Documented by: SARAH Apixaban (Apixaban 5 Mg Tablet) 5 mg PO BID [facility] Last Admin: 06/05/21 07:50 Dose: 5 mg Documented by: VIOLETTA Atorvastatin Calcium (Atorvastatin Calcium 80 Mg Tablet) 80 mg PO DAILY [facility] Last Admin: 06/05/21 07:50 Dose: 80 mg Documented by: VIOLETTA Colchicine (Colchicine 0.6 Mg Tablet) 0.6 mg PO BID [facility] Last Admin: 06/05/21 07:48 Dose: 0.6 mg Documented by: VIOLETTA Docusate Sodium (Docusate Sodium 100 Mg Capsule) 100 mg PO BID [facility] Last Admin: 06/05/21 07:49 Dose: Not Given Documented by: VIOLETTA Non-Admin Reason: Patient Refused Famotidine (Famotidine 20 Mg Tablet) 20 mg PO BEDTIME [facility] Last Admin: 06/04/21 21:40 Dose: 20 mg Documented by: KAYLA Folic Acid (Folic Acid 1 Mg Tablet) 1 mg PO DAILY [facility] Last Admin: 06/05/21 07:50 Dose: 1 mg Documented by: VIOLETTA Furosemide (Furosemide 40 Mg Tablet) 80 mg PO DAILY [facility]; Protocol Last Admin: 06/05/21 07:50 Dose: 80 mg Documented by: VIOLETTA Ceftriaxone Sodium 1 gm/ (Sodium Chloride) 50 mls @ 100 mls/hr IV Q24H [facility] Last Infusion: 06/04/21 13:19 Dose: 100 mls/hr Documented by: SHIN Ibuprofen (Ibuprofen 400 Mg Tablet) 400 mg PO Q6H PRN PRN Reason: mild pain Last Admin: 06/04/21 12:43 Dose: 400 mg Documented by: SHIN Lisinopril (Lisinopril 5 Mg Tablet) 5 mg PO DAILY [facility]; Protocol Last Admin: 06/05/21 07:48 Dose: 5 mg Documented by: VIOLETTA Medication (No Benzodiazepines) 1 each MISCELLANE DAILY [facility] Melatonin (Melatonin 3 Mg Tablet) 6 mg PO BEDTIME PRN PRN Reason: Insomnia Last Admin: 06/04/21 21:51 Dose: 6 mg Documented by: KAYLA Metoprolol Succinate (Metoprolol Succinate Er 100 Mg Tab.Er.24h) 100 mg PO DAILY [facility]; Protocol Last Admin: 06/05/21 07:50 Dose: 100 mg Documented by: VIOLETTA Nicotine Polacrilex (Nicotine Polacrilex Lozenge 4 Mg Lozenge) 4 mg BUCCAL Q2H PRN PRN Reason: Nicotine Cravings Ondansetron HCl (Ondansetron Hcl 4 Mg/2 Ml Vial) 4 mg IVPUSH Q8H PRN PRN Reason: Nausea and Vomiting Oxycodone HCl (Oxycodone Hcl Immed Release 5 Mg Tablet) 10 mg PO Q4H PRN PRN Reason: Pain, Severe (Pain Scale 7-10) Last Admin: 06/05/21 02:27 Dose: 10 mg Documented by: FIDELIA Pharmacy Consult (Consult Rx Perform Med Rec) 1 each MISCELLANE ONCE PRN PRN Reason: Consult order Prednisone (Prednisone 20 Mg Tablet) 60 mg PO DAILY [facility] Last Admin: 06/05/21 07:57 Dose: 60 mg Documented by: VIOLETTA Sodium Chloride (0.9 % Sodium Chloride Flush 3 Ml Syringe) 3 ml IVFLUSH QSHIFT [facility] Last Admin: 06/05/21 07:48 Dose: Not Given Documented by: VIOLETTA Non-Admin Reason: n/a Sodium Chloride (0.9 % Sodium Chloride Flush 10 Ml Syringe) 5 ml IVFLUSH TID [facility] Last Admin: 06/05/21 07:47 Dose: 5 ml Documented by: VIOLETTA Spironolactone (Spironolactone 25 Mg Tablet) 25 mg PO DAILY [facility]; Protocol Last Admin: 06/05/21 07:51 Dose: 25 mg Documented by: VIOLETTA Thiamine HCl (Thiamine Hcl 100 Mg Tablet) 100 mg PO DAILY [facility] Last Admin: 06/05/21 07:48 Dose: 100 mg Documented by: VIOLETAT <Jess Shah PA-C - Last Filed: 06/05/21 08:49> Labs CBC & Chem 7: : 05/30/21 05:22 05/31/21 05:36 <Jess Shah PA-C - Last Filed: 06/05/21 08:49> Procedures Date of Service Date of Service: 06/05/21 <Jess Shah PA-C - Last Filed: 06/05/21 08:49> Progress Note: A&P Assessment and plan (1) Acute gout: Status: Acute <MONICA Dahl Last Filed: 06/05/21 08:49> (2) Necrotizing soft tissue infection: Status: Acute <Jess Shah PA-C - Last Filed: 06/05/21 08:49> Assessment and Plan: Denies complaints Feels well Says he is looking forward to going home today Wound VAC in place He looks well Has been ambulating with a walker Visiting nurse services arranged Ceftriaxone via PICC line for a total 2 weeks Will see in the office for follow-up Above discussed with son Jose Seen and examined - agree with JOE Shah <Ferdinand Henson MD - Last Filed: 06/05/21 09:21> (3) Abdominal wall cellulitis: Status: Acute <Jess Shah PA-C - Last Filed: 06/05/21 08:49> Assessment and Plan: Large open wound lower abdomen status post debridement for necrotizing soft tissue infection.?Cellulitis resolved. On ceftriaxone. ID recommended continuing for 2-3 weeks. Has midline in place. VAC dressing changed Friday, wound was generally clean and granulating.? A good seal remains.? His home unit was applied last night by the RN. He feels ready for discharge to home. To be discharged with VNA, home PT. Has FWW at home. Discussed with case management. Stable for discharge today. F/u in office with Dr. Henson. <Jess Shah PA-C - Last Filed: 06/05/21 08:49> Fall Risk Details Current Medications: Current Medications Acetaminophen (Acetaminophen 325 Mg Tablet) 650 mg PO Q6H PRN PRN Reason: Pain, Mild (Pain Scale 1-3) Last Admin: 06/02/21 19:47 Dose: 650 mg Documented by: Apixaban (Apixaban 5 Mg Tablet) 5 mg PO BID [facility] Last Admin: 06/05/21 07:50 Dose: 5 mg Documented by: Atorvastatin Calcium (Atorvastatin Calcium 80 Mg Tablet) 80 mg PO DAILY [facility] Last Admin: 06/05/21 07:50 Dose: 80 mg Documented by: Colchicine (Colchicine 0.6 Mg Tablet) 0.6 mg PO BID [facility] Last Admin: 06/05/21 07:48 Dose: 0.6 mg Documented by: Docusate Sodium (Docusate Sodium 100 Mg Capsule) 100 mg PO BID [facility] Last Admin: 06/05/21 07:49 Dose: Not Given Documented by: Famotidine (Famotidine 20 Mg Tablet) 20 mg PO BEDTIME [facility] Last Admin: 06/04/21 21:40 Dose: 20 mg Documented by: Folic Acid (Folic Acid 1 Mg Tablet) 1 mg PO DAILY [facility] Last Admin: 06/05/21 07:50 Dose: 1 mg Documented by: Furosemide (Furosemide 40 Mg Tablet) 80 mg PO DAILY [facility]; Protocol Last Admin: 06/05/21 07:50 Dose: 80 mg Documented by: Ceftriaxone Sodium 1 gm/ (Sodium Chloride) 50 mls @ 100 mls/hr IV Q24H [facility] Last Infusion: 06/04/21 13:19 Dose: Infused Documented by: Ibuprofen (Ibuprofen 400 Mg Tablet) 400 mg PO Q6H PRN PRN Reason: mild pain Last Admin: 06/04/21 12:43 Dose: 400 mg Documented by: Lisinopril (Lisinopril 5 Mg Tablet) 5 mg PO DAILY [facility]; Protocol Last Admin: 06/05/21 07:48 Dose: 5 mg Documented by: Medication (No Benzodiazepines) 1 each MISCELLANE DAILY [facility] Melatonin (Melatonin 3 Mg Tablet) 6 mg PO BEDTIME PRN PRN Reason: Insomnia Last Admin: 06/04/21 21:51 Dose: 6 mg Documented by: Metoprolol Succinate (Metoprolol Succinate Er 100 Mg Tab.Er.24h) 100 mg PO DAILY [facility]; Protocol Last Admin: 06/05/21 07:50 Dose: 100 mg Documented by: Nicotine Polacrilex (Nicotine Polacrilex Lozenge 4 Mg Lozenge) 4 mg BUCCAL Q2H PRN PRN Reason: Nicotine Cravings Ondansetron HCl (Ondansetron Hcl 4 Mg/2 Ml Vial) 4 mg IVPUSH Q8H PRN PRN Reason: Nausea and Vomiting Oxycodone HCl (Oxycodone Hcl Immed Release 5 Mg Tablet) 10 mg PO Q4H PRN PRN Reason: Pain, Severe (Pain Scale 7-10) Last Admin: 06/05/21 02:27 Dose: 10 mg Documented by: Pharmacy Consult (Consult Rx Perform Med Rec) 1 each MISCELLANE ONCE PRN PRN Reason: Consult order Prednisone (Prednisone 20 Mg Tablet) 60 mg PO DAILY [facility] Last Admin: 06/05/21 07:57 Dose: 60 mg Documented by: Sodium Chloride (0.9 % Sodium Chloride Flush 3 Ml Syringe) 3 ml IVFLUSH QSHIFT [facility] Last Admin: 06/05/21 07:48 Dose: Not Given Documented by: Sodium Chloride (0.9 % Sodium Chloride Flush 10 Ml Syringe) 5 ml IVFLUSH TID [facility] Last Admin: 06/05/21 07:47 Dose: 5 ml Documented by: Spironolactone (Spironolactone 25 Mg Tablet) 25 mg PO DAILY [facility]; Protocol Last Admin: 06/05/21 07:51 Dose: 25 mg Documented by: Thiamine HCl (Thiamine Hcl 100 Mg Tablet) 100 mg PO DAILY [facility] Last Admin: 06/05/21 07:48 Dose: 100 mg Documented by: <Jess Shah PA-C - Last Filed: 06/05/21 08:49> Time Spent With Patient Time: Total time spent is greater than 50% in coordination of care (as documented) at patient's floor/unit and/or counseling patient: <Jess Shah PA-C - Last Filed: 06/05/21 08:49> Time with patient: 15 - 24 minutes <MONICA Dahl Last Filed: 06/05/21 08:49> Quality Stroke Does the patient have a stroke diagnosis?: No <Jess Shah PA-C - Last Filed: 06/05/21 08:49> VTE Prior VTE?: No <MONICA Dahl Last Filed: 06/05/21 08:49> VTE Risk Level:: Surgical - high <Jess Shah PA-C - Last Filed: 06/05/21 08:49> VTE Device Contraindication: N/A - Device Ordered <MONICA Dahl Last Filed: 06/05/21 08:49> VTE Drug Contraindication: N/A - Med Ordered (on eliquis) <Jess Shah PA-C - Last Filed: 06/05/21 08:49>
[2021-06-05] MEDS: cefTRIAXone sodium 1 GM in 0.9 % Sodium Chloride 50 ML IV (11:43)
== END 2021-06-05 12:51 | disposition home health service (06) | DRG 720 ==
LOC: HO.ED 10:45 → HO.EDOVER 11:41 → HO.S3 17:27
PROVIDERS: Physician Assistant Medical; Physician Assistant Surgical; Admitting Provider Surgery; Emergency Provider Emergency Medicine; PCP Nurse Practitioner Family; Visit Provider Surgery
PROC: 0JB80ZZ Excision of Abdomen Subcutaneous Tissue and Fascia, Open Approach (ICD-10-PCS; principal; 2021-05-24 13:00)
DX: A41.9 Sepsis, unspecified organism (principal); I13.0 Hypertensive heart and chronic kidney disease with heart failure and stage 1 through stage 4 chronic kidney disease, or unspecified chronic kidney disease; I50.32 Chronic diastolic (congestive) heart failure; L03.311 Cellulitis of abdominal wall; I48.20 Chronic atrial fibrillation, unspecified; G47.33 Obstructive sleep apnea (adult) (pediatric); N18.30 Chronic kidney disease, stage 3 unspecified; F10.20 Alcohol dependence, uncomplicated; I25.10 Atherosclerotic heart disease of native coronary artery without angina pectoris; E66.01 Morbid (severe) obesity due to excess calories; Z68.41 Body mass index [BMI] 40.0-44.9, adult; K76.9 Liver disease, unspecified; E78.5 Hyperlipidemia, unspecified; E87.5 Hyperkalemia; M10.9 Gout, unspecified; Z20.822 Contact with and (suspected) exposure to COVID-19; Z95.1 Presence of aortocoronary bypass graft; Z23 Encounter for immunization; Z87.891 Personal history of nicotine dependence; Z79.1 Long term (current) use of non-steroidal anti-inflammatories (NSAID); Z79.01 Long term (current) use of anticoagulants; Z79.899 Other long term (current) drug therapy
CPT/HCPCS: 36410; 36415; 73552; 74176; 76700; 80048; 80076; 80202; 81001; 81003; 82565; 82947; 83605; 83690; 83735; 84132; 85007; 85025; 85027; 87040; 87071; 87077; 87186; 87205; 87635; 88304; 90686; 93005; 94640; 96361; 96365; 96375; 97110; 97116; 97161; 99024; 99285; C1758; J0131; J0690; J0696; J1100; J1170; J2250; J2405; J2543; J2560; J3010; J3370

== ENCOUNTER 2021-06-09 08:33 | Emergency (ER) | payer OTHER, SELFPAY ==
[2021-06-09 08:52] VITALS: BP 127/73; PULSE 88; RESP 18; TEMP 36.6; O2SAT 95; BMI 44.0
[2021-06-09] MEDS: cefTRIAXone sodium 1 GM in 0.9 % Sodium Chloride 50 ML IV (10:48)
--- NOTE | 2021-06-09 12:06 | ED.GENADULT ---
HPI - General Adult General Chief complaint: General Medical Stated complaint: faulty picc line Time Seen by Provider: 06/09/21 10:15 Source: patient Mode of arrival: ambulatory Limitations: no limitations History of Present Illness HPI narrative: 66-year-old male who presents emergency department for evaluation dysfunctional right upper arm PICC line. The patient was hospitalized on 05/25/2021 with abdominal wall necrotizing cellulitis. The patient had surgical debridement and was started on ceftriaxone 1 g IV daily for 3 weeks. The patient states that the visiting nurse was able to give him a dose Friday06/05/2021 but after that the line was not working, the visiting nurse did order a thrombolytics flush however she never received the and the patient states that he has not received his dose of ceftriaxone for 3 days. He was concerned that he was not getting his IV antibiotics, therefore came to the emergency department for evaluation. He denied being ill in any way, he denied fever, chills, chest pain, shortness of breath, nausea, vomiting, abdominal pain, fatigue, loss of appetite. Related Data Home Medications Medication Instructions Recorded Confirmed acetaminophen 500 mg tablet 1,000 mg PO BID 05/24/21 05/24/21 furosemide 80 mg tablet (Lasix) 80 mg PO DAILY 05/24/21 05/24/21 metoprolol succinate 100 mg 100 mg PO DAILY 05/24/21 05/24/21 tablet,extended release 24 hr nicotine (polacrilex) 4 mg buccal 4 mg BUCCAL Q2-4H PRN 05/24/21 05/24/21 lozenge omega-3 acid ethyl esters 1 gram 2 cap PO DAILY 05/24/21 05/24/21 capsule Previous Rx's Medication Instructions Recorded cholecalciferol (vitamin D3) 50 50 mcg PO DAILY 90 Days #90 tab 12/05/20 mcg (2,000 unit) tablet atorvastatin 80 mg tablet 80 mg PO DAILY #90 tab 02/10/21 apixaban 5 mg tablet (Eliquis) 5 mg PO BID #60 tab 03/14/21 spironolactone 25 mg tablet 25 mg PO DAILY #90 tab 04/16/21 lisinopril 5 mg tablet 5 mg PO DAILY #90 tab 05/04/21 ceftriaxone 2 gram intravenous 2 g IV DAILY #14 ea 06/01/21 solution colchicine 0.6 mg tablet (Colcrys) 0.6 mg PO BID #60 tab 06/01/21 ibuprofen 400 mg tablet 400 mg PO Q6H PRN #30 tab 06/01/21 prednisone 20 mg tablet 60 mg PO DAILY #30 tab 06/01/21 Allergies Allergy/AdvReac Type Severity Reaction Status Date / Time No Known Allergies Allergy Unverified 05/15/20 09:54 [No Known Allergies*] Review of Systems Review of Systems: Yes all other systems are reviewed and are negative [facility] Past Medical History [facility] Narrative: Past medical history: Reviewed below, admission on 05/25/2021 for necrotizing abdominal wall cellulitis. Medical History (HFpEF) heart failure with preserved ejection fraction CAD (coronary artery disease) Chronic atrial fibrillation HTN (hypertension) Morbid obesity MAURICE (obstructive sleep apnea) Surgical History H/O umbilical hernia repair S/P CABG (coronary artery bypass graft) Family History Family History Father CHF (congestive heart failure) CVD (cardiovascular disease) Mother CHF (congestive heart failure) CVD (cardiovascular disease) Diabetes mellitus Brother No problems noted. Brother No problems noted. Sister No problems noted. Son No problems noted. Social History Social History Household Members: None Housing: Apartment Do you presently have visiting nurse or other home services: No Alcohol intake: never Patient Tobacco Use Status: Former Tobacco user Quit Date: 2017 Years Smoked: 45 Substance Use Type: Marijuana Advance Directives: No service: No Current occupational status: employed Physical Exam Vital Signs: Vital Signs: Last Vital Signs Temp 98 F 06/09/21 08:52 Pulse 88 06/09/21 08:52 Resp 18 06/09/21 08:52 BP 127/73 06/09/21 08:52 Pulse Ox 95 06/09/21 08:52 Body Mass Index 44.0 Const: General: cooperative and no acute distress Orientation/consciousness: oriented to person and oriented to place Limitations: no limitations HENMT: Head: Yes normal to inspection, Yes normocephalic and Yes atraumatic Ears: external ears normal General nose exam: Normal external nose present Face and sinus: Yes normal facial exam Mouth: Normal oral and palatal mucosa present Throat: Yes posterior oropharynx normal Eyes: General: appearance normal, both eyes and all related structures Pupils: Equal, round and reactive pupils present Neck: Neck: Yes normal visual inspection, Yes no lymphadenopathy, Yes trachea midline and Yes supple Chest: Chest palpation & inspection: normal inspection of the chest and normal palpation of entire chest wall Resp: Effort & Inspection: normal respiratory effort and able to speak in complete sentences Auscultation: clear to auscultation bilaterally Cardio: Rate: regular rate Rhythm: regular rhythm Heart sounds: S1 normal heart sound present, S2 normal heart sound present and no murmurs GI: Inspection: Yes normal to inspection Palpation (GI): Soft to palpation, nontender and no guarding Auscultation: normal bowel sounds : General: Yes no CVA tenderness Back/Spine/Pelvis: Back: no CVA tenderness Skin: General skin exam: no rashes or lesions noted Neuro: General: oriented to person and oriented to place Cranial nerves: Yes CN's II-XII intact bilaterally and Yes Equal, round and reactive pupils present Cognition (Neuro): normal cognition Motor exam (neuro): 5/5 motor strength present throughout Extrem: General: Yes normal to inspection Psych: Appearance: grossly normal Speech and movement: Normal speech and movement present Affect: normal affect Attitude: cooperative Thought process: Normal thought process present Thought content: Normal thought content present Course Course Course Narrative: 66-year-old male who was recently hospitalized for necrotizing abdominal wall cellulitis who is receiving ceftriaxone 1 g IV daily for 3 weeks, patient's PICC line stops function 3 days prior and he has missed 3 doses ceftriaxone. He has been asymptomatic. The patient had a peripheral IV started he was given ceftriaxone 1 g IV. The ED nurse to drain the patient how to give himself a dose IV ceftriaxone, the patient states that he will be able to give himself a dose over next 2 days. the patient will then need his PICC line replaced on 06/11/2021. He was advised to contact the Interventional Radiology Department to be seen on Friday to get any PICC line. Since the PICC line is no longer functioning, I did pull it out. The tip will be sent for culture. Procedures Procedure Narrative Procedure Narrative: PICC line removal: The patient has a PICC line in the right lateral bicep region which was not working, nurse was unable to flush the line. I removed the tape around the line and withdrew the line in 1 piece. The tip was cut off and placed in a sterile container and sent to the lab for culture. The there was no bleeding from the puncture site. The site was dressed with sterile gauze. Discharge Plan Discharge Clinical Impression: Administration of long-term prophylactic antibiotics Patient Disposition: Home, Self-Care Additional Instructions: Give yourself the IV ceftriaxone daily as instructed by the ED nurse Call the radiology department at and ask for the special procedure/Interventional Radiology Department to schedule a new PICC line on 06/11/2021. Follow-up with your doctor in 2 days. Please return to the emergency department if your symptoms get worse or if you develop any symptoms that are concerning to you. Prescriptions: No Action cholecalciferol (vitamin D3) 50 mcg (2,000 unit) tablet 50 mcg PO DAILY 90 Days Qty: 90 RF: 1 atorvastatin 80 mg tablet 80 mg PO DAILY Qty: 90 RF: 1 Eliquis 5 mg tablet 5 mg PO BID Qty: 60 RF: 3 spironolactone 25 mg tablet 25 mg PO DAILY Qty: 90 RF: 3 lisinopril 5 mg tablet 5 mg PO DAILY Qty: 90 RF: 0 acetaminophen 500 mg Tablet 1,000 mg PO BID RF: 0 nicotine (polacrilex) 4 mg Lozenge 4 mg BUCCAL Q2-4H PRN (Reason: Nicotine Cravings) RF: 0 metoprolol succinate 100 mg tablet extended release 24 hr 100 mg PO DAILY RF: 0 furosemide [Lasix] 80 mg tablet 80 mg PO DAILY RF: 0 omega-3 acid ethyl esters 1 gram capsule 2 cap PO DAILY RF: 0 colchicine [Colcrys] 0.6 mg Tablet 0.6 mg PO BID Qty: 60 RF: 0 ceftriaxone 2 gram recon soln 2 g IV DAILY Qty: 14 RF: 1 ibuprofen 400 mg Tablet 400 mg PO Q6H PRN (Reason: Mild Pain (Scale Score 1-4)) Qty: 30 RF: 0 prednisone 20 mg tablet 60 mg PO DAILY Qty: 30 RF: 0
--- NOTE | 2021-06-09 12:55 | PC.NURSE ---
pt going home w iv in place and will give himself his antibiotic and was tought how by mairaa, we reviewed this again w the pt and he will be having his sister do it
== END 2021-06-09 12:55 | disposition home or self-care (01) ==
PROVIDERS: Emergency Provider Emergency Medicine Emergency Medical Services; PCP Nurse Practitioner Family
DX: T82.594A Other mechanical complication of infusion catheter, initial encounter (principal); Y84.8 Other medical procedures as the cause of abnormal reaction of the patient, or of later complication, without mention of misadventure at the time of the procedure; Y92.9 Unspecified place or not applicable; L03.90 Cellulitis, unspecified; I11.0 Hypertensive heart disease with heart failure; I50.30 Unspecified diastolic (congestive) heart failure
CPT/HCPCS: 87071; 96372; 99283; 99285; J0696

== ENCOUNTER 2021-06-11 10:08 | Outpatient (REF) | payer OTHER, SELFPAY ==
--- NOTE | 2021-06-11 12:42 | HO.MIDLINE ---
[facility] Diagnosis: [abdominal wall cellulitis] Indication: [3 weeks of antibiotics] Pertinent Labs: [none] Technique: Using sterile technique including cap and mask, glove and drape, the [right] arm was prepped and draped in the usual sterile fashion of full barrier technique with CHG. Using ultrasound guidance, [right basilic] vein access was obtained twice by Tracie Sam RN, but unable to place midline. Right cephalic vein was then prepped and draped in sterile fashion. Right cephalic vein access was obtained on first attempt by Karen Ca RN. A single lumen, Non-PASV midline ([id number]) was positioned. The procedure was performed in [S272]. Ultrasound was used to document vein patency and for needle entry. A formal ultrasound picture was recorded. Vascular Administrative Dietitian has released the line for use and it is currently dressed with a StatLock, Tegaderm, and CHG disc. Verification has been performed for blood return and line patency. Arm Circumference: [33.5CM] Equipment: [Varolii Powerglide Pro Midline] Catheter Type: [single lumen, Non-PASV ([id number]) Midline] Lot #: [[id number]]
== END 2021-06-11 10:09 | disposition home or self-care (01) ==
LOC: HO.RADIR 10:08
PROVIDERS: Visit Provider Nurse Practitioner Family
DX: M79.89 Other specified soft tissue disorders (principal)
CPT/HCPCS: 36573

== ENCOUNTER 2021-06-12 10:31 | Outpatient (REF) | payer OTHER, SELFPAY ==
[2021-06-12 10:37] LABS: MANUAL DIFF FLAG NO
[2021-06-12 10:40] LABS: Basophils Percent Auto 0.2 % (0-2); Hematocrit 39.4 % (42.0-52.0); Hemoglobin 13.3 g/dl (14.0-18.0); Imm Gran Abs Auto 0.12 X10*3/uL (0.00-0.03); Imm Gran Pct Auto 1.4 % (0.0-0.4); Lymphocytes Percent Auto 11.4 % (20-40); Mean Corpuscular HGB Conc 33.8 g/dl (31.0-36.0); Mean Corpuscular Hemoglobin 31.3 pg (27.0-33.0); Mean Corpuscular Volume 92.7 fL (80.0-98.0); Mean Platelet Volume 9.9 fL (9.4-12.4); Monocytes Absolute Auto 0.3 X10*3/uL (0.1-1.2); Monocytes Percent Auto 3.6 % (2-11); Neutrophils Absolute Auto 7.3 x10*3/uL (2.0-8.3); Neutrophils Percent Auto 83.4 % (45-73); Platelet Count 339 X10*3/uL (160-400); Red Blood Count 4.25 X10*6/uL (4.60-5.80); Red Cell Distribution Width 13.3 % (11.0-16.0); White Blood Count 8.8 X10*3/uL (4.8-10.8)
[2021-06-12 11:21] LABS: Alanine Aminotransferase 66 U/L (0-40); Albumin Level 4.1 g/dL (3.5-5.0); Alkaline Phosphatase 63 U/L (39-117); Anion Gap 17 (12-20); Aspartate Amino Transferase 26 U/L (5-37); Bilirubin Direct 0.4 mg/dL (0.0-0.5); Bilirubin Total 0.7 mg/dL (0.0-1.0); Blood Urea Nitrogen 36 mg/dL (9-16); C Reactive Protein 0.15 mg/dL (< or = 0.50); Carbon Dioxide 26 mmol/L (22-29); Chloride 95 mmol/L (96-108); Estimated Glomerular Filt Rate 58; Glucose Fasting 92 mg/dL (60-99); Potassium 4.8 mmol/L (3.3-5.1); Sodium 133 mmol/L (135-145); Total Protein 7.3 g/dL (6.5-8.0)
[2021-06-12 11:34] LABS: Erythrocyte Sedimentation Rate 18 MM/HR (0-15)
== END 2021-06-12 10:32 | disposition home or self-care (01) ==
LOC: HO.HVNA 10:31
PROVIDERS: Referring Provider Surgery; Visit Provider Internal Medicine
DX: L03.311 Cellulitis of abdominal wall (principal); Z79.2 Long term (current) use of antibiotics
CPT/HCPCS: 36415; 80051; 80076; 82565; 82947; 84520; 85025; 85652; 86140

== ENCOUNTER → 2021-06-13 14:51 | Outpatient (BNVA) | payer OTHER, SELFPAY | PROVIDERS: PCP Nurse Practitioner Family; Referring Provider Nurse Practitioner Family; Visit Provider Surgery ==

== ENCOUNTER 2021-06-19 09:59 | Outpatient (REF) | payer OTHER, SELFPAY ==
[2021-06-19 11:13] LABS: MANUAL DIFF FLAG NO
[2021-06-19 11:22] LABS: Basophils Percent Auto 0.4 % (0-2); Eosinophils Percent Auto 0.4 % (0-4); Hematocrit 41.3 % (42.0-52.0); Hemoglobin 13.6 g/dl (14.0-18.0); Imm Gran Abs Auto 0.04 X10*3/uL (0.00-0.03); Imm Gran Pct Auto 0.7 % (0.0-0.4); Lymphocytes Absolute Auto 0.7 X10*3/uL (1.2-4.9); Lymphocytes Percent Auto 12.2 % (20-40); Mean Corpuscular HGB Conc 32.9 g/dl (31.0-36.0); Mean Corpuscular Hemoglobin 30.3 pg (27.0-33.0); Mean Platelet Volume 11.1 fL (9.4-12.4); Monocytes Absolute Auto 0.2 X10*3/uL (0.1-1.2); Monocytes Percent Auto 3.2 % (2-11); Neutrophils Absolute Auto 4.7 x10*3/uL (2.0-8.3); Neutrophils Percent Auto 83.1 % (45-73); Platelet Count 210 X10*3/uL (160-400); Red Blood Count 4.49 X10*6/uL (4.60-5.80); Red Cell Distribution Width 13.4 % (11.0-16.0); White Blood Count 5.7 X10*3/uL (4.8-10.8)
[2021-06-19 11:38] LABS: Alanine Aminotransferase 54 U/L (0-40); Albumin Level 4.3 g/dL (3.5-5.0); Alkaline Phosphatase 57 U/L (39-117); Anion Gap 15 (12-20); Aspartate Amino Transferase 24 U/L (5-37); Bilirubin Total 0.9 mg/dL (0.0-1.0); Blood Urea Nitrogen 44 mg/dL (9-16); Calcium 9.7 mg/dL (8.4-10.2); Carbon Dioxide 27 mmol/L (22-29); Chloride 98 mmol/L (96-108); Estimated Glomerular Filt Rate 47; Glucose Random 95 mg/dL (60-115); Potassium 4.9 mmol/L (3.3-5.1); Sodium 135 mmol/L (135-145); Total Protein 7.2 g/dL (6.5-8.0)
== END 2021-06-19 10:00 | disposition home or self-care (01) ==
LOC: HO.HMGCLDS 09:59
PROVIDERS: PCP Nurse Practitioner Family; Visit Provider Nurse Practitioner Family
DX: L03.311 Cellulitis of abdominal wall (principal); M79.89 Other specified soft tissue disorders
CPT/HCPCS: 36415; 80053; 85025

== ENCOUNTER 2021-06-25 12:03 | Outpatient (REF) | payer OTHER, SELFPAY ==
[2021-06-25 14:27] LABS: Alanine Aminotransferase 24 U/L (0-40); Albumin Level 3.9 g/dL (3.5-5.0); Alkaline Phosphatase 55 U/L (39-117); Anion Gap 15 (12-20); Aspartate Amino Transferase 14 U/L (5-37); Blood Urea Nitrogen 39 mg/dL (9-16); Calcium 9.5 mg/dL (8.4-10.2); Carbon Dioxide 26 mmol/L (22-29); Chloride 102 mmol/L (96-108); Estimated Glomerular Filt Rate 56; Glucose Random 85 mg/dL (60-115); Potassium 4.5 mmol/L (3.3-5.1); Sodium 138 mmol/L (135-145); Total Protein 6.6 g/dL (6.5-8.0)
== END 2021-06-25 12:04 | disposition home or self-care (01) ==
LOC: HO.HMGCLDS 12:03
PROVIDERS: PCP Nurse Practitioner Family; Visit Provider Nurse Practitioner Family
DX: M79.89 Other specified soft tissue disorders (principal); R79.89 Other specified abnormal findings of blood chemistry
CPT/HCPCS: 36415; 80053

== ENCOUNTER → 2021-07-16 10:48 | Outpatient (BNVA) | payer OTHER, SELFPAY | PROVIDERS: PCP Nurse Practitioner Family; Referring Provider Nurse Practitioner Family; Visit Provider Surgery ==

== ENCOUNTER → 2021-08-06 08:45 | Outpatient (BNVA) | payer OTHER, SELFPAY | PROVIDERS: PCP Nurse Practitioner Family; Referring Provider Nurse Practitioner Family; Visit Provider Surgery ==

== ENCOUNTER 2021-09-12 10:00 | Outpatient (RCR) | payer OTHER, SELFPAY ==
--- NOTE | 2021-08-07 12:13 | MHC.PT.EP ---
[facility] Office [place] Office [place] Office [address] Rosanna Tolbert [address] [phone] F: [phone] F: [phone] F: [phone] F: [phone] Physical Therapy Plan of Care Date of Evaluation: Date of Surgery: Diagnosis: This is a 66 yo male presenting to skilled PT with a script for weakness Assessment: This is a 66 yo male presenting to skilled PT with a script for weakness. Patient reported abdominal cyst surgery 05/24. He was in the hospital for 12 days following this with a wound vac. He then had visiting nurse and home PT for which he just finished up last week. His wound is belt line and is still healing however is wound care on his own now. He reports that he uses a cane for long distance walking which is used more for stability. Goals are to build stamina, strength and endurance. Assessment reveals limited pain that ranges up to a 3/10 mainly due to his gait. He demos gross decreased LE and lumbar ROM, decreased core and BLE strength, impaired gait pattern with need for AD, decreased balance as evidenced by scores on DGI and [place] as well as gross functional decline with walking, stairs and general functional mobility. His goals are to improve strength, endurance and safety. He is a good candidate for skilled PT 2x/wk for 5wks. 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 Manual therapy to restore motion and function. Therapeutic exercise to improve strength and flexibility. Neuromuscular re-education for posture and balance. Therapeutic activities to return to functional activities of daily living. Electronically signed by: Suzanne Washington, PT Please sign and return to therapist. Thank you for your referral.
--- NOTE | 2021-09-25 07:50 | MHC.PT.DC ---
[facility] Office [place] Office [place] Office [address] Rosanna Tolbert [address] [phone] F: [phone] F: [phone] F: [phone] F: [phone] Physical Therapy Discharge Report Diagnosis: This is a 66 yo male presenting to skilled PT with a script for weakness Date of Surgery: Date of Evaluation: 08/07/21 Date of Discharge: 09/25/21 Treatments to Date: 8 Cancellations to Date: 0 No Shows to Date: 0 Discharge Status: Achieved Goals Improved Function Independent with HEP Patient Elected to Stop Discharge Summary: Curtis progressed through an exercise routine for endurance work, strengthening and functional mobility. He has a thorough HEP to continue on his own. He was educated on the importance of mobility throughout the day and the importance of continuing HEP. He completed 8 visits of therapy and decided to DC after that. Electronically signed by: Suzanne Washington PT Please sign and return to therapist. Thank you for your referral.
== END 2021-09-25 07:51 | disposition home or self-care (01) ==
LOC: HO.PTCHIC 10:00
PROVIDERS: PCP Nurse Practitioner Family; Visit Provider Nurse Practitioner Family
DX: R53.1 Weakness (principal)
CPT/HCPCS: 97110; 97163

== ENCOUNTER 2022-06-18 10:09 | Outpatient (REF) | payer MEDICARE, SELFPAY ==
--- NOTE | ~2022-06-18 | XR_ITS ---
EXAMINATION: XR ELBOW, RIGHT XR ELBOW, LEFT CLINICAL INFORMATION: M10.9 - Gout, unspecified COMPARISON: None TECHNIQUE: Each elbow is imaged in 3 views. There are a total of 6 views. FINDINGS: Right: Normal bony mineralization. No fracture, dislocation, destructive process. No joint narrowing or para-articular erosion or soft tissue mineralized tophus. No visible elbow capsular effusion. There is a small olecranon spur and borderline lateral epicondylar spur. Left: Normal bony mineralization. No fracture, dislocation, destructive process. No joint narrowing or para-articular erosion or soft tissue mineralized tophus. No visible elbow capsular effusion. There is a small olecranon spur and small lateral epicondylar spur. Surgical clip overlies the superficial anterior proximal forearm. No gas tracking in soft tissues. XR/XR elbow LT min 3V IMPRESSION: 1. No joint narrowing, capsular effusion, para-articular erosion, or mineralized soft tissue tophus. 2. Small bilateral olecranon spurs. Small lateral epicondylar spurs.
--- NOTE | ~2022-06-18 | XR_ITS ---
EXAMINATION: XR ELBOW, RIGHT XR ELBOW, LEFT CLINICAL INFORMATION: M10.9 - Gout, unspecified COMPARISON: None TECHNIQUE: Each elbow is imaged in 3 views. There are a total of 6 views. FINDINGS: Right: Normal bony mineralization. No fracture, dislocation, destructive process. No joint narrowing or para-articular erosion or soft tissue mineralized tophus. No visible elbow capsular effusion. There is a small olecranon spur and borderline lateral epicondylar spur. Left: Normal bony mineralization. No fracture, dislocation, destructive process. No joint narrowing or para-articular erosion or soft tissue mineralized tophus. No visible elbow capsular effusion. There is a small olecranon spur and small lateral epicondylar spur. Surgical clip overlies the superficial anterior proximal forearm. No gas tracking in soft tissues. XR/XR elbow RT min 3V IMPRESSION: 1. No joint narrowing, capsular effusion, para-articular erosion, or mineralized soft tissue tophus. 2. Small bilateral olecranon spurs. Small lateral epicondylar spurs.
--- NOTE | ~2022-06-18 | XR_ITS ---
EXAMINATION: XR HAND WRIST, RIGHT XR HAND WRIST, LEFT CLINICAL INFORMATION: M10.9 - Gout, unspecified COMPARISON: Radiographs left hand 07/25/2007. TECHNIQUE: Each hand and wrist are imaged together in 3 large [id number] images along with a navicular view of the wrist. There are a total of 8 views, 4 on each side. FINDINGS: Right: Bony mineralization within normal. Ulnar variance is neutral. Carpus shows numerous cysts, likely para-articular erosions involving all of the carpal bones, involvement greatest at hamate and capitate. No significant articular joint narrowing. There are para-articular erosions at the lateral first carpometacarpal joint and base second and third metacarpals. No mineralized soft tissue tophi. There are atherosclerotic calcifications vasculature. MCP joints are unremarkable. Index finger PIP has extensive central and para-articular erosions with loss of the articular surface and mild lateral subluxation medial phalanx. Fusiform soft tissue swelling index finger. No periostitis or mineralized soft tissue tophus. There is smaller para-articular erosion medial side head fourth finger middle phalanx. No joint narrowing. Left: Bony mineralization within normal. Ulnar variance is neutral. Carpus shows numerous cysts, likely para-articular erosions involving all of the carpal bones, involvement greatest at lunate, distal clavicular, and proximal hamate. No significant articular joint narrowing. There are para-articular erosions at the lateral first carpometacarpal joint with mild joint narrowing. Para-articular erosions between bases third and fourth metacarpals. No mineralized soft tissue tophi. There are atherosclerotic calcifications vasculature. MCP joints are unremarkable. Mild degenerative change index finger DIP and interphalangeal joints from with subchondral cyst versus para-articular erosion. No mineralized soft tissue tophus. Left carpal arthropathy new finding from radiographs 2007. XR/XR hand wrist LT IMPRESSION: -Bilateral numerous carpal para-articular erosions, greater on right. -Bilateral small lateral 1st CMC para-articular erosions. -Left index PIP destructive arthropathy, para-articular erosion left 4th DIP. -No mineralized soft tissue tophi.
--- NOTE | ~2022-06-18 | XR_ITS ---
EXAMINATION: XR HAND WRIST, RIGHT XR HAND WRIST, LEFT CLINICAL INFORMATION: M10.9 - Gout, unspecified COMPARISON: Radiographs left hand 07/25/2007. TECHNIQUE: Each hand and wrist are imaged together in 3 large [id number] images along with a navicular view of the wrist. There are a total of 8 views, 4 on each side. FINDINGS: Right: Bony mineralization within normal. Ulnar variance is neutral. Carpus shows numerous cysts, likely para-articular erosions involving all of the carpal bones, involvement greatest at hamate and capitate. No significant articular joint narrowing. There are para-articular erosions at the lateral first carpometacarpal joint and base second and third metacarpals. No mineralized soft tissue tophi. There are atherosclerotic calcifications vasculature. MCP joints are unremarkable. Index finger PIP has extensive central and para-articular erosions with loss of the articular surface and mild lateral subluxation medial phalanx. Fusiform soft tissue swelling index finger. No periostitis or mineralized soft tissue tophus. There is smaller para-articular erosion medial side head fourth finger middle phalanx. No joint narrowing. Left: Bony mineralization within normal. Ulnar variance is neutral. Carpus shows numerous cysts, likely para-articular erosions involving all of the carpal bones, involvement greatest at lunate, distal clavicular, and proximal hamate. No significant articular joint narrowing. There are para-articular erosions at the lateral first carpometacarpal joint with mild joint narrowing. Para-articular erosions between bases third and fourth metacarpals. No mineralized soft tissue tophi. There are atherosclerotic calcifications vasculature. MCP joints are unremarkable. Mild degenerative change index finger DIP and interphalangeal joints from with subchondral cyst versus para-articular erosion. No mineralized soft tissue tophus. Left carpal arthropathy new finding from radiographs 2007. XR/XR hand wrist RT IMPRESSION: -Bilateral numerous carpal para-articular erosions, greater on right. -Bilateral small lateral 1st CMC para-articular erosions. -Left index PIP destructive arthropathy, para-articular erosion left 4th DIP. -No mineralized soft tissue tophi.
[2022-06-18 11:11] LABS: MANUAL DIFF FLAG NO
[2022-06-18 11:30] LABS: Basophils Absolute Auto 0.1 X10*3/uL (0.0-0.2); Basophils Percent Auto 1.6 % (0-2); Eosinophils Absolute Auto 0.1 X10*3/uL (0.0-0.4); Eosinophils Percent Auto 2.7 % (0-4); Hematocrit 42.1 % (42.0-52.0); Hemoglobin 12.7 g/dl (14.0-18.0); Imm Gran Abs Auto 0.01 X10*3/uL (0.00-0.03); Imm Gran Pct Auto 0.2 % (0.0-0.4); Lymphocytes Absolute Auto 1.2 X10*3/uL (1.2-4.9); Lymphocytes Percent Auto 27.7 % (20-40); Mean Corpuscular HGB Conc 30.2 g/dl (31.0-36.0); Mean Corpuscular Hemoglobin 23.6 pg (27.0-33.0); Mean Corpuscular Volume 78.3 fL (80.0-98.0); Mean Platelet Volume 8.8 fL (9.4-12.4); Monocytes Absolute Auto 0.4 X10*3/uL (0.1-1.2); Monocytes Percent Auto 9.3 % (2-11); Neutrophils Absolute Auto 2.6 x10*3/uL (2.0-8.3); Neutrophils Percent Auto 58.5 % (45-73); Platelet Count 227 X10*3/uL (160-400); Red Blood Count 5.38 X10*6/uL (4.60-5.80); Red Cell Distribution Width 18.2 % (11.0-16.0); White Blood Count 4.4 X10*3/uL (4.8-10.8)
[2022-06-18 11:59] LABS: Alanine Aminotransferase 21 U/L (0-40); Albumin Level 4.7 g/dL (3.5-5.0); Alkaline Phosphatase 46 U/L (39-117); Anion Gap 15 (12-20); Aspartate Amino Transferase 22 U/L (5-37); Bilirubin Total 0.7 mg/dL (0.0-1.0); Blood Urea Nitrogen 22 mg/dL (9-16); C Reactive Protein 0.07 mg/dL (< or = 0.50); Calcium 9.9 mg/dL (8.4-10.2); Carbon Dioxide 29 mmol/L (22-29); Chloride 102 mmol/L (96-108); Estimated Glomerular Filt Rate 53; Glucose Random 71 mg/dL (60-115); Potassium 4.5 mmol/L (3.3-5.1); Sodium 141 mmol/L (135-145); Total Protein 7.8 g/dL (6.5-8.0); Uric Acid 9.5 mg/dL (3.4-7.0)
[2022-06-18 12:11] LABS: Erythrocyte Sedimentation Rate 8 MM/HR (0-15)
[2022-06-18 12:12] LABS: Appearance Urine Clear; Color Urine Yellow; Glucose Urine UA Negative (Negative); Leukocyte Esterase Urine Negative (Negative); Nitrite Urine Negative (Negative); Specific Gravity - Urine 1.015 (1.005-1.025); UMIC TRIGGER UA YES; Urine Blood Negative (Negative); Urine Ketones Negative (Negative); Urine Protein 30 (1+) mg/dL (Neg-Trace)
[2022-06-18 12:16] LABS: Bacteria Urine None Seen (None Seen); Hyaline Casts Urine 0-2 /LPF (0-2); RBC Urine 0-2 /HPF (0-2); Squamous Epithelial Cell Urine 0-2 /HPF (0-2); WBC Urine 0-5 /HPF (0-5)
[2022-06-18 13:13] LABS: Estimated Average Glucose 117 mg/dL; Hemoglobin A1c % 5.7 %
== END 2022-06-18 10:10 | disposition home or self-care (01) ==
LOC: HO.XRAY 10:09
PROVIDERS: PCP Nurse Practitioner Family; Visit Provider Student in an Organized Health Care Education/Training Program
DX: E88.81 Metabolic syndrome and other insulin resistance (principal); M10.9 Gout, unspecified; R73.09 Other abnormal glucose
CPT/HCPCS: 36415; 73080; 73110; 73130; 80053; 81001; 83036; 84550; 85025; 85652; 86140

== ENCOUNTER → 2022-07-12 07:58 | Outpatient (BNVA) | payer MEDICARE, SELFPAY | PROVIDERS: Visit Provider Student in an Organized Health Care Education/Training Program | DX: M1A.09X1 Idiopathic chronic gout, multiple sites, with tophus (tophi) (principal) | CPT/HCPCS: 99212 ==

== ENCOUNTER → 2022-11-21 12:50 | Outpatient (BNVA) | payer MEDICARE, SELFPAY | PROVIDERS: PCP Nurse Practitioner Family; Referring Provider Nurse Practitioner Family; Visit Provider Nurse Practitioner Family | DX: I25.10 Atherosclerotic heart disease of native coronary artery without angina pectoris (principal); I50.30 Unspecified diastolic (congestive) heart failure; I48.20 Chronic atrial fibrillation, unspecified; R06.02 Shortness of breath; I10 Essential (primary) hypertension; E66.01 Morbid (severe) obesity due to excess calories; G47.33 Obstructive sleep apnea (adult) (pediatric); Z95.1 Presence of aortocoronary bypass graft; Z79.01 Long term (current) use of anticoagulants; Z79.899 Other long term (current) drug therapy | CPT/HCPCS: 93005; 99212 ==

== ENCOUNTER 2022-11-22 10:47 | Outpatient (REF) | payer MEDICARE, SELFPAY ==
[2022-11-22 12:24] LABS: B Type Natriuretic Peptide 40 pg/mL (<100)
== END 2022-11-22 10:48 | disposition home or self-care (01) ==
LOC: HO.LAB 10:47
PROVIDERS: Visit Provider Nurse Practitioner Family
DX: R06.02 Shortness of breath (principal); I50.30 Unspecified diastolic (congestive) heart failure
CPT/HCPCS: 36415; 83880

== ENCOUNTER → 2022-11-26 07:25 | Outpatient (BNVA) | payer MEDICARE, SELFPAY | PROVIDERS: PCP Nurse Practitioner Family; Visit Provider Student in an Organized Health Care Education/Training Program | DX: M1A.09X1 Idiopathic chronic gout, multiple sites, with tophus (tophi) (principal); M19.041 Primary osteoarthritis, right hand | CPT/HCPCS: 99212 ==

== ENCOUNTER → 2022-12-10 08:04 | Outpatient (REF) | payer MEDICARE, SELFPAY ==
--- NOTE | 2022-12-10 08:06 | CA_ITS ---
Transthoracic Echocardiogram Patient (Last, First, Middle): Curtis Mccormack, Gender: Male Date of : 1955 Age: 67 Procedure Date: 12/10/2022 Procedure Type: Transthoracic Echocardiogram Location: OP Height: 182.88 cm Weight: 149.69 kg BSA: 2.64 m2 Heart Rate: bpm BP: 132 / 84 mmHg Mohs Surgeon: LINH Referring MD: Britt Moralez SOLAR ENERGY ENGINEER-Fritz Symptoms: R06.02 - Shortness of breath Study Quality: Fair ECG Rhythm: Atrial Fibrillation Conclusions: - The left ventricular systolic function is normal. The visually estimated ejection fraction is between 65-70%. - At least moderate concentric left ventricular hypertrophy. - Moderately increased right ventricular cavity size. - The left atrium is severely dilated. - There is mild calcification of the aortic valve. - There is mild dilatation of the ascending aorta measuring 4.00 cm. - Moderate plaque is seen in the sino tubular ridge. Findings Procedure Information Contrast agent, definity, is being given per protocol without apparent complications. Left Ventricle Normal left ventricular cavity size. The left ventricular systolic function is normal. The visually estimated ejection fraction is between 65-70%. There is no evidence of regional wall motion abnormalities. Diastolic function is indeterminate on the basis of available data. At least moderate concentric left ventricular hypertrophy. Right Ventricle Moderately increased right ventricular cavity size. There is low normal right ventricular systolic function. Atria The left atrium is severely dilated. The right atrium is likely dilated. Aortic Valve There is mild calcification of the aortic valve. There is no aortic valve stenosis. There is no aortic valve regurgitation. Mitral Valve The mitral valve appears normal. There is no mitral valve regurgitation. There is no mitral valve stenosis. Pulmonic Valve The pulmonic valve is likely normal. Tricuspid Valve There is trace tricuspid valve regurgitation. There is no evidence of pulmonary hypertension. Great Vessels There is mild dilatation of the ascending aorta measuring 4.00 cm. Moderate plaque is seen in the sino tubular ridge. Venous The inferior vena cava is normal in size and collapses greater than 50% with inspiration. Pericardium/Pleural There is no evidence of pericardial effusion. Prior Study Comparison No significant change compared to prior study dated: 08/22/2020. Measurements 2D Linear Measurements IVSd: 1.60 0.6-0.9/0.6-1.0 cm LVIDd: 5.45 3.9-5.3/4.2-5.9 cm LVIDd Index: 2.06 2.4-3.2/2.2-3.1 cm/m2 LVIDs: 3.47 2.0-3.6 cm LVPWd: 1.65 0.7-1.1 cm Ao Root: 3.90 2.1-3.5 cm LA Diam: 5.20 2.7-3.8/3.0-4.0 cm LAIDs Index: 1.97 1.5-2.3 cm/m2 LV Mass: 516.49 67-162/88-224 g LV Mass Index: 195.64 43-95/49-115 g/m2 LVOT Diam: 2.30 3.0+(-)1.3 cm 2D Systolic Function EF 4C: 72.70 >55% EF 2C: 58.20 >55% EF BiP: 66.20 >55% Mitral Valve MV Pk E: 1.17 MV Decel Time: 182.00 E'Lateral: 12.80 E'Medial: 9.57 E/E' Med: 12.20 E/E' Lat: 9.10 PHT: 53.00 MVA PHT: 4.15 Decel Hodgeman: 6.39 Aortic Valve AoV Pk Sanjeev: 1.66 AoV Mn Sanjeev: 1.15 AoV VTI: 0.35 AoV Pk Grad: 11.00 Aov Mn Grad: 6.00 DIGNA Cont.VTI: 2.50 LVOT LVOT Pk Sanjeev: 0.96 LVOT Mn Sanjeev: 0.62 LVOT VTI: 0.21 LVOT Pk Grad: 4.00 LVOT Mn Grad: 2.00 LVOT Diam: 2.30 LVOT Area: 4.15 Diastolic Function MV Pk E: 1.17 E'Medial: 9.57 E/E' Med: 12.20 E' Laterial: 12.80 E/E' Lat: 9.10 Right Ventricle TAPSE (mm): 18.00 TVS' Sanjeev: 10.00 Tricuspid Valve TR Pk Sanjeev: 1.76 TR Pk Grad: 12.00 RA Press: 3.00 RVSP: 15.00 Great Vessels Aorta Ao Root-2D: 3.90 2.0-3.7 cm Ao Asc: 4.00 2.1-3.4 cm Pulmonary Valve PV Pk Sanjeev: 1.00 Peak PV Grad: 4.00 Updated in Other Vendor System with Status of Final Pranav Padron MD electronically signed on 12/12/2022 11:49:29 AM with status of Final
== END ==
LOC: HO.CARD 08:04
PROVIDERS: PCP Nurse Practitioner Family; Visit Provider Nurse Practitioner Family
DX: R06.02 Shortness of breath (principal); I25.10 Atherosclerotic heart disease of native coronary artery without angina pectoris; I50.30 Unspecified diastolic (congestive) heart failure
CPT/HCPCS: 93306; Q9957

== ENCOUNTER 2022-12-18 13:50 | Outpatient (REF) | payer MEDICARE, SELFPAY ==
--- NOTE | ~2022-12-18 | XR_ITS ---
EXAMINATION: XR HAND, RIGHT CLINICAL INFORMATION: Right hand pain. Previous exam indicates history of gout COMPARISON: Previous x-ray most recent May 2022 TECHNIQUE: PA, lateral, and oblique views of the right hand. FINDINGS: There is severe inflammatory arthritis at the PIP joint of the second finger with large periarticular erosions, joint destruction and radial subluxation of the middle phalanx with respect to the more proximal phalanx. There is a stable triangular-shaped ossification seen on the lateral view adjacent to the dorsal PIP joint of the second finger questionable for old avulsion fracture fragment. There is periarticular soft tissue swelling. Destructive joint changes have progressed from 2021 exam. Marginal erosions of the ulnar middle phalanx of the fourth finger at the DIP joint, radial proximal phalanx of the third finger at the PIP joint and IP joint of the thumb. Multiple cysts at the the base of the metacarpal bones , carpal bones and distal radius and ulna. Soft tissue arterial calcification. XR/XR hand RT min 3V IMPRESSION: Worsening inflammatory arthritis, greatest at the PIP joint of the second finger where there are destructive joint changes, subluxation and significant soft tissue swelling.
== END 2022-12-18 13:51 | disposition home or self-care (01) ==
LOC: HO.HOSX 13:50
PROVIDERS: PCP Nurse Practitioner Family; Visit Provider Physician Assistant
DX: M19.041 Primary osteoarthritis, right hand (principal)
CPT/HCPCS: 73130; 99202

== ENCOUNTER 2023-02-12 08:48 | Outpatient (AMB) | payer MEDICARE, SELFPAY ==
[2023-02-12 08:52] VITALS: BMI 45.6
--- NOTE | 2023-02-12 08:52 | MHC.OFFVIS ---
Intake Vital Signs 02/12/23 08:52 Height 6 ft Weight 336 lb BMI 45.6 Intake Visit Reasons: OV - Right index finger gout - discuss Surgery Intake Note: Curtis 68 yr old male presents today for a further evaluation/discussion of his right index finger. Patient states he has constant swelling at the PIP and unable to make a closed fist. Denies injury, numbness or tingling. Hx of gout. Seen with Mere Rojas on 12/18/22 who ordered hand xrays. Allergies No Known Allergies [No Known Allergies*] Allergy (Verified 02/12/23 08:58) HPI OV - Right index finger gout - discuss Surgery HPI Details Curtis is a 68 year old right hand dominant man who presents to discuss treatment for his right index finger OA. He says he is recently retired. He complains of pain, swelling, and limited motion of his index finger PIP joint. He says he is unable to bring his index finger closed to a fist. He says his pain is intermittent and usually occurs when he has a flare of his Gout. He has mild relief of his pain from Tylenol. He has a hx of Gout, Afib, and CAD. He denies any numbness, tingling, falls, or known injury. He says he is on medication for his Gout and says even with this he still has occasional flare-ups. His Gout affects his hands and feet primarily, but also other joints of his body. He says he has just recently started seeing Dr. Benito in Rheumatology. He says he used to drink for 40 years but he has been off alcohol for ~2 years at this time. He was last seen by JOE Rojas on 12/18/22 and briefly discussed surgery, he expressed interest in learning more about surgical treatment and wanted to discuss this today. [facility] Medical History (HFpEF) heart failure with preserved ejection fraction Afib CAD (coronary artery disease) Chronic atrial fibrillation HTN (hypertension) Morbid obesity MAURICE (obstructive sleep apnea) Surgical History H/O umbilical hernia repair S/P CABG (coronary artery bypass graft) Status post debridement (~05/24/21) Family History Father CHF (congestive heart failure) CVD (cardiovascular disease) Substance use disorder Gout Mother CHF (congestive heart failure) CVD (cardiovascular disease) Diabetes mellitus Brother No problems noted. Brother No problems noted. Sister No problems noted. Son No problems noted. 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 [employer] Cognitive needs: No Hearing needs: No Vision needs: No Review of Systems Const All systems reviewed & are unremarkable except as noted in HPI and below Physical Exam Vital Signs: BMI result Body Mass Index 45.6 Const General: cooperative, healthy appearing and no acute distress Orientation/consciousness: patient oriented x3 HEENT Head: Yes normocephalic and Yes atraumatic Eyes EOM: EOMs intact bilaterally Resp Effort & Inspection: normal respiratory effort and able to speak in complete sentences Cardio Jugular venous distension: no JVD Skin General skin exam: turgor normal Rashes: no rashes Neuro General: patient oriented x3 Extrem Other: Evaluation of Right Upper Extremity: The patient is alert, oriented, and in no acute distress Neuro: Median, Ulnar, Radial nerves motor and sensory intact and sensation is normal to the tips of all digits Vascular: Cap refill brisk ROM: He can make a fist with his thumb, middle, ring, and small fingers. He can oppose his index finger to his thumb Good active motion of the index finger MCP joint, 0-90 degrees His index finger PIP joint is held in ~20 degrees of flexion His index finger PIP joint is swollen & mildly tender Skin: No lacerations or abrasions. General: No Ecchymosis. No Erythema or evidence of infection. Radiographs: 3 views of the right hand, with attention to the index finger, from 12/18/22 were reviewed by me today in clinic. They show multiple erosions in the bones about the wrist joint. In particular there is complete loss of the index finger PIP joint with significant erosion of the distal aspect of the proximal phalanx. Small periarticular erosions seen in other IP joints, but do not appear to be affecting function Psych Appearance: grossly normal Affect: normal affect Attitude: cooperative Assessment & Plan Assessment & Plan (1) Osteoarthritis of right index finger: Code(s): M19.041 - Primary osteoarthritis, right hand (2) Gout: Code(s): M10.9 - Gout, unspecified Qualifiers: Chronicity: chronic Gout etiology: idiopathic Gout site: multiple sites Presence of tophus: with tophus Qualified Code(s): M1A.09X1 - Idiopathic chronic gout, multiple sites, with tophus (tophi) Plan Assessment & Plan: 1. Right index finger PIP joint destruction secondary to gout related arthritis Clinical alignment satisfactory Patient says it is not generally painful except during a gout attack or if he is trying to do too much with that I educated him about this condition I discussed operative and non-operative treatment options including arthrodesis He understands that if he stops using that index finger because of pain, that an arthrodesis will not allow motion at the PIP joint but once it heals should significantly decreased the pain. Again at this time, the patient does not feel like he has much pain in the digit The patient is not interested in surgery at this time, as his pain is intermittent and he retains function of his index finger I explained the importance of maintaining his ROM, including of the index finger MCP joint. He will work on ROM exercises at home If his symptoms persist or worsen he can contact the clinic to discuss treatment options Otherwise he can follow up prn 2. Gout He is currently on Colchicine and recently began to follow with Dr. Benito in Rheumatology for this I explained to him that it is very important that he has good control of his gout, as we do not want this to happen to other digits. He stopped drinking about 2 years ago which has been helpful. Scribed for Macy Syed MD by Hossein Gonzalez, medical office asst, on 02/12/23 at 9:20 AM, EST. Coding Level of Care Code Est Pt Level 3 (78260) Diagnoses Osteoarthritis of right index finger M19.041 Gout M1A.09X1 Chronicity: chronic Gout etiology: idiopathic Gout site: multiple sites Presence of tophus: with tophus
== END 2023-02-12 09:24 | disposition home or self-care (01) ==
PROVIDERS: Visit Provider Orthopaedic Surgery
DX: M19.041 Primary osteoarthritis, right hand (principal); M1A.09X1 Idiopathic chronic gout, multiple sites, with tophus (tophi)
CPT/HCPCS: 99213

== ENCOUNTER 2023-02-12 08:48 | Outpatient (REF) | payer MEDICARE, SELFPAY ==
[2023-02-12 09:47] LABS: MANUAL DIFF FLAG NO
[2023-02-12 10:24] LABS: Basophils Percent Auto 0.9 % (0-2); Eosinophils Absolute Auto 0.1 X10*3/uL (0.0-0.4); Eosinophils Percent Auto 2.9 % (0-4); Hematocrit 44.8 % (42.0-52.0); Hemoglobin 13.1 g/dl (14.0-18.0); Imm Gran Abs Auto 0.01 X10*3/uL (0.00-0.03); Imm Gran Pct Auto 0.2 % (0.0-0.4); Lymphocytes Absolute Auto 0.8 X10*3/uL (1.2-4.9); Lymphocytes Percent Auto 17.2 % (20-40); Mean Corpuscular HGB Conc 29.2 g/dl (31.0-36.0); Mean Corpuscular Hemoglobin 23.4 pg (27.0-33.0); Mean Corpuscular Volume 79.9 fL (80.0-98.0); Mean Platelet Volume 9.2 fL (9.4-12.4); Monocytes Absolute Auto 0.3 X10*3/uL (0.1-1.2); Monocytes Percent Auto 5.9 % (2-11); Neutrophils Absolute Auto 3.2 x10*3/uL (2.0-8.3); Neutrophils Percent Auto 72.9 % (45-73); Platelet Count 230 X10*3/uL (160-400); Red Blood Count 5.61 X10*6/uL (4.60-5.80); Red Cell Distribution Width 18.7 % (11.0-16.0); White Blood Count 4.4 X10*3/uL (4.8-10.8)
[2023-02-12 11:21] LABS: Alanine Aminotransferase 14 U/L (0-40); Albumin Level 4.3 g/dL (3.5-5.0); Alkaline Phosphatase 39 U/L (39-117); Anion Gap 14 (12-20); Aspartate Amino Transferase 17 U/L (5-37); Blood Urea Nitrogen 17 mg/dL (9-16); Calcium 9.8 mg/dL (8.4-10.2); Carbon Dioxide 29 mmol/L (22-29); Chloride 100 mmol/L (96-108); Estimated Glomerular Filt Rate 57; Glucose Random 106 mg/dL (60-115); Potassium 4.4 mmol/L (3.3-5.1); Sodium 139 mmol/L (135-145); Total Protein 7.6 g/dL (6.5-8.0); Uric Acid 6.7 mg/dL (3.4-7.0)
== END 2023-02-12 08:49 | disposition home or self-care (01) ==
LOC: HO.LAB 08:48
PROVIDERS: PCP Nurse Practitioner Family; Visit Provider Student in an Organized Health Care Education/Training Program
DX: M1A.09X1 Idiopathic chronic gout, multiple sites, with tophus (tophi) (principal); M19.041 Primary osteoarthritis, right hand
CPT/HCPCS: 36415; 80053; 84550; 85025; 99212

== ENCOUNTER 2023-04-17 13:25 | Outpatient (AMB) | payer MEDICARE, SELFPAY ==
[2023-04-17 13:31] VITALS: BP 150/86; PULSE 86; O2SAT 91; BMI 45.8
--- NOTE | 2023-04-17 13:31 | A.OFFPC_ITS ---
Vital Signs 04/17/23 13:31 04/17/23 14:40 Height 6 ft Weight 337 lb 6 oz BMI 45.8 BP 150/86 H Blood Pressure Location Lt brachial Position Sitting Pulse 86 72 Pulse Source Pulse Oximeter Pulse Oximeter Pulse Oximetry (%) 91 L 90 L Oxygen Delivery Method Room Air Room Air Intake Visit Reasons: Annual PE Allergies No Known Allergies [No Known Allergies*] Allergy (Verified 04/17/23 13:33) Medication List - Last Reconciled 04/17/23 by MAAME Barnes acetaminophen 1,000 mg PO BID allopurinol 200 mg (2 x 100 mg) PO DAILY apixaban (Eliquis) 5 mg PO BID atorvastatin 80 mg PO DAILY budesonide-formoterol 160-4.5 mcg/actuation (Symbicort) 1 inh inhalation BID cane cane with rubber dony cephalexin 500 mg PO BID 10 days cholecalciferol (vitamin D3) 50 mcg PO DAILY 90 days colchicine (gout) 0.6 mg PO BID furosemide 40 mg PO BID 90 days levalbuterol tartrate 45 mcg/actuation (Xopenex HFA) 2 puffs inhalation Q4-6H PRN lisinopril 10 mg PO DAILY metoprolol succinate ER 100 mg PO DAILY nicotine (polacrilex) 4 mg buccal Q2-4H PRN omega-3 acid ethyl esters 2 caps PO DAILY 90 days prednisone 50 mg PO DAILY 6 days tiotropium bromide 1.25 mcg/actuation (Spiriva Respimat) 2 puffs inhalation DAILY Tobacco use date assessed: 04/17/23 Fall risk assessment: No Falls in past year Last assessed Fall Risk: 04/17/23 Dental Screening Dental Screen Date: 04/17/23 Did you have a dental visit in the last 12 months?: No Did you have a dental problem in the last 6 months where you did not have access to dental care?: No Was dental information given to patient?: Patient has dentist HPI Annual PE HPI Details pt is here for a PE. Pt reports SOB. He has been tried on CPAP in the past, could not tolerate mask. 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 Pt denies CP, but does have SOB, especially with exertion. morbidly obese and smoked up to 2 packs daily for many years. Last smoked tobacco May 2021. He does smoke occasional marijuana. He was a member of the LDCT program at [facility]. Will check into follow up appointment. HTN: increasing his lisinopril from 5mg to 10mg. Will follwo up with him in 3 months. starting inhalers for COPD, referring to pulmonary, ordered PFT testing, getting a chest XR today. HPI Comments History of Present Illness Details Pt is here for a PE. colonoscopy is up to date [facility] Medical History Afib CAD (coronary artery disease) Morbid obesity HTN (hypertension) MAURICE (obstructive sleep apnea) (HFpEF) heart failure with preserved ejection fraction Chronic atrial fibrillation Surgical History Status post debridement (~05/24/21) H/O umbilical hernia repair S/P CABG (coronary artery bypass graft) Family History Father CHF (congestive heart failure) CVD (cardiovascular disease) Substance use disorder Gout Mother CHF (congestive heart failure) CVD (cardiovascular disease) Diabetes mellitus Brother No problems noted. Brother No problems noted. Sister No problems noted. Son No problems noted. 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 Jose Angel Centeno, Mariajose Silver, Trey Li and colleagues, with an educational srinivas from [employer]. Review of Systems Const Denies chills and Denies fever(s) Eyes Denies blurry vision ENT Denies vertigo, Denies dizziness and Denies sore throat Card Denies chest pain at rest, Denies chest pain with activity, Denies diaphoresis, Denies dyspnea and Denies dyspnea on exertion Resp Denies cough, Denies dyspnea, Denies dyspnea on exertion and Denies wheezing GI Denies abdominal pain, Denies melena, Denies hematochezia, Denies constipation, Denies diarrhea and Denies loose stools Denies hematuria Musc Denies numbness and Denies tingling Skin/Breast Denies lesions Neuro Denies vertigo, Denies dizziness, Denies numbness and Denies tingling Psych Denies anxiety, Denies depression, Denies homicidal ideation, Denies suicidal ideation and Denies other (substance abuse) Aller/Immun Denies wheezing Physical exam (Primary Care) Vital Signs: Last Vital Signs Pulse 86 04/17/23 13:31 BP 150/86 H 04/17/23 13:31 Pulse Ox 91 L 04/17/23 13:31 Oxygen Delivery Method Room Air 04/17/23 13:31 BMI result Body Mass Index 45.8 Tobacco/Smoking Status: Tobacco use Status Tobacco use date assessed 04/17/23 04/17/23 13:37 Patient Tobacco Use Status Former Tobacco user 04/17/23 13:37 e-Cigarette/Vaping Use Never Used 04/17/23 13:37 Thrive Assessment: Date of Thrive Assessment Date Thrive assessed 01/01/22 04/17/23 13:37 Const General: cooperative Nutritional Appearance: well nourished and obese Orientation/consciousness: patient oriented x3 HENMT Head: Yes normal to inspection, Yes normocephalic and Yes atraumatic Ears: TM normal on the right and TM normal on the left Eyes General: appearance normal, both eyes and all related structures Alignment and Position: alignment normal and position normal Neck Neck: Yes normal visual inspection and Yes no lymphadenopathy Resp Other: dypnea noted, without CP. wheezing throughout, faintly dim bilat Cardio Rate: regular rate Rhythm: abnormal rhythm irregularly irregular Heart sounds: no murmurs GI Palpation (GI): Soft to palpation and nontender Auscultation: normal bowel sounds Male General Exam: Yes normal external exam Penis: normal penis Testes: no testicular mass Skin Other: open and closed comedones to upper back, posterior neck. larger cystic lesion to left posterior neck. old skin grafting to bilat axillas. Rashes: no rashes Neuro General: patient oriented x3, moves all extremities, no focal motor deficits and deep tendon reflexes 2+ bilaterally Romberg Test: Negative Extrem Other: +1-+2 non pitting to BLE (edema), with discoloration, + DP bilat. feet with onychomycosis. Psych Affect: normal affect Attitude: cooperative Thought process: Normal thought process present Assessment and Plan Assessment & Plan (1) Shortness of breath: Code(s): R06.02 - Shortness of breath Plan: inhalers sent, pulmonary referral placed, XR and PFT ordered (2) MAURICE (obstructive sleep apnea): Code(s): G47.33 - Obstructive sleep apnea (adult) (pediatric) (3) Morbid obesity: Code(s): E66.01 - Morbid (severe) obesity due to excess calories (4) Physical exam: Code(s): Z00.00 - Encounter for general adult medical examination without abnormal findings (5) Screening for prostate cancer: Code(s): Z12.5 - Encounter for screening for malignant neoplasm of prostate (6) (HFpEF) heart failure with preserved ejection fraction: Code(s): I50.30 - Unspecified diastolic (congestive) heart failure (7) HTN (hypertension): Code(s): I10 - Essential (primary) hypertension Plan: increased lisinopril from 5mg to 10mg (8) Edema of both legs: Code(s): R60.0 - Localized edema Orders: Orders XR chest 2V Today R06.02 - Shortness of breath PFT pulmonary function test Today E66.01 - Morbid (severe) obesity due to excess calories, G47.33 - Obstructive sleep apnea (adult) (pediatric), R06.02 - Shortness of breath Complete Blood Count Auto Diff Today Z00.00 - Encounter for general adult medical examination without abnormal findings UA CC w/rflx Micro + Cult Today Z00.00 - Encounter for general adult medical examination without abnormal findings AMB EKG-In Office Today I10 - Essential (primary) hypertension, I50.30 - Unspecified diastolic (congestive) heart failure US venous duplex LE BI Today R60.0 - Localized edema Comprehensive [place]. Panel Fast Today Z00.00 - Encounter for general adult medical examination without abnormal findings TSH reflex Free T4 Today Z00.00 - Encounter for general adult medical examination without abnormal findings Lipid Panel Today Z00.00 - Encounter for general adult medical examination without abnormal findings Prostate Specific Antigen Scr Today Z12.5 - Encounter for screening for mal ignant neoplasm of prostate B Type Natriuretic Peptide Today I50.30 - Unspecified diastolic (congestive) heart failure Referrals Pulmonology Referral R06.02 - Shortness of breath Medications: New tiotropium bromide 1.25 mcg/actuation (Spiriva Respimat) 2 puffs inhalation DAILY 4 grams 2RF cephalexin 500 mg PO BID 10 days 20 caps 3RF prednisone 50 mg PO DAILY 6 days 6 tabs 0RF budesonide-formoterol 160-4.5 mcg/actuation (Symbicort) 1 inh inhalation BID 10.2 grams 0RF levalbuterol tartrate 45 mcg/actuation (Xopenex HFA) 2 puffs inhalation Q4-6H PRN 15 grams 2RF shortness of breath Changed From lisinopril 5 mg PO DAILY 90 tabs 1RF To lisinopril NOTE: increased from 5mg daily 10 mg PO DAILY 90 tabs 1RF Coding Level of Care Code Est Pt Prev Care >65y(34807) Diagnoses Shortness of breath R06.02 MAURICE (obstructive sleep apnea) G47.33 Morbid obesity E66.01 Physical exam Z00.00 Screening for prostate cancer Z12.5 (HFpEF) heart failure with preserved ejection fraction I50.30 HTN (hypertension) I10 Edema of both legs R60.0
[2023-04-17 14:40] VITALS: PULSE 72; O2SAT 90
== END 2023-04-17 15:56 | disposition home or self-care (01) ==
PROVIDERS: PCP Nurse Practitioner Family; Visit Provider Nurse Practitioner Family
DX: Z00.00 Encounter for general adult medical examination without abnormal findings (principal); E66.01 Morbid (severe) obesity due to excess calories; I50.30 Unspecified diastolic (congestive) heart failure; Z68.42 Body mass index [BMI] 45.0-49.9, adult; R06.02 Shortness of breath; G47.33 Obstructive sleep apnea (adult) (pediatric); Z12.5 Encounter for screening for malignant neoplasm of prostate; I10 Essential (primary) hypertension; R60.0 Localized edema
CPT/HCPCS: 99397

== ENCOUNTER 2023-04-17 14:55 | Outpatient (REF) | payer MEDICARE, SELFPAY ==
--- NOTE | ~2023-04-17 | XR_ITS ---
EXAMINATION: XR CHEST CLINICAL INFORMATION: Shortness of breath. COMPARISON: None available. TECHNIQUE: 2 views of the chest were obtained. FINDINGS: Prominent cardiomediastinal silhouette with midline sternal wires and multiple mediastinal surgical clips. Central bronchial thickening and diffuse interstitial prominence. Focal airspace opacities projecting over the right middle lobe, and equivocal more subtle focal airspace opacities projecting over the lateral left lower lobe. No significant pleural effusion. No pneumothorax. No acute osseous findings. XR/XR chest 2V IMPRESSION: Findings are most suggestive of an atypical/viral pneumonia with infiltrates in the right greater than left lungs. Recommend follow-up imaging after treatment.
== END 2023-04-17 14:56 | disposition home or self-care (01) ==
LOC: HO.HMGCX 14:55
PROVIDERS: PCP Nurse Practitioner Family; Visit Provider Nurse Practitioner Family
DX: R06.02 Shortness of breath (principal)
CPT/HCPCS: 71046

== ENCOUNTER 2023-05-16 09:33 | Outpatient (AMB) | payer MEDICARE, SELFPAY ==
--- NOTE | 2023-05-16 09:39 | MHC.OFFVIS ---
Intake Vital Signs 05/16/23 09:40 Height 6 ft Weight 340 lb 9.827 oz BMI 46.2 BP 140/77 H Blood Pressure Location Rt brachial Position Sitting Pulse 77 Pulse Source Doppler Pulse Oximetry (%) 88 L Oxygen Delivery Method Room Air Intake Visit Reasons: Dyspnea Allergies No Known Allergies [No Known Allergies*] Allergy (Verified 05/16/23 09:41) HPI Dyspnea HPI Details 68-year-old gentleman, former 40+ pack-year smoker, quit 2020, with underlying obesity AFib, diastolic heart failure, recently started on Symbicort 160 and Spiriva by his PCP, referred for evaluation of pulmonary component to dyspnea. Patient complains of significant dyspnea on exertion after walking for about 50 yd. He also complains of unrestful sleep, daytime somnolence, and gasping for air at night. There is family history of COPD in patient's father who was a heavy smoker. 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 [facility] Medical History Afib CAD (coronary artery disease) Morbid obesity HTN (hypertension) MAURICE (obstructive sleep apnea) (HFpEF) heart failure with preserved ejection fraction Chronic atrial fibrillation Surgical History Status post debridement (~05/24/21) H/O umbilical hernia repair S/P CABG (coronary artery bypass graft) Family History Father CHF (congestive heart failure) CVD (cardiovascular disease) Substance use disorder Gout Mother CHF (congestive heart failure) CVD (cardiovascular disease) Diabetes mellitus Brother No problems noted. Brother No problems noted. Sister No problems noted. Son No problems noted. 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 [employer] Cognitive needs: No Hearing needs: No Vision needs: No Review of Systems Const Reports daytime sleepiness, Denies excessive sweating, Reports fatigue, Denies fever(s), Reports lethargy, Denies malaise, Denies night sweats, Reports snoring and Denies weight loss Eyes Denies blurry vision and Denies itchy eyes ENT Denies nasal congestion, Denies post nasal drip, Denies sinus pain, Denies sinus pressure and Denies other ( Thrush) Card Denies chest pain, Denies pedal edema, Reports leg edema, Denies dyspnea, Reports dyspnea on exertion, Reports orthopnea and Reports paroxysmal nocturnal dyspnea Resp Denies cough, Denies hemoptysis, Denies excessive phlegm production, Denies dyspnea, Reports dyspnea on exertion, Reports snoring and Denies wheezing GI Denies abdominal pain and Denies heartburn Musc Denies myalgias, Denies arthralgias and Denies joint swelling Skin/Breast Denies rash Neuro Denies memory loss and Denies seizure-like activity Psych Denies abnormal sleep pattern, Denies anxiety and Denies memory loss Endo Denies excessive sweating, Reports fatigue and Denies heat intolerance Maximilian/Lymph Denies easy bruising Aller/Immun Denies itchy eyes, Denies seasonal rhinorrhea and Denies wheezing Physical Exam Vital Signs: Last Vital Signs Pulse 77 05/16/23 09:40 BP 140/77 H 05/16/23 09:40 Pulse Ox 88 L 05/16/23 09:40 Oxygen Delivery Method Room Air 05/16/23 09:40 BMI result Body Mass Index 46.2 Const General: no acute distress and alert Nutritional Appearance: obese Orientation/consciousness: Other orientation findings ( oriented) HEENT Head: Yes atraumatic Eyes General: appearance normal, both eyes and all related structures Sclerae: sclerae normal EOM: EOMs intact bilaterally Neck Neck: Yes supple Lymphatic: no lymphadenopathy noted Resp Effort & Inspection: normal respiratory effort and no use of accessory muscles Auscultation: crackles (Bibasilar) Cardio Rate: regular rate Rhythm: regular rhythm Heart sounds: no gallops, no murmurs and no rubs Skin General skin exam: other ( warm) Extrem General: No clubbing, No cyanosis and Yes edema (2+ bilateral) Assessment & Plan Assessment & Plan (1) COPD (chronic obstructive pulmonary disease): Code(s): J44.9 - Chronic obstructive pulmonary disease, unspecified Plan: Likely underlying COPD of unclear severity. Will obtain full PFT. Will continue on high-dose Symbicort and low-dose Spiriva at this time. (2) Personal history of nicotine dependence: Code(s): Z87.891 - Personal history of nicotine dependence Plan: Will obtain lung cancer screening CT. (3) MAURICE (obstructive sleep apnea): Code(s): G47.33 - Obstructive sleep apnea (adult) (pediatric) Plan: Unrestful sleep, snoring, daytime somnolence. [place] Sleepiness Scale score of 16. Will obtain home sleep study. (4) Edema of both legs: Code(s): R60.0 - Localized edema Plan: Worsening lower extremity edema despite current regimen of Lasix 40 b.i.d.. Will change to bumetanide 1 mg twice a day. Orders: Orders RT home sleep study Today G47.33 - Obstructive sleep apnea (adult) (pediatric) PFT pulmonary function test Today J44.9 - Chronic obstructive pulmonary disease, unspecified CT lung screening Today Z87.891 - Personal history of nicotine dependence Medications: New bumetanide 1 mg PO BID 30 days 60 tabs 6RF Discontinued furosemide Discontinued Reason: Doctor's Order 40 mg PO BID 90 days 180 tabs 3RF Coding Level of Care Code New Pt Level 4 (03494) Diagnoses COPD (chronic obstructive pulmonary disease) J44.9 Personal history of nicotine dependence Z87.891 MAURICE (obstructive sleep apnea) G47.33 Edema of both legs R60.0
[2023-05-16 09:40] VITALS: BP 140/77; PULSE 77; O2SAT 88; BMI 46.2
== END 2023-05-16 10:06 | disposition home or self-care (01) ==
PROVIDERS: PCP Nurse Practitioner Family; Referring Provider Nurse Practitioner Family; Visit Provider Internal Medicine Pulmonary Disease
DX: J44.9 Chronic obstructive pulmonary disease, unspecified (principal); Z87.891 Personal history of nicotine dependence; G47.33 Obstructive sleep apnea (adult) (pediatric); R60.0 Localized edema
CPT/HCPCS: 99204

== ENCOUNTER → 2023-05-16 09:33 | Outpatient (BNVA) | payer MEDICARE, SELFPAY | PROVIDERS: PCP Nurse Practitioner Family; Referring Provider Nurse Practitioner Family; Visit Provider Internal Medicine Pulmonary Disease ==

== ENCOUNTER 2023-06-13 07:57 | Outpatient (REF) | payer MEDICARE, SELFPAY ==
--- NOTE | ~2023-06-13 | CT_ITS ---
EXAMINATION: CT CHEST SCREENING CLINICAL INFORMATION: Former smoker. Quit 2 years ago. 40 pack-year history. COMPARISON: Previous chest x-ray March 2023. TECHNIQUE: Multidetector volumetric CT imaging of the chest is performed without contrast using low-dose technique. Additional 2D coronal and sagittal reformatted images and axial 3D maximum intensity projection (MIP) images are generated on the CT workstation. This CT examination was performed using dose optimization techniques as appropriate, variously including the following: *Automated exposure control *Adjustment of mA and/or kV according to patient size (this includes techniques or standardized protocols for targeted exams where dose is matched to indication/reason for exam; i.e. extremities or head) *Use of iterative reconstruction technique DLP: 140 mGy-cm FINDINGS: LUNGS: 3 mm lingular nodule axial image 296 series 5. 5 mm peripheral or subpleural right middle lobe nodule adjacent to the minor fissure axial image 291 series 5. Probably representing a subpleural lymph node. Scarring or subsegmental atelectasis at the lung bases. There are increased peripheral interstitial markings in the right lower lobe questionable for mild or interstitial lung disease. MEDIASTINUM: Post-CABG changes. Mild aortic valve calcification. Upper normal heart size. No pericardial effusion. Small mediastinal lymph nodes. CORONARY ARTERY CALCIFICATION: Severe. Post CABG. PLEURA: There is no pleural effusion. No pleural mass or thickening. AXILLA: No lymphadenopathy. UPPER ABDOMEN: Gallstones. Prominent spleen. Atherosclerotic disease of the abdominal aorta. Diverticulosis of the colon. OSSEOUS STRUCTURES: Degenerative changes of the spine. CT/CT lung screening IMPRESSION: No suspicious pulmonary nodule. Question mild interstitial disease right lower lobe. Post-CABG changes. ASSESSMENT: Lung-RADS category 2: Benign. RECOMMENDATION: Annual low-dose chest CT followup in 1 year.
== END 2023-06-13 07:58 | disposition home or self-care (01) ==
LOC: HO.CT 07:57
PROVIDERS: PCP Nurse Practitioner Family; Visit Provider Internal Medicine Pulmonary Disease
DX: Z12.2 Encounter for screening for malignant neoplasm of respiratory organs (principal); Z87.891 Personal history of nicotine dependence
CPT/HCPCS: 71271

== ENCOUNTER 2023-06-20 13:52 | Emergency (ER) | payer MEDICARE, SELFPAY ==
[2023-06-20 14:04] VITALS: BP 158/90; PULSE 79; O2SAT 93
[2023-06-20 14:12] VITALS: BP 159/72; PULSE 80; RESP 20; TEMP 36.9; O2SAT 92; BMI 45.7
--- NOTE | 2023-06-20 14:33 | ED.WOUNDLAC ---
HPI - Wound/Laceration General Chief Complaint: Wound/Laceration Stated Complaint: LAC ON TOP OF R FOOT Time Seen by Provider: 06/20/23 14:22 Source: patient Mode of arrival: EMS Limitations: no limitations History of Present Illness HPI narrative: 68 yo male with PMH of COPD on home O2, OA, MAURICE, afib on eliquis, gout, CAD, CHF, hx of 4VCABG was in shower and looked down saw blood spurting from top of R foot. Blood splattered wall and all over floor in tub. Patient states he feels fine now. Suspects varicose vein bleed. He had dizziness during event that has resolved. Onset (ago): minute(s) (just [employer]) Extremity Location: right: foot Place: home Patient tetanus UTD: Yes Context: accidental Associated symptoms: none Treatments prior to arrival: bandage Related Data Home Medications Medication Instructions Recorded Confirmed acetaminophen 500 mg tablet 1,000 mg PO BID 05/24/21 04/17/23 nicotine (polacrilex) 4 mg buccal 4 mg buccal Q2-4H PRN Nicotine 05/24/21 04/17/23 lozenge Cravings Previous Rx's Medication Instructions Recorded cane #1 ea 06/21/21 allopurinol 100 mg tablet 200 mg (2 x 100 mg) PO DAILY #180 11/26/22 tabs omega-3 acid ethyl esters 1 gram 2 cap PO DAILY 90 days #360 caps 12/23/22 capsule cholecalciferol (vitamin D3) 50 50 mcg PO DAILY 90 days #90 tabs 01/12/23 mcg (2,000 unit) tablet atorvastatin 80 mg tablet 80 mg PO DAILY #90 tabs 01/15/23 apixaban 5 mg tablet (Eliquis) 5 mg PO BID #180 tabs 01/24/23 cephalexin 500 mg capsule 500 mg PO BID 10 days #20 caps 04/17/23 levalbuterol tartrate 45 2 puff inhalation Q4-6H PRN 04/17/23 mcg/actuation aerosol inhaler shortness of breath #15 grams (Xopenex HFA) lisinopril 10 mg tablet 10 mg PO DAILY #90 tabs 04/17/23 tiotropium bromide 1.25 2 puff inhalation DAILY #4 grams 04/17/23 mcg/actuation mist for inhalation (Spiriva Respimat) Symbicort 160 mcg-4.5 1 puff inhalation BID #10.2 grams 05/13/23 mcg/actuation HFA aerosol inhaler (budesonide-formoterol) bumetanide 1 mg tablet 1 mg PO BID 30 days #60 tabs 05/16/23 colchicine 0.6 mg tablet 0.6 mg PO BID gout #180 tabs 06/15/23 metoprolol succinate 100 mg 100 mg PO DAILY #90 tabs 06/18/23 tablet,extended release 24 hr Allergies Allergy/AdvReac Type Severity Reaction Status Date / Time No Known Allergies Allergy Verified 05/16/23 09:41 [No Known Allergies*] Review of Systems Review of Systems: Constitutional : No Fever, No Chills, Cardiovascular : No Chest Pain, No SOB Respiratory : No Dyspnea Gastrointestinal : No abdominal pain Musculoskeletal : No Joint Swelling Skin : No rash, positive skin lesion Neuro : No Weakness, No Numbness All other systems reviewed and are negative PMFSH Past Medical History Attestation statement: The following information was validated with the patient. Source: old records reviewed Medical History Afib CAD (coronary artery disease) Morbid obesity HTN (hypertension) MAURICE (obstructive sleep apnea) (HFpEF) heart failure with preserved ejection fraction Chronic atrial fibrillation Surgical History Status post debridement (~05/24/21) H/O umbilical hernia repair S/P CABG (coronary artery bypass graft) Family History Family History Father CHF (congestive heart failure) CVD (cardiovascular disease) Substance use disorder Gout Mother CHF (congestive heart failure) CVD (cardiovascular disease) Diabetes mellitus Brother No problems noted. Brother No problems noted. Sister No problems noted. Son No problems noted. 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 Oriented X3. No acute distress. Eyes: Pupils equal, round and reactive to light. ENT: Pharynx normal. Neck: Normal inspection. Neck supple. CVS: Normal heart rate and rhythm. Pulses normal. Respiratory: No respiratory distress. Breath sounds decreased - refuses neb treatment Abdomen: Soft and nontender. Skin: Skin warm and dry. Normal skin color. Normal skin turgor. Extremities: bilateral 1+ pitting edema - top of R foot is varicose veins no longer bleeding, dried blood on R foot Neuro: Oriented X 3. No motor deficit. No sensory deficit. Course Course Course Narrative: no further bleeding, H/H at baseline Medical Decision Making Medical Decision Making [facility] Narrative: 68 yo male with PMH of COPD on home O2, OA, MAURICE, afib on eliquis, gout, CAD, CHF, hx of 4VCABG here with c/o resolved varicose vein bleeding - at this time will observe, recheck CBC and apply tissue adhesive over the area with dressing and alexa wrap. Differential Diagnosis Differential Diagnoses: The differential diagnosis associated with the presentation includes varicose vein Admission/Observation Consideration of admission/observation: Escalation of care including admission/observation considered feels better and wants to go home, declined RT therapy Lab Data [facility] Lab Attestation statement: I reviewed the patient's lab results. 06/20/23 14:32 Labs: Lab Results 06/20/23 Range/Units 14:32 WBC 3.6 L (4.8-10.8) X10*3/uL RBC 5.59 (4.60-5.80) X10*6/uL Hgb 12.7 L (14.0-18.0) g/dl Hct 44.1 (42.0-52.0) % MCV 78.9 L (80.0-98.0) fL MCH 22.7 L (27.0-33.0) pg MCHC 28.8 L (31.0-36.0) g/dl RDW 19.6 H (11.0-16.0) % Plt Count 213 (160-400) X10*3/uL MPV 8.5 L (9.4-12.4) fL Immature Gran % (Auto) 0.6 H (0.0-0.4) % Neut % (Auto) 59.4 (45-73) % Lymph % (Auto) 22.3 (20-40) % Milam % (Auto) 11.8 H (2-11) % Eos % (Auto) 4.5 H (0-4) % Baso % (Auto) 1.4 (0-2) % Lymph # (Auto) 0.8 L (1.2-4.9) X10*3/uL Milam # (Auto) 0.4 (0.1-1.2) X10*3/uL Eos # (Auto) 0.2 (0.0-0.4) X10*3/uL Baso # (Auto) 0.1 (0.0-0.2) X10*3/uL Abs Immat Gran (auto) 0.02 (0.00-0.03) X10*3/uL Absolute Neuts (auto) 2.1 (2.0-8.3) x10*3/uL Absolute Nucleated RBC 0.000 (0.0-0.012) X10*3/uL Nucleated RBC % (auto) 0.0 (0.0-0.2) /100WBC Independent Historian Clinical information obtained from an independent historian. History obtained from or confirmed by: EMS External Record Review External record reviewed: Inpatient record Procedures Procedure Narrative Procedure Narrative: on dorsum of R foot used skin adhesive and glued over area of varicose veins no signs of bleeding or tissue opening - tolerated well, verbal consent Discharge Plan Discharge Clinical Impression: Bleeding from varicose vein Patient Disposition: Home, Self-Care Instructions: Skin Adhesive Care (ED) Additional Instructions: return for dizziness, chest pain, trouble breathing, bleeding, keep wrap on overnight. monitor for redness, yellow drainage, fevers, or any other signs of infection skin adhesive will fall off in 5 to 7 days. Prescriptions: No Action (DME) cane Device See Rx Instructions .Route Qty: 1 0RF Rx Instructions: cane with rubber dony omega-3 acid ethyl esters 1 gram capsule 2 cap PO DAILY 90 Days Qty: 360 1RF cholecalciferol (vitamin D3) 50 mcg (2,000 unit) tablet 50 mcg PO DAILY 90 Days Qty: 90 1RF atorvastatin 80 mg tablet 80 mg PO DAILY Qty: 90 1RF Eliquis 5 mg tablet 5 mg PO BID Qty: 180 1RF budesonide-formoterol [Symbicort] 160-4.5 mcg/actuation HFA aerosol inhaler 1 puff inhalation BID Qty: 10.2 2RF colchicine 0.6 mg tablet 0.6 mg PO BID Qty: 180 1RF metoprolol succinate 100 mg tablet extended release 24 hr 100 mg PO DAILY Qty: 90 1RF acetaminophen 500 mg Tablet 1,000 mg PO BID nicotine (polacrilex) 4 mg Lozenge 4 mg BUCCAL Q2-4H PRN (Reason: Nicotine Cravings) Spiriva Respimat 1.25 mcg/actuation mist 2 puff inhalation DAILY Qty: 4 2RF levalbuterol tartrate [Xopenex HFA] 45 mcg/actuation HFA aerosol inhaler 2 puff inhalation Q4-6H PRN (Reason: shortness of breath) Qty: 15 2RF cephalexin 500 mg capsule 500 mg PO BID 10 Days Qty: 20 3RF lisinopril 10 mg tablet 10 mg PO DAILY Qty: 90 1RF Rx Instructions: NOTE: increased from 5mg daily allopurinol 100 mg tablet 200 mg PO DAILY Qty: 180 1RF bumetanide 1 mg tablet 1 mg PO BID 30 Days Qty: 60 6RF
[2023-06-20 14:40] LABS: MANUAL DIFF FLAG NO
[2023-06-20 14:47] LABS: Basophils Absolute Auto 0.1 X10*3/uL (0.0-0.2); Basophils Percent Auto 1.4 % (0-2); Eosinophils Absolute Auto 0.2 X10*3/uL (0.0-0.4); Eosinophils Percent Auto 4.5 % (0-4); Hematocrit 44.1 % (42.0-52.0); Hemoglobin 12.7 g/dl (14.0-18.0); Imm Gran Abs Auto 0.02 X10*3/uL (0.00-0.03); Imm Gran Pct Auto 0.6 % (0.0-0.4); Lymphocytes Absolute Auto 0.8 X10*3/uL (1.2-4.9); Lymphocytes Percent Auto 22.3 % (20-40); Mean Corpuscular HGB Conc 28.8 g/dl (31.0-36.0); Mean Corpuscular Hemoglobin 22.7 pg (27.0-33.0); Mean Corpuscular Volume 78.9 fL (80.0-98.0); Mean Platelet Volume 8.5 fL (9.4-12.4); Monocytes Absolute Auto 0.4 X10*3/uL (0.1-1.2); Monocytes Percent Auto 11.8 % (2-11); Neutrophils Absolute Auto 2.1 x10*3/uL (2.0-8.3); Neutrophils Percent Auto 59.4 % (45-73); Platelet Count 213 X10*3/uL (160-400); Red Blood Count 5.59 X10*6/uL (4.60-5.80); Red Cell Distribution Width 19.6 % (11.0-16.0); White Blood Count 3.6 X10*3/uL (4.8-10.8)
[2023-06-20 15:50] VITALS: BP 135/84; PULSE 82; TEMP 36.7; O2SAT 98
== END 2023-06-20 16:05 | disposition home or self-care (01) ==
PROVIDERS: Emergency Provider Emergency Medicine; PCP Nurse Practitioner Family
DX: I83.891 Varicose veins of right lower extremity with other complications (principal); I48.91 Unspecified atrial fibrillation; I25.10 Atherosclerotic heart disease of native coronary artery without angina pectoris; Z79.01 Long term (current) use of anticoagulants; Z79.899 Other long term (current) drug therapy; Z87.891 Personal history of nicotine dependence
CPT/HCPCS: 36415; 85025; 99283

== ENCOUNTER 2023-08-29 10:33 | Outpatient (REF) | payer MEDICARE, SELFPAY ==
[2023-08-29 11:34] LABS: Alanine Aminotransferase 16 U/L (0-40); Alkaline Phosphatase 41 U/L (39-117); Anion Gap 13 (12-20); Aspartate Amino Transferase 15 U/L (5-37); Bilirubin Total 0.6 mg/dL (0.0-1.0); Blood Urea Nitrogen 17 mg/dL (9-16); C Reactive Protein 0.28 mg/dL (< or = 0.50); Calcium 9.3 mg/dL (8.4-10.2); Carbon Dioxide 33 mmol/L (22-29); Chloride 100 mmol/L (96-108); Estimated Glomerular Filt Rate > 60; Glucose Random 85 mg/dL (60-115); Potassium 4.2 mmol/L (3.3-5.1); Sodium 142 mmol/L (135-145); Total Protein 7.3 g/dL (6.5-8.0); Uric Acid 6.5 mg/dL (3.4-7.0)
[2023-08-29 11:44] LABS: Erythrocyte Sedimentation Rate 7 MM/HR (0-15)
== END 2023-08-29 10:34 | disposition home or self-care (01) ==
LOC: HO.LAB 10:33
PROVIDERS: PCP Nurse Practitioner Family; Visit Provider Nurse Practitioner Family
DX: M1A.09X1 Idiopathic chronic gout, multiple sites, with tophus (tophi) (principal)
CPT/HCPCS: 36415; 80053; 84550; 85652; 86140

== ENCOUNTER 2023-10-17 06:01 | Outpatient (REF) | payer MEDICARE, SELFPAY ==
[2023-10-17 08:26] LABS: B Type Natriuretic Peptide 31 pg/mL (<100)
[2023-10-17 10:49] LABS: MANUAL DIFF FLAG NO
[2023-10-17 10:52] LABS: Basophils Absolute Auto 0.1 X10*3/uL (0.0-0.2); Basophils Percent Auto 1.7 % (0-2); Eosinophils Absolute Auto 0.2 X10*3/uL (0.0-0.4); Eosinophils Percent Auto 4.7 % (0-4); Hematocrit 44.5 % (42.0-52.0); Hemoglobin 12.9 g/dl (14.0-18.0); Imm Gran Abs Auto 0.01 X10*3/uL (0.00-0.03); Imm Gran Pct Auto 0.3 % (0.0-0.4); Lymphocytes Absolute Auto 1.1 X10*3/uL (1.2-4.9); Mean Corpuscular Hemoglobin 22.7 pg (27.0-33.0); Mean Corpuscular Volume 78.2 fL (80.0-98.0); Mean Platelet Volume 8.9 fL (9.4-12.4); Monocytes Absolute Auto 0.3 X10*3/uL (0.1-1.2); Monocytes Percent Auto 7.5 % (2-11); Neutrophils Percent Auto 55.8 % (45-73); Platelet Count 251 X10*3/uL (160-400); Red Blood Count 5.69 X10*6/uL (4.60-5.80); Red Cell Distribution Width 19.3 % (11.0-16.0); White Blood Count 3.6 X10*3/uL (4.8-10.8)
[2023-10-17 11:08] LABS: Appearance Urine Clear; Color Urine Yellow; Glucose Urine UA Negative (Negative); Leukocyte Esterase Urine Negative (Negative); Nitrite Urine Negative (Negative); PH 6.5 (5.0-9.0); Specific Gravity - Urine <= 1.005 (1.005-1.025); Urine Blood Negative (Negative); Urine Ketones Negative (Negative); Urine Protein Negative (Neg-Trace)
[2023-10-17 11:21] LABS: Alanine Aminotransferase 13 U/L (0-40); Albumin Level 4.1 g/dL (3.5-5.0); Alkaline Phosphatase 40 U/L (39-117); Anion Gap 14 (12-20); Aspartate Amino Transferase 18 U/L (5-37); Bilirubin Total 0.9 mg/dL (0.0-1.0); Blood Urea Nitrogen 22 mg/dL (9-16); Calcium 10.3 mg/dL (8.4-10.2); Carbon Dioxide 31 mmol/L (22-29); Chloride 96 mmol/L (96-108); Cholesterol 99 mg/dL (<200); Estimated Glomerular Filt Rate 54; Glucose Fasting 82 mg/dL (60-99); HDL Cholesterol 32 mg/dL (>40); LDL Cholesterol Calculated 45 mg/dL (<100); Potassium 3.9 mmol/L (3.3-5.1); Sodium 137 mmol/L (135-145); TSH reflex Free T4 1.25 uIU/mL (0.32-4.0); Total Protein 7.4 g/dL (6.5-8.0); Triglycerides 112 mg/dL (<150)
== END 2023-10-17 06:02 | disposition home or self-care (01) ==
LOC: HO.HMGCLDS 06:01
PROVIDERS: PCP Nurse Practitioner Family; Visit Provider Nurse Practitioner Family
DX: Z00.00 Encounter for general adult medical examination without abnormal findings (principal); Z12.5 Encounter for screening for malignant neoplasm of prostate; I50.30 Unspecified diastolic (congestive) heart failure
CPT/HCPCS: 36415; 80053; 80061; 81003; 83880; 84153; 84443; 85025

== ENCOUNTER 2023-10-20 09:40 | Outpatient (AMB) | payer MEDICARE, SELFPAY ==
--- NOTE | 2023-10-20 09:49 | A.OFFPC_ITS ---
Vital Signs 10/20/23 09:51 Height 6 ft Weight 337 lb BMI 45.7 BP 110/70 Blood Pressure Location Rt brachial Position Sitting Pulse 92 Pulse Source Pulse Oximeter Pulse Oximetry (%) 89 L Oxygen Delivery Method Room Air Intake Visit Reasons: 3M F/U Intake Note: Patient here for HTN f/u. pt would like to talk about some issues he has been having. Allergies No Known Allergies [No Known Allergies*] Allergy (Verified 10/20/23 11:13) Medication List - Last Reconciled 10/20/23 by LISBETH Barnes-ENZO acetaminophen 1,000 mg PO BID apixaban (Eliquis) 5 mg PO BID atorvastatin 80 mg PO DAILY bumetanide 1 mg PO BID 30 days cane cane with rubber dony cholecalciferol (vitamin D3) 50 mcg PO DAILY 90 days colchicine 0.6 mg PO BID ferrous sulfate 325 mg PO DAILY levalbuterol tartrate 45 mcg/actuation (Xopenex HFA) 2 puffs inhalation Q4-6H PRN lisinopril 10 mg PO DAILY metoprolol succinate ER 100 mg PO DAILY nicotine (polacrilex) 4 mg buccal Q2-4H PRN omega-3 acid ethyl esters 2 caps PO DAILY 90 days Symbicort 160-4.5 mcg/actuation (budesonide-formoterol) 1 puff inhalation BID NS tiotropium bromide 1.25 mcg/actuation (Spiriva Respimat) 2 puffs inhalation DAILY Tobacco use date assessed: 04/17/23 Fall risk assessment: No Falls in past year Last assessed Fall Risk: 10/20/23 Dental Screening Dental Screen Date: 10/20/23 Did you have a dental visit in the last 12 months?: No Did you have a dental problem in the last 6 months where you did not have access to dental care?: No Was dental information given to patient?: Patient has dentist HPI 3M F/U HPI Details Pt is following up with pulmonology due to COPD. He is also following up with cardiology due to CAD, heart failure with preserved ejection fraction, chronic afib, and hx of CABG x4. He will be following up with rheumatology tomorrow due to gout. Anemia noted on last labs, though hgb trending up. denies any blood in stool. Will send iron tabs and will cont to monitor. Denies chest pain, shortness of breath, and dizziness. Pt reports that he has been sitting a lot more. Goal is to get pt up and moving more. Pt admitted since retiring, he has been sitting a lot more. [facility] Medical History Afib CAD (coronary artery disease) Morbid obesity HTN (hypertension) MAURICE (obstructive sleep apnea) (HFpEF) heart failure with preserved ejection fraction Chronic atrial fibrillation Surgical History Status post debridement (~05/24/21) H/O umbilical hernia repair S/P CABG (coronary artery bypass graft) Family History Father CHF (congestive heart failure) CVD (cardiovascular disease) Substance use disorder Gout Mother CHF (congestive heart failure) CVD (cardiovascular disease) Diabetes mellitus Brother No problems noted. Brother No problems noted. Sister No problems noted. Son No problems noted. 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 How often do you have a drink containing alcohol?: Never 3. How often do you have six or more drinks on one occasion?: Never Total Score: 0 Score Reviewed/Action Taken: No NINA-7 AMB Questionnaire NINA-7 Date NINA - 7 assessed: 01/01/22 Source: Developed by Drs. Jose Angel Centeno, Mariajose Silver, Trey Li and colleagues, with an educational srinivas from [employer]. Review of Systems Const Reports as per HPI Physical exam (Primary Care) Vital Signs: Last Vital Signs Pulse 92 10/20/23 09:51 BP 110/70 10/20/23 09:51 Pulse Ox 89 L 10/20/23 09:51 Oxygen Delivery Method Room Air 10/20/23 09:51 BMI result Body Mass Index 45.7 Tobacco/Smoking Status: Tobacco use Status Tobacco use date assessed 04/17/23 10/20/23 09:51 Patient Tobacco Use Status Former Tobacco user 10/20/23 09:51 e-Cigarette/Vaping Use Never Used 10/20/23 09:51 Thrive Assessment: Date of Thrive Assessment Date Thrive assessed 01/01/22 10/20/23 09:51 Const General: cooperative Nutritional Appearance: obese morbidly obese Orientation/consciousness: patient oriented x3 Resp Other: lungs slightly diminished with scattered wheezes Effort & Inspection: normal respiratory effort Cardio Rate: regular rate Rhythm: abnormal rhythm irregularly irregular Heart sounds: S1 normal heart sound present and S2 normal heart sound present Neuro General: patient oriented x3 Extrem Other: +1 edema to BLE, hemosiderin staining Psych Appearance: grossly normal Mental Status: mental status grossly normal Speech and movement: Normal speech and movement present Affect: normal affect Attitude: cooperative Thought process: Normal thought process present Thought content: Normal thought content present Insight: Good insight present (Psych) Judgement: Good judgement present (Psych) Assessment and Plan Assessment & Plan (1) Anemia: Code(s): D64.9 - Anemia, unspecified Plan: restart iron, cont to monitor labs Plan The patient agreed to the use of a medical policy specialist for this encounter. Scribed for MAAME Arreola by Colleen Fisher medical policy specialist, on 10/20/2023 at 10:15 EST. Orders: Orders Comprehensive Met. Panel Today D64.9 - Anemia, unspecified TSH reflex Free T4 Today D64.9 - Anemia, unspecified Vitamin B12 and Folate Today D64.9 - Anemia, unspecified Complete Blood Count Auto Diff Today D64.9 - Anemia, unspecified UA CC w/rflx Micro + Cult Today D64.9 - Anemia, unspecified IRON PROFILE Today D64.9 - Anemia, unspecified Ferritin Today D64.9 - Anemia, unspecified Medications: New ferrous sulfate 325 mg PO DAILY 90 tabs 0RF Coding Level of Care Code Est Pt Level 3 (74430) Diagnoses Anemia D64.9
[2023-10-20 09:51] VITALS: BP 110/70; PULSE 92; O2SAT 89; BMI 45.7
== END 2023-10-20 13:28 | disposition home or self-care (01) ==
PROVIDERS: PCP Nurse Practitioner Family; Visit Provider Nurse Practitioner Family
DX: D64.9 Anemia, unspecified (principal)
CPT/HCPCS: 99213

== ENCOUNTER 2023-12-01 13:42 | Outpatient (AMB) | payer MEDICARE, SELFPAY ==
[2023-12-01 13:43] VITALS: BP 120/74; PULSE 89; BMI 43.1
--- NOTE | 2023-12-01 13:43 | MHC.OFFVIS ---
Vital Signs 12/01/23 13:43 Height 6 ft Weight 317 lb 7.45 oz BMI 43.1 BP 120/74 Blood Pressure Location Lt brachial Position Sitting Pulse 89 Intake Visit Reasons: 1year follow-up with ekg Intake Note: 1 year follow-up with ekg c/o fatigue and energy Operations Intelligence Required: No Allergies No Known Allergies [No Known Allergies*] Allergy (Verified 10/20/23 11:13) Medication List - Last Reconciled 12/01/23 by Jose Parada MD acetaminophen 1,000 mg PO BID apixaban (Eliquis) 5 mg PO BID atorvastatin 80 mg PO DAILY bumetanide 2 mg PO BID cane cane with rubber dony cholecalciferol (vitamin D3) 50 mcg PO DAILY 90 days colchicine 0.6 mg PO BID ferrous sulfate 325 mg PO DAILY levalbuterol tartrate 45 mcg/actuation (Xopenex HFA) 2 puffs inhalation Q4-6H PRN lisinopril 5 mg PO DAILY metoprolol succinate ER 100 mg PO DAILY omega-3 acid ethyl esters 2 caps PO DAILY 90 days Symbicort 160-4.5 mcg/actuation (budesonide-formoterol) 1 puff inhalation BID NS tiotropium bromide 1.25 mcg/actuation (Spiriva Respimat) 2 puffs inhalation DAILY HPI Comments Details: Curtis comes for follow-up. He said he feels exhausted, as he has not sleeping at nighttime. He says wakes up feeling jolt in his chest. He said he was diagnose sleep apnea many years ago but could not wear a CPAP machine. He has not currently smoking but has significant wheezing. Does not see a pulmonary doctor. He says leg edema is improved with bumetanide therapy. His recent blood work shows stable creatinine. No bleeding issues or neurologic events. Denies any prolonged palpitation irregular heartbeat. No chest pain but says with exertional feels very fatigued and short of breath. [facility] Medical History Afib CAD (coronary artery disease) Morbid obesity HTN (hypertension) MAURICE (obstructive sleep apnea) (HFpEF) heart failure with preserved ejection fraction Chronic atrial fibrillation Surgical History Status post debridement (~05/24/21) H/O umbilical hernia repair S/P CABG (coronary artery bypass graft) Family History Father CHF (congestive heart failure) CVD (cardiovascular disease) Substance use disorder Gout Mother CHF (congestive heart failure) CVD (cardiovascular disease) Diabetes mellitus Brother No problems noted. Brother No problems noted. Sister No problems noted. Son No problems noted. 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[employer] Cognitive needs: No Hearing needs: No Vision needs: No Review of Systems Const Denies chills, Reports fatigue, Denies fever(s), Denies frequent falls, Denies weakness, Denies weight gain and Denies weight loss ENT Denies dizziness Card Denies chest pain, Denies leg edema, Denies lightheadedness, Denies palpitations, Denies dyspnea, Denies dyspnea on exertion, Denies orthopnea and Denies other (loss of consciousness) Resp Denies cough, Denies dyspnea and Denies dyspnea on exertion GI Denies hematochezia and Denies change in stool character Musc Denies abnormal gait, Denies muscle weakness, Denies numbness, Denies radiating pain into limb and Denies tingling Neuro Denies abnormal gait, Denies dizziness, Denies frequent falls, Denies numbness, Denies tingling and Denies weakness Endo Reports fatigue and Denies palpitations Physical Exam Vital Signs: Last Vital Signs Pulse 89 12/01/23 13:43 BP 120/74 12/01/23 13:43 BMI result Body Mass Index 43.1 Const General: cooperative, comfortable and no acute distress Orientation/consciousness: patient oriented x3 Neck Neck: Yes normal visual inspection and Yes no JVD Resp Effort & Inspection: normal respiratory effort Auscultation: clear to auscultation bilaterally, no crackles, no rales, no rhonchi, wheezes expiratory wheezes, left lower and right lower and diminished lung sounds Cardio Jugular venous distension: no JVD Rhythm: abnormal rhythm irregularly irregular Heart sounds: S1 normal heart sound present, S2 normal heart sound present, no click, no gallops and no murmurs GI Other: Gross abdominal obesity Neuro General: patient oriented x3 Extrem General: No clubbing, No cyanosis, No edema and Yes venous stasis dermatitis Psych Appearance: grossly normal Mental Status: mental status grossly normal Speech and movement: Normal speech and movement present Office Procedures EKG Details: EKG shows atrial fibrillation with right axis deviation incomplete right bundle-branch block with RV hypertrophy [id number], Complete Assessment & Plan Assessment & Plan (1) CAD (coronary artery disease): Code(s): I25.10 - Atherosclerotic heart disease of [place] coronary artery without angina pectoris Category: Medical Plan: CAD with remote coronary artery bypass grafting with no symptoms suggestive angina although myocardial ischemia is likely. Myocardial perfusion imaging within last few years was within normal limits. Will perform stress test the next couple years. Continue aggressive risk factor modification. LDL is currently well optimized on high-intensity statin therapy. Currently on full oral anticoagulation and therefore would continue with apixaban and would avoid aspirin therapy to reduce bleeding risk. Continue high-intensity statin therapy. Blood pressure is currently well optimized encouraged to continue to participate in aggressive weight loss program. (2) (HFpEF) heart failure with preserved ejection fraction: Code(s): I50.30 - Unspecified diastolic (congestive) heart failure Category: Medical Plan: Heart failure preserved ejection fraction with predominantly right-sided heart failure syndrome with RV enlargement related to untreated sleep apnea and morbid obesity. Underlying COPD could also contribute to his RV dysfunction. Encouraged to continue to participate in aggressive weight loss program. Continue current diuretic dose. Daily weight monitoring avoidance of salt loading was discussed. Will perform an echocardiogram in near future. Will refer him to Pulmonary for further optimization with pulmonary function and consider nocturnal oxygen therapy. (3) Chronic atrial fibrillation: Code(s): I48.20 - Chronic atrial fibrillation, unspecified Category: Medical Plan: Chronic atrial fibrillation, currently rate controlled. Continue rate control strategy. Has significant left atrial enlargement unlikely to pursue rhythm control approach currently on full oral anticoagulation Eliquis. Continue the same. Semi annual renal function test should be pursued. CHADSVASc score of at least 4 (4) Enlarged thoracic aorta: Code(s): I77.89 - Other specified disorders of arteries and arterioles Category: Medical Plan: Mildly enlarged thoracic aorta. Follow-up echocardiogram near future. Most likely atherosclerotic in nature. Continue aggressive risk factor modification with aggressive blood pressure control. Continue aggressive vascular risk factor modifications above. (5) Shortness of breath: Code(s): R06.02 - Shortness of breath Category: Medical Plan: Exertional shortness of breath which is multifactorial related to COPD, morbid obesity with restrictive pulmonary defect, chronic atrial fibrillation diastolic dysfunction as well as RV dysfunction. Continue optimization pulmonary function. Continue current rate control approach. Will follow up in the clinic in 1 year's time, sooner p.r.n.. Thank you for allowing me to partake in his care Orders: Orders CA echo transthoracic complete Today oJse Parada MD I77.89 - Other specified disorders of arteries and arterioles Referrals Pulmonology Referral Jose Parada MD J44.9 - Chronic obstructive pulmonary disease, unspecified, R06.02 - Shortness of breath Medications: Changed From bumetanide 1 mg PO BID 30 days 60 tabs 6RF To bumetanide 2 mg PO BID Chapito Cash MD Coding Level of Care Code Est Pt Level 4 (78335) Diagnoses CAD (coronary artery disease) I25.10 (HFpEF) heart failure with preserved ejection fraction I50.30 Chronic atrial fibrillation I48.20 Enlarged thoracic aorta I77.89 Shortness of breath R06.02 CPT Codes EKG - CPT: 76929-[id number], Complete ([id number])
== END 2023-12-01 14:06 | disposition home or self-care (01) ==
PROVIDERS: PCP Nurse Practitioner Family; Visit Provider Internal Medicine Cardiovascular Disease
DX: I25.10 Atherosclerotic heart disease of native coronary artery without angina pectoris (principal); I50.30 Unspecified diastolic (congestive) heart failure; I48.20 Chronic atrial fibrillation, unspecified; I77.89 Other specified disorders of arteries and arterioles; R06.02 Shortness of breath
CPT/HCPCS: 93010; 99214

== ENCOUNTER → 2023-12-01 13:42 | Outpatient (BNVA) | payer MEDICARE, SELFPAY | PROVIDERS: PCP Nurse Practitioner Family; Visit Provider Internal Medicine Cardiovascular Disease | DX: I25.10 Atherosclerotic heart disease of native coronary artery without angina pectoris (principal); I50.30 Unspecified diastolic (congestive) heart failure; I48.20 Chronic atrial fibrillation, unspecified; I77.89 Other specified disorders of arteries and arterioles; R06.02 Shortness of breath | CPT/HCPCS: 93005; 99212 ==

== ENCOUNTER → 2023-12-10 12:42 | Outpatient (REF) | payer MEDICARE, SELFPAY ==
--- NOTE | 2023-12-10 12:47 | CA_ITS ---
Transthoracic Echocardiogram Patient (Last, First, Middle): Curtis Mccormack, Gender: Male Date of : 1955 Age: 68 Procedure Date: 12/10/2023 Procedure Type: Transthoracic Echocardiogram Location: OP Height: 182.88 cm Weight: 143.79 kg BSA: 2.59 m2 Heart Rate: 73 bpm BP: 120 / 74 mmHg Transport Aide: MEHDI Referring MD: Jose Parada MD Supervisor Stage Carpentry: Jose Parada MD Symptoms: I77.89 - Other specified disorders of arteries and arterioles Study Quality: Fair w contrast ECG Rhythm: Atrial Fibrillation Conclusions: - 1. Technically limited study despite use of contrast agent 2. Hyperdynamic LV systolic function with LVEF of greater than 70% with moderate left ventricular hypertrophy 3. At least moderately dilated left and right atrium 4. Cardiac valvular doc was within normal limits 5. Mildly dilated ascending aorta Findings Procedure Information Contrast agent, definity, is being given per protocol without apparent complications. Left Ventricle Normal left ventricular cavity size. There is moderately increased left ventricular wall thickness. The left ventricular systolic function is hyperdynamic. The visually estimated ejection fraction is >70%. Diastolic function is indeterminate on the basis of available data. Right Ventricle Moderately increased right ventricular cavity size. Atria The left atrium is moderately dilated. Interatrial shunt cannot be excluded. The right atrium is moderately dilated. Aortic Valve The aortic valve was not well visualized. There is mild calcification of the aortic valve. There is no aortic valve stenosis. There is no aortic valve regurgitation. Mitral Valve The mitral valve was not well visualized. There is trace mitral valve regurgitation. There is no mitral valve stenosis. Pulmonic Valve The pulmonic valve was not well visualized. Tricuspid Valve The tricuspid valve was not well visualized. The right ventricular systolic pressure is not calculated. Great Vessels The pulmonary artery was not well visualized. There is mild dilatation of the ascending aorta measuring 4.00 cm. Venous The inferior vena cava was not well visualized. Pericardium/Pleural The pericardium was not well visualized. Prior Study Comparison No significant change compared to prior study dated: 12/10/2022. Measurements 2D Linear Measurements IVSd: 1.43 0.6-0.9/0.6-1.0 cm LVIDd: 5.34 3.9-5.3/4.2-5.9 cm LVIDd Index: 2.06 2.4-3.2/2.2-3.1 cm/m2 LVIDs: 3.34 2.0-3.6 cm LA Diam: 5.20 2.7-3.8/3.0-4.0 cm LAIDs Index: 2.01 1.5-2.3 cm/m2 LVOT Diam: 2.40 3.0+(-)1.3 cm 2D Systolic Function EF 4C: 66.70 >55% EF 2C: 88.50 >55% EF BiP: 81.40 >55% Mitral Valve MV Pk E: 1.07 E'Lateral: 11.30 E/E' Lat: 9.50 Aortic Valve AoV Pk Sanjeev: 1.24 AoV Pk Grad: 6.00 DIGNA: 2.73 LVOT LVOT Pk Sanjeev: 0.75 LVOT Mn Sanjeev: 0.51 LVOT VTI: 0.14 LVOT Pk Grad: 2.00 LVOT Mn Grad: 1.00 LVOT Diam: 2.40 LVOT Area: 4.52 Diastolic Function MV Pk E: 1.07 E' Laterial: 11.30 E/E' Lat: 9.50 Right Ventricle TAPSE (mm): 10.60 TVS' Sanjeev: 6.74 Tricuspid Valve RA Press: 3.00 Great Vessels Aorta Sinus of Valsalva: 3.60 2.0-3.5 cm Ao Asc: 4.00 2.1-3.4 cm Pulmonary Valve PV Pk Sanjeev: 0.76 Peak PV Grad: 2.00 Updated in Other Vendor System with Status of Final Jose Parada MD electronically signed on 12/10/2023 3:43:24 PM with status of Final
== END ==
LOC: HO.CARD 12:42
PROVIDERS: PCP Nurse Practitioner Family; Visit Provider Internal Medicine Cardiovascular Disease
DX: I77.89 Other specified disorders of arteries and arterioles (principal)
CPT/HCPCS: 93306; Q9957

== ENCOUNTER → 2023-12-10 12:47 | Outpatient (BNV) | payer MEDICARE, SELFPAY | PROVIDERS: PCP Nurse Practitioner Family; Visit Provider Internal Medicine Cardiovascular Disease | DX: I35.8 Other nonrheumatic aortic valve disorders (principal) | CPT/HCPCS: 93306 ==

== ENCOUNTER 2024-01-21 12:52 | Outpatient (AMB) | payer MEDICARE, SELFPAY ==
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
[2024-01-21 13:33] VITALS: BMI 43.0
== END 2024-01-21 14:05 | disposition home or self-care (01) ==
PROVIDERS: PCP Nurse Practitioner Family; Visit Provider Nurse Practitioner Family
DX: L03.90 Cellulitis, unspecified (principal)
CPT/HCPCS: 99213

== ENCOUNTER 2024-01-28 09:29 | Inpatient (IN) | payer MEDICARE, SELFPAY ==
--- NOTE | ~2024-01-28 | XR_ITS ---
EXAMINATION: XR TIBIA AND FIBULA, LEFT CLINICAL INFORMATION: Infection. Concern for osteomyelitis. COMPARISON: None available. TECHNIQUE: AP and lateral views of the left tibia and fibula were obtained. FINDINGS: Bones have normal alignment at the knee and ankle. Tibia and fibula are intact. No erosions or periostitis. Diffuse edema of soft tissues of the leg and ankle without soft tissue gas. There are scattered peripheral vascular calcifications. Calcaneal enthesophyte noted at site of Achilles tendon attachment. Multiple scattered subarticular cystic lucencies in the midfoot, presumably related to gout (based on review of prior radiographic examinations of the hands, and history given on prior exams). XR/XR tibia fibula LT 2V IMPRESSION: * No evidence of osteomyelitis in the left tibia or fibula. * Diffuse nonspecific edema of subcutaneous tissues. * Multiple cystic lucencies within the partially visualized foot are likely secondary to gout.
[2024-01-28 09:41] VITALS: BP 143/77; PULSE 86; RESP 16; TEMP 36.2; O2SAT 93; BMI 44.1
--- NOTE | 2024-01-28 11:22 | ED_ITS ---
HPI - General Adult General Chief complaint: Wound/Laceration Stated complaint: infection L leg Time Seen by Provider: 01/28/24 11:22 Source: patient Mode of arrival: ambulatory Limitations: no limitations History of Present Illness ED Provider: Kaylee Angel PA-C HPI narrative: Patient is a 68 year old assigned male at with a history of CAD, atrial fib on eliquis, tobacco use, COPD, HTN, HFpEF, CABG, and anemia presenting to the emergency department today with a worsening left lower leg infection. Patient states that he has been on Keflex for 5 days for a left lower leg infection but it is not getting better and is instead getting worse. Patient denies any dizziness, lightheadedness, abdominal pain, nausea, vomiting, fever, chills, blurry vision, double vision, loss of vision, chest pain, difficulty breathing, shortness of breath, back pain, night sweats, pain with urination, increased urinary frequency, increased urinary urgency, blood in his urine or stool, syncope or a near syncopal episode, recent trauma or falls, bowel incontinence, bladder incontinence, or any other complaints at this time. Onset (ago): week(s) (1) Location: left and lower extremity Radiation: non-radiation Severity: moderate Severity scale (1-10): 5 Relieving factors: none Exacerbating factors: none Associated symptoms: denies other symptoms Treatments prior to arrival: other (keflex) Related Data Home Medications ?Medication ?Instructions ?Recorded ?Confirmed acetaminophen 500 mg tablet 1,000 mg PO BID 05/24/21 12/01/23 bumetanide 1 mg tablet 2 mg PO BID 12/01/23 12/01/23 lisinopril 5 mg tablet 5 mg PO DAILY 12/01/23 12/01/23 Previous Rx's ?Medication ?Instructions ?Recorded cane #1 ea 06/21/21 levalbuterol tartrate 45 2 puff inhalation Q4-6H PRN 04/17/23 mcg/actuation aerosol inhaler shortness of breath #15 grams (Xopenex HFA) tiotropium bromide 1.25 2 puff inhalation DAILY #4 grams 04/17/23 mcg/actuation mist for inhalation (Spiriva Respimat) ferrous sulfate 325 mg (65 mg 325 mg PO DAILY #90 tabs 10/20/23 iron) tablet,delayed release apixaban 5 mg tablet (Eliquis) 5 mg PO BID #180 tabs 12/03/23 Symbicort 160 mcg-4.5 1 puff inhalation BID #10.2 grams 12/12/23 mcg/actuation HFA aerosol inhaler (budesonide-formoterol) atorvastatin 80 mg tablet 80 mg PO DAILY #90 tabs 12/17/23 cholecalciferol (vitamin D3) 50 50 mcg PO DAILY 90 days #90 tabs 12/17/23 mcg (2,000 unit) tablet colchicine 0.6 mg tablet 0.6 mg PO BID gout #180 tabs 12/17/23 metoprolol succinate 100 mg 100 mg PO DAILY #90 tabs 12/17/23 tablet,extended release 24 hr omega-3 acid ethyl esters 1 gram 2 cap PO DAILY 90 days #360 caps 12/17/23 capsule cephalexin 500 mg capsule 500 mg PO BID 7 days #14 caps 01/21/24 Allergies Allergy/AdvReac Type Severity Reaction Status Date / Time No Known Allergies Allergy Verified 01/28/24 09:43 [No Known Allergies*] Review of Systems 2 Constitutional: Constitutional: Reports no additional constitutional complaints, Denies chills, Denies fever(s) and Denies night sweats Eyes: Eyes: Reports no additional eye complaints, Denies blurry vision, Denies change in vision, Denies diplopia, Denies eye discharge, Denies loss of vision and Denies eye pain ENT: Denies dizziness Cardiovascular: Cardiovascular: Reports no additional cardiovascular complaints, Denies chest pain, Denies lightheadedness, Denies Loss of Consciousness and Denies dyspnea Respiratory: Respiratory: Reports no additional respiratory complaints and Denies dyspnea Gastrointestinal: Gastrointestinal: Reports no additional gastrointestinal complaints, Denies abdominal pain, Denies melena, Denies hematochezia, Denies change in bowel habits and Denies change in stool character Genitourinary: Genitourinary: Reports no additional male genitourinary complaints, Denies hematuria, Denies oliguria, Denies difficulty urinating, Denies dysuria, Denies urinary frequency, Denies urinary hesitancy, Denies urinary incontinence and Denies urinary urgency Musculoskeletal: Musculoskeletal: Reports no additional musculoskeletal complaints, Denies numbness and Denies tingling Integumentary/Breasts: Comments: left lower leg wounds - oozing Neurologic: Denies dizziness, Denies loss of vision, Denies numbness and Denies tingling Psychiatric: Psychiatric: Reports no additional psychiatric complaints Endocrine: Endocrine: Reports no additional endocrine complaints Hematologic/Lymphatic: Hematologic/Lymphatic: Reports no additional hematologic/lymphatic complaints Allergic/Immunologic: Allergic/Immunologic: Reports no additional allergic/immunologic complaints [facility] Past Medical History Attestation statement: The following information was validated with the patient. Source: old records reviewed and nursing notes reviewed Medical History Afib CAD (coronary artery disease) Morbid obesity HTN (hypertension) MAURICE (obstructive sleep apnea) (HFpEF) heart failure with preserved ejection fraction Chronic atrial fibrillation Surgical History Status post debridement (~05/24/21) H/O umbilical hernia repair S/P CABG (coronary artery bypass graft) Family History Family History Father CHF (congestive heart failure) CVD (cardiovascular disease) Substance use disorder Gout Mother CHF (congestive heart failure) CVD (cardiovascular disease) Diabetes mellitus Brother No problems noted. Brother No problems noted. Sister No problems noted. Son No problems noted. 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 [employer] Cognitive needs: No Hearing needs: No Vision needs: No Physical Exam ED Vital Signs: Vital Signs - 24 hr 01/28/24 09:41 Temperature 97.1 F Pulse Rate 86 Respiratory Rate 16 Blood Pressure 143/77 H Pulse Oximetry 93 Oxygen Delivery Method Room Air BMI result Body Mass Index 44.1 Const General: cooperative, no acute distress, alert and awake Nutritional Appearance: well nourished Orientation/consciousness: patient oriented x3 Limitations: no limitations HENMT Head: Yes normal to inspection and Yes atraumatic Ears: hearing grossly normal bilaterally and external ears normal General nose exam: Normal external nose present, no nasal discharge noted and no epistaxis Face and sinus: Yes normal facial exam, No abrasion and No laceration Mouth: Normal oral and palatal mucosa present, no drooling and no muffled voice Eyes General: appearance normal, both eyes and all related structures Periorbital: periorbital findings normal Eyelids: Yes eyelids normal Conjunctivae: conjunctivae normal Pupils: Equal, round and reactive pupils present EOM: EOMs intact bilaterally Neck Neck: Yes normal visual inspection, Yes full ROM and Yes no lymphadenopathy Chest Chest palpation & inspection: normal inspection of the chest Resp Effort & Inspection: normal respiratory effort and able to speak in complete sentences GI Inspection: Yes normal to inspection Neuro General: patient oriented x3 and moves all extremities Cranial nerves: Yes Equal, round and reactive pupils present Cognition (Neuro): normal cognition Extrem Other: bilateral venous stasis dermatitis multiple wounds on the left lower leg with pus like oozing and rancid smell General: Yes full ROM and Yes capillary refill normal Psych Appearance: grossly normal Mental Status: mental status grossly normal Affect: normal affect Attitude: cooperative Thought process: Normal thought process present Thought content: Normal thought content present Insight: Good insight present (Psych) Medications Administered Discontinued Medications Generic Name Dose Route Start Last Admin Trade Name Freq PRN Reason Stop Dose Admin Piperacillin Sod/Tazobactam 50 mls @ 100 mls/hr 01/28/24 11:52 01/28/24 12:56 Sod 3.375 gm/ Sodium Chloride IV 01/28/24 12:21 Infused ONCE ONE Infusion Vancomycin HCl 2,000 mg in 500 mls @ 250 mls/hr 01/28/24 12:00 01/28/24 12:56 Vancomycin/Ns IV 01/28/24 13:59 250 mls/hr ONCE ONE Administration Medical Decision Making Medical Decision Making [facility] Narrative: Patient is a 68 year old assigned male at with a history of CAD, atrial fib on eliquis, tobacco use, COPD, HTN, HFpEF, CABG, and anemia presenting to the emergency department today with left lower leg cellulitis. Patient's physical exam was as noted in the physical exam portion of this note. Patient's blood work was unremarkable. Patient's left lower leg x-ray showed diffuse nonspecific edema. Patient was given IV Zosyn and Vancomycin. Patient's clinical presentation is not consistent with sepsis (@1438). I spoke to the hospitalist team who agreed to admission. I explained my physical exam findings as well as all test results to the patient. I answered all questions asked by the patient. Patient verbalized agreement and understanding with this treatment plan and admission. Differential Diagnosis Differential Diagnoses: The differential diagnosis associated with the presentation includes Left lower leg cellulitis Admission/Observation Consideration of admission/observation: Escalation of care including admission/observation considered Patient admitted Consult Healthcare Provider Management of the patient was discussed with: Hospitalist (agreed to admission as noted in the MDM Rationale portion of this note.) Lab Data [facility] Lab Attestation statement: I reviewed the patient's lab results. My interpretation of these results are in the MDM Rationale portion of this note. 01/28/24 12:19 01/28/24 12:19 Labs: Lab Results 01/28/24 01/28/24 01/28/24 Range/Units 12:19 12:32 12:40 WBC 5.7 (4.8-10.8) X10*3/uL RBC 5.77 (4.60-5.80) X10*6/uL Hgb 15.5 D (14.0-18.0) g/dl Hct 48.4 (42.0-52.0) % MCV 83.9 (80.0-98.0) fL MCH 26.9 L (27.0-33.0) pg MCHC 32.0 (31.0-36.0) g/dl RDW 18.7 H (11.0-16.0) % Plt Count 217 (160-400) X10*3/uL MPV 8.8 L (9.4-12.4) fL Immature Gran % (Auto) 0.7 H (0.0-0.4) % Neut % (Auto) 70.2 (45-73) % Lymph % (Auto) 19.4 L (20-40) % [place] % (Auto) 6.6 (2-11) % Eos % (Auto) 2.1 (0-4) % Baso % (Auto) 1.0 (0-2) % Lymph # (Auto) 1.1 L (1.2-4.9) X10*3/uL [place] # (Auto) 0.4 (0.1-1.2) X10*3/uL Eos # (Auto) 0.1 (0.0-0.4) X10*3/uL Baso # (Auto) 0.1 (0.0-0.2) X10*3/uL Abs Immat Gran (auto) 0.04 H (0.00-0.03) X10*3/uL Absolute Neuts (auto) 4.0 (2.0-8.3) x10*3/uL Absolute Nucleated RBC 0.000 (0.0-0.012) X10*3/uL Nucleated RBC % (auto) 0.0 (0.0-0.2) /100WBC ESR 9 (0-15) MM/HR Sodium 141 (135-145) mmol/L Potassium 4.1 (3.3-5.1) mmol/L Chloride 100 (96-108) mmol/L Carbon Dioxide 32 H (22-29) mmol/L Anion Gap 13 (12-20) BUN 21 H (9-16) mg/dL Creatinine 1.22 (0.5-1.4) mg/dL Estim Creat Clear Calc 88.9 Estimated GFR 59 Random Glucose 81 (60-115) mg/dL Estimat Average Glucose 111 mg/dL Hemoglobin A1c % 5.5 (<6.0) % Lactic Acid 1.4 (0.5-2.0) mmol/L Calcium 9.7 (8.4-10.2) mg/dL Total Bilirubin 0.8 (0.0-1.0) mg/dL AST 14 (5-37) U/L ALT 13 (0-40) U/L Alkaline Phosphatase 43 (39-117) U/L C-Reactive Protein 0.39 (< or = 0.50) mg/dL Total Protein 7.3 (6.5-8.0) g/dL Albumin 4.1 (3.5-5.0) g/dL Independent Interpretation I performed an independent interpretation of an: Plain X-Ray Interpretation: My interpretation is in agreement with the radiologist's impression of this imaging study. - EXAMINATION: XR TIBIA AND FIBULA, LEFT CLINICAL INFORMATION: Infection. Concern for osteomyelitis. COMPARISON: None available. TECHNIQUE: AP and lateral views of the left tibia and fibula were obtained. FINDINGS: Bones have normal alignment at the knee and ankle. Tibia and fibula are intact. No erosions or periostitis. Diffuse edema of soft tissues of the leg and ankle without soft tissue gas. There are scattered peripheral vascular calcifications. Calcaneal enthesophyte noted at site of Achilles tendon attachment. Multiple scattered subarticular cystic lucencies in the midfoot, presumably related to gout (based on review of prior radiographic examinations of the hands, and history given on prior exams). XR/XR tibia fibula LT 2V IMPRESSION: * No evidence of osteomyelitis in the left tibia or fibula. * Diffuse nonspecific edema of subcutaneous tissues. * Multiple cystic lucencies within the partially visualized foot are likely secondary to gout. Dictated By: Solomon Aparicio MD Signed By: Electronically signed by Solomon Aparicio MD 01/28/24 8392 Radiology Impression Discussion of test interpretation with radiology: I have reviewed the radiologist's reading. Critical Care Time Critical Care Time Critical Care Time: Yes Total Critical Care Time: 34 Attestation: I spent 34 minutes of Critical Care Time with this patient. This does not include time spent on separately reported billable procedures. Discharge Plan Discharge Clinical Impression: Cellulitis Patient Disposition: Admitted As Inpatient
[2024-01-28 12:29] LABS: MANUAL DIFF FLAG NO
[2024-01-28 12:31] LABS: Basophils Absolute Auto 0.1 X10*3/uL (0.0-0.2); Eosinophils Absolute Auto 0.1 X10*3/uL (0.0-0.4); Eosinophils Percent Auto 2.1 % (0-4); Hematocrit 48.4 % (42.0-52.0); Hemoglobin 15.5 g/dl (14.0-18.0); Imm Gran Abs Auto 0.04 X10*3/uL (0.00-0.03); Imm Gran Pct Auto 0.7 % (0.0-0.4); Lymphocytes Absolute Auto 1.1 X10*3/uL (1.2-4.9); Lymphocytes Percent Auto 19.4 % (20-40); Mean Corpuscular Hemoglobin 26.9 pg (27.0-33.0); Mean Corpuscular Volume 83.9 fL (80.0-98.0); Mean Platelet Volume 8.8 fL (9.4-12.4); Monocytes Absolute Auto 0.4 X10*3/uL (0.1-1.2); Monocytes Percent Auto 6.6 % (2-11); Neutrophils Percent Auto 70.2 % (45-73); Platelet Count 217 X10*3/uL (160-400); Red Blood Count 5.77 X10*6/uL (4.60-5.80); Red Cell Distribution Width 18.7 % (11.0-16.0); White Blood Count 5.7 X10*3/uL (4.8-10.8)
[2024-01-28 12:45] LABS: Alanine Aminotransferase 13 U/L (0-40); Albumin Level 4.1 g/dL (3.5-5.0); Alkaline Phosphatase 43 U/L (39-117); Anion Gap 13 (12-20); Aspartate Amino Transferase 14 U/L (5-37); Bilirubin Total 0.8 mg/dL (0.0-1.0); Blood Urea Nitrogen 21 mg/dL (9-16); C Reactive Protein 0.39 mg/dL (< or = 0.50); Calcium 9.7 mg/dL (8.4-10.2); Carbon Dioxide 32 mmol/L (22-29); Chloride 100 mmol/L (96-108); Creatinine Clr Calc Pharmacy 88.9; Estimated Glomerular Filt Rate 59; Glucose Random 81 mg/dL (60-115); Potassium 4.1 mmol/L (3.3-5.1); Sodium 141 mmol/L (135-145); Total Protein 7.3 g/dL (6.5-8.0)
[2024-01-28] MEDS: Piperacillin Sodium/Tazobactam 3.375 GM in 0.9 % Sodium Chloride 50 ML IV (12:50)
[2024-01-28] MEDS: vancomycin/NS 2,000 MG/500 ML PLAST..BAG 250 MG IV (12:56)
[2024-01-28 13:04] LABS: Lactic Acid 1.4 mmol/L (0.5-2.0)
[2024-01-28 13:22] LABS: Erythrocyte Sedimentation Rate 9 MM/HR (0-15)
[2024-01-28 13:45] LABS: Estimated Average Glucose 111 mg/dL; Hemoglobin A1c % 5.5 % (<6.0)
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
[2024-01-28 15:18] VITALS: BP 143/92; PULSE 75; RESP 20; TEMP 36.6; O2SAT 88
[2024-01-28 15:20] VITALS: O2SAT 93
--- NOTE | 2024-01-28 15:58 | PHA.PROG ---
Admission Date/Time: January 28, 2024 14:42 Indication: SSTI Weight in k.418 kg Adjusted body weight in Kg: [place] body weight in K.6 KG Obesity Dosing Indication % IBW: Serum Creatinine - Last 168 Hours 01/28/24 12:19 Creatinine 1.22 Estimated CrCl and GFR - Last 168 Hours 01/28/24 12:19 Estim Creat Clear Calc 88.9 Estimated GFR 59 Vancomycin Loading Dose: 2000 MG Current Vancomycin Dosing Regimen: 1000 MG Q12H Vancomycin Monitoring using AUC goal of 400 - 600 range with trough as surrogate marker: PREDICTED AUC 504 Date and Time for next Vancomycin Level to be drawn: BEFORE 3RD DOSE 01/28/24 @1100 Pharmacist Comments on Vancomycin Plan: OBESE Vancomycin dosing will take advantage of [employer] as a clinical decision support tool that uses Bayesian modeling to calculate individual patient's pharmacokinetic parameters and forecast the patient's drug concentration time course with the target goal AUC 24 range of 400 - 600 mg/L/hr.
--- NOTE | 2024-01-28 16:11 | PHA.MEDREC ---
Pharmacy Consult ? Medication Reconciliation Pharmacy has completed the medication reconciliation. Spoke to patient to confirm med list. Patient states he isn't taking Ferrous sulfate 325 mg daily, Levalvuterol tart 45 mcg 2 puffs Q 4-6H prn, Symbicort 160 mcg/ 4.5 mcg 2 puffs Q4-6H prn, Tiotropium bromide 1.25 mcg 2 puff daily. Patient says he takes Lasix 40 mg only when he has severe swelling. He will take with Bumetanide 1 mg. patient stated he had to take lasix 3 days ago 01-25-24
[2024-01-28] MEDS: 0.9 % Sodium Chloride Flush 3 ML SYRINGE IVFLUSH (17:15)
[2024-01-28 18:30] VITALS: BP 125/60; PULSE 64; RESP 16; TEMP 36.9; O2SAT 98
[2024-01-28 20:00] VITALS: BP 158/75; PULSE 92; RESP 18; TEMP 36.2; O2SAT 92
[2024-01-28] MEDS: Colchicine 0.6 MG TABLET PO (20:38)
[2024-01-28] MEDS: Apixaban 5 MG TABLET PO (20:38)
[2024-01-28] MEDS: Acetaminophen 325 MG TABLET 975 MG PO (20:39)
[2024-01-28] MEDS: Melatonin 3 MG TABLET 6 MG PO (22:19)
--- NOTE | 2024-01-28 22:23 | HO.SKINPHOTO ---
Location: L outer knee Category: Stage: Length: Width: Depth: cm Location: LLE Category: Stage: Length: Width: Depth: cm
[2024-01-28 23:31] VITALS: BP 122/74; PULSE 85; RESP 19; TEMP 36.2; O2SAT 92
[2024-01-29] MEDS: vancomycin HCL 1,000 MG in 0.9 % Sodium Chloride 250 ML 270 MG IV ×2 (00:32→12:39)
[2024-01-29 00:39] VITALS: BMI 43.4
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
[2024-01-29 06:41] LABS: MANUAL DIFF FLAG NO
[2024-01-29 06:52] VITALS: BP 152/74; PULSE 85; RESP 16; TEMP 36.6; O2SAT 91; O2SAT 92
[2024-01-29 07:13] LABS: Blood Urea Nitrogen 19 mg/dL (9-16); Calcium 9.9 mg/dL (8.4-10.2); Creatinine Clr Calc Pharmacy 98.5; Estimated Glomerular Filt Rate > 60; Glucose Random 89 mg/dL (60-115)
[2024-01-29 07:19] LABS: Basophils Percent Auto 0.8 % (0-2); Eosinophils Absolute Auto 0.2 X10*3/uL (0.0-0.4); Hematocrit 48.1 % (42.0-52.0); Hemoglobin 15.2 g/dl (14.0-18.0); Imm Gran Abs Auto 0.04 X10*3/uL (0.00-0.03); Imm Gran Pct Auto 0.8 % (0.0-0.4); Lymphocytes Absolute Auto 1.1 X10*3/uL (1.2-4.9); Mean Corpuscular HGB Conc 31.6 g/dl (31.0-36.0); Mean Corpuscular Volume 85.3 fL (80.0-98.0); Mean Platelet Volume 9.4 fL (9.4-12.4); Monocytes Absolute Auto 0.4 X10*3/uL (0.1-1.2); Monocytes Percent Auto 6.9 % (2-11); Neutrophils Absolute Auto 3.4 x10*3/uL (2.0-8.3); Neutrophils Percent Auto 66.5 % (45-73); Platelet Count 219 X10*3/uL (160-400); Red Blood Count 5.64 X10*6/uL (4.60-5.80); Red Cell Distribution Width 18.9 % (11.0-16.0)
[2024-01-29 07:47] LABS: Anion Gap 13 (12-20); Carbon Dioxide 31 mmol/L (22-29); Chloride 102 mmol/L (96-108); Sodium 142 mmol/L (135-145)
[2024-01-29] MEDS: 0.9 % Sodium Chloride Flush 3 ML SYRINGE IVFLUSH ×3 (08:08→21:12)
[2024-01-29] MEDS: Acetaminophen 325 MG TABLET 975 MG PO ×2 (08:09→19:59)
[2024-01-29 08:10] VITALS: BP 152/74; PULSE 85
[2024-01-29] MEDS: Bumetanide 1 MG TABLET 2 MG PO ×2 (08:10→17:30)
[2024-01-29] MEDS: Atorvastatin Calcium 80 MG TABLET PO (08:10)
[2024-01-29] MEDS: Metoprolol Succinate ER 100 MG TAB.ER.24H PO (08:10)
[2024-01-29] MEDS: Cholecalciferol (Vitamin D3) 25 MCG TABLET 50 MCG PO (08:10)
[2024-01-29] MEDS: Apixaban 5 MG TABLET PO ×2 (08:10→19:59)
[2024-01-29 08:11] VITALS: BP 152/74
[2024-01-29] MEDS: lisinopriL 10 MG TABLET PO (08:11)
[2024-01-29] MEDS: Colchicine 0.6 MG TABLET PO ×2 (08:12→19:59)
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
--- NOTE | 2024-01-29 09:35 | P.PNIM_ITS ---
Subjective Subjective Date of Service: 01/29/24 Interval History: No acute nursing events overnight. Noted improvement in lung infection. Constitutional Constitutional: Reports no additional constitutional complaints Cardiovascular Cardiovascular: Reports no additional cardiovascular complaints Respiratory Respiratory: Reports no additional respiratory complaints Gastrointestinal Gastrointestinal: Reports no additional gastrointestinal complaints Genitourinary Genitourinary: Reports no additional male genitourinary complaints Physical Exam 2 Vital Signs: Vital Signs: Last Vital Signs Temp 98 F 01/29/24 06:52 Pulse 85 01/29/24 08:10 Resp 16 01/29/24 06:52 BP 152/74 H 01/29/24 08:11 Pulse Ox 92 01/29/24 06:52 O2 Del Method Room Air 01/29/24 06:52 O2 Flow Rate 2 01/28/24 23:31 BMI result Body Mass Index 43.4 Middle-aged male lying in bed in no distress Neck supple, no JVD Regular rate and rhythm, S1-S2 heard Regular breath sounds bilaterally, no wheezing or crackles appreciated Abdomen soft nontender, no guarding, no rigidity Patient is awake, alert and oriented to self, place, time and person ; no focal motor deficit Psych: Normal mood Bilateral venous stasis with stasis dermatitis ; left lower extremity with erythema, warmth Objective Data Active Medications Acetaminophen (Acetaminophen 325 Mg Tablet) 650 mg PO Q6H PRN PRN Reason: Pain, Mild (Pain Scale 1-3), fever or headache Acetaminophen (Acetaminophen 325 Mg Tablet) 975 mg PO BID [facility] Last Admin: 01/29/24 08:09 Dose: 975 mg Documented By: MONSERRAT Apixaban (Apixaban 5 Mg Tablet) 5 mg PO BID [facility] Last Admin: 01/29/24 08:10 Dose: 5 mg Documented By: MONSERRAT Atorvastatin Calcium (Atorvastatin Calcium 80 Mg Tablet) 80 mg PO DAILY [facility] Last Admin: 01/29/24 08:10 Dose: 80 mg Documented By: MONSERRAT Bumetanide (B[facility] 1 Mg Tablet) [facility] Protocol Last Admin: 01/29/24 08:10 Dose: 2 mg Documented By: MONSERRAT Calcium Carbonate (Calcium Carbonate 750 Mg Tab.Chew) 750 mg PO Q4H PRN PRN Reason: Heartburn Colchicine (Colchicine 0.6 Mg Tablet) 0.6 mg PO BID [facility] Last Admin: 01/29/24 08:12 Dose: 0.6 mg Documented By: MONSERRAT Vancomycin HCl 1,000 mg/ (Sodium Chloride) 270 mls @ 270 mls/hr IV Q12H [facility] Last Infusion: 01/29/24 01:32 Dose: Infused Documented By: CARLA Lisinopril (Lisinopril 10 Mg Tablet) 10 mg PO DAILY [facility]; Protocol Last Admin: 01/29/24 08:11 Dose: 10 mg Documented By: MONSERRAT Magnesium Hydroxide (Milk Of Magnesia 30 Ml Oral.Susp) 30 ml PO DAILY PRN PRN Reason: Constipation Melatonin (Melatonin 3 Mg Tablet) 6 mg PO BEDTIME PRN PRN Reason: Insomnia Last Admin: 01/28/24 22:19 Dose: 6 mg Documented By: HEMANTH Metoprolol Succinate (Metoprolol Succinate Er 100 Mg Tab.Er.24h) 100 mg PO DAILY [facility]; Protocol Last Admin: 01/29/24 08:10 Dose: 100 mg Documented By: MONSERRAT Non-Formulary Medication ([place]-3 Acid Ethyl Esters) 1 cap PO BID [facility] Ondansetron HCl (Ondansetron Hcl 4 Mg/2 Ml Vial) 4 mg IVPUSH Q8H PRN PRN Reason: Nausea and Vomiting Pharmacy Consult (Consult Rx Vancomycin Dosing) 1 each MISCELLANE DAILY PRN PRN Reason: Consult order Sodium Chloride (0.9 % Sodium Chloride Flush 3 Ml Syringe) 3 ml IVFLUSH QSHIFT [facility] Last Admin: 01/29/24 08:08 Dose: 3 ml Documented By: MONSERRAT Vitamin D (Cholecalciferol (Vitamin D3) 25 Mcg Tablet) 50 mcg PO DAILY [facility] Last Admin: 01/29/24 08:10 Dose: 50 mcg Documented By: MONSERRAT Labs 01/29/24 06:01 01/29/24 06:01 Labs: Laboratory Results - last 24 hr 01/28/24 01/28/24 01/28/24 12:19 12:32 12:40 MCV 83.9 MCH 26.9 L MCHC 32.0 RDW 18.7 H Plt Count 217 MPV 8.8 L Immature Gran % (Auto) 0.7 H Neut % (Auto) 70.2 Lymph % (Auto) 19.4 L [place] % (Auto) 6.6 Eos % (Auto) 2.1 Baso % (Auto) 1.0 Lymph # (Auto) 1.1 L [place] # (Auto) 0.4 Eos # (Auto) 0.1 Baso # (Auto) 0.1 Abs Immat Gran (auto) 0.04 H Absolute Neuts (auto) 4.0 Absolute Nucleated RBC 0.000 Nucleated RBC % (auto) 0.0 ESR 9 Anion Gap 13 Estim Creat Clear Calc 88.9 Estimated GFR 59 Random Glucose 81 Estimat Average Glucose 111 Hemoglobin A1c % 5.5 Lactic Acid 1.4 Calcium 9.7 Total Bilirubin 0.8 AST 14 ALT 13 Alkaline Phosphatase 43 C-Reactive Protein 0.39 Total Protein 7.3 Albumin 4.1 01/29/24 06:01 MCV 85.3 MCH 27.0 MCHC 31.6 RDW 18.9 H Plt Count 219 MPV 9.4 Immature Gran % (Auto) 0.8 H Neut % (Auto) 66.5 Lymph % (Auto) 22.0 [place] % (Auto) 6.9 Eos % (Auto) 3.0 Baso % (Auto) 0.8 Lymph # (Auto) 1.1 L [place] # (Auto) 0.4 Eos # (Auto) 0.2 Baso # (Auto) 0.0 Abs Immat Gran (auto) 0.04 H Absolute Neuts (auto) 3.4 Absolute Nucleated RBC 0.000 Nucleated RBC % (auto) 0.0 ESR Anion Gap 13 Estim Creat Clear Calc 98.5 Estimated GFR > 60 Random Glucose 89 Estimat Average Glucose Hemoglobin A1c % Lactic Acid Calcium 9.9 Total Bilirubin AST ALT Alkaline Phosphatase C-Reactive Protein Total Protein Albumin Assessment and Plan (1) Cellulitis: Status: Acute Plan This is a 68-year-old male with pertinent history of congestive heart failure with preserved ejection fraction, permanent atrial fibrillation on anticoagulation, hypertension, mixed hyperlipidemia, CAD status post CABG, COPD not on home oxygen who presents to the emergency department for concerns of leg infection. #. Left leg cellulitis in a patient with stasis dermatitis: Continue IV vancomycin (start date: 01/27) as he failed outpatient p.o. antibiotics. Monitor for improvement. No sepsis. Consulted Wound Care #. Congestive heart failure with preserved EF: No decompensation during admission. On Bumex #. Mixed hyperlipidemia: On statin #. Hypertension: Continue home antihypertensives #. Permanent atrial fibrillation: Rate controlled in the ER. Continue Eliquis #. Obesity: Counseled regarding diet and exercise #. CAD: Not on antiplatelet agent. Is on high-intensity statin and beta- marcelle #. COPD: No exacerbation during admission. Continue home inhalers DVT prophylaxis: Eliquis Full code Admit as inpatient and will require two night minimum hospital stay for IV antibiotics (as above), which is not possible in a lesser acute setting. Quality Stroke Does the patient have a stroke diagnosis?: No VTE Prior VTE?: No VTE Risk Level:: Medical - moderate - high VTE Device Contraindication: Treatment Not Indicated VTE Drug Contraindication: N/A - Med Ordered
--- NOTE | 2024-01-29 09:44 | MHC.CM.PN ---
IMM DELIVERED PT LIVES ALONE. INDEPENDENT, +DRIVES. +HCP ON FILE. PCP ALEXA DIAZ DP: HOME, NO SERVICES ANTICIPATED. PT IS REQUESTING A REFERRAL TO [facility] FOR SERVICES, REFERRAL SENT. PT HAS CAR IN LOT . CM WILL CONTINUE TO FOLLOW FOR ANY CHANGE TO DC PLAN/NEEDS.
[2024-01-29 11:35] LABS: Vancomycin Random 13.5 mcg/mL (15-20)
--- NOTE | 2024-01-29 11:47 | HE.PHANOTE ---
Re: Vanco Renal function improving. Trough returned at 13.5. Continue dose as planned at 1,000 mg Q12H, predicted AUC 510, predicted trough 16.3. Next trough to be drawn 01/29 @ 1100.
[2024-01-29 14:59] VITALS: BP 146/92; PULSE 89; RESP 18; TEMP 36.4; O2SAT 93
[2024-01-29 17:30] VITALS: BP 150/87
[2024-01-29] MEDS: Melatonin 3 MG TABLET 9 MG PO (22:16)
[2024-01-30] VITALS: BP 129/80; PULSE 69; RESP 16; TEMP 36.3; O2SAT 93
[2024-01-30] MEDS: vancomycin HCL 1,000 MG in 0.9 % Sodium Chloride 250 ML 270 MG IV ×2 (00:18→12:55)
[2024-01-30 06:42] LABS: Creatinine Clr Calc Pharmacy 103.3; Estimated Glomerular Filt Rate > 60
[2024-01-30 07:38] VITALS: BP 129/75; PULSE 80; RESP 18; TEMP 36.1; O2SAT 95
[2024-01-30] MEDS: Apixaban 5 MG TABLET PO ×2 (07:55→20:45)
[2024-01-30] MEDS: Cholecalciferol (Vitamin D3) 25 MCG TABLET 50 MCG PO (07:55)
[2024-01-30] MEDS: Bumetanide 1 MG TABLET 2 MG PO ×2 (07:55→16:12)
[2024-01-30] MEDS: Metoprolol Succinate ER 100 MG TAB.ER.24H PO (07:55)
[2024-01-30] MEDS: Atorvastatin Calcium 80 MG TABLET PO (07:55)
[2024-01-30] MEDS: lisinopriL 10 MG TABLET PO (07:56)
[2024-01-30] MEDS: Acetaminophen 325 MG TABLET 975 MG PO ×2 (07:56→20:45)
[2024-01-30] MEDS: 0.9 % Sodium Chloride Flush 3 ML SYRINGE IVFLUSH ×2 (07:56→16:12)
[2024-01-30] MEDS: Colchicine 0.6 MG TABLET PO ×2 (07:56→20:45)
--- NOTE | 2024-01-30 08:52 | HO.PM.IMPN ---
Subjective Subjective Date of Service: 01/30/24 Interval History: No acute nursing events overnight. Noted improvement in lung infection but it is still red, warm and swelling present. No new complaints Constitutional Constitutional: Reports no additional constitutional complaints Cardiovascular Cardiovascular: Reports no additional cardiovascular complaints Respiratory Respiratory: Reports no additional respiratory complaints Gastrointestinal Gastrointestinal: Reports no additional gastrointestinal complaints Genitourinary Genitourinary: Reports no additional male genitourinary complaints Physical Exam Vital Signs: Vital Signs: Last Vital Signs Temp 96.9 F 01/30/24 07:38 Pulse 80 01/30/24 07:38 Resp 18 01/30/24 07:38 BP 129/75 01/30/24 07:38 Pulse Ox 95 01/30/24 07:38 O2 Del Method Room Air 01/30/24 07:38 O2 Flow Rate 2 01/30/24 00:00 BMI result Body Mass Index 43.4 Middle-aged male lying in bed in no distress Neck supple, no JVD Regular rate and rhythm, S1-S2 heard Regular breath sounds bilaterally, no wheezing or crackles appreciated Abdomen soft nontender, no guarding, no rigidity Patient is awake, alert and oriented to self, place, time and person ; no focal motor deficit Psych: Normal mood Bilateral venous stasis with stasis dermatitis ; left lower extremity with erythema, warmth Objective Data Active Medications Acetaminophen (Acetaminophen 325 Mg Tablet) 650 mg PO Q6H PRN PRN Reason: Pain, Mild (Pain Scale 1-3), fever or headache Acetaminophen (Acetaminophen 325 Mg Tablet) 975 mg PO BID [facility] Last Admin: 01/30/24 07:56 Dose: 975 mg Documented By: COTEMA Apixaban (Apixaban 5 Mg Tablet) 5 mg PO BID [facility] Last Admin: 01/30/24 07:55 Dose: 5 mg Documented By: COTEMA Atorvastatin Calcium (Atorvastatin Calcium 80 Mg Tablet) 80 mg PO DAILY [facility] Last Admin: 01/30/24 07:55 Dose: 80 mg Documented By: COTEMA Bumetanide (Bumetanide 1 Mg Tablet) 2 mg PO BIDWM [facility]; Protocol Last Admin: 01/30/24 07:55 Dose: 2 mg Documented By: COTEMA Calcium Carbonate (Calcium Carbonate 750 Mg Tab.Chew) 750 mg PO Q4H PRN PRN Reason: Heartburn Colchicine (Colchicine 0.6 Mg Tablet) 0.6 mg PO BID [facility] Last Admin: 01/30/24 07:56 Dose: 0.6 mg Documented By: FRAN Vancomycin HCl 1,000 mg/ (Sodium Chloride) 270 mls @ 270 mls/hr IV Q12H [facility] Last Infusion: 01/30/24 01:21 Dose: Infused Documented By: CHARISSA Lisinopril (Lisinopril 10 Mg Tablet) 10 mg PO DAILY [facility]; Protocol Last Admin: 01/30/24 07:56 Dose: 10 mg Documented By: FRAN Magnesium Hydroxide (Milk Of Magnesia 30 Ml Oral.Susp) 30 ml PO DAILY PRN PRN Reason: Constipation Melatonin (Melatonin 3 Mg Tablet) 9 mg PO BEDTIME PRN PRN Reason: Insomnia Last Admin: 01/29/24 22:16 Dose: 9 mg Documented By: EVELIA Metoprolol Succinate (Metoprolol Succinate Er 100 Mg Tab.Er.24h) 100 mg PO DAILY [facility]; Protocol Last Admin: 01/30/24 07:55 Dose: 100 mg Documented By: FRAN Non-Formulary Medication ([place]-3 Acid Ethyl Esters) 1 cap PO BID [facility] Ondansetron HCl (Ondansetron Hcl 4 Mg/2 Ml Vial) 4 mg IVPUSH Q8H PRN PRN Reason: Nausea and Vomiting Pharmacy Consult (Consult Rx Vancomycin Dosing) 1 each MISCELLANE DAILY PRN PRN Reason: Consult order Sodium Chloride (0.9 % Sodium Chloride Flush 3 Ml Syringe) 3 ml IVFLUSH QSHIFT [facility] Last Admin: 01/30/24 07:56 Dose: 3 ml Documented By: FRAN Vitamin D (Cholecalciferol (Vitamin D3) 25 Mcg Tablet) 50 mcg PO DAILY [facility] Last Admin: 01/30/24 07:55 Dose: 50 mcg Documented By: FRAN Labs 01/29/24 06:01 01/30/24 05:29 Labs: Laboratory Results - last 24 hr 01/29/24 01/30/24 11:07 05:29 Hold Purple Top SEE NOTE Estim Creat Clear Calc 103.3 Estimated GFR > 60 Random Vancomycin 13.5 L Assessment and Plan (1) Left leg cellulitis: Status: Acute Plan This is a 68-year-old male with pertinent history of congestive heart failure with preserved ejection fraction, permanent atrial fibrillation on anticoagulation, hypertension, mixed hyperlipidemia, CAD status post CABG, COPD not on home oxygen who presents to the emergency department for concerns of leg infection. #. Left leg cellulitis in a patient with stasis dermatitis: Continue IV vancomycin (start date: 01/27) as he failed outpatient p.o. antibiotics. Monitor for improvement. No sepsis. Consulted Wound Care. Continue IV antibiotics for 1 more day and may transition to p.o. doxycycline in am pending clinical improvement #. Congestive heart failure with preserved EF: No decompensation during admission. On Bumex #. Mixed hyperlipidemia: On statin #. Hypertension: Continue home antihypertensives #. Permanent atrial fibrillation: Rate controlled in the ER. Continue Eliquis #. Obesity: Counseled regarding diet and exercise #. CAD: Not on antiplatelet agent. Is on high-intensity statin and beta-marcelle #. COPD: No exacerbation during admission. Continue home inhalers DVT prophylaxis: Eliquis Full code Reason for continued hospitalization: IV antibiotics. Anticipate discharge tomorrow with p.o. doxycycline Quality Stroke Does the patient have a stroke diagnosis?: No VTE Prior VTE?: No VTE Risk Level:: Medical - moderate - high VTE Device Contraindication: Treatment Not Indicated VTE Drug Contraindication: N/A - Med Ordered
[2024-01-30 11:24] LABS: Vancomycin Random 15.2 mcg/mL (15-20)
--- NOTE | 2024-01-30 11:41 | HE.PHANOTE ---
RE: VANCO DOSING Trough came back as 15.2. Continue with dose of 1000 mg q12h, next random is scheduled for 01/31/24 @1100.
--- NOTE | 2024-01-30 12:08 | MHC.CM.PN ---
EMR REVIEWED AND PER MD ROUNDS, PT IS NOT MEDICALLY CLEARED FOR DC (IV ABT) POSSIBLE DC TOMORROW WITH P.O. ABT. CM WILL CONTINUE TO FOLLOW FOR ANY CHANGE TO DC PLAN/NEEDS.
--- NOTE | 2024-01-30 12:46 | HO.WOUND ---
Wound Consult: Initial 68yr old?Male admitted to [facility] on 01/28/24 - See progress notes and H&P for detailed history.? Wound consult placed for LLE wound.? Patient agreeable to assessment and photo documentation.? Patient reports he has chronic lower leg edema and venous dermatitis (discoloration). He was unsure if he would follow up with the out pt wound clinic we discussed the benefits of Left Lower Leg Etiology: ?Venous wound and Venous dermatitis Chronic Wound Bed: scattered areas of dry partial thckness tissue loss Drainage / Odor: Yellow scant - no odor Edges: ? irergular Donna wound: Firm edema, red erythema, hemosiderin staining - ? No Induration, Fluctuance noted Pain: Tender to touch Goals of Treatment: ? Elevate lower legs - xeroform for moist wound healing. Recommendations: 1. Left Lower Leg - Elevate lower legs off of surface of bed with use of pillows.? Cleanse with NS, Pat dry.? Apply vaseline to both legs, apply layer of Xeroform to open wound beds secure with ABD pad, gauze wrap and tape.? Change Daily. Consider Vascular and outpt wound care clinic follow up. Re-consult wound care Nurse for wound deterioration or wound changes.
[2024-01-30 15:16] VITALS: BP 143/86; PULSE 81; RESP 18; TEMP 36.3; O2SAT 92
[2024-01-30 19:09] VITALS: BP 140/81; RESP 16; TEMP 36.1; O2SAT 93
[2024-01-30] MEDS: Melatonin 3 MG TABLET 9 MG PO (21:44)
[2024-01-30 23:34] VITALS: BP 140/88; PULSE 57; RESP 16; TEMP 36; O2SAT 95
[2024-01-31] MEDS: vancomycin HCL 1,000 MG in 0.9 % Sodium Chloride 250 ML 270 MG IV (00:49)
[2024-01-31] MEDS: 0.9 % Sodium Chloride Flush 3 ML SYRINGE IVFLUSH ×2 (00:53→08:03)
[2024-01-31 06:41] LABS: Creatinine Clr Calc Pharmacy 90.3; Estimated Glomerular Filt Rate > 60
[2024-01-31 07:34] VITALS: BP 144/85; PULSE 72; RESP 18; TEMP 36; O2SAT 93
[2024-01-31 08:03] VITALS: BP 144/85
[2024-01-31] MEDS: lisinopriL 10 MG TABLET PO (08:03)
[2024-01-31 08:04] VITALS: BP 144/85
[2024-01-31] MEDS: Bumetanide 1 MG TABLET 2 MG PO (08:04)
[2024-01-31] MEDS: Colchicine 0.6 MG TABLET PO (08:04)
[2024-01-31] MEDS: Acetaminophen 325 MG TABLET 975 MG PO (08:04)
[2024-01-31 08:05] VITALS: BP 144/85
[2024-01-31] MEDS: Apixaban 5 MG TABLET PO (08:05)
[2024-01-31] MEDS: Metoprolol Succinate ER 100 MG TAB.ER.24H PO (08:05)
[2024-01-31] MEDS: Atorvastatin Calcium 80 MG TABLET PO (08:05)
[2024-01-31] MEDS: Cholecalciferol (Vitamin D3) 25 MCG TABLET 50 MCG PO (08:05)
[2024-01-31 11:25] LABS: Vancomycin Random 16.3 mcg/mL (15-20)
--- NOTE | 2024-01-31 11:44 | HE.PHANOTE ---
RE [facility] Patients level came back this morning at 16.3. Scr did jump from 1.04 yesterday to 1.19 today, decreased dose to 750 Q12H. Next level to be pulled tomorrow 01/31 @1100
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
--- NOTE | 2024-01-31 12:24 | P.F2F_ITS ---
Service Date Service Date: 01/31/24 Encounter Date of encounter: 01/31/24 Encounter: Acute hospitalization Reasons for Services Signs and symptoms assessed: Left lower extremity cellulitis with dressing changes Reason for penitentiary: wound care and medication management Homebound: Leaving the home is medically contraindicated at this time without the asist of a device and/or another person due th the listed conditions above and below. Reason homebound: unsteady gait / fall risk and pain with ambulation Certification: Based on the above findings, I certify that this patient is confined to the home and needs intermittent penitentiary care, physical therapy and/or speech therapy, or continues to need occupational therapy. The patient is under my care, and I have initiated the establishment of the plan of care. The patient will be followed by a physician who will periodically review the plan of care. Time Spent With Patient Time: Total time managing care of this patient today ____ minutes.
[2024-01-31] MEDS: vancomycin HCL 750 MG in 0.9 % Sodium Chloride 250 ML 265 MG IV (12:32)
--- NOTE | 2024-01-31 13:34 | MHC.CM.PN ---
Addendum entered by Lorraine Pelayo RN 01/31/24 15:08: [facility] has accepted patient. CM called to inform patient. Original Note: Patient medically cleared for dc home. Will f/u outpatient w/ wound clinic. MD initially ordered VNA for wound care. However, no accepting VNA at this time w/ 8 referrals out. Patient does not wish to wait for an accepting VNA. States family member will assist w/ dressing changes. RN to teach patient and send home w/ supplies. MD aware and agreeable to plan. Patient's car is in [facility] lot and will transport self home.
--- NOTE | 2024-01-31 15:36 | PC.NURSE ---
Pt instructed on wound care to LLE , pt sent home with supplies
== END 2024-01-31 14:13 | disposition home health service (06) | DRG 603 ==
LOC: HO.ED 11:30 → HO.EDOVER 14:49 → HO.S3 19:35
PROVIDERS: Physician Assistant Medical; Admitting Provider Student in an Organized Health Care Education/Training Program; Emergency Provider Emergency Medicine; PCP Nurse Practitioner Family; Visit Provider Hospitalist
DX: L03.116 Cellulitis of left lower limb (principal); I50.32 Chronic diastolic (congestive) heart failure; I48.21 Permanent atrial fibrillation; Z68.41 Body mass index [BMI] 40.0-44.9, adult; E66.9 Obesity, unspecified; J44.9 Chronic obstructive pulmonary disease, unspecified; I87.2 Venous insufficiency (chronic) (peripheral); E78.2 Mixed hyperlipidemia; I11.0 Hypertensive heart disease with heart failure; I25.10 Atherosclerotic heart disease of native coronary artery without angina pectoris; G47.33 Obstructive sleep apnea (adult) (pediatric); Z95.1 Presence of aortocoronary bypass graft; Z87.891 Personal history of nicotine dependence; Z79.01 Long term (current) use of anticoagulants; Z79.899 Other long term (current) drug therapy
CPT/HCPCS: 36415; 73590; 80048; 80053; 80202; 82565; 83036; 83605; 85025; 85652; 86140; 99285; J2543; J3370

== ENCOUNTER → 2024-01-28 14:42 | Outpatient (BNV) | payer MEDICARE, SELFPAY | PROVIDERS: Admitting Provider Student in an Organized Health Care Education/Training Program; Emergency Provider Emergency Medicine; PCP Nurse Practitioner Family; Visit Provider Student in an Organized Health Care Education/Training Program | DX: L03.116 Cellulitis of left lower limb (principal) | CPT/HCPCS: 99222; 99232; 99239; G0180 ==

== ENCOUNTER 2024-06-14 09:05 | Outpatient (REF) | payer MEDICARE, SELFPAY | END 2024-06-14 09:06 | disposition home or self-care (01) | LOC: HO.CT 09:05 | PROVIDERS: PCP Nurse Practitioner Family; Visit Provider Internal Medicine Pulmonary Disease | DX: Z12.2 Encounter for screening for malignant neoplasm of respiratory organs (principal); F17.210 Nicotine dependence, cigarettes, uncomplicated | CPT/HCPCS: 71271 ==

== ENCOUNTER → 2024-06-14 09:09 | Outpatient (BNV) | payer MEDICARE, SELFPAY | PROVIDERS: PCP Nurse Practitioner Family; Visit Provider Radiology Diagnostic Radiology | DX: R91.1 Solitary pulmonary nodule (principal); J43.9 Emphysema, unspecified; I51.7 Cardiomegaly | CPT/HCPCS: 71271 ==

== ENCOUNTER 2024-08-21 07:26 | Outpatient (REF) | payer MEDICARE, SELFPAY ==
[2024-08-21 11:33] LABS: Appearance Urine Clear; Color Urine Yellow; Glucose Urine UA Negative (Negative); Leukocyte Esterase Urine Negative (Negative); Nitrite Urine Negative (Negative); PH 6.5 (5.0-9.0); Specific Gravity - Urine <= 1.005 (1.005-1.025); UMIC TRIGGER UACC YES; Urine Blood Negative (Negative); Urine Ketones Negative (Negative); Urine Protein 30 (1+) mg/dL (Neg-Trace)
[2024-08-21 11:40] LABS: Bacteria Urine None Seen (None Seen); Hyaline Casts Urine 0-2 /LPF (0-2); RBC Urine 0-2 /HPF (0-2); Squamous Epithelial Cell Urine 0-2 /HPF (0-2); WBC Urine 0-5 /HPF (0-5)
[2024-08-21 11:56] LABS: MANUAL DIFF FLAG NO
[2024-08-21 12:00] LABS: Basophils Percent Auto 0.8 % (0-2); Eosinophils Absolute Auto 0.1 X10*3/uL (0.0-0.4); Eosinophils Percent Auto 1.9 % (0-4); Hematocrit 48.5 % (42.0-52.0); Hemoglobin 15.8 g/dl (14.0-18.0); Imm Gran Abs Auto 0.02 X10*3/uL (0.00-0.03); Imm Gran Pct Auto 0.4 % (0.0-0.4); Lymphocytes Absolute Auto 0.9 X10*3/uL (1.2-4.9); Mean Corpuscular HGB Conc 32.6 g/dl (31.0-36.0); Mean Corpuscular Hemoglobin 28.7 pg (27.0-33.0); Mean Platelet Volume 9.9 fL (9.4-12.4); Monocytes Absolute Auto 0.4 X10*3/uL (0.1-1.2); Monocytes Percent Auto 6.8 % (2-11); Neutrophils Absolute Auto 3.7 x10*3/uL (2.0-8.3); Neutrophils Percent Auto 72.1 % (45-73); Platelet Count 220 X10*3/uL (160-400); Red Blood Count 5.51 X10*6/uL (4.60-5.80); White Blood Count 5.2 X10*3/uL (4.8-10.8)
[2024-08-21 12:16] LABS: Alanine Aminotransferase 12 U/L (0-40); Albumin Level 4.1 g/dL (3.5-5.0); Alkaline Phosphatase 47 U/L (39-117); Anion Gap 14 (12-20); Aspartate Amino Transferase 25 U/L (5-37); Blood Urea Nitrogen 25 mg/dL (9-16); Calcium 9.5 mg/dL (8.4-10.2); Carbon Dioxide 29 mmol/L (22-29); Chloride 101 mmol/L (96-108); Estimated Glomerular Filt Rate > 60; Glucose Random 88 mg/dL (60-115); Iron 49 mcg/dL (45-160); Percent Iron Saturation 18 % (15-50); Potassium 4.1 mmol/L (3.3-5.1); Sodium 140 mmol/L (135-145); Total Iron Binding Capacity 275 mcg/dL (228-428); Total Protein 7.6 g/dL (6.5-8.0); Unsaturated Iron Binding 226 ug/dL
[2024-08-21 12:36] LABS: Ferritin 24 ng/mL (20-250); TSH reflex Free T4 1.79 uIU/mL (0.32-4.0)
[2024-08-21 12:42] LABS: Folate 7.9 ng/mL (> or = 4.0); Vitamin B12 370 pg/mL (200-900)
== END 2024-08-21 07:27 | disposition home or self-care (01) ==
LOC: HO.HMGCLDS 07:26
PROVIDERS: PCP Nurse Practitioner Family; Visit Provider Nurse Practitioner Family
DX: D64.9 Anemia, unspecified (principal)
CPT/HCPCS: 36415; 80053; 81001; 82607; 82728; 82746; 83540; 84443; 85025

== ENCOUNTER 2024-08-24 08:02 | Outpatient (AMB) | payer MEDICARE, SELFPAY ==
[2024-08-24 08:06] VITALS: BP 110/70; PULSE 87; RESP 18; TEMP 37.1; O2SAT 94; BMI 40.0
--- NOTE | 2024-08-24 08:06 | A.OFFPC_ITS ---
Vital Signs 08/24/24 08:06 Height 6 ft Weight 295 lb BMI 40.0 BP 110/70 Blood Pressure Location Lt brachial Position Sitting Respiration 18 Pulse 87 Pulse Source Pulse Oximeter Temp 98.7 F Temp Source Oral Pulse Oximetry (%) 94 Oxygen Delivery Method Room Air Intake Visit Reasons: PE Intake Note: pt is here for PE Order Picker Required: No Accompanied by: Self / Same As Patient Allergies No Known Allergies [No Known Allergies*] Allergy (Verified 08/24/24 08:47) Medication List - Last Reconciled 08/24/24 by LISBETH Barnes- acetaminophen 1,000 mg PO BID apixaban (Eliquis) 5 mg PO BID atorvastatin 80 mg PO DAILY bumetanide 2 mg PO BID 30 days cane cane with rubber dony cephalexin 500 mg PO BID 10 days cholecalciferol (vitamin D3) 50 mcg PO DAILY 90 days colchicine 0.6 mg PO BID lisinopril 10 mg PO DAILY metoprolol succinate ER 100 mg PO DAILY omega-3 acid ethyl esters 1 cap PO BID Tobacco use date assessed: 08/24/24 Fall risk assessment: No Falls in past year Last assessed Fall Risk: 08/24/24 Dental Screening Dental Screen Date: 08/24/24 Did you have a dental visit in the last 12 months?: Yes Did you have a dental problem in the last 6 months where you did not have access to dental care?: No Was dental information given to patient?: Patient has dentist HPI PE HPI Details History of Present Illness The patient is a 69-year-old male presenting with dermatological issues, specifically cystic acne and hidradenitis suppurativa (HS). He has a history of HS characterized by cysts on the posterior aspect of his head and neck and num erous open pores beneath the bilateral breasts with faint redness. The patient has experienced persistent issues with these skin conditions, leading to a referral to dermatology for further management. To date, he has been on treatment regimens including cephalexin and doxycycline. His symptoms have persisted despite these interventions, necessitating further evaluation. Additionally, the patient is experiencing right-sided serous otitis media, which appears to be a recurring issue mentioned during the visit. Health Maintenance - Annual low-dose CT scan of lungs, with last completed in May 2024. - PSA screening due next month. - Patient refuses colon cancer screening including colonoscopy and Cologuard. Social History Review of Systems - Cardiovascular: Denies chest pain. - Respiratory: Denies increased shortnes s of breath. - Constitutional: Denies fears, chills. - Gastrointestinal: Denies blood in stoo l, constipation, diarrhea, stool evacuation issues. Physical Exam General: Cooperative, healthy appearing, comfortable, no acute distress and well developed, though he is losing weight and still morbidly obese Orientation: Patient oriented x3 Limitations: No limitations Head: Normal to inspection w ithcysts noted to the posterior aspect of his head/neck Ears: Right serous otitis media Nose: Normal external nose present Face and sinus: Normal facial exam Eyes: Appearance normal, both eyes and all related structures Neck: Normal visual inspection with some cysts noted and Yes full ROM Respiratory: scattered wheezes, moving air slightly diminished Cardiovascular: Irregularly irregular heart rhythm. Normal S1 and S2 GI: Normal to inspection. Soft to palpation and nontender Skin: Brawny edema to bilateral lower extremities, quite a few large open comedones underneath bilaterally breast/posterior head. Faint erythema under bilat breasts Neuro: Patient oriented x3 Extremities: Brawny edema to bilateral lower extremities Results Plan - Restart patient on cephalexin and doxy cycline for management of hidradenitis suppurativa and cystic acne. - Arrange follow-up with dermatology for further evaluation and management of skin conditions. - Monitor heart rhythm for irregularitie s; consider referral to cardiology if indicated. - Address serous otitis media; initiate treatment as needed. - Continue annual low-dose CT scans for lung evaluation and schedule PSA screening. - Discuss alternative colon cancer scree ashtyn options due to refusal of colonoscopy and Cologuard. Patient was informed and verbally consented to the use of an ambient scribe for clinic note documentation during this visit. Discussion Notes During the visit, I reviewed the patient's ongoing issues with cystic acne and hidradenitis suppurativa. I explained the importance of restarting antibiotics to manage the flare-ups of these conditions. We discussed the presence of right- sided serous otitis media and emphasized the need for ongoing monitoring. The patient's cardiological and respiratory status, including weight loss and existing edema, were also addressed. I discussed upcoming screenings, noting the patient's refusal of colon cancer screening and encouraging consideration of other options. Patient Instructions - Begin taking prescribed cephalexin and doxycycline as directed. - Attend dermatology appointment for fur ther evaluation. - Notify care provider if experiencing i ncreased swelling, breathing difficulties, or new symptoms. - Continue with planned screenings: PSA next month and lung CT annually. - Consider alternative options for colon cancer screening. [facility] Medical History CAD (coronary artery disease) (HFpEF) heart failure with preserved ejection fraction Chronic atrial fibrillation HTN (hypertension) Metabolic syndrome MAURICE (obstructive sleep apnea) COPD (chronic obstructive pulmonary disease) Nicotine dependence, cigarettes, uncomplicated Enlarged thoracic aorta Gout Morbid obesity Surgical History S/P CABG x 4 Status post debridement (~05/24/21) H/O umbilical hernia repair Family History Father CHF (congestive heart failure) CVD (cardiovascular disease) Substance use disorder Gout Mother CHF (congestive heart failure) CVD (cardiovascular disease) Diabetes mellitus Brother No problems noted. Brother No problems noted. Sister No problems noted. Son No problems noted. 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 1. Little interest or pleasure in doing things: not at all 2. Feeling down, depressed, or hopeless: not at all 3. Trouble falling or staying asleep, or sleeping too much: nearly every day 4. Feeling tired or having little energy: nearly every day 5. Poor appetite or overeating: not at all 6. Feeling bad about yourself - or that you are a failure or have let yourself or your family down: not at all 7. Trouble concentrating on things, such as reading the newspaper or watching television: not at all 8. Moving or speaking so slowly that other people could have noticed. Or the opposite - being so fidgety or restless that you have been moving around a lot more than usual: not at all 9. Thoughts that you would be better off or of hurting yourself in some way: not at all Total score: 6 Depression Screening Interpretation: Negative Depression Screening Done: Yes 36768 - PHQ-9 Billing: Yes Source: Developed by Drs. Jose Angel Centeno, Mariajose Silver, Trey Li and colleagues, with an educational srinivas from [employer]. Thrive Questionnaire Date Thrive assessed: 08/24/24 I am a: Patient What is your living situation today?: I have a steady place to live Within the past 12 months, did the food you bought not last and you didn't have the money to get more?: Often true Within the past 12 months, did you worry whether your food would run out before you got money to buy more?: Sometimes True Do you have trouble paying for medicines?: No Do you have trouble getting transportation to medical appointments?: No Do you have trouble paying your heating and electricity bill?: Yes Do you have trouble taking care of your child, family member or friend?: No Do you have trouble with day-to-day activities such as bathing, preparing meals, shopping, managing finances, etc.?: Yes Are you currently unemployed and looking for a job?: No Are you interested in more education?: No Please select the resources that you would like help with: None Currently or been in a relationship where the following occur: I choose not to answer THRIVE Score: 3 AUDIT C Alcohol Use Questionnaire (AUDIT-C) 1. How often do you have a drink containing alcohol?: Never 3. How often do you have six or more drinks on one occasion?: Never Total Score: 0 Score Reviewed/Action Taken: Yes NINA-7 AMB Questionnaire NINA-7 Date NINA - 7 assessed: 08/24/24 Feeling nervous, anxious, or on edge: 2 = More than half the days Not being able to stop or control worryin = Not at all Worrying too much about different things: 0 = Not at all Trouble relaxin = Not at all Being so restless that it is hard to sit still: 0 = Not at all Becoming easily annoyed or irritable: 0 = Not at all Feeling afraid as if something awful might happen: 0 = Not at all Total NINA-7 score (0-4 normal; 5-9 mild; 10-14 moderate; 15-21 severe): 2 Source: Developed by Drs. Jose Angel Centeno, Mariajose Silver, Trey Li and colleagues, with an educational srinivas from [employer]. NINA-7 Assessment Billing NINA-7 Assessment Tool: NINA-7 Assessment 98459 Physical exam (Primary Care) Vital Signs: Last Vital Signs Temp 98.7 F 08/24/24 08:06 Pulse 87 08/24/24 08:06 Resp 18 08/24/24 08:06 BP 110/70 08/24/24 08:06 Pulse Ox 94 08/24/24 08:06 Oxygen Delivery Method Room Air 08/24/24 08:06 BMI result Body Mass Index 40.0 Tobacco/Smoking Status: Tobacco use Status Tobacco use date assessed 08/24/24 08/24/24 08:07 Patient Tobacco Use Status Former Tobacco user 08/24/24 08:07 e-Cigarette/Vaping Use Never Used 08/24/24 08:07 PHQ-9: PHQ-9 Score PHQ-9: Total score 6 08/24/24 08:24 Depression Screening Interpretation: Negative Thrive Assessment: Date of Thrive Assessment Date Thrive assessed 08/24/24 08/24/24 08:07 Currently or been in a relationship where the following occur: I choose not to answer Immunizations pneumoc 20-tiffany conj-dip cr(PF) 0.5 mL IM syringe Performing Provider: MAAME Barnes Performing Location: [facility] Administered by: Nick Beckford CMA on 08/24/24 08:47 Dose Route Admin Location Dispensed Lot Number Expiration Date [facility] Track Hoe Operator 0.5 mL IM Right Deltoid 0.5 mL [id number] 08/09/25 3336-7673-30 WYETH/PFIZER VIS Given Date VIS Provided VIS Publication Date 08/24/24 Single Vaccine 21 Eligibility Eligibility Date Funding Source Not [facility] Eligible 08/24/24 Private Coding Level of Care Code Est Pt Prev Care >65y(45913) Diagnoses Screening for prostate cancer Z12.5 Cystic acne L70.0 Hidradenitis suppurativa L73.2 Encounter for routine adult physical exam with abnormal findings Z00.01 Additional Codes NINA-7 Assessment Billing - NINA-7 Assessment Tool: NINA-7 Assessment 87046 ([id number]) PHQ-9 - 54935 - PHQ-9 Billing: Yes ([id number]) Assessment & Plan Assessment & Plan (1) Screening for prostate cancer: Code(s): Z12.5 - Encounter for screening for malignant neoplasm of prostate Category: Medical (2) Cystic acne: Code(s): L70.0 - Acne vulgaris Category: Medical (3) Hidradenitis suppurativa: Code(s): L73.2 - Hidradenitis suppurativa Category: Medical (4) Encounter for routine adult physical exam with abnormal findings: Code(s): Z00.01 - Encounter for general adult medical examination with abnormal findings Category: Medical Plan . Orders: Orders Pneumococcal 20 Immunization Today Z23 - Encounter for immunization Prostate Specific Antigen Scr Today Z12.5 - Encounter for screening for malignant neoplasm of prostate Referrals Dermatology Referral L70.0 - Acne vulgaris, L73.2 - Hidradenitis suppurativa Medications: New cephalexin 500 mg PO BID 10 days 20 caps 3RF clotrimazole-betamethasone 1-0.05 % 1 appl topical BID 2 weeks 45 grams 0RF doxycycline hyclate 100 mg PO BID 10 days 20 tabs 0RF prednisone 40 mg (2 x 20 mg) PO DAILY 5 days 10 tabs 0RF
== END 2024-08-24 08:52 | disposition home or self-care (01) ==
PROVIDERS: PCP Nurse Practitioner Family; Visit Provider Nurse Practitioner Family
DX: Z12.5 Encounter for screening for malignant neoplasm of prostate (principal); L70.0 Acne vulgaris; L73.2 Hidradenitis suppurativa; Z00.01 Encounter for general adult medical examination with abnormal findings; Z23 Encounter for immunization

== ENCOUNTER → 2024-08-24 08:02 | Outpatient (BNVA) | payer MEDICARE, SELFPAY | PROVIDERS: PCP Nurse Practitioner Family; Visit Provider Nurse Practitioner Family | DX: Z00.01 Encounter for general adult medical examination with abnormal findings (principal); Z23 Encounter for immunization; L70.0 Acne vulgaris | CPT/HCPCS: 90471; 90677; 96127; 99397 ==

== ENCOUNTER 2025-02-22 09:53 | Outpatient (AMB) | payer MEDICARE, SELFPAY ==
[2025-02-22 09:55] VITALS: BP 122/78; PULSE 85; BMI 40.4
--- NOTE | 2025-02-22 09:55 | MHC.OFFVIS ---
Vital Signs 02/22/25 09:55 Height 6 ft Weight 297 lb 9.985 oz BMI 40.4 BP 122/78 Blood Pressure Location Lt brachial Position Sitting Pulse 85 Intake Visit Reasons: r/s 11/30/24 1 yr followup w/ekg Intake Note: 1 year follow-up with ekg around 01/09 had heart racing in the middle of the night Caregivers Homecare Required: No Allergies No Known Allergies (No Known Allergies*) Allergy (Verified 08/24/24 08:47) Medication List - Last Reconciled 02/22/25 by Jose Parada MD acetaminophen 1,000 mg PO BID apixaban (Eliquis) 5 mg PO BID atorvastatin 80 mg PO DAILY bumetanide 2 mg PO BID 30 days cane cane with rubber dony cholecalciferol (vitamin D3) 50 mcg PO DAILY 90 days clotrimazole-betamethasone 1-0.05 % 1 appl topical BID 2 weeks colchicine 0.6 mg PO BID lisinopril 10 mg PO DAILY metoprolol succinate ER 100 mg PO DAILY omega-3 acid ethyl esters 1 cap PO BID HPI Comments Details: Curtis comes for follow-up. He has most recently started walking around the neighborhood and can walk up to 2 miles although with breaks. He said he does continue to have exertional shortness of breath especially when he is rushing. Denies any clear orthopnea, PND. Has intermittent increased leg swelling unilaterally. Does not weigh himself on a regular basis although overall he has lost some weight over the last year. He denies any prolonged palpitation irregular heartbeat. He denies any lightheadedness, syncope. No exertional chest pain. [facility] Medical History CAD (coronary artery disease) (HFpEF) heart failure with preserved ejection fraction Chronic atrial fibrillation HTN (hypertension) Metabolic syndrome MAURICE (obstructive sleep apnea) COPD (chronic obstructive pulmonary disease) Nicotine dependence, cigarettes, uncomplicated Enlarged thoracic aorta Gout Morbid obesity Surgical History S/P CABG x 4 Status post debridement (~05/24/21) H/O umbilical hernia repair Family History Father CHF (congestive heart failure) CVD (cardiovascular disease) Substance use disorder Gout Mother CHF (congestive heart failure) CVD (cardiovascular disease) Diabetes mellitus Brother No problems noted. Brother No problems noted. Sister No problems noted. Son No problems noted. 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 [employer] Cognitive needs: No Hearing needs: No Vision needs: No Review of Systems Const Denies chills, Denies fatigue, Denies fever(s), Denies frequent falls, Denies weakness, Denies weight gain and Denies weight loss ENT Denies dizziness Card Denies chest pain, Denies leg edema, Denies lightheadedness, Denies palpitations, Denies dyspnea, Denies dyspnea on exertion, Denies orthopnea and Denies other (loss of consciousness) Resp Denies cough, Denies dyspnea and Denies dyspnea on exertion GI Denies hematochezia and Denies change in stool character Musc Denies abnormal gait, Denies muscle weakness, Denies numbness, Denies radiating pain into limb and Denies tingling Neuro Denies abnormal gait, Denies dizziness, Denies frequent falls, Denies numbness, Denies tingling and Denies weakness Endo Denies fatigue and Denies palpitations Physical Exam Vital Signs: Last Vital Signs Pulse 85 02/22/25 09:55 BP 122/78 02/22/25 09:55 BMI result Body Mass Index 40.4 Const General: cooperative, comfortable and no acute distress Orientation/consciousness: patient oriented x3 Neck Neck: Yes normal visual inspection and Yes no JVD Resp Effort & Inspection: normal respiratory effort Auscultation: clear to auscultation bilaterally, no crackles, no rales, no rhonchi, wheezes expiratory wheezes, left lower and right lower and diminished lung sounds Cardio Jugular venous distension: no JVD Rhythm: abnormal rhythm irregularly irregular Heart sounds: S1 normal heart sound present, S2 normal heart sound present, no click, no gallops and no murmurs GI Other: Gross abdominal obesity Neuro General: patient oriented x3 Extrem General: No clubbing, No cyanosis, No edema and Yes venous stasis dermatitis Psych Appearance: grossly normal Mental Status: mental status grossly normal Speech and movement: Normal speech and movement present Office Procedures EKG Details: EKG shows atrial fibrillation with incomplete right bundle-branch block with possible right ventricular hypertrophy [id number], Complete Assessment & Plan Assessment & Plan (1) CAD (coronary artery disease): Comment: (HX CABG 2003) Code(s): I25.10 - Atherosclerotic heart disease of [place] coronary artery without angina pectoris Category: Medical Plan: CAD with remote coronary artery bypass grafting with myocardial perfusion imaging couple years ago within normal limits. Patient has no recurrent symptoms suggestive of angina. Patient does have exertional shortness of breath which is probably multifactorial and see below. Continue aggressive medical therapy. Currently on full oral anticoagulation Eliquis and therefore would avoid aspirin therapy to reduce bleeding risk. He would continue high-intensity statin therapy with target goal LDL less than 60 mg/dL. Annual check for lipids he is recommended. Continue aggressive blood pressure control which is currently well optimized. Importance of good blood pressure control was discussed. He is encouraged to continue to participate in physical activity as tolerated. Advised to call me with any symptoms suggestive of angina. Can consider adding in GLP 1 antagonist to help him with weight loss. (2) (HFpEF) heart failure with preserved ejection fraction: Code(s): I50.30 - Unspecified diastolic (congestive) heart failure Category: Medical Plan: Heart failure preserved ejection fraction with as well underlying COPD which contributes says exertional shortness of breath. Also possibly shortness of breath contributed by his obesity as well as sedentary lifestyle. I discussed with him about improving his aerobic exercise capacity gradually. Clinically appears to be euvolemic well compensated. Continue current bumetanide dose. Importance of daily weight monitoring avoidance salt loading was discussed. Additional bumetanide as need be. Can consider adding Jardiance 10 mg to his regimen to improve his fluid status. (3) Chronic atrial fibrillation: Code(s): I48.20 - Chronic atrial fibrillation, unspecified Category: Medical Plan: Chronic rate control atrial fibrillation, continue current metoprolol therapy. Importance of good metoprolol was discussed. No symptoms related to it. Continue full oral anticoagulation, currently on Eliquis 5 mg b.i.d.. Will update echocardiogram in 1 year's time. (4) Enlarged thoracic aorta: Code(s): I77.89 - Other specified disorders of arteries and arterioles Category: Medical Plan: Mildly enlarged thoracic aorta. Continue aggressive vascular risk factor modification as 1. Will follow up in the clinic in 1 year's time, sooner p.r.n.. Thank you for allowing me to partake in his care Coding Level of Care Code Est Pt Level 4 (53683) Complex EM visit Add On G2211 Diagnoses CAD (coronary artery disease) I25.10 (HFpEF) heart failure with preserved ejection fraction I50.30 Chronic atrial fibrillation I48.20 Enlarged thoracic aorta I77.89 CPT Codes EKG - CPT: 88990-Gqallfqupeztoleut, Complete ([id number])
--- OUTSIDE RECORDS SUMMARY | 2025-02-22 10:20 | XMS_ITS | Patient Health Record ---
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 Name Role Phone ALEXA SANFORD Primary Care Provider Jose Angel Madison Unavailable [phone] Reason For Referral No Information Medications Medication SIG (Take, Route, Fr equency, Duration) Notes Start Date End Date Status Aspir-81 Active Eliquis Active Lisinopril Active Atorvastatin Calcium Active Furosemide Active Metoprolol Tartrate Active Vitamin D-3 Active [place] 3 Active Problems Problem Type SNOMED Code ICD Code Onset Dates Problem Status W/U Status Risk Notes Problem [id number] Encounter for screening for malignant neoplasm of colon (Z12.11) Active confirmed Problem Encounter for screening for malignant neoplasm of rectum (Z12.12) Active confirmed Problem [id number] Preprocedural examination (Z01.818) Active confirmed Plan Of Treatment Future Test Test Name Order Date COLONOSCOPY 08/06/2016 Insurance Providers Payer Name Payer Address Payer Phone Subscriber Number Group Number Insured Name Patient Relationship to Insured Coverage Start Date Coverage End Date [facility] [address] [place] [phone] [id number] CLARENCE LOCK Self - patient is the insured Medical (General) History Medical History History ICD Code COPD Hypertension Hypercholesterolemia CAD---4-V CABG 2003 Sleep apnea--waiting for a sleep study f or confirmation--09/2016 at [place] Denies SC,DM,CVA,renal disease A.fib Cellulitis Surgical History Surgery Date(Month/Year) 4-V CABG 2003 Umbilical hernia
== END 2025-02-22 10:17 | disposition home or self-care (01) ==
LOC: HO.HCS 09:53
PROVIDERS: PCP Nurse Practitioner Family; Visit Provider Internal Medicine Cardiovascular Disease
DX: I25.10 Atherosclerotic heart disease of native coronary artery without angina pectoris (principal); I50.30 Unspecified diastolic (congestive) heart failure; I48.20 Chronic atrial fibrillation, unspecified; I77.89 Other specified disorders of arteries and arterioles
CPT/HCPCS: 93010; 99214; G2211

== ENCOUNTER → 2025-02-22 09:53 | Outpatient (BNVA) | payer MEDICARE, SELFPAY | PROVIDERS: PCP Nurse Practitioner Family; Visit Provider Internal Medicine Cardiovascular Disease | DX: I25.10 Atherosclerotic heart disease of native coronary artery without angina pectoris (principal); I50.30 Unspecified diastolic (congestive) heart failure; I48.20 Chronic atrial fibrillation, unspecified; I77.89 Other specified disorders of arteries and arterioles | CPT/HCPCS: 93005; 99212 ==